=== PATIENT | male | born 1980 | race African-American/Black ===

== ENCOUNTER 2016-06-21 08:12 | Day surgery (SDC) | payer MEDICAID ==
[2016-06-18 11:51] LABS: HEMATOCRIT 33.1 % (37.9-51.0); HEMOGLOBIN 11.1 g/dL (13.5-17.0); HGB HCT DIFFERENCE 0.2; MEAN CORPUSCULAR HEMOGLOBIN 27.1 pg (27.0-33.4); MEAN CORPUSCULAR HGB CONC 33.6 g/dL (32.0-36.0); MEAN CORPUSCULAR VOLUME 81 fl (80-97); RED CELL DISTRIBUTION WIDTH 13.5 % (11.5-14.0); WHITE BLOOD COUNT 7.6 10^3/uL (4.0-10.5)
[2016-06-18 12:27] LABS: ANION GAP 11 (5-19); BLOOD UREA NITROGEN 58 mg/dL (7-20); CALCIUM 9.4 mg/dL (8.4-10.2); CARBON DIOXIDE 23 mmol/L (22-30); CHLORIDE 106 mmol/L (98-107); CREATININE RESULT 4.04 mg/dL (0.52-1.25); GLUCOSE 185 mg/dL (75-110); POTASSIUM 4.6 mmol/L (3.6-5.0)
--- NOTE | 2016-06-18 16:03 | EKG REPORT ---
SEVERITY:- ABNORMAL ECG - SINUS RHYTHM BORDERLINE INFERIOR Q WAVES NONSPECIFIC T ABNORMALITIES, LATERAL LEADS : Confirmed by: Domingo Lawrence 18-Jun-2016 16:02:52
[~2016-06-21 08:12] MED LIST: BACITRACIN INJ 50,000 UNIT VIAL ONE; BUPIVACAINE HCL 0.25 % INJ/PF (2.5 MG/1 ML) 30 ML VIAL ONE; CEFAZOLIN SODIUM 1 GM in DEXTROSE 5%-WATER 50 ML IV PRN; HEPARIN SOD (PORCINE) 1,000 UNIT/ML 10 ML VIAL ONE; LIDOCAINE 0.5% INJ-PF (5 MG/ML) 50 ML SDV ONE; LIDOCAINE 1% INJ-PF (10 MG/ML) 30 ML SDV ONE; NORMAL SALINE 1000 ML (RENAL PATIENTS) IV PRN
[2016-06-21] MEDS ORDERED: CEFAZOLIN INJ 1 GM VIAL ONE (08:26)
[2016-06-21 08:44] LABS: PROTHROMBIN TIME 11.7 SEC (11.4-15.4)
[2016-06-21 08:45] LABS: PARTIAL THROMBOPLASTIN TIME 30.7 SEC (23.5-35.8)
[2016-06-21] MEDS ORDERED: FENTANYL CITRATE INJ/PF 100 MCG/2 ML AMPUL ONE (09:57)
[2016-06-21] MEDS ORDERED: KETAMINE HCL INJ 500 MG/10 ML VIAL ONE (09:57)
[2016-06-21] MEDS ORDERED: MIDAZOLAM 2 MG/2 ML INJ ONE (09:57)
[2016-06-21] MEDS ORDERED: ACETAMINOPHEN 100 ML IV ONE (09:58)
[2016-06-21] MEDS ORDERED: PROPOFOL INJ 200 MG/20 ML VIAL IV ONE (09:58)
[2016-06-21] MEDS ORDERED: DEXMEDETOMIDINE INJ 80 MCG/20 ML VIAL IV ONE (09:58)
--- NOTE | 2016-06-21 11:55 | PDOC DISCHARGE SUMMARY ---
Discharge Summary (SDC) - Discharge Final Diagnosis: #1 chronic kidney disease stage IV. #2 tobacco use disorder. #3 history of stroke. #4 diabetes mellitus type II. #5 hypertension. Date of Surgery: 06/21/16 Discharge Date: 06/21/16 Condition: Good Treatment or Instructions: #1 activities within moderation encouraged. #2 follow up in my office by appointment in about 1 week. Call for appointment. #3 the wounds covered clean and dry until office visit. #4 hold off on school/work until evaluation in office. #5 may shower in 48 hours, keep operated area as dry as possible. #6 discharge from ambulatory when ASU criteria met. #7 medications per medication reconciliation sheet. #8 Percocet by prescription.. Also may have one Percocet up to every 2 hours when necessary for pain greater than 4 out of 10 while in the ASU Prescriptions: Oxycodone HCl/Acetaminophen [Percocet 5-325 mg Tablet] 1 tab PO ASDIR PRN #15 tab PRN Reason: Discharge Diet: Other (Comments) - Renal, ADA Respiratory Treatments at Home: Deep Breathing/Coughing Discharge Activity: Activity As Tolerated Report the Following to Your Physician Immediately: Unusual Bleeding
[2016-06-21] MEDS ORDERED: ONDANSETRON HCL INJ/PF 4 MG/2 ML SDV IV PRN (12:05)
[2016-06-21] MEDS ORDERED: DIPHENHYDRAMINE HCL 50 MG/ML VIAL IV PRN (12:05)
[2016-06-21] MEDS ORDERED: FENTANYL CITRATE INJ/PF 100 MCG/2 ML AMPUL IV PRN ×3 (12:05)
[2016-06-21] MEDS ORDERED: PROMETHAZINE HCL INJ 25 MG/1 ML VIAL IV PRN ×2 (12:05)
[2016-06-21] MEDS ORDERED: MORPHINE SULFATE 10 MG/ML INJ IV PRN (12:05)
[2016-06-21] MEDS ORDERED: MEPERIDINE HCL/PF INJ 25 MG/1 ML DISP.SYRIN IV PRN (12:05)
--- NOTE | 2016-06-21 12:16 | Operative Report ---
Operative Report DATE OF SURGERY: 06/21/16 PREOPERATIVE DIAGNOSIS: #1 chronic kidney disease stage IV. #2 tobacco use disorder. #3 history of stroke. #4 diabetes mellitus type II. #5 hypertension. POSTOPERATIVE DIAGNOSIS: #1 chronic kidney disease stage IV. #2 tobacco use disorder. #3 history of stroke. #4 diabetes mellitus type II. #5 hypertension. OPERATION: Insertion of left forearm radiocephalic fistula. SURGEON: DAJUAN PADILLA HEATING UNIT MECHANIC: none ANESTHESIA: LMAC TISSUE REMOVED OR ALTERED: Not applicable. COMPLICATIONS: None ESTIMATED BLOOD LOSS: 5 mL. INTRAOPERATIVE FINDINGS: Of an apparently suitable cephalic vein which accepted a 3.5 mm coronary dilator up to 15 cm. The adjacent radial artery was somewhat on the small side. There was good Doppler signal in the proximal and distal radial artery, proximally slurred, distally multiphasic and continuous in the fistula. Evaluated after the skin was closed. It did not proved possible to actually hear the fistula with an external stethoscope after dressings. To be evaluated in office. The anastomosis was satisfactory and vein to side artery. PROCEDURE: Operative Report PROCEDURE: After reviewing the procedure with the patient, he was taken to the operating room. The patient was sedated and the left upper extremity] prepared with chlorhexidine and draped out with sterile linen. After the "" universal timeout", in which it was verified that the patient [received IV antibiotics] the procedure commenced. The sterilely sheathed ultrasound probe was used to evaluate the left venous and arterial systems, pertinent to the previously done vein mapping. Local anesthesia was infiltrated and a longitudinal incision made over the distal forearm, over the most distal reasonable looking radial artery. Dissection proceeded through the subcutaneous tissues down to the radial artery. This was dissected out proximally and distally for about 2 cm. . Rubber loops were placed on either end. The cephalic vein was now dissected out for a distance of about 6 cm. The patient was given 2500 units of heparin intravenously. The cephalic vein was transected and irrigated with heparinized solution. The distal branches were clipped Coronary dilators were accepted [up to 3.5 mm]. The artery was controlled proximally and distally with rubber loops. The vein was transposed into the arterial incision using a tendon passer. An arteriotomy approximately 1.2 cm in length was made, the artery was irrigated proximally and distally with heparinized solution. The transected vein was now spatulated , it was then anastomosed end to end to side into the radial artery. This was done using a continuous suture of 6-0 Prolene. Controls of the fistula were now released and it was analyzed using a Doppler probe. Hemostasis was secured once optimal function was assured, the wound was irrigated with antibiotic containing solution and closed. Closure was done using interrupted 3 -0 PDS for the subcutaneous tissues. The skin was closed, in either wound, using a continuous subcutaneous suture of 4-0 Monocryl which was reinforced with Steri-Strips over benzoin. I then left the operative field and returned with a stethoscope covered with a sterile Tegaderm dressing. This allowed external auscultation of the fistula. Auscultation was not great but, given the robustness of the anastomosis it was accepted. The procedure was concluded by applying a Kerlix dressing over the surgical site. DICTATING PHYSICIAN: DAJUAN PRATT M.D.
[2016-06-21 13:59] VITALS: BP 147/98
[2016-06-21] MEDS ORDERED: LIDOCAINE 2% INJ-PF (20 MG/ML) 10 ML AMPUL ONE (14:35)
[2016-06-21] MEDS ORDERED: METOCLOPRAMIDE HCL INJ/PF 10 MG/2 ML SDV ONE (14:35)
[2016-06-21] MEDS ORDERED: ONDANSETRON HCL INJ/PF 4 MG/2 ML SDV ONE (14:35)
[2016-06-21] MEDS ORDERED: GLYCOPYRROLATE INJ 0.4 MG/2 ML VIAL ONE (14:35)
== END 2016-06-21 14:15 | disposition home or self-care (01) ==
LOC: OROUT 08:12
PROVIDERS: ATTEND Surgery
PROC: 05SF0ZZ Reposition Left Cephalic Vein, Open Approach (ICD-10-PCS; principal; 2016-06-21 10:00)
DX: E11.22 Type 2 diabetes mellitus with diabetic chronic kidney disease (principal); I12.9 Hypertensive chronic kidney disease with stage 1 through stage 4 chronic kidney disease, or unspecified chronic kidney disease; N18.4 Chronic kidney disease, stage 4 (severe); E78.00 Pure hypercholesterolemia, unspecified; G62.9 Polyneuropathy, unspecified; E89.0 Postprocedural hypothyroidism; Z85.850 Personal history of malignant neoplasm of thyroid; F17.210 Nicotine dependence, cigarettes, uncomplicated; E66.9 Obesity, unspecified; Z86.73 Personal history of transient ischemic attack (TIA), and cerebral infarction without residual deficits; Z79.899 Other long term (current) drug therapy; Z79.82 Long term (current) use of aspirin; Z79.01 Long term (current) use of anticoagulants; Z68.41 Body mass index [BMI] 40.0-44.9, adult
CPT/HCPCS: 93005; 36415 ×2; 82962; 84100; 84132; 85027; 85610; 85730; 80048; 93010; 36821; J2250; J3490 ×7; J0690; J1644; J2765; J2405; S0020; J2704; J0131; 1844; J3010

== ENCOUNTER 2016-06-22 09:04 | Emergency (ER) | payer MEDICAID ==
[2016-06-22] MEDS ORDERED: ONDANSETRON 4 MG TAB.RAPDIS PO ONE (09:35)
[2016-06-22 10:19] LABS: ABSOLUTE LYMPHOCYTES (AUTO) 1.4 10^3/uL (0.5-4.7); ABSOLUTE MONOCYTES (AUTO) 0.4 10^3/uL (0.1-1.4); ABSOLUTE NEUT (AUTO) 9.2 10^3/uL (1.7-8.2); BASOPHILS % (AUTO) 0.4 % (0-2); EOSINOPHILS % (AUTO) 0.1 % (0-6); HEMATOCRIT 34.5 % (37.9-51.0); HEMOGLOBIN 11.5 g/dL (13.5-17.0); LYMPHOCYTES % (AUTO) 12.7 % (13-45); MEAN CORPUSCULAR HEMOGLOBIN 26.8 pg (27.0-33.4); MEAN CORPUSCULAR HGB CONC 33.3 g/dL (32.0-36.0); MEAN CORPUSCULAR VOLUME 80 fl (80-97); MONOCYTES % (AUTO) 3.7 % (3-13); RED BLOOD COUNT 4.29 10^6/uL (4.35-5.55); SEGMENTED NEUTROPHILS % (AUTO) 83.1 % (42-78)
[2016-06-22 10:26] LABS: APPEARANCE,URINE SLIGHTLY-CLOUDY; BILIRUBIN,URINE NEGATIVE (NEGATIVE); GLUCOSE, URINE >=500 mg/dL (NEGATIVE); KETONES,URINE TRACE mg/dL (NEGATIVE); LEUKOCYTE ESTERASE,URINE NEGATIVE (NEGATIVE); NITRITE,URINE NEGATIVE (NEGATIVE); PROTEIN,URINE >=500 mg/dL (NEGATIVE); URINE SPECIFIC GRAVITY 1.021; UROBILINOGEN,URINE NEGATIVE mg/dL (<2.0)
--- NOTE | 2016-06-22 10:31 | ER Document Report ---
ED Medical Screen (RME) - General Chief Complaint: Nausea/Vomiting Stated Complaint: POST OP COMPLICATIONS Information source: Patient Notes: Patient states he had a dialysis catheter placed yesterday to his left upper extremity. Patient does not currently dialyzed but is planning to in the next several months. Patient complains of nausea, vomiting and abdominal pain that started yesterday. Patient reports vomiting 6 times today. No fever, no diarrhea. Patient has pain generalized to his abdomen. hx: Hypertension, diabetes, dyslipidemia I have greeted and performed a rapid initial assessment of this patient. A comprehensive ED assessment and evaluation of the patient, analysis of test results and completion of the medical decision making process will be conducted by additional ED providers. TRAVEL OUTSIDE OF THE [place] IN LAST 30 DAYS: No - Related Data Allergies/Adverse Reactions: pork derived (porcine) [Pork derived (porcine)] Allergy (Verified 06/22/16 09:13 ) Past Medical History - Past Medical History Cardiac Medical History: Reports: Hx Hypercholesterolemia, Hx Hypertension Denies: Hx Congestive Heart Failure, Hx Coronary Artery Disease, Hx DVT, Hx Heart Attack, Hx Pulmonary Embolism Pulmonary Medical History: Reports: Hx Pneumonia Denies: Hx Asthma, Hx Bronchitis, Hx COPD Neurological Medical History: Denies: Hx Cerebrovascular Accident, Hx Seizures Endocrine Medical History: Reports: Hx Diabetes Mellitus Type 1, Hx Diabetes Mellitus Type 2 - On insulin pump. Denies: Hx Hyperthyroidism, Hx Hypothyroidism Renal/ Medical History: Denies: Hx Peritoneal Dialysis GI Medical History: Reports: Hx Gastroesophageal Reflux Disease. Denies: Hx Cirrhosis, Hx Hepatitis Musculoskeltal Medical History: Denies Hx Arthritis, Reports Hx Musculoskeletal Trauma Skin Medical History: Denies Hx Eczema, Denies Hx Psoriasis Psychiatric Medical History: Reports: Hx Depression Traumatic Medical History: Reports: Hx Fractures Infectious Medical History: Reports: Hx MRSA - S/P I & D multiple skin abscesses in past. Denies: Hx Hepatitis Past Surgical History: Reports: Hx Oral Surgery, Hx Thyroid Surgery - Partial thyroidectomy per patient - Immunizations Hx Diphtheria, Pertussis, Tetanus Vaccination: No Physical Exam - Vital signs Vitals: Temp Pulse Resp BP Pulse Ox 98.2 F 91 20 179/100 H 98 06/22/16 09:22 06/22/16 09:22 06/22/16 09:22 06/22/16 09:22 06/22/16 09:22 - Abdominal Tenderness: Tender - Generalized abdomen Course - Vital Signs Vital signs: Temp Pulse Resp BP Pulse Ox 98.2 F 91 20 179/100 H 98 06/22/16 09:22 06/22/16 09:22 06/22/16 09:22 06/22/16 09:22 06/22/16 09:22 - Laboratory Result Diagrams: 06/22/16 09:55 06/22/16 09:55 Laboratory results interpreted by me: 06/22/16 06/22/16 09:55 09:55 WBC 11.0 H RBC 4.29 L Hgb 11.5 L Hct 34.5 L MCH 26.8 L Seg Neutrophils % 83.1 H Lymphocytes % 12.7 L Absolute Neutrophils 9.2 H Urine Protein >=500 H Urine Glucose (UA) >=500 H Urine Ketones TRACE H Urine Blood SMALL H
[2016-06-22 10:37] LABS: ALANINE AMINOTRANSFERASE 47 U/L (21-72); ALBUMIN 3.9 g/dL (3.5-5.0); ALKALINE PHOSPHATASE 72 U/L (38-126); ANION GAP 13 (5-19); ASPARTATE AMINO TRANSFERASE 30 U/L (17-59); BILIRUBIN,TOTAL 0.4 mg/dL (0.2-1.3); BLOOD UREA NITROGEN 51 mg/dL (7-20); CALCIUM 9.6 mg/dL (8.4-10.2); CARBON DIOXIDE 23 mmol/L (22-30); CHLORIDE 109 mmol/L (98-107); CREATININE RESULT 4.29 mg/dL (0.52-1.25); GLUCOSE 225 mg/dL (75-110); POTASSIUM 4.8 mmol/L (3.6-5.0); SODIUM 145.2 mmol/L (137-145); TOTAL PROTEIN 7.2 g/dL (6.3-8.2)
[2016-06-22] MEDS ORDERED: MORPHINE SULFATE 10 MG/ML INJ IV ONE ×2 (11:45→13:00)
--- NOTE | 2016-06-22 11:45 | ER Document Report ---
ED GI/ - General Chief Complaint: Nausea/Vomiting Stated Complaint: POST OP COMPLICATIONS Time seen by provider: 11:45 Mode of Arrival: Ambulatory Information source: Patient Notes: 35 yo diabetic, htn, male had dialysis A-V fistula (not using yet) placed in left forearm yesterday by Dr. Carmen Gunderson started vomiting prior to leaving outpt surgery. He continued during the night despite zofran. Has insulin pump and glucose has been fairly decent. No diarrhea. Some generalized abdominal pain. No fever. No arm pain, No chest pain or sob. TRAVEL OUTSIDE OF THE [place] IN LAST 30 DAYS: No - Related Data Allergies/Adverse Reactions: pork derived (porcine) [Pork derived (porcine)] Allergy (Verified 06/22/16 09:13 ) Past Medical History - General Information source: Patient - Social History Smoking Status: Unknown if Ever Smoked Frequency of alcohol use: None Drug Abuse: None Lives with: Spouse/Significant other Family History: Arthritis, CAD, CVA, DM, Hyperlipidemia, Hypertension, Thyroid Disfunction, Other - Chronic kidney disease Patient has suicidal ideation: No Patient has homicidal ideation: No - Past Medical History Cardiac Medical History: Reports: Hx Hypercholesterolemia, Hx Hypertension Pulmonary Medical History: Reports: Hx Pneumonia Endocrine Medical History: Reports: Hx Diabetes Mellitus Type 2 - On insulin pump Renal/ Medical History: Reports: Hx Renal Insufficiency - normal creatinins 3 to 4 now.. Denies: Hx Peritoneal Dialysis GI Medical History: Reports: Hx Gastroesophageal Reflux Disease Musculoskeltal Medical History: Reports Hx Musculoskeletal Trauma Psychiatric Medical History: Reports: Hx Depression Traumatic Medical History: Reports: Hx Fractures Past Surgical History: Reports: Hx Oral Surgery, Hx Thyroid Surgery - Partial thyroidectomy per patient - Immunizations Hx Diphtheria, Pertussis, Tetanus Vaccination: No Review of Systems - Review of Systems Constitutional: No symptoms reported EENT: No symptoms reported Cardiovascular: No symptoms reported Respiratory: No symptoms reported Gastrointestinal: See HPI Genitourinary: No symptoms reported Male Genitourinary: No symptoms reported Musculoskeletal: No symptoms reported Skin: No symptoms reported Hematologic/Lymphatic: No symptoms reported Neurological/Psychological: No symptoms reported Physical Exam - Vital signs Vitals: Temp Pulse Resp BP Pulse Ox 98.2 F 91 20 179/100 H 98 06/22/16 09:22 06/22/16 09:22 06/22/16 09:22 06/22/16 09:22 06/22/16 09:22 Interpretation: Hypertensive - General General appearance: Appears well, Alert In distress: None - HEENT Head: Normocephalic, Atraumatic Eyes: Normal Conjunctiva: Normal Pupils: PERRL Tympanic membrane: Normal Mouth/Lips: Normal Mucous membranes: Dry Pharynx: Normal Neck: Supple. No: Lymphadenopathy - Respiratory Respiratory status: No respiratory distress Chest status: Nontender Breath sounds: Normal Chest palpation: Normal - Cardiovascular Rhythm: Regular Heart sounds: Normal auscultation Murmur: No - Abdominal Inspection: Normal Distension: No distension Bowel sounds: Normal Tenderness: Nontender. No: Tender Organomegaly: No organomegaly. No: Hepatomegaly, Splenomegaly - Back Back: Normal, Nontender. No: CVA tenderness - Extremities General upper extremity: Normal inspection, Nontender, Normal color, Normal ROM , Normal temperature General lower extremity: Normal inspection, Nontender, Normal color, Normal ROM , Normal temperature, Normal weight bearing. No: Ellis's sign Forearm: Nontender - tegeaderm over the AV fistual surgery - Neurological Neuro grossly intact: Yes Cognition: Normal Orientation: AAOx4 Boyd Coma Scale Eye Opening: Spontaneous Boyd Coma Scale Verbal: Oriented George Coma Scale Motor: Obeys Commands George Coma Scale Total: 15 Speech: Normal Motor strength normal: LUE, RUE, LLE, RLE Sensory: Normal - Psychological Associated symptoms: Normal affect, Normal mood - Skin Skin Temperature: Warm Skin Moisture: Dry Skin Color: Normal Skin irregularity: negative: Rash Course - Re-evaluation Re-evalutation: 06/22/16 14:27 I have consulted with the supervisory physician per [facility] Guidelines., dr [email or web address]. Pt ok to go home with plan. - Vital Signs Vital signs: Temp Pulse Resp BP Pulse Ox 98 F 87 16 179/100 H 98 06/22/16 15:08 06/22/16 15:08 06/22/16 15:08 06/22/16 15:08 06/22/16 15:08 - Laboratory Result Diagrams: 06/22/16 09:55 06/22/16 09:55 Laboratory results interpreted by me: 06/22/16 06/22/16 06/22/16 09:55 09:55 09:55 WBC 11.0 H RBC 4.29 L Hgb 11.5 L Hct 34.5 L MCH 26.8 L Seg Neutrophils % 83.1 H Lymphocytes % 12.7 L Absolute Neutrophils 9.2 H Sodium 145.2 H Chloride 109 H BUN 51 H Creatinine 4.29 H Est GFR ( Amer) 19 L Est GFR (Non-Af Amer) 16 L Glucose 225 H Lipase Urine Protein >=500 H Urine Glucose (UA) >=500 H Urine Ketones TRACE H Urine Blood SMALL H 06/22/16 09:55 WBC RBC Hgb Hct MCH Seg Neutrophils % Lymphocytes % Absolute Neutrophils Sodium Chloride BUN Creatinine Est GFR ( Amer) Est GFR (Non-Af Amer) Glucose Lipase 363.5 H Urine Protein Urine Glucose (UA) Urine Ketones Urine Blood Discharge - Discharge Clinical Impression: Renal insufficiency Nausea and vomiting Qualifiers: Vomiting type: bilious vomiting Qualified Code(s): R11.14 - Bilious vomiting Hypertension Qualifiers: Hypertension type: essential hypertension Qualified Code(s): I10 - Essential ( primary) hypertension Condition: Good Disposition: HOME, SELF-CARE Instructions: Intravenous (IV) Fluids ([facility]), Vomiting ([facility]), Reglan ([facility]), Antinausea Medication ([facility]), Use of Diphenhydramine Additional Instructions: to er if worse follow your glucoses carefully today copy of labs given to you Prescriptions: Ondansetron HCl [Zofran 4 mg Tablet] 1 - 2 tab PO Q4H PRN #30 tablet PRN Reason: Referrals: JOSEFINA ERICKSON MD [ACTIVE STAFF] - Follow up tomorrow
[2016-06-22] MEDS ORDERED: ONDANSETRON HCL INJ/PF 4 MG/2 ML SDV IV ONE ×2 (11:53→13:00)
[2016-06-22] MEDS ORDERED: METOCLOPRAMIDE HCL INJ/PF 10 MG/2 ML SDV IV ONE (11:54)
[2016-06-22] MEDS ORDERED: DIPHENHYDRAMINE HCL 50 MG/ML VIAL IV ONE (11:54)
[2016-06-22] MEDS ORDERED: NORMAL SALINE 1000 ML 1,000 ML IV ONE (11:55)
[2016-06-22 15:09] VITALS: BP 179/100
== END 2016-06-22 14:37 | disposition home or self-care (01) ==
LOC: ER 09:04
DX: N28.9 Disorder of kidney and ureter, unspecified (principal); R11.14 Bilious vomiting; I10 Essential (primary) hypertension; R11.2 Nausea with vomiting, unspecified; E11.9 Type 2 diabetes mellitus without complications; Z99.2 Dependence on renal dialysis; R10.9 Unspecified abdominal pain
CPT/HCPCS: 99284; 96361; 96374; 96375; 36415; 83690; 85025; 80053; 81001; J1200; S0119; J2765; J7030

== ENCOUNTER → 2016-08-24 | Outpatient (CLI) | payer MEDICAID ==
[2016-08-24 16:48] LABS: ANION GAP 12 (5-19); BLOOD UREA NITROGEN 51 mg/dL (7-20); CARBON DIOXIDE 23 mmol/L (22-30); CHLORIDE 104 mmol/L (98-107); CREATININE RESULT 4.19 mg/dL (0.52-1.25); GLUCOSE 323 mg/dL (75-110); PHOSPHORUS 4.6 mg/dL (2.5-4.5); POTASSIUM 4.2 mmol/L (3.6-5.0); SODIUM 139.4 mmol/L (137-145)
[2016-08-26 07:34] LABS: VITAMIN D 25-HYDROXY 5.3 ng/mL (30.0-100.0)
== END ==
LOC: LAB 15:54
PROVIDERS: ATTEND Internal Medicine Nephrology
DX: N18.4 Chronic kidney disease, stage 4 (severe) (principal); R80.9 Proteinuria, unspecified; E55.9 Vitamin D deficiency, unspecified; N25.81 Secondary hyperparathyroidism of renal origin
CPT/HCPCS: 80048; 82306; 82570; 83970; 84100; 84156

== ENCOUNTER 2016-09-26 12:43 | Emergency (ER) | payer MEDICAID ==
--- NOTE | 2016-09-26 13:01 | ER Document Report ---
ED Medical Screen (RME) - General Chief Complaint: Abscess Stated Complaint: ABSCESS Time Seen by Provider: 09/26/16 13:00 TRAVEL OUTSIDE OF THE [place] IN LAST 30 DAYS: No - HPI Patient complains to provider of: abscess Notes: 09/26/16 13:00 Patient coming in with erythema redness and tenderness to the abdominal wall where he had a previous insulin pump - Related Data Allergies/Adverse Reactions: pork derived (porcine) [Pork derived (porcine)] Allergy (Verified 09/26/16 12:57 ) Past Medical History - Past Medical History Cardiac Medical History: Reports: Hx Hypercholesterolemia, Hx Hypertension Denies: Hx Congestive Heart Failure, Hx Coronary Artery Disease, Hx DVT, Hx Heart Attack, Hx Pulmonary Embolism Pulmonary Medical History: Reports: Hx Pneumonia Denies: Hx Asthma, Hx Bronchitis, Hx COPD Neurological Medical History: Denies: Hx Cerebrovascular Accident, Hx Seizures Endocrine Medical History: Reports: Hx Diabetes Mellitus Type 1, Hx Diabetes Mellitus Type 2 - On insulin pump. Denies: Hx Hyperthyroidism, Hx Hypothyroidism Renal/ Medical History: Reports: Hx Renal Insufficiency - normal creatinins 3 to 4 now.. Denies: Hx Peritoneal Dialysis GI Medical History: Reports: Hx Gastroesophageal Reflux Disease. Denies: Hx Cirrhosis, Hx Hepatitis Musculoskeltal Medical History: Denies Hx Arthritis, Reports Hx Musculoskeletal Trauma Skin Medical History: Denies Hx Eczema, Denies Hx Psoriasis Psychiatric Medical History: Reports: Hx Depression Traumatic Medical History: Reports: Hx Fractures Infectious Medical History: Reports: Hx MRSA - S/P I & D multiple skin abscesses in past. Denies: Hx Hepatitis Past Surgical History: Reports: Hx Oral Surgery, Hx Thyroid Surgery - Partial thyroidectomy per patient - Immunizations Hx Diphtheria, Pertussis, Tetanus Vaccination: No Review of Systems - Review of Systems Skin: Other - Abscess Physical Exam - Vital signs Vitals: Temp Pulse Resp BP Pulse Ox 99 F 98 19 142/92 H 98 09/26/16 12:47 09/26/16 12:47 09/26/16 12:47 09/26/16 12:47 09/26/16 12:47 - Abdominal Notes: Possibly developing cellulitis or abscess of the abdominal wall Course - Re-evaluation Re-evalutation: 09/26/16 13:01 I have greeted and performed a rapid initial assessment of this patient. A comprehensive ED assessment and evaluation of the patient, analysis of test results and completion of the medical decision making process will be conducted by additional ED providers. - Vital Signs Vital signs: Temp Pulse Resp BP Pulse Ox 99 F 98 19 142/92 H 98 09/26/16 12:47 09/26/16 12:47 09/26/16 12:47 09/26/16 12:47 09/26/16 12:47
[2016-09-26] MEDS ORDERED: CEPHALEXIN 500 MG CAPSULE PO ONE (13:30)
[2016-09-26] MEDS ORDERED: SULFAMETHOXAZOLE/TRIMETHOPRIM 800-160 MG TABLET PO ONE (13:30)
--- NOTE | 2016-09-26 13:33 | ER Document Report ---
HPI - HPI Patient complains to provider of: abdominal tenderness Onset: Other - 4 days Onset/Duration: Worse Quality of pain: Achy Pain Level: 4 Context: Patient states that he started to develop some abdominal tenderness at the site where his insulin pump was infusing to his abdomen. Patient denies any fever. Patient worried that he has developed an infection from his needle of his insulin pump. Patient does report a previous history of MRSA with abscesses in the past. Associated Symptoms: Other - Abdominal tenderness. denies: Fever Exacerbated by: Denies Relieved by: Denies Similar symptoms previously: Yes Recently seen / treated by doctor: No - ROS ROS below otherwise negative: Yes Systems Reviewed and Negative: Yes All other systems reviewed and negative - CONSTITUTIONAL Constitutional: DENIES: Fever, Chills - CARDIOVASCULAR Cardiovascular: DENIES: Chest pain - GASTROINTESTINAL Gastrointestinal: REPORTS: Abdominal Pain. DENIES: Nausea, Patient vomiting - DERM Skin Color: Erythema Past Medical History - General Information source: Patient - Social History Smoking Status: Never Smoker Chew tobacco use (# tins/day): No Frequency of alcohol use: Occasional Drug Abuse: None Occupation: none Lives with: Family Family History: Arthritis, CAD, CVA, DM, Hyperlipidemia, Hypertension, Thyroid Disfunction, Other - Chronic kidney disease - Past Medical History Cardiac Medical History: Reports: Hx Hypercholesterolemia, Hx Hypertension Denies: Hx Congestive Heart Failure, Hx Coronary Artery Disease, Hx DVT, Hx Heart Attack, Hx Pulmonary Embolism Pulmonary Medical History: Reports: Hx Pneumonia Denies: Hx Asthma, Hx Bronchitis, Hx COPD Neurological Medical History: Denies: Hx Cerebrovascular Accident, Hx Seizures Endocrine Medical History: Reports: Hx Diabetes Mellitus Type 1, Hx Diabetes Mellitus Type 2 - On insulin pump. Denies: Hx Hyperthyroidism, Hx Hypothyroidism Renal/ Medical History: Reports: Hx Renal Insufficiency - normal creatinins 3 to 4 now.. Denies: Hx Peritoneal Dialysis GI Medical History: Reports: Hx Gastroesophageal Reflux Disease. Denies: Hx Cirrhosis, Hx Hepatitis Musculoskeltal Medical History: Denies Hx Arthritis, Reports Hx Musculoskeletal Trauma Skin Medical History: Denies Hx Eczema, Denies Hx Psoriasis Psychiatric Medical History: Reports: Hx Depression Traumatic Medical History: Reports: Hx Fractures Infectious Medical History: Reports: Hx MRSA - S/P I & D multiple skin abscesses in past. Denies: Hx Hepatitis Past Surgical History: Reports: Hx Oral Surgery, Hx Thyroid Surgery - Partial thyroidectomy per patient - Immunizations Hx Diphtheria, Pertussis, Tetanus Vaccination: No Vertical Provider Document - CONSTITUTIONAL Agree With Documented VS: Yes Exam Limitations: No Limitations General Appearance: WD/WN, No Apparent Distress - INFECTION CONTROL TRAVEL OUTSIDE OF THE [place] IN LAST 30 DAYS: No - HEENT HEENT: Atraumatic, Normocephalic - NECK Neck: Normal Inspection, Supple - RESPIRATORY Respiratory: Breath Sounds Normal, No Respiratory Distress O2 Sat by Pulse Oximetry: 98 - CARDIOVASCULAR Cardiovascular: Regular Rate, Regular Rhythm, No Murmur - GI/ABDOMEN Gastrointestinal: Abdomen Soft, Abdomen Tender - Mild tenderness to left lower abdomen with a tender indurated central area that measures about 2 cm diameter. Skin overlying area erythematous concerning for cellulitis, no fluctuance - BACK Back: Normal Inspection - MUSCULOSKELETAL/EXTREMETIES Musculoskeletal/Extremeties: MARBELLA CARLOS - NEURO Level of Consciousness: Awake, Alert, Appropriate Motor/Sensory: No Motor Deficit - DERM Integumentary: Warm, Dry. negative: Abscess Adult Front & Back Diagram: 1 - Cellulitis, skin erythema with a tender indurated area measuring about 2 cm Course - Re-evaluation Re-evalutation: 09/26/16 13:30 Dr. Albright [facility] for ultrasound imaging, no drainable abscess, agrees with plan to treat for cellulitis. 09/26/16 13:32 The patient has been informed that they may have pre-hypertension or hypertension based on a blood pressure reading in the emergency department. I recommend that patient call the primary care provider listed on their discharge instructions or a physician of their choice by this week to arrange follow-up for further evaluation of possible pre-hypertension her hypertension. - Vital Signs Vital signs: Temp Pulse Resp BP Pulse Ox 99 F 98 19 142/92 H 98 09/26/16 12:47 09/26/16 12:47 09/26/16 12:47 09/26/16 12:47 09/26/16 12:47 Discharge - Discharge Clinical Impression: Cellulitis Qualifiers: Site of cellulitis: trunk Site of cellulitis of trunk: abdominal wall Qualified Code(s): L03.311 - Cellulitis of abdominal wall Hypertension Qualifiers: Hypertension type: essential hypertension Qualified Code(s): I10 - Essential ( primary) hypertension Condition: Stable Disposition: HOME, SELF-CARE Instructions: Trimethoprim-Sulfa ([facility]), Cephalexin ([facility]), Cellulitis ([facility]) Additional Instructions: Return immediately for any new or worsening symptoms Followup with your primary care provider, call tomorrow to make a followup appointment Prescriptions: Cephalexin Monohydrate [Keflex 500 mg Capsule] 500 mg PO Q6H 5 Days Sulfamethoxazole/Trimethoprim [Bactrim Ds Tablet] 1 each PO BID #20 tablet Forms: Elevated Blood Pressure Referrals: KARELY SEAY DO [Primary Care Provider] - Follow up as needed
[2016-09-26 13:43] VITALS: BP 145/88
== END 2016-09-26 15:30 | disposition home or self-care (01) ==
LOC: ER 12:43
DX: L03.311 Cellulitis of abdominal wall (principal); E11.9 Type 2 diabetes mellitus without complications; Z79.4 Long term (current) use of insulin; Z96.41 Presence of insulin pump (external) (internal); Z86.14 Personal history of Methicillin resistant Staphylococcus aureus infection; I10 Essential (primary) hypertension
CPT/HCPCS: 99282; J3490

== ENCOUNTER → 2016-10-18 | Outpatient (CLI) | payer MEDICAID ==
[2016-10-18 08:56] LABS: ABSOLUTE EOSINOPHILS # (AUTO) 0.2 10^3/uL (0.0-0.6); ABSOLUTE LYMPHOCYTES (AUTO) 2.9 10^3/uL (0.5-4.7); ABSOLUTE MONOCYTES (AUTO) 0.7 10^3/uL (0.1-1.4); ABSOLUTE NEUT (AUTO) 3.1 10^3/uL (1.7-8.2); BASOPHILS % (AUTO) 0.2 % (0-2); HEMATOCRIT 31.9 % (37.9-51.0); HEMOGLOBIN 10.3 g/dL (13.5-17.0); LYMPHOCYTES % (AUTO) 42.1 % (13-45); MEAN CORPUSCULAR HEMOGLOBIN 26.4 pg (27.0-33.4); MEAN CORPUSCULAR HGB CONC 32.2 g/dL (32.0-36.0); MEAN CORPUSCULAR VOLUME 82 fl (80-97); MONOCYTES % (AUTO) 9.7 % (3-13); RED BLOOD COUNT 3.89 10^6/uL (4.35-5.55); RED CELL DISTRIBUTION WIDTH 13.5 % (11.5-14.0); WHITE BLOOD COUNT 6.8 10^3/uL (4.0-10.5)
[2016-10-18 09:19] LABS: ANION GAP 12 (5-19); BLOOD UREA NITROGEN 52 mg/dL (7-20); CALCIUM 8.9 mg/dL (8.4-10.2); CARBON DIOXIDE 21 mmol/L (22-30); CHLORIDE 109 mmol/L (98-107); CREATININE RESULT 4.77 mg/dL (0.52-1.25); GLUCOSE 163 mg/dL (75-110); POTASSIUM 4.1 mmol/L (3.6-5.0); SODIUM 142.2 mmol/L (137-145)
[2016-10-18 09:20] LABS: URINE CREATININE 81.6 mg/dL (24-392)
[2016-10-18 09:46] LABS: URINE PROTEIN 1149.9 mg/dL (<12)
[2016-10-19 07:04] LABS: VITAMIN D 25-HYDROXY 8.7 ng/mL (30.0-100.0)
== END ==
LOC: LAB 08:22
PROVIDERS: ATTEND Internal Medicine Nephrology
DX: N18.4 Chronic kidney disease, stage 4 (severe) (principal); R80.9 Proteinuria, unspecified; E55.9 Vitamin D deficiency, unspecified; N25.81 Secondary hyperparathyroidism of renal origin
CPT/HCPCS: 36415; 80048; 82306; 82570; 83970; 84156; 85025

== ENCOUNTER → 2017-01-25 | Outpatient (CLI) | payer MEDICAID ==
[2017-01-25 15:30] LABS: ABSOLUTE EOSINOPHILS # (AUTO) 0.1 10^3/uL (0.0-0.6); ABSOLUTE LYMPHOCYTES (AUTO) 2.3 10^3/uL (0.5-4.7); ABSOLUTE MONOCYTES (AUTO) 0.5 10^3/uL (0.1-1.4); ABSOLUTE NEUT (AUTO) 3.9 10^3/uL (1.7-8.2); BASOPHILS % (AUTO) 0.2 % (0-2); HEMATOCRIT 33.4 % (37.9-51.0); HGB HCT DIFFERENCE -0.4; LYMPHOCYTES % (AUTO) 33.3 % (13-45); MEAN CORPUSCULAR HEMOGLOBIN 27.4 pg (27.0-33.4); MEAN CORPUSCULAR VOLUME 83 fl (80-97); MONOCYTES % (AUTO) 7.8 % (3-13); RED BLOOD COUNT 4.04 10^6/uL (4.35-5.55); RED CELL DISTRIBUTION WIDTH 13.9 % (11.5-14.0); SEGMENTED NEUTROPHILS % (AUTO) 56.7 % (42-78); WHITE BLOOD COUNT 6.8 10^3/uL (4.0-10.5)
[2017-01-25 15:37] LABS: APPEARANCE,URINE CLEAR; BILIRUBIN,URINE NEGATIVE (NEGATIVE); GLUCOSE, URINE >=500 mg/dL (NEGATIVE); KETONES,URINE NEGATIVE (NEGATIVE); LEUKOCYTE ESTERASE,URINE NEGATIVE (NEGATIVE); NITRITE,URINE NEGATIVE (NEGATIVE); PROTEIN,URINE >=500 mg/dL (NEGATIVE); URINE SPECIFIC GRAVITY 1.009; UROBILINOGEN,URINE NEGATIVE mg/dL (<2.0)
[2017-01-25 15:53] LABS: URINE CREATININE 52.2 mg/dL (24-392)
[2017-01-25 15:56] LABS: ALBUMIN 3.5 g/dL (3.5-5.0); ANION GAP 13 (5-19); BLOOD UREA NITROGEN 57 mg/dL (7-20); CARBON DIOXIDE 22 mmol/L (22-30); CHLORIDE 102 mmol/L (98-107); PHOSPHORUS 4.9 mg/dL (2.5-4.5); POTASSIUM 4.2 mmol/L (3.6-5.0)
[2017-01-25 16:14] LABS: GLUCOSE 432 mg/dL (75-110)
[2017-01-27 07:07] LABS: VITAMIN D 25-HYDROXY 7.7 ng/mL (30.0-100.0)
== END ==
LOC: LAB 15:06
PROVIDERS: ATTEND Internal Medicine Nephrology
DX: N18.5 Chronic kidney disease, stage 5 (principal); D63.1 Anemia in chronic kidney disease; E55.9 Vitamin D deficiency, unspecified; N25.81 Secondary hyperparathyroidism of renal origin
CPT/HCPCS: 36415; 80048; 81001; 82040; 82306; 82570; 82728; 83540; 83550; 83970; 84100; 84156; 85025

== ENCOUNTER 2017-03-25 19:24 | Emergency (ER) | payer MEDICAID ==
[2017-03-25] MEDS ORDERED: LIDOCAINE 4%/TETRACAINE 0.5%/EPI 0.18% 5 ML TOPICAL SOLN TOP ONE (21:50)
[2017-03-25] MEDS ORDERED: LIDOCAINE 1% INJ-PF (10 MG/ML) 30 ML SDV INJ ONE (21:51)
--- NOTE | 2017-03-25 22:34 | ER Document Report ---
ED Hand/Wrist Injury - General Chief Complaint: Abrasion(s) Stated Complaint: RIGHT HAND INJURY Time Seen by Provider: 03/25/17 21:39 Mode of Arrival: Ambulatory Information source: Patient Notes: 36-year-old male presents to ED for complaint of laceration to the right palm after he picked up a jar at the grocery store and the piece of plastic cut his hand.. The patient has a Band-Aid on the palm of his hand and there is some blood on the Band-Aid but the laceration is less than a half a centimeter long and very superficial. Patient is allergic to pork and cannot get a tetanus shot. He would cut this on a plastic and is not really a risk that he needs the tetanus shot at this time. Patient does have a history of blood pressure cholesterol diabetes neuropathy and stage IV kidney disease. He has a history of previous thyroid cancer with his thyroid removed. TRAVEL OUTSIDE OF THE [place] IN LAST 30 DAYS: No - HPI Injury to: Hand Onset: Just prior to arrival Where: Public place Quality of pain: Burning - States the abrasion crews when the Band-Aid is removed and it is worse with soap and water Severity: Moderate Pain Level: 3 Context: Laceration - Related Data Allergies/Adverse Reactions: pork derived (porcine) [Pork derived (porcine)] Allergy (Verified 03/25/17 20:06 ) Past Medical History - General Information source: Patient - Social History Smoking Status: Former Smoker Cigarette use (# per day): No Chew tobacco use (# tins/day): No Smoking Education Provided: No Frequency of alcohol use: Rare Drug Abuse: None Lives with: Spouse/Significant other Family History: Arthritis, CAD, CVA, DM, Hyperlipidemia, Hypertension, Malignancy, Thyroid Disfunction, Other - Chronic kidney disease. denies: COPD Patient has suicidal ideation: No Patient has homicidal ideation: No - Past Medical History Cardiac Medical History: Reports: Hx Hypercholesterolemia, Hx Hypertension Pulmonary Medical History: Reports: Hx Pneumonia EENT Medical History: Reports: None Neurological Medical History: Reports: Hx Cerebrovascular Accident - TIA, Hx Migraine. Denies: Hx Seizures Endocrine Medical History: Reports: Hx Diabetes Mellitus Type 2 - On insulin pump Renal/ Medical History: Reports: Hx End Stage Renal Disease - Stage IV renal failure, Hx Renal Insufficiency - normal creatinins 3 to 4 now. Malignancy Medical History: Reports Other - Thyroid GI Medical History: Reports: Hx Gastroesophageal Reflux Disease Musculoskeltal Medical History: Reports Hx Arthritis, Reports Hx Musculoskeletal Trauma Skin Medical History: Reports Hx Cellulitis, Reports Hx MRSA Psychiatric Medical History: Reports: Hx Depression Traumatic Medical History: Reports: None Infectious Medical History: Reports: Hx MRSA - S/P I & D multiple skin abscesses in past Past Surgical History: Reports: Hx Oral Surgery, Hx Thyroid Surgery - Patient states that would removed due to cancer, Hx Vascular Surgery - Fistula for dialysis has not started dialysis yet - Immunizations Hx Diphtheria, Pertussis, Tetanus Vaccination: No Review of Systems - Review of Systems Constitutional: No symptoms reported EENT: No symptoms reported Cardiovascular: No symptoms reported Respiratory: No symptoms reported Gastrointestinal: No symptoms reported Genitourinary: No symptoms reported Male Genitourinary: No symptoms reported Musculoskeletal: No symptoms reported Skin: Other - Less than one half a centimeter laceration/abrasion to the palm of the right hand Hematologic/Lymphatic: No symptoms reported Neurological/Psychological: No symptoms reported -: Yes All other systems reviewed and negative Physical Exam - Vital signs Vitals: Temp Pulse Resp BP Pulse Ox 98.7 F 74 18 169/99 H 96 03/25/17 20:00 03/25/17 20:00 03/25/17 20:00 03/25/17 20:00 03/25/17 20:00 Interpretation: Normal - General General appearance: Appears well, Alert - HEENT Head: Normocephalic, Atraumatic Eyes: Normal Pupils: PERRL - Respiratory Respiratory status: No respiratory distress Chest status: Nontender Breath sounds: Normal Chest palpation: Normal - Cardiovascular Rhythm: Regular Heart sounds: Normal auscultation Murmur: No - Abdominal Inspection: Normal Distension: No distension Bowel sounds: Normal Tenderness: Nontender Organomegaly: No organomegaly - Back Back: Normal, Nontender - Extremities General upper extremity: Normal inspection, Nontender, Normal color, Normal ROM , Normal temperature General lower extremity: Normal inspection, Nontender, Normal color, Normal ROM , Normal temperature, Normal weight bearing. No: Ellis's sign - Neurological Neuro grossly intact: Yes Cognition: Normal Orientation: AAOx4 Jackson Coma Scale Eye Opening: Spontaneous Boyd Coma Scale Verbal: Oriented Boyd Coma Scale Motor: Obeys Commands Boyd Coma Scale Total: 15 Speech: Normal Motor strength normal: LUE, RUE, LLE, RLE Sensory: Normal - Psychological Associated symptoms: Normal affect, Normal mood - Skin Skin Temperature: Warm Skin Moisture: Dry Skin Color: Normal Skin irregularity: Laceration - Less than half a centimeter Location of irregularity: Extremities - Right palm laceration/abrasion less than half a centimeter Course - Re-evaluation Re-evalutation: 03/25/17 22:41 Be cleaned with soap and water bacitracin and Band-Aid applied. Patient instructed to follow-up with his primary doctor. - Vital Signs Vital signs: Temp Pulse Resp BP Pulse Ox 98.7 F 74 18 169/99 H 96 03/25/17 20:00 03/25/17 20:00 03/25/17 20:00 03/25/17 20:00 03/25/17 20:00 Discharge - Discharge Clinical Impression: Hand abrasion Qualifiers: Encounter type: initial encounter Laterality: right Qualified Code(s): S60.511A - Abrasion of right hand, initial encounter Condition: Stable Disposition: HOME, SELF-CARE Additional Instructions: NON-SUTURED LACERATION: Your laceration did not require suturing. Some lacerations cannot be sutured because of increased infection risk, while others simply don't need stitches because they are shallow or very short. Your injury should be protected while it heals. Usually complete healing takes 10 to 14 days. Keep the dressing clean and dry, and change it every day. If you notice increasing pain, redness, swelling, drainage, or tender lumps in the armpit or groin above the injury, infection may be present. You should call the doctor at once. SOAP CLEANSING: Gently wash the wound daily using a mild soap (like Ivory, Phisoderm, Neutrogena). Use warm water, rubbing gently until all debris, ooze, and crusting have been washed from the wound. Allow to dry briefly (about 10 minutes) after cleaning. Repeat this cleansing at least three times a day for the first two days and then once or twice a day. ANTIBIOTIC OINTMENT PROTECTION: Your wounds are such that dressing them is not practical or optional. After cleansing, you should apply a thin coating of antibiotic ointment ( Bacitracin, not Neosporin) to the wounds at least three times daily. This lessens infection risk, and may decrease the amount of scarring. Use a q-tip or dull butter knife, not your finger, to apply this ointment. Any debris or ooze which builds up in the ointment should be gently rubbed off with a sterile gauze pad. Harder crusting may need to be gently scrubbed off with a clean wash cloth with soap and warm water, perhaps applying a warm, wet wash cloth to the wound for ten minutes first. Development of redness, severe itching, or blistering may mean allergy to the ointment. See the doctor. FOLLOW-UP CARE: If you have been referred to a physician for follow-up care, call the physician s office for an appointment as you were instructed or within the next two days. If you experience worsening or a significant change in your symptoms, notify the physician immediately or return to the Emergency Department at any time for re-evaluation. Forms: Elevated Blood Pressure Referrals: KARELY SEAY DO [Primary Care Provider] - Follow up as needed
[2017-03-25 23:01] VITALS: BP 152/96
== END 2017-03-25 22:42 | disposition home or self-care (01) ==
LOC: ER 19:24
DX: S60.511A Abrasion of right hand, initial encounter (principal); S61.411A Laceration without foreign body of right hand, initial encounter; X58.XXXA Exposure to other specified factors, initial encounter; I10 Essential (primary) hypertension; E78.00 Pure hypercholesterolemia, unspecified; E11.9 Type 2 diabetes mellitus without complications; N18.5 Chronic kidney disease, stage 5; W45.8XXA Other foreign body or object entering through skin, initial encounter
CPT/HCPCS: 99282

== ENCOUNTER → 2017-03-28 | Outpatient (CLI) | payer MEDICAID ==
[2017-03-28 15:25] LABS: ABSOLUTE EOSINOPHILS # (AUTO) 0.2 10^3/uL (0.0-0.6); ABSOLUTE LYMPHOCYTES (AUTO) 2.4 10^3/uL (0.5-4.7); ABSOLUTE MONOCYTES (AUTO) 0.6 10^3/uL (0.1-1.4); BASOPHILS % (AUTO) 0.4 % (0-2); EOSINOPHILS % (AUTO) 3.1 % (0-6); HEMATOCRIT 32.8 % (37.9-51.0); HEMOGLOBIN 10.7 g/dL (13.5-17.0); HGB HCT DIFFERENCE -0.7; LYMPHOCYTES % (AUTO) 33.4 % (13-45); MEAN CORPUSCULAR HEMOGLOBIN 26.8 pg (27.0-33.4); MEAN CORPUSCULAR HGB CONC 32.6 g/dL (32.0-36.0); MEAN CORPUSCULAR VOLUME 82 fl (80-97); MONOCYTES % (AUTO) 7.7 % (3-13); RED BLOOD COUNT 3.98 10^6/uL (4.35-5.55); SEGMENTED NEUTROPHILS % (AUTO) 55.4 % (42-78); WHITE BLOOD COUNT 7.2 10^3/uL (4.0-10.5)
[2017-03-28 15:32] LABS: APPEARANCE,URINE CLEAR; BILIRUBIN,URINE NEGATIVE (NEGATIVE); GLUCOSE, URINE >=500 mg/dL (NEGATIVE); KETONES,URINE NEGATIVE (NEGATIVE); LEUKOCYTE ESTERASE,URINE NEGATIVE (NEGATIVE); NITRITE,URINE NEGATIVE (NEGATIVE); PROTEIN,URINE >=500 mg/dL (NEGATIVE); URINE SPECIFIC GRAVITY 1.006; UROBILINOGEN,URINE NEGATIVE mg/dL (<2.0)
[2017-03-28 15:48] LABS: ANION GAP 13 (5-19); BLOOD UREA NITROGEN 60 mg/dL (7-20); CALCIUM 8.7 mg/dL (8.4-10.2); CARBON DIOXIDE 22 mmol/L (22-30); CHLORIDE 106 mmol/L (98-107); CREATININE RESULT 5.71 mg/dL (0.52-1.25); GLUCOSE 282 mg/dL (75-110); PHOSPHORUS 5.3 mg/dL (2.5-4.5); POTASSIUM 4.6 mmol/L (3.6-5.0); SODIUM 141.2 mmol/L (137-145)
[2017-03-28 16:01] LABS: URINE CREATININE 28.8 mg/dL (24-392)
[2017-03-28 16:11] LABS: URINE PROTEIN 341.7 mg/dL (<12)
== END ==
LOC: LAB 15:01
PROVIDERS: ATTEND Family Medicine
DX: E11.21 Type 2 diabetes mellitus with diabetic nephropathy (principal); N18.4 Chronic kidney disease, stage 4 (severe); D63.1 Anemia in chronic kidney disease; N25.81 Secondary hyperparathyroidism of renal origin
CPT/HCPCS: 36415; 80048; 81001; 82306; 82570; 83970; 84100; 84156; 85025

== ENCOUNTER 2017-04-25 09:07 | Day surgery (SDC) | payer MEDICAID ==
[~2017-04-25 09:07] MED LIST changes: -BACITRACIN INJ 50,000 UNIT VIAL ONE; -BUPIVACAINE HCL 0.25 % INJ/PF (2.5 MG/1 ML) 30 ML VIAL ONE; +CEFAZOLIN 1 GM/D5W RTU 1 GM/50 ML RTUPB IV PRN; -CEFAZOLIN SODIUM 1 GM in DEXTROSE 5%-WATER 50 ML IV PRN; -HEPARIN SOD (PORCINE) 1,000 UNIT/ML 10 ML VIAL ONE; -LIDOCAINE 0.5% INJ-PF (5 MG/ML) 50 ML SDV ONE; -LIDOCAINE 1% INJ-PF (10 MG/ML) 30 ML SDV ONE; -NORMAL SALINE 1000 ML (RENAL PATIENTS) IV PRN
[2017-04-25 09:44] LABS: HEMATOCRIT 34.3 % (37.9-51.0); HEMOGLOBIN 11.1 g/dL (13.5-17.0); MEAN CORPUSCULAR HEMOGLOBIN 26.6 pg (27.0-33.4); MEAN CORPUSCULAR HGB CONC 32.5 g/dL (32.0-36.0); MEAN CORPUSCULAR VOLUME 82 fl (80-97); RED BLOOD COUNT 4.18 10^6/uL (4.35-5.55); RED CELL DISTRIBUTION WIDTH 13.7 % (11.5-14.0); WHITE BLOOD COUNT 7.7 10^3/uL (4.0-10.5)
[2017-04-25 09:51] LABS: PROTHROMBIN TIME 12.9 SEC (11.4-15.4)
[2017-04-25 10:09] LABS: ANION GAP 14 (5-19); BLOOD UREA NITROGEN 60 mg/dL (7-20); CARBON DIOXIDE 25 mmol/L (22-30); CHLORIDE 105 mmol/L (98-107); GLUCOSE 179 mg/dL (75-110); POTASSIUM 4.4 mmol/L (3.6-5.0); SODIUM 143.7 mmol/L (137-145)
[2017-04-25] MEDS ORDERED: MIDAZOLAM 2 MG/2 ML INJ ONE (11:16)
[2017-04-25] MEDS ORDERED: ONDANSETRON HCL INJ/PF 4 MG/2 ML SDV ONE (11:16)
[2017-04-25] MEDS ORDERED: PROPOFOL INJ 200 MG/20 ML VIAL IV ONE (11:16)
[2017-04-25] MEDS ORDERED: FENTANYL CITRATE INJ/PF 100 MCG/2 ML AMPUL ONE (11:16)
[2017-04-25] MEDS ORDERED: ALTEPLASE INJ 2 MG VIAL (CATH CLEARANCE) ONE ×2 (11:46→12:21)
[2017-04-25] MEDS ORDERED: LIDOCAINE 0.5% INJ-PF (5 MG/ML) 50 ML SDV ONE (12:17)
[2017-04-25] MEDS ORDERED: BACITRACIN INJ 50,000 UNIT VIAL ONE (13:19)
[2017-04-25] MEDS ORDERED: PROMETHAZINE HCL INJ 25 MG/1 ML VIAL IV PRN (14:25)
[2017-04-25] MEDS ORDERED: DIPHENHYDRAMINE HCL 50 MG/ML VIAL IV PRN (14:25)
[2017-04-25] MEDS ORDERED: FENTANYL CITRATE INJ/PF 100 MCG/2 ML AMPUL IV PRN ×3 (14:25)
[2017-04-25 15:54] VITALS: BP 150/98
--- NOTE | 2017-04-25 16:17 | PDOC DISCHARGE SUMMARY ---
Discharge Summary (SDC) - Discharge Final Diagnosis: #1 malfunctioning arteriovenous fistula, left radiocephalic. 2. End-stage renal disease. 3. Diabetes mellitus type 2. 4. History of tobacco use disorder. 5. Diabetes mellitus type 2. 6. Hypertension. Date of Surgery: 04/25/17 Discharge Date: 04/25/17 Condition: Fair Treatment or Instructions: Discharge home [after recovery per ASU criteria]. Diet , [renal],as tolerated, when fully awake advance as tolerated. Activities within moderation encouraged. Follow up in my office by appointment in about [1 week]. Call for appointment. Leave wounds [covered], [keep clean and dry, until office visit in 1 week]. Meds per med rec. Percocet prescription. Hold of on school/work [until evaluation in office]. May shower [in 48 hrs], [try to keep operated area as dry as possible]. Prescriptions: Promethazine HCl [Phenergan 25 mg Tablet] 25 - 50 mg PO ASDIR PRN #12 tablet PRN Reason: Referrals: KARELY SEAY DO [Primary Care Provider] - Discharge Diet: Other (Comments) - Renal Respiratory Treatments at Home: Deep Breathing/Coughing Discharge Activity: Activity As Tolerated Report the Following to Your Physician Immediately: Unusual Bleeding
--- NOTE | 2017-04-25 16:25 | Operative Report ---
Operative Report DATE OF SURGERY: 04/25/17 PREOPERATIVE DIAGNOSIS: 1. Malfunctioning AV fistula, left radiocephalic. 2. End-stage renal disease. 3. Diabetes mellitus type 2. 4. Tobacco use disorder. 5. Hypertension. POSTOPERATIVE DIAGNOSIS: 1. Malfunctioning AV fistula, left radiocephalic. Post insertion of permacatheter and angioplasty of left radiocephalic fistula. 2. End-stage renal disease. 3. Diabetes mellitus type 2. 4. Tobacco use disorder. 5. Hypertension. OPERATION: 1. Ultrasound evaluation of the right internal jugular vein. 2. Insertion insertion of right-sided permacatheter via real-time access in the right internal jugular vein. 3. Needle access into left forearm arteriovenous fistula. 4. Angioplasty in left forearm radiocephalic fistula. 5. Angiogram and interpretation. SURGEON: DAJUAN PADILLA GUIDEMAN: None ANESTHESIA: LMAC TISSUE REMOVED OR ALTERED: Not applicable. COMPLICATIONS: None ESTIMATED BLOOD LOSS: 5 mL. INTRAOPERATIVE FINDINGS: Of a satisfactory right internal jugular vein estimated to be about 1.2 cm in diameter. Satisfactory placement with the tip just down in the right atrial pool. Easy egress of blood and ingress of heparinized solution through both ports. Angiogram demonstrated smooth flow of contrast through the right atrium, ventricle and pulmonary outflow tract. The left forearm arteriovenous fistula is poorly developed. 4.5 mm at its widest in the forearm. It is also 4.5 mm beneath the skin. In addition there is a large distal branch about 3 cm away from the anastomosis. In addition there is an approximately 2 cm segment of severe narrowing just after the anastomosis. This narrowing represents about 80% of the adjacent lumen is measured. It measured out at 1.5 mm initially. After dilatation of the narrowed area and of the forearm segment the fistula was palpably improved. Also visibly on completion angiogram. In future it may be necessary to ligate the distal branch of the fistula in order to increase the blood flow into the pertinent segment. Further dilatation may also be necessary. Today the stenosis segment was dilated up to 4 cm. The fistula body up to 6 mm. This patient benefited greatly from LMAC anesthesia and probably would not do well with conscious sedation. This is to be borne in mind in future. PROCEDURE: After obtaining informed consent, the patient was taken to the [Container Maker] and positioned supine. The [right neck] and chest were prepared with chlorhexidine and draped out with sterile linen. After the " universal timeout", in which it was verified that the patient continued to receive antibiotic, the procedure commenced. A steriley sheathed ultrasound probe was used to evaluate the [ right internal jugular] vein. Local anesthesia was infiltrated adjacent to the probe. Access into the [right internal jugular] vein was obtained using a micropuncture needle, followed by micropuncture wire and then a micropuncture catheter. This was followed by introduction of a 0.035 guidewire the tip of which was placed down into the inferior vena cava . A 23 cm long PermCath was now positioned over the chest and an exit site marked and locally anesthetized , the catheter was placed between the 2 incisions. Proximally, the catheter was now positioned using a peel-away sheath, after dilation. Easy ingress of heparinized solution and egress of blood obtained through both ports. A completion angiogram was done by injecting contrast. The findings were as dictated. The neck incision was now closed using interrupted 3-0 PDS to the subcutaneous tissues, the catheter was anchored at the exit site using 3-0 PDS. A Biopatch device was now placed adjacent to the catheter. Dressings were applied and the procedure concluded. PROCEDURE: After verifying the procedure and having obtained informed consent, the patient's left arm and forearm were prepared with Chlorhexidine and draped out with sterile linen. Local anesthesia infiltrated. Percutaneous access into the fistula ,[retrograde], obtained about [20 cm] from the arteriovenous anastomosis using a micro puncture needle followed by micro puncture wire and then a micro puncture catheter. This was done on ultrasound guidance using real-time access into the vein. Ultrasound was also used to size the vein. Angiogram demonstrated the aforementioned findings. Angioplasty was elected. A 0.035 Turner wire was inserted, and over this, a 5 Jamaican short introducer was placed, this was followed by a Kumpe catheter this was manipulated along with the Glidewire so that the tip was down in the [place] radial artery distally. This was somewhat challenging as there was a large branch going towards the wrist into which the catheter preferentially went.. Angioplasty was now done over the perianastomotic segment. This was done very carefully and using a 3 mils syringe sustained for 2 minutes. Angiogram demonstrated successful outcome. The balloon was now swapped over the wire for a 6 mm angioplasty balloon. Angioplasty was serially done from the mid fistula up to the introducer. Inflating with a 3 mils syringe for a minute at a time.]. Completion angiogram demonstrated [satisfactory result]. The instrumentation was now withdrawn over hand-held pressure for 10 minutes dressings applied, procedure concluded. Exposure time: 3.9 minutes Radiation: 7.46 katherine per centimeter squared Contrast: 25 mL of Isovue-M 300 low osmolality. DICTATING PHYSICIAN: DAJUAN PRATT M.D. cc: DAJUAN PRATT M.D. ([id number]) >>
--- NOTE | 2017-04-25 17:05 | RADIOLOGY REPORT (SQ) ---
EXAM DESCRIPTION: TUNNELED CENTRAL LINE; GUIDANCE FLUOROSCOPIC COMPLETED DATE/TIME: 04/25/2017 3:45 pm; 04/25/2017 3:36 pm REASON FOR STUDY: N28.9; GUIDANCE FOR PERMCATH PLACEMENT N28.9 DISORDER OF KIDNEY AND URETER, UNSPE CIFIED COMPARISON: AP chest 03/03/2016 FLUOROSCOPY TIME: 0.3 minutes 9 series of digital images saved to PACS. TECHNIQUE: Intra-operative images acquired during surgical procedure to evaluate progress. NUMBER OF IMAGES: 9 series of digital images saved to pac's LIMITATIONS: None. FINDINGS: Intra procedural imaging and fluoro during placement of a right-sided central venous dialy sis catheter with the tip in the right atrium. Please see the operative report for further detail IMPRESSION: Intra procedural imaging and fluoro COMMENT: Quality ID [id number]: Final reports for procedures using fluoroscopy that document radiation exp osure indices, or exposure time and number of fluorographic images (if radiation exposure indices are not available) Please consult full operative report of the attending physician for description of the procedure. TECHNICAL DOCUMENTATION: JOB ID: [id number] [email or web address]- All Rights Reserved
--- NOTE | 2017-04-25 17:12 | RADIOLOGY REPORT (SQ) ---
EXAM DESCRIPTION: FISTULAGRAM W/PLASTY COMPLETED DATE/TIME: 04/25/2017 3:45 pm REASON FOR STUDY: T82.858A COMPARISON: None. FLUOROSCOPY TIME: 3.9 minutes 21 digital Images saved to PACS LIMITATIONS: None. PROCEDURE: Intra procedural imaging and fluoro during evaluation of the forearm AV dialysis access b y Dr. Gunderson FINDINGS: Intra procedural imaging and fluoro during evaluation of the forearm AV dialysis access by Dr. Gunderson IMPRESSION: Intra procedural imaging and fluoro COMMENT: PQRS [id number]: Fluoroscopy time of the procedure is documented in the report. TECHNICAL DOCUMENTATION: JOB ID: [id number] [employer]- All Rights Reserved
== END 2017-04-25 15:50 | disposition home or self-care (01) ==
LOC: CCL 09:07
PROVIDERS: ATTEND Surgery
PROC: 057F3DZ Dilation of Left Cephalic Vein with Intraluminal Device, Percutaneous Approach (ICD-10-PCS; principal; 2017-04-25)
PROC: 05HM33Z Insertion of Infusion Device into Right Internal Jugular Vein, Percutaneous Approach (ICD-10-PCS; 2017-04-25)
DX: T82.858A Stenosis of other vascular prosthetic devices, implants and grafts, initial encounter (principal); Y83.2 Surgical operation with anastomosis, bypass or graft as the cause of abnormal reaction of the patient, or of later complication, without mention of misadventure at the time of the procedure; I12.0 Hypertensive chronic kidney disease with stage 5 chronic kidney disease or end stage renal disease; E11.22 Type 2 diabetes mellitus with diabetic chronic kidney disease; N18.6 End stage renal disease; Z99.2 Dependence on renal dialysis; E78.00 Pure hypercholesterolemia, unspecified; G62.9 Polyneuropathy, unspecified; R60.9 Edema, unspecified; E89.0 Postprocedural hypothyroidism; Z86.73 Personal history of transient ischemic attack (TIA), and cerebral infarction without residual deficits; Z85.850 Personal history of malignant neoplasm of thyroid; Z87.891 Personal history of nicotine dependence; Z79.899 Other long term (current) drug therapy; Z79.82 Long term (current) use of aspirin; Z79.01 Long term (current) use of anticoagulants
CPT/HCPCS: 36415; 82962; 85027; 85610; 85730; 80048; 36558; 36902; 76937; 77001; C1713; C1725 ×2; C1752; C1887; Q9967; C1769; J2997; J2250; J3490 ×2; J0690; J3010; J2405; J2704; 1844

== ENCOUNTER 2017-05-31 08:50 | Day surgery (SDC) | payer MEDICAID ==
[2017-05-31 09:14] LABS: HEMATOCRIT 33.9 % (37.9-51.0); HEMOGLOBIN 11.1 g/dL (13.5-17.0); MEAN CORPUSCULAR HGB CONC 32.8 g/dL (32.0-36.0); MEAN CORPUSCULAR VOLUME 82 fl (80-97); PLATELET COUNT 344 10^3/uL (150-450); RED BLOOD COUNT 4.13 10^6/uL (4.35-5.55); RED CELL DISTRIBUTION WIDTH 13.4 % (11.5-14.0); WHITE BLOOD COUNT 7.8 10^3/uL (4.0-10.5)
[2017-05-31] MEDS ORDERED: OXYCODONE-ACETAMINOPHEN 5-325 MG TABLET PO PRN (09:23)
[2017-05-31] MEDS ORDERED: DIAZEPAM 5 MG TABLET PO PRN (09:25)
[2017-05-31] MEDS ORDERED: GLUCAGON,HUMAN RECOMB 1 MG INJ IM PRN (09:26)
[2017-05-31] MEDS ORDERED: DEXTROSE 50%-WATER SYRINGE 25 GM/50 ML DOSE IV PRN (09:26)
[2017-05-31] MEDS ORDERED: DEXTROSE 50%-WATER SYRINGE 12.5 GM/25 ML DOSE IV PRN (09:26)
[2017-05-31] MEDS ORDERED: DEXTROSE 40% GEL 15 GM TUBE X 2 PO PRN (09:26)
[2017-05-31] MEDS ORDERED: DEXTROSE 40% GEL 15 GM TUBE PO PRN (09:26)
[2017-05-31] MEDS ORDERED: INSULIN REG, HUMAN 100 UNIT/ML 3 ML VIAL (PYX) SUBCUT PRN (09:26)
[2017-05-31] MEDS ORDERED: MIDAZOLAM 2 MG/2 ML INJ ONE (09:38)
[2017-05-31] MEDS ORDERED: LIDOCAINE 0.5% INJ-PF (5 MG/ML) 50 ML SDV ONE (09:38)
[2017-05-31] MEDS ORDERED: FENTANYL CITRATE INJ/PF 100 MCG/2 ML AMPUL ONE (09:39)
[2017-05-31] MEDS ORDERED: ALTEPLASE INJ 2 MG VIAL (CATH CLEARANCE) ONE (09:39)
[2017-05-31] MEDS ORDERED: DIAZEPAM 5 MG TABLET ONE (09:42)
[2017-05-31 09:44] LABS: ANION GAP 14 (5-19); BLOOD UREA NITROGEN 45 mg/dL (7-20); CALCIUM 9.1 mg/dL (8.4-10.2); CARBON DIOXIDE 24 mmol/L (22-30); CHLORIDE 102 mmol/L (98-107); POTASSIUM 4.4 mmol/L (3.6-5.0); SODIUM 139.7 mmol/L (137-145)
[2017-05-31] MEDS ORDERED: INSULIN REG, HUMAN 100 UNIT/ML 3 ML VIAL (PYX) ONE (09:44)
[2017-05-31 09:54] LABS: GLUCOSE 490 mg/dL (75-110)
--- NOTE | 2017-05-31 12:00 | PDOC DISCHARGE SUMMARY ---
Discharge Summary (SDC) - Discharge Final Diagnosis: #1 end-stage renal disease on hemodialysis. 2. PermCath in place. 3. Malfunctioning AV fistula left radiocephalic. 4. Diabetes mellitus type 2. 5. Tobacco use disorder. 6. Hypertension. Date of Surgery: 05/31/17 Discharge Date: 05/31/17 Condition: Fair Treatment or Instructions: Discharge home [after recovery per ASU criteria]. Diet , [renal],as tolerated, when fully awake advance as tolerated. Activities within moderation encouraged. Follow up in my office by appointment in about [1 week]. Call for appointment. Leave wounds [covered], [keep clean and dry, until hemodialysis. Fistula may be used for hemodialysis. Meds per med rec. Hold of on school/work [until evaluation in office]. May shower [in 48 hrs], [try to keep operated area as dry as possible]. Referrals: KARELY SEAY DO [Primary Care Provider] - Discharge Diet: Other (Comments) - Renal, diabetic. Respiratory Treatments at Home: Deep Breathing/Coughing Discharge Activity: Activity As Tolerated Report the Following to Your Physician Immediately: Shortness of Breath, Unusual Bleeding
--- NOTE | 2017-05-31 12:07 | Operative Report ---
Operative Report DATE OF SURGERY: 05/31/17 PREOPERATIVE DIAGNOSIS: #1 end-stage renal disease on hemodialysis. 2. PermCath in place. 3. Malfunctioning AV fistula left radiocephalic. 4. Diabetes mellitus type 2. 5. Tobacco use disorder. 6. Hypertension. POSTOPERATIVE DIAGNOSIS: #1 end-stage renal disease on hemodialysis. 2. PermCath in place. 3. Malfunctioning AV fistula left radiocephalic. Post angioplasty and ligation of branch. 4. Diabetes mellitus type 2. 5. Tobacco use disorder. 6. Hypertension. OPERATION: 1. Ultrasound evaluation and real-time access into left radiocephalic arteriovenous fistula. 2. Fistula angioplasty. 3. Ligation of large branch of fistula on the ultrasound guidance. 4. Angiogram and interpretation. SURGEON: DAJUAN PADILLA TRAINING AND DOCUMENTATION SPECIALIST: None ANESTHESIA: Moderate Sedation TISSUE REMOVED OR ALTERED: Not applicable. COMPLICATIONS: None. ESTIMATED BLOOD LOSS: 2 mL. INTRAOPERATIVE FINDINGS: Of a well founded left forearm radiocephalic fistula. Nicely palpable for the first 6 cm thereafter difficult to feel. Consistent with the finding on ultrasound and also an angiogram of very large and dominant draining vein going distally and laterally. The fistula in mid forearm is about 4 mm beneath the skin. Diameter about 5.3 mm. This was addressed with a 7 mm balloon angioplasty for a good 10 cm from about 5-15 cm from the anastomosis. The result was a fistula which is easily palpable for 9 cm with mild cephalad venous pressure. The available portion of the fistula was marked and it can be used immediately. PROCEDURE: PROCEDURE: After verifying the procedure and having obtained informed consent, the patient's left arm and forearm were prepared with Chlorhexidine and draped out with sterile linen. Local anesthesia infiltrated. Percutaneous access into the fistula ,[retrograde], obtained about [20 cm] from the arteriovenous anastomosis using a micro puncture needle followed by micro puncture wire and then a micro puncture catheter. This was done on ultrasound guidance using real-time access into the vein. Ultrasound was also used to size the vein. Angiogram demonstrated the aforementioned findings. Angioplasty was elected. A 0.035 [place] wire was inserted, and over this, a 6 Gabonese short introducer was placed, this was followed by a 7 mm angioplasty balloon . Angioplasty was now done at the mid forearm segment. This was done using a 3 mils syringe sustained for 2 minutes. This was done sequentially source to cover about 12 cm with the 4 cm long balloon angiogram demonstrated successful outcome. The instrumentation was now withdrawn over hand pressure for 10 minutes . Dressings applied, procedure concluded. The ultrasound was not used to evaluate the branch point where the large draining vein came off. This was carefully marked since to be close to the branch. Local anesthesia was infiltrated and an oblique incision made for 1 cm in length. Dissection now proceeded using a hemostat through the subcutaneous tissue down to the large branch. This was surrounded with 2 ties of 3-0 Vicryl. They were placed on traction and the improvement in the main fistula immediately appreciated. The branches ligated with 3-0 Vicryl twice. The wound was now closed using interrupted 3-0 PDS to the subcutaneous tissues and a 4-0 Monocryl subcuticular to the skin. This was reinforced with Steri-Strips over benzoin and a dressing applied. The available portion of the fistula was marked. Exposure time: 0.7 minutes Radiation: 2.83 Lola michael. Contrast: 20 mL of Isovue-M 300 low osmolality. DICTATING PHYSICIAN: DAJUAN PRATT M.D. cc: DAJUAN PRATT M.D. ([id number]) >>
[2017-05-31 13:58] VITALS: BP 141/85
--- NOTE | 2017-05-31 16:32 | RADIOLOGY REPORT (SQ) ---
EXAM DESCRIPTION: FISTULAGRAM W/PLASTY COMPLETED DATE/TIME: 05/31/2017 3:45 pm REASON FOR STUDY: T82.858A T82.858A STENOSIS OF OTHER VASCULAR PROSTH DEV/GRFT, INIT COMPARISON: 04/25/2017 FLUOROSCOPY TIME: 0.7 minutes 39 images saved to PACS. TECHNIQUE: Intra-operative images acquired during surgical procedure to evaluate progress. NUMBER OF IMAGES: 39 digital images LIMITATIONS: None. FINDINGS: Intra procedural imaging and fluoro during evaluation and plasty of a left upper extremity dialysis access by Dr. Gunderson. Please see the procedure note for further details IMPRESSION: Intra procedural imaging and fluoro COMMENT: Quality ID 145: Final reports for procedures using fluoroscopy that document radiation exp osure indices, or exposure time and number of fluorographic images (if radiation exposure indices are not available) Please consult full operative report of the attending physician for description of the procedure. TECHNICAL DOCUMENTATION: JOB ID: [id number] [employer]- All Rights Reserved
== END 2017-05-31 13:10 | disposition home or self-care (01) ==
LOC: CCL 08:50
PROVIDERS: ATTEND Surgery
PROC: 057F3DZ Dilation of Left Cephalic Vein with Intraluminal Device, Percutaneous Approach (ICD-10-PCS; principal; 2017-05-31)
DX: T82.858A Stenosis of other vascular prosthetic devices, implants and grafts, initial encounter (principal); Y83.2 Surgical operation with anastomosis, bypass or graft as the cause of abnormal reaction of the patient, or of later complication, without mention of misadventure at the time of the procedure; I12.0 Hypertensive chronic kidney disease with stage 5 chronic kidney disease or end stage renal disease; N18.6 End stage renal disease; E11.22 Type 2 diabetes mellitus with diabetic chronic kidney disease; E78.00 Pure hypercholesterolemia, unspecified; G62.9 Polyneuropathy, unspecified; R60.9 Edema, unspecified; E89.0 Postprocedural hypothyroidism; F17.210 Nicotine dependence, cigarettes, uncomplicated; Z85.850 Personal history of malignant neoplasm of thyroid; Z86.73 Personal history of transient ischemic attack (TIA), and cerebral infarction without residual deficits; Z79.899 Other long term (current) drug therapy; Z79.02 Long term (current) use of antithrombotics/antiplatelets
CPT/HCPCS: 36415; 82962; 85027; 80048; 36902; 37607; 76937; C1752; C1887; C1769; J2997; J2250; J3490 ×2; J3010; J1815

== ENCOUNTER 2017-07-08 00:03 | Emergency (ER) | payer MEDICAID ==
--- NOTE | 2017-07-08 00:25 | ER Document Report ---
ED General Pain <DOYLE KAISER - Last Filed: 07/08/17 06:33> - General Mode of Arrival: Ambulatory Information source: Patient TRAVEL OUTSIDE OF THE [place] IN LAST 30 DAYS: No <JENNIFER MALLORY - Last Filed: 07/09/17 01:15> - General Chief Complaint: Dialysis Shunt Problem Stated Complaint: PAIN IN ARM Time Seen by Provider: 07/08/17 00:24 Notes: 36 yo diabetic, HTN, CKD,hyperlipedemic male dialysis pt, c/o increased swelling and pain 2/5 to left arm since tuesday, worse after the surgery that was preformed in [place] yesterday to relieve clots in the dialysis fisula and to stretch it and make it bigger. (dr gunderson original placed fistula last february and wasn't used until 3 weeks- worked fine until this past tuesday when the nurse had trouble accessing the fistula) , they tried again on tuesday- still couldn't access it- only got blood clots out returned on tuesday and the normal nurse was able to access the fistula and he recieved all but 20 minutes of dialysis-stopped due to leg cramps. Dr. Downey referred to vascular surgeon HOOD, Dr. Gunderson wasn't available. Other sx include dizzy, woozy, nauseated, left leg is asleep/numb in the foot, floater in right eye.Recent laser surgery to eyes at [facility]- diabetic retinoapthy past 2-3 weeks. Eliquis 2.5 bid, ASA 81mg, insulin pump, oxycodone 15mg qid, diltiazem 180 qd, lasix 80mg qam, 40mg hs prn, hydralzine 100g bid, isosorbide 15mg qd, lyrica 100mg qd, vit d. No chest pain or SOB, no abd pain, no v/d. No fever or chills. (JENNIFER MALLORY) - Related Data Allergies/Adverse Reactions: heparin Allergy (Verified 07/08/17 00:07) pork derived (porcine) [Pork derived (porcine)] Allergy (Verified 05/31/17 09:35 ) Past Medical History - General Information source: Patient - Social History Smoking Status: Unknown if Ever Smoked Frequency of alcohol use: None Drug Abuse: None Lives with: Spouse/Significant other Family History: Arthritis, CAD, CVA, DM, Hyperlipidemia, Hypertension, Malignancy, Thyroid Disfunction, Other - Chronic kidney disease - Past Medical History Cardiac Medical History: Reports: Hx Coronary Artery Disease, Hx Hypercholesterolemia, Hx Hypertension Pulmonary Medical History: Reports: Hx Pneumonia Neurological Medical History: Reports: Hx Migraine Endocrine Medical History: Reports: Hx Diabetes Mellitus Type 1 Renal/ Medical History: Reports: Hx End Stage Renal Disease - Stage IV renal failure, Hx Renal Insufficiency - normal creatinins 3 to 4 now. GI Medical History: Reports: Hx Gastroesophageal Reflux Disease Musculoskeltal Medical History: Reports Hx Musculoskeletal Trauma Skin Medical History: Reports Hx Cellulitis, Reports Hx MRSA Psychiatric Medical History: Reports: Hx Depression Traumatic Medical History: Reports: Hx Fractures Infectious Medical History: Reports: Hx MRSA - S/P I & D multiple skin abscesses in past Past Surgical History: Reports: Hx Oral Surgery, Hx Thyroid Surgery - Patient states that would removed due to cancer, Hx Vascular Surgery - Fistula for dialysis has not started dialysis yet - Immunizations Hx Diphtheria, Pertussis, Tetanus Vaccination: No <JENNIFER MALLORY - Last Filed: 07/09/17 01:15> Review of Systems - Review of Systems Constitutional: See HPI EENT: No symptoms reported Cardiovascular: No symptoms reported Respiratory: No symptoms reported Gastrointestinal: No symptoms reported Genitourinary: No symptoms reported Male Genitourinary: No symptoms reported Musculoskeletal: See HPI Skin: No symptoms reported Hematologic/Lymphatic: No symptoms reported Neurological/Psychological: See HPI <JENNIFER MALLORY - Last Filed: 07/09/17 01:15> Physical Exam <DOYLE KAISER - Last Filed: 07/08/17 06:33> - Vital signs Interpretation: Normal - General General appearance: Appears well, Alert - HEENT Head: Normocephalic, Atraumatic Eyes: Normal Conjunctiva: Normal Pupils: PERRL Mucous membranes: Normal Pharynx: Normal Neck: Supple - Respiratory Respiratory status: No respiratory distress Chest status: Nontender Breath sounds: Normal Chest palpation: Normal - Cardiovascular Rhythm: Regular Heart sounds: Normal auscultation Murmur: No - Abdominal Inspection: Normal Distension: No distension Bowel sounds: Normal Tenderness: Nontender. No: Tender Organomegaly: No organomegaly - Back Back: Normal, Nontender - Extremities General upper extremity: Normal inspection, Nontender, Normal color, Normal ROM , Normal temperature General lower extremity: Normal inspection, Nontender, Normal color, Normal ROM , Normal temperature, Normal weight bearing. No: Ellis's sign Arm: Tender - up to 5/5 volar left forearm over the acess fistula, no hot or red , thrill at radial wrist, does not look infected, non tender dorsal arm, doubt compartment, but in the differential. 2+ radial and ulnar pulses, sensation intact distally/fingers, generalized edema to the left arm below the elbow., Ecchymosis - ulnar volar left lower arm Forearm: Other - sdee above - Neurological Neuro grossly intact: Yes Cognition: Normal Orientation: AAOx4 [place] Coma Scale Eye Opening: Spontaneous [place] Coma Scale Verbal: Oriented [place] Coma Scale Motor: Obeys Commands [place] Coma Scale Total: 15 Speech: Normal Motor strength normal: LUE, RUE, LLE, RLE Sensory: Normal - Psychological Associated symptoms: Normal affect, Normal mood - Skin Skin Temperature: Warm Skin Moisture: Dry Skin Color: Normal <JENNIFER MALLORY - Last Filed: 07/09/17 01:15> - Vital signs Vitals: Temp Pulse Resp BP Pulse Ox 98.5 F 89 18 147/70 H 97 07/08/17 00:10 07/08/17 00:10 07/08/17 00:10 07/08/17 00:10 07/08/17 00:10 - General Notes: obese (JENNIFER MALLORY) Course - Laboratory Result Diagrams: 07/08/17 01:17 07/08/17 01:17 <DOYLE KAISER - Last Filed: 07/08/17 06:33> - Laboratory Result Diagrams: 07/08/17 01:17 07/08/17 01:17 <JENNIFER MALLORY - Last Filed: 07/09/17 01:15> - Re-evaluation Re-evalutation: 07/08/17 02:[address] Benavides. Discussed patient, procedure, presentation, workup, complaints. He states the patient had a venogram with dilation performed. He states that there is an expected amount of swelling and bleeding after the procedure, especially with patient being on Eliquis. States based on symptoms and description along with workup his recommendation is not for patient to be transferred but is for patient to be seen either at dialysis in the morning, at the vascular surgeon in the office tomorrow, and ideally both. I discussed this with patient and significant other at bedside, they state understanding and agreement with plan. (DOYLE KAISER) 07/08/17 01:[address] mcqueen, consult dr. downey about what to do about the arm. No imaging at this time. 07/08/17 02:12 labwork resulted, anemic, glucose 140, bun 57, creatinine 7.09, potassium 3.9 07/08/17 02:[address] Downey and the patient was sent to Dr. Luz and for the vascular procedure in [place] I called [place] for consultation and Dr. 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 Care transferred to Doyle VOSS who will speak with dr benavides. Pt aware. Both Doyle and I suspect that the swelling is bleeding from the procedure and/or the access attempts on tuesday and tuesday. (JENNIFER MALLORY) - Vital Signs Vital signs: Temp Pulse Resp BP Pulse Ox 98.1 F 77 16 144/86 H 98 07/08/17 03:48 07/08/17 03:48 07/08/17 03:48 07/08/17 03:48 07/08/17 03:48 - Laboratory Laboratory results interpreted by me: 07/08/17 07/08/17 01:17 01:17 RBC 3.55 L Hgb 9.7 L Hct 29.2 L Plt Count 451 H BUN 57 H Creatinine 7.09 H Est GFR ( Amer) 11 L Est GFR (Non-Af Amer) 9 L Glucose 140 H Discharge <DOYLE KAISER - Last Filed: 07/08/17 06:33> <JENNIFER MALLORY - Last Filed: 07/09/17 01:15> - Discharge Clinical Impression: Problem with dialysis shunt Qualifiers: Encounter type: initial encounter Qualified Code(s): T82.898A - Other specified complication of vascular prosthetic devices, implants and grafts, initial encounter Condition: Stable Disposition: HOME, SELF-CARE Additional Instructions: Your exam is consistent with some bleeding and swelling after the venogram and dilation. This can be expected. I spoke with Dr. Kennedy weaver. You could go to dialysis this morning to have your access checked/used, and the recommendation is to go back to Nephrology where you had the procedure yesterday to have your arm re-evaluated and for additional management. Call tomorrow early to set this up. Return for any concerning or worsening symptoms -developing redness, fever of 100.4 or greater, severe swelling or pain, or any other concerning symptoms. Forms: Treatment of Relative/Child Referrals: KARELY SEAY DO [Primary Care Provider] - Follow up as needed
[2017-07-08 01:31] LABS: ABSOLUTE BASOPHILS # (AUTO) 0.1 10^3/uL (0.0-0.2); ABSOLUTE EOSINOPHILS # (AUTO) 0.2 10^3/uL (0.0-0.6); ABSOLUTE LYMPHOCYTES (AUTO) 3.5 10^3/uL (0.5-4.7); BASOPHILS % (AUTO) 1.3 % (0-2); EOSINOPHILS % (AUTO) 2.3 % (0-6); HEMATOCRIT 29.2 % (37.9-51.0); HEMOGLOBIN 9.7 g/dL (13.5-17.0); MEAN CORPUSCULAR HEMOGLOBIN 27.4 pg (27.0-33.4); MEAN CORPUSCULAR HGB CONC 33.3 g/dL (32.0-36.0); MEAN CORPUSCULAR VOLUME 82 fl (80-97); PLATELET COUNT 451 10^3/uL (150-450); RED BLOOD COUNT 3.55 10^6/uL (4.35-5.55); RED CELL DISTRIBUTION WIDTH 13.9 % (11.5-14.0); SEGMENTED NEUTROPHILS % (AUTO) 50.4 % (42-78); TOTAL CELLS COUNTED % (AUTO) 100 %; WHITE BLOOD COUNT 9.8 10^3/uL (4.0-10.5)
[2017-07-08 02:01] LABS: ALANINE AMINOTRANSFERASE 38 U/L (21-72); ALBUMIN 3.9 g/dL (3.5-5.0); ALKALINE PHOSPHATASE 46 U/L (38-126); ANION GAP 15 (5-19); ASPARTATE AMINO TRANSFERASE 26 U/L (17-59); BILIRUBIN,DIRECT 0.3 mg/dL (0.0-0.4); BILIRUBIN,TOTAL 0.3 mg/dL (0.2-1.3); BLOOD UREA NITROGEN 57 mg/dL (7-20); CALCIUM 9.2 mg/dL (8.4-10.2); CARBON DIOXIDE 25 mmol/L (22-30); CHLORIDE 103 mmol/L (98-107); GLUCOSE 140 mg/dL (75-110); POTASSIUM 3.9 mmol/L (3.6-5.0); SODIUM 142.8 mmol/L (137-145)
[2017-07-08] MEDS ORDERED: HYDROMORPHONE HCL INJ/PF 2 MG/ML AMPULE IM ONE (03:00)
[2017-07-08 03:49] VITALS: BP 144/86
== END 2017-07-08 03:49 | disposition home or self-care (01) ==
LOC: ER 00:03
DX: T82.898A Other specified complication of vascular prosthetic devices, implants and grafts, initial encounter (principal); E11.9 Type 2 diabetes mellitus without complications; I10 Essential (primary) hypertension; N18.9 Chronic kidney disease, unspecified; Z99.2 Dependence on renal dialysis; M79.89 Other specified soft tissue disorders; M79.602 Pain in left arm; R20.0 Anesthesia of skin; H43.391 Other vitreous opacities, right eye; Z79.01 Long term (current) use of anticoagulants; Z79.899 Other long term (current) drug therapy
CPT/HCPCS: 99284; 96372; 36415; 85025; 80053; J1170

== ENCOUNTER 2017-08-05 16:20 | Emergency (ER) | payer MEDICAID ==
--- NOTE | 2017-08-05 16:58 | ER Document Report ---
ED Neuro Symptoms/Deficit - General Mode of Arrival: Medic Information source: Patient, Emergency Med Personnel TRAVEL OUTSIDE OF THE [place] IN LAST 30 DAYS: No - HPI Patient complains to provider of: Paresthesia, Vision Changes, Weakness Onset: This afternoon Was STROKE ALERT Called: Yes Baseline Cognitive: Alert, oriented X 3 Alert To: Name/Voice Patient Orientation: Person, Place, Time Associated symptoms: Other - see notes above <MIREYA SWEENEY - Last Filed: 08/05/17 19:40> <LUIZ ACE - Last Filed: 08/05/17 21:13> - General Chief Complaint: General Weakness Stated Complaint: WEAKNESS Time Seen by Provider: 08/05/17 16:25 Notes: 36 year old male with history of diabetes mellitus type I and renal failure ( dialyzed MWF) presents to the ED complaining of generalized weakness and decreased vision to his right eye that started earlier today. Patient has decreased sensation to the left side of his face and states that he 'feels like half my face is missing.' Patient reports that the last time he felt like this he was seen at the ED and was thought to be having a stroke. Patient was dialyzed today and reports having spasms during his dialysis which isn't new. Patient describes his decreased vision as if he has tunnel vision which is worsening. Patient reports feeling anxious and nervous. Patient has a past history of surgical removal of a blood clot to his right eye. (MIREYA SWEENEY) correction to the scribe HPI patient is decreased sensation to the right side of his face not the left side of his face. Patient also states that his decreased vision is very similar to what he has had in the past when he had a blood clot in his eye which was recently removed surgically it is simply a little bit larger than it was previously. He describes it as a dark blob. ( LUIZ ACE) - Related Data Allergies/Adverse Reactions: heparin Allergy (Verified 07/08/17 00:07) pork derived (porcine) [Pork derived (porcine)] Allergy (Verified 05/31/17 09:35 ) Past Medical History - General Information source: Patient - Social History Smoking Status: Former Smoker Chew tobacco use (# tins/day): No Frequency of alcohol use: Rare Drug Abuse: None Family History: Arthritis, CAD, CVA, DM, Hyperlipidemia, Hypertension, Malignancy, Thyroid Disfunction, Other - Chronic kidney disease - Past Medical History Cardiac Medical History: Reports: Hx Coronary Artery Disease, Hx Hypercholesterolemia, Hx Hypertension Denies: Hx Congestive Heart Failure, Hx DVT, Hx Heart Attack, Hx Pulmonary Embolism Pulmonary Medical History: Reports: Hx Pneumonia Denies: Hx Asthma, Hx Bronchitis, Hx COPD Neurological Medical History: Reports: Hx Migraine. Denies: Hx Cerebrovascular Accident, Hx Seizures Endocrine Medical History: Reports: Hx Diabetes Mellitus Type 1. Denies: Hx Hyperthyroidism, Hx Hypothyroidism Renal/ Medical History: Reports: Hx End Stage Renal Disease - Stage IV renal failure, Hx Renal Insufficiency - normal creatinins 3 to 4 now.. Denies: Hx Peritoneal Dialysis GI Medical History: Reports: Hx Gastroesophageal Reflux Disease. Denies: Hx Cirrhosis, Hx Hepatitis Musculoskeltal Medical History: Denies Hx Arthritis, Reports Hx Musculoskeletal Trauma Skin Medical History: Reports Hx Cellulitis, Denies Hx Eczema, Reports Hx MRSA, Denies Hx Psoriasis Psychiatric Medical History: Reports: Hx Depression Traumatic Medical History: Reports: Hx Fractures Infectious Medical History: Reports: Hx MRSA - S/P I & D multiple skin abscesses in past. Denies: Hx Hepatitis Past Surgical History: Reports: Hx Oral Surgery, Hx Thyroid Surgery - Patient states that would removed due to cancer, Hx Vascular Surgery - Fistula for dialysis has not started dialysis yet - Immunizations Hx Diphtheria, Pertussis, Tetanus Vaccination: No <MIREYA SWEENEY - Last Filed: 08/05/17 19:40> Review of Systems - Review of Systems Constitutional: No symptoms reported EENT: See HPI, Other - vision changes to right eye Cardiovascular: No symptoms reported Respiratory: No symptoms reported Gastrointestinal: No symptoms reported Genitourinary: No symptoms reported Male Genitourinary: No symptoms reported Musculoskeletal: No symptoms reported Skin: No symptoms reported Hematologic/Lymphatic: No symptoms reported Neurological/Psychological: See HPI, Anxiety, Weakness, Numbness - left face -: Yes All other systems reviewed and negative <MIREYA SWEENEY - Last Filed: 08/05/17 19:40> Physical Exam <MIREYA SWEENEY - Last Filed: 08/05/17 19:40> <LUIZ ACE - Last Filed: 08/05/17 21:13> - Vital signs Vitals: Resp BP Pulse Ox 20 148/78 H 98 08/05/17 16:29 08/05/17 16:29 08/05/17 16:29 - Notes Notes: GENERAL: Alert, interacts well. No acute distress. HEAD: Normocephalic, atraumatic. EYES: Pupils equal, round, and reactive to light. Extraocular movements intact. No retinal detachment. Irregular visual field deficit to the right eye nasally and some superiorly, but not quadrantanopia. Some cotton wool spots on the retina. ENT: Oral mucosa moist, tongue midline. Nares patent, no nasal septal hematoma, TMs intacts. NECK: Full range of motion. Supple. Trachea midline. LUNGS: Clear to auscultation bilaterally, no wheezes, rales, or rhonchi. No respiratory distress. HEART: Regular rate and rhythm. No murmurs, gallops, or rubs. EXTREMITIES: Moves all 4 extremities spontaneously. No edema, radial, and dorsalis pedis pulses 2/4 bilaterally. No cyanosis. Normal appearing fistula with palpable thrill. Pain with bilateral leg raise. NEUROLOGICAL: Alert and oriented x3. Normal speech. Normal dorsi and plantar flexion. Equal Day Care Worker. Decreased sensation to the upper and lower thirds, but not middle third of the left face. Bilateral lower extremity weakness, not unilateral. Able to hold both lower extremities in air for 5 seconds. Sharp- dull sensation intact with exception of 1 patch to medial aspect of the right calf. PSYCH: Normal affect, normal mood. SKIN: Warm, dry, and normal turgor. No rashes or lesions noted. (MIREYA SWEENEY) Correction describe exam the decreased sensation to light touch is to the right side of the face not the left side of the face, when sharp dull sensation is tested in the right side of the face sensation is intact. (LUIZ ACE) Course - Laboratory Result Diagrams: 08/05/17 17:16 08/05/17 17:16 <MIREYA SWEENEY - Last Filed: 08/05/17 19:40> - Laboratory Result Diagrams: 08/05/17 17:16 08/05/17 17:16 <LUIZ ACE - Last Filed: 08/05/17 21:13> - Re-evaluation Re-evalutation: 08/05/17 19:35 CBC shows mild anemia with hemoglobin 12.1, coags unremarkable, chemistries show chronic renal failure consistent with his end-stage renal disease on dialysis from his diabetes. Urinalysis shows protein and glucose consistent with his history of end-stage renal disease on dialysis. Chest x-ray shows cardiomegaly, head CT shows small old lacunar infarcts, no acute process. No evidence of central retinal artery or vein occlusion. 08/05/17 19:36 Patient is now feeling much better, has been able to ambulate without difficulty , no longer feels weak, is eating at the bedside, sensation is normalized to the right side of his face. Patient will be discharged home, instructed to follow-up with retinal specialist who performed his surgery last month as an outpatient. Return for worsening vision or any new or concerning symptoms. ( LUIZ ACE) - Vital Signs Vital signs: Temp Pulse Resp BP Pulse Ox 98.5 F 84 16 126/79 H 99 08/05/17 19:48 08/05/17 19:48 08/05/17 19:48 08/05/17 19:48 08/05/17 19:48 - Laboratory Laboratory results interpreted by me: 08/05/17 08/05/17 08/05/17 17:16 17:16 18:25 Hgb 12.1 L MCH 26.9 L MCHC 31.8 L RDW 16.6 H Potassium 3.5 L BUN 39 H Creatinine 3.81 H Est GFR ( Amer) 22 L Est GFR (Non-Af Amer) 18 L Glucose 302 H Urine Protein >=500 H Urine Glucose (UA) >=500 H - EKG Interpretation by Me Additional EKG results interpreted by me: 08/05/17 19:37 EKG shows sinus rhythm at a rate of 73, normal axis, normal intervals, no ST segment elevations or depressions, no T-wave inversions per my interpretation. ( ULIZ ACE) Discharge <MIREYA SWEENEY - Last Filed: 08/05/17 19:40> <LUIZ ACE - Last Filed: 08/05/17 21:13> - Discharge Clinical Impression: Lacunar infarction, Paresthesias, Right facial numbness Diabetic retinopathy Qualifiers: Diabetes mellitus type: type 1 Diabetic retinopathy severity: with unspecified retinopathy severity Diabetes mellitus macular edema: without macular edema Laterality: bilateral Qualified Code(s): E10.319 - Type 1 diabetes mellitus with unspecified diabetic retinopathy without macular edema Condition: Stable Disposition: HOME, SELF-CARE Additional Instructions: There is no evidence of new stroke today. Please follow-up with the release engineer who performed your retinal surgery last month for a recheck of your eyes. There is no evidence of acute clot in your eyes today. Please return to the emergency department for any worsening loss of vision. Kristenibe Attestation: 08/05/17 21:13 I personally performed the services described in the documentation, reviewed and edited the documentation which was dictated to the scribe in my presence, and it accurately records my words and actions. (LUIZ ACE) Scribe Documentation - Scribe Written by Laura:: Laura Huynh, 08/05/2017 1818 acting as scribe for :: Garfield <MIREYA SWEENEY - Last Filed: 08/05/17 19:40> ED NIH Stroke Scale - NIH Stroke Scale When completed:: Before Alteplase *: 1. NIH scale should be completed with appropriate accompanying assessment tools. *: 2. The NIH should reflect what the patient is capable of doing and should not be coached by the clinician. 1a. Level of Consciousness: 0=Alert;keenly responsive -: 1=Drowsy -: 2=Obtunded -: 3=Coma/unresponsive or reflex to noxious stimuli. 1a. Responses: 0 1b. Orientation Questions: a. What month is it? -: b. How old are you? -: 0=Answers both questions correctly. -: 1=Answers one question correctly or patient is intubated or has orotracheal trauma. -: 2=Answers neither question correctly. 1b. Responses: 0 1c. Response to commands: a. Open and close eyes? -: b. Day Care Worker and release hand? -: Credit is given despite weakness. Demonstration of task is permitted. Substitute command if hands cannot be used. -: 0=Performs both tasks correctly -: 1=Performs one task correctly -: 2=Performs neither task correctly 1c. Responses: 0 2. Gaze: Establish eye contact and instruct patient to "Follow my finger" -: 0=Normal -: 1=Partial gaze palsy. Gaze is abnormal in one or both eyes, but where forced deviation or total gaze paresis is not present. -: 2=Forced deviation or total gaze paresis. 2. Responses: 0 3. Visual Ibrahim: Sees fingers in all four quadrants. -: 0=No visual loss. -: 1=Partial hemianopsia. -: 2=Complete hemianopsia. -: 3=Bilateral hemianopsia (including Cortical blindness) 3. Responses: 1 4. Facial Movement: Instruct patient to: -: a. Show me your teeth -: b. Raise your eyebrows -: c. Close your eyes -: d. Smile -: 0=Normal symmetrical movement -: 1=Minor paralysis (flattened nasolabial fold, asymmetry on smiling). -: 2=Partial paralysis (total or near total paralysis of lower face). -: 3=Complete paralysis of upper and lower face 4. Responses: 0 5. Motor functions (left arm): Alternate sides and extend each arm with palms down (90 degrees if sitting or 45 degrees for supine). -: 0=No drift;limb holds for full 10 seconds. -: 1=Drift; limb holds but drifts down before full 10 seconds, but does not hit bed. -: 2=Some effort against gravity; limb cannot get to or maintain position. -: 3=No effort against gravity; limb falls. -: 4=No movement. -: UN=Amputation, joint fusion, explain in comments. 5. Responses (left arm): 0 5. Motor Functions (right arm): Alternate sides and extend each arm with palms down (90 degrees if sitting or 45 degrees for supine). -: 0=No drift;limb holds for full 10 seconds. -: 1=Drift; limb holds but drifts down before full 10 seconds, but does not hit bed. -: 2=Some effort against gravity; limb cannot get to or maintain position. -: 3=No effort against gravity; limb falls. -: 4=No movement. -: UN=Amputation, joint fusion, explain in comments. 5. Responses (right arm): 0 6. Motor Functions (left leg): With patient lying supine, alternate sides and extend each leg (30 degrees always while supine). -: 0=No drift, leg holds position for full 5 seconds -: 1=Drift; leg falls before full 5 seconds but does not hit bed. -: 2=Some effort against gravity, leg falls to bed but some effort against gravity. -: 3=No effort against gravity, leg falls to bed immediately. -: 4=No movement. -: UN=Amputation, joint fusion; explain in comments. 6. Responses (left leg): 0 6. Motor Functions (right leg): With patient lying supine, alternate sides and extend each leg (30 degrees always while supine). -: 0=No drift, leg holds position for full 5 seconds -: 1=Drift; leg falls before full 5 seconds but does not hit bed. -: 2=Some effort against gravity, leg falls to bed but some effort against gravity. -: 3=No effort against gravity, leg falls to bed immediately. -: 4=No movement. -: UN=Amputation, joint fusion; explain in comments. 6. Responses (right leg): 0 7. Limb Ataxia: With eyes open instruct patient to: -: a. "Touch your finger to your nose". -: b. "Touch your heel to your vega" -: 0=Absent -: 1=Present in one limb. -: 2=Present in two limbs. -: UN=Amputation or joint fusion; explain in comments. 7. Responses: 0 8. Sensory: Test sensation using pinprick or noxious stimuli. Test as many body parts as possible. -: 0=Normal;no sensory loss -: 1=Mile to moderate sensory loss (patient feels pin prick but is less sharp on affected side). -: 2=Severe or total sensory loss. 8. Responses: 0 9. Best Language: Instruct patient to: -: a. "Describe what you see in this picture." -: b. "Name the items in this picture." -: c. "Read these sentences." -: 0=No aphasia, normal -: 1=Mild to moderate aphasia. -: 2=Severe aphasia -: 3=Mute, global aphasia, no usable speech or auditory comprehension. 9. Responses: 0 10. Articulation, Dysarthia: Instruct patient to: -: "Read these words" or "Repeat these words" -: 0=Normal -: 1=Mild to moderate; patient may slur some words but can be understood without difficulty. -: 2=Severe; patients speech so slurred as to be unintelligible in the absence of dysphasia. -: UN=Intubated or other physical barrier, explain in comments. 10. Responses: 0 11. Extinction or inattention: 0=No abnormality -: 1= Visual, tactile, auditory, spatial, or personal inattention or extinction to bilateral simulation in one or the sensory modalities. -: 2=Profound fernando-inattention or fernando-inattention to more than one modality; does not recognize own hand. 11. Responses: 0 Total Score: 1 <MIREYA SWEENEY - Last Filed: 08/05/17 19:40> ED [employer]Exc Criteria
--- NOTE | 2017-08-05 17:11 | RADIOLOGY REPORT (SQ) ---
EXAM DESCRIPTION: CHEST SINGLE VIEW COMPLETED DATE/TIME: 08/05/2017 4:55 pm REASON FOR STUDY: stroke alert COMPARISON: Chest films 03/03/2016, 05/29/2015 EXAM PARAMETERS: NUMBER OF VIEWS: One view. TECHNIQUE: Single frontal radiographic view of the chest acquired. RADIATION DOSE: NA LIMITATIONS: None. FINDINGS: LUNGS AND PLEURA: No opacities, masses or pneumothorax. No pleural effusion. MEDIASTINUM AND HILAR STRUCTURES: No masses. Contour normal. HEART AND VASCULAR STRUCTURES: Moderate cardiomegaly BONES: No acute findings. HARDWARE: None in the chest. OTHER: No other significant finding. IMPRESSION: Moderate cardiomegaly TECHNICAL DOCUMENTATION: JOB ID: [id number] [employer]- All Rights Reserved Reading location - IP/workstation name: [email or web address]
--- NOTE | 2017-08-05 17:14 | RADIOLOGY REPORT (SQ) ---
EXAM DESCRIPTION: CT HEAD WITHOUT COMPLETED DATE/TIME: 08/05/2017 4:56 pm REASON FOR STUDY: stroke alert COMPARISON: 03/04/2016 TECHNIQUE: Axial images acquired through the brain without intravenous contrast. Images reviewed wi th bone, brain and subdural windows. Images stored on PACS. All CT scanners at this facility use dose modulation, iterative reconstruction, and/or weight based d osing when appropriate to reduce radiation dose to as low as reasonably achievable (ALARA). [facility]: Dose Right [facility]: CareDose [facility]: Dose Right [facility]: Teradose 4D [facility]: [employer] RADIATION DOSE: CT Rad equipment meets quality standard of care and radiation dose reduction techniq ues were employed. CTDIvol: 64.6 mGy. DLP: 1163 mGy-cm. mGy. LIMITATIONS: None. FINDINGS: VENTRICLES: Normal size and contour. CEREBRUM: No masses. No hemorrhage. No midline shift. No evidence for acute infarction. A couple of small lacunar infarcts are present. Normal michael/white matter differentiation. No areas of low dens ity in the white matter. CEREBELLUM: No masses. No hemorrhage. No alteration of density. No evidence for acute infarction. EXTRAAXIAL SPACES: No fluid collections. No masses. ORBITS AND GLOBE: No intra- or extraconal masses. Normal contour of globe without masses. CALVARIUM: No fracture. PARANASAL SINUSES: Mucous retention cysts are seen in each maxillary sinus. SOFT TISSUES: No mass or hematoma. OTHER: No other significant finding. IMPRESSION: MILD CHRONIC MICROVASCULAR ISCHEMIA. NO ACUTE IMAGING FINDINGS IN THE BRAIN. MAXILLARY SINUS DISEASE. EVIDENCE OF ACUTE STROKE: NO. COMMENT: Findings were discussed with the ordering physician at 1709 hours on this date. Quality ID # [id number]: Final reports with documentation of one or more dose reduction techniques (e.g., Au tomated exposure control, adjustment of the mA and/or kV according to patient size, use of iterative reconstruction technique) TECHNICAL DOCUMENTATION: JOB ID: [id number] [employer]- All Rights Reserved Reading location - IP/workstation name: [email or web address]
[2017-08-05 17:36] LABS: INTERNATIONAL RATION (INR) 0.95; PROTHROMBIN TIME 13.4 SEC (11.4-15.4)
[2017-08-05 17:37] LABS: PARTIAL THROMBOPLASTIN TIME 33.3 SEC (23.5-35.8)
[2017-08-05 17:39] LABS: HEMATOCRIT 37.9 % (37.9-51.0); HEMOGLOBIN 12.1 g/dL (13.5-17.0); MEAN CORPUSCULAR HEMOGLOBIN 26.9 pg (27.0-33.4); MEAN CORPUSCULAR HGB CONC 31.8 g/dL (32.0-36.0); MEAN CORPUSCULAR VOLUME 85 fl (80-97); PLATELET COUNT 420 10^3/uL (150-450); RED BLOOD COUNT 4.48 10^6/uL (4.35-5.55); RED CELL DISTRIBUTION WIDTH 16.6 % (11.5-14.0); WHITE BLOOD COUNT 7.2 10^3/uL (4.0-10.5)
[2017-08-05 17:48] LABS: ALANINE AMINOTRANSFERASE 38 U/L (21-72); ALBUMIN 3.9 g/dL (3.5-5.0); ALKALINE PHOSPHATASE 64 U/L (38-126); ANION GAP 9 (5-19); ASPARTATE AMINO TRANSFERASE 31 U/L (17-59); BILIRUBIN,DIRECT 0.4 mg/dL (0.0-0.4); BILIRUBIN,TOTAL 0.4 mg/dL (0.2-1.3); BLOOD UREA NITROGEN 39 mg/dL (7-20); CALCIUM 8.9 mg/dL (8.4-10.2); CARBON DIOXIDE 30 mmol/L (22-30); CHLORIDE 99 mmol/L (98-107); CREATINE KINASE 103 U/L (55-170); GLUCOSE 302 mg/dL (75-110); POTASSIUM 3.5 mmol/L (3.6-5.0); SODIUM 138.1 mmol/L (137-145); TOTAL PROTEIN 7.6 g/dL (6.3-8.2)
[2017-08-05 17:59] LABS: CREATINE KINASE MB 1.27 ng/mL (<4.55)
[2017-08-05 18:00] LABS: ABSOLUTE LYMPHOCYTES# (MANUAL) 1.6 10^3/uL (0.5-4.7); ABSOLUTE MONOCYTES # (MANUAL) 0.4 10^3/uL (0.1-1.4); BASOPHILS % (MANUAL) 1 % (0-2); EOSINOPHILS % (MANUAL) 1 % (0-6); LYMPHOCYTES % (MANUAL) 22 % (13-45); MONOCYTES % (MANUAL) 6 % (3-13); PLATELET COMMENT ADEQUATE; SEGMENTED NEUTROPHILS % (MAN) 70 % (42-78); TOTAL CELLS COUNTED 100; TROPONIN I < 0.012 ng/mL
[2017-08-05 18:02] LABS: ANISOCYTOSIS 1+; HYPOCHROMASIA SLIGHT
[2017-08-05 19:13] LABS: APPEARANCE,URINE CLEAR; BILIRUBIN,URINE NEGATIVE (NEGATIVE); COLOR,URINE YELLOW; GLUCOSE, URINE >=500 mg/dL (NEGATIVE); KETONES,URINE NEGATIVE (NEGATIVE); LEUKOCYTE ESTERASE,URINE NEGATIVE (NEGATIVE); NITRITE,URINE NEGATIVE (NEGATIVE); PROTEIN,URINE >=500 mg/dL (NEGATIVE); URINE SPECIFIC GRAVITY 1.016; UROBILINOGEN,URINE NEGATIVE mg/dL (<2.0)
[2017-08-05 19:51] VITALS: BP 126/79
--- NOTE | 2017-08-05 22:08 | EKG REPORT ---
SEVERITY:- ABNORMAL ECG - SINUS RHYTHM PROBABLE INFEROLATERAL INFARCT, AGE INDETERM : Confirmed by: Domingo Lawrence 05-Aug-2017 22:06:59
== END 2017-08-05 19:51 | disposition home or self-care (01) ==
LOC: ER 16:20
DX: I63.9 Cerebral infarction, unspecified (principal); G46.7 Other lacunar syndromes; E10.319 Type 1 diabetes mellitus with unspecified diabetic retinopathy without macular edema; R20.2 Paresthesia of skin; R20.0 Anesthesia of skin; R53.1 Weakness; I12.0 Hypertensive chronic kidney disease with stage 5 chronic kidney disease or end stage renal disease; E10.22 Type 1 diabetes mellitus with diabetic chronic kidney disease; N18.6 End stage renal disease; Z99.2 Dependence on renal dialysis; Z86.14 Personal history of Methicillin resistant Staphylococcus aureus infection
CPT/HCPCS: 36415; 70450; 71045; 80053; 81001; 82550; 82553; 84484; 85025; 85610; 85730; 93005; 93010; 99285

== ENCOUNTER 2017-09-06 05:18 | Day surgery (SDC) | payer MEDICAID ==
[2017-08-30 11:26] LABS: HEMATOCRIT 39.4 % (37.9-51.0); HEMOGLOBIN 12.4 g/dL (13.5-17.0); MEAN CORPUSCULAR HEMOGLOBIN 26.5 pg (27.0-33.4); MEAN CORPUSCULAR HGB CONC 31.6 g/dL (32.0-36.0); MEAN CORPUSCULAR VOLUME 84 fl (80-97); PLATELET COUNT 374 10^3/uL (150-450); RED BLOOD COUNT 4.69 10^6/uL (4.35-5.55); WHITE BLOOD COUNT 6.7 10^3/uL (4.0-10.5)
[2017-08-30 11:44] LABS: ANION GAP 15 (5-19); BLOOD UREA NITROGEN 52 mg/dL (7-20); CALCIUM 9.3 mg/dL (8.4-10.2); CARBON DIOXIDE 27 mmol/L (22-30); CHLORIDE 99 mmol/L (98-107); GLUCOSE 387 mg/dL (75-110); SODIUM 141.1 mmol/L (137-145)
[2017-08-30 11:46] LABS: POTASSIUM 5.2 mmol/L (3.6-5.0)
[~2017-09-06 05:18] MED LIST changes: +NORMAL SALINE 1000 ML (RENAL PATIENTS) IV PRN
[2017-09-06] MEDS ORDERED: HEPARIN SOD (PORCINE) 1,000 UNIT/ML 1 ML VIAL ONE (05:31)
[2017-09-06] MEDS ORDERED: LIDOCAINE 0.5% INJ-PF (5 MG/ML) 50 ML SDV ONE (05:31)
[2017-09-06] MEDS ORDERED: BUPIVACAINE HCL 0.25 % INJ/PF (2.5 MG/1 ML) 30 ML VIAL ONE (05:31)
[2017-09-06] MEDS ORDERED: BACITRACIN INJ 50,000 UNIT VIAL ONE (05:31)
[2017-09-06 06:24] LABS: INTERNATIONAL RATION (INR) 0.95; PROTHROMBIN TIME 13.2 SEC (11.4-15.4)
[2017-09-06 06:25] LABS: PARTIAL THROMBOPLASTIN TIME 33.4 SEC (23.5-35.8)
[2017-09-06 06:30] VITALS: BP 149/93
[2017-09-06 06:34] LABS: POTASSIUM 4.4 mmol/L (3.6-5.0)
[2017-09-06] MEDS ORDERED: FENTANYL CITRATE INJ/PF 250 MCG/5 ML AMPULE ONE (06:48)
[2017-09-06] MEDS ORDERED: ONDANSETRON HCL INJ/PF 4 MG/2 ML SDV ONE (06:48)
[2017-09-06] MEDS ORDERED: MIDAZOLAM 2 MG/2 ML INJ ONE (06:48)
[2017-09-06] MEDS ORDERED: EPHEDRINE SULFATE INJ 50 MG/1 ML AMPULE ONE (06:48)
[2017-09-06] MEDS ORDERED: PROPOFOL INJ 200 MG/20 ML VIAL IV ONE (06:48)
[2017-09-06] MEDS ORDERED: LIDOCAINE 2% INJ-PF (20 MG/ML) 10 ML AMPUL ONE (06:48)
== END 2017-09-06 09:42 | disposition home or self-care (01) ==
LOC: OROUT 05:18
PROVIDERS: ATTEND Surgery
DX: Z01.818 Encounter for other preprocedural examination (principal); E11.22 Type 2 diabetes mellitus with diabetic chronic kidney disease; I12.0 Hypertensive chronic kidney disease with stage 5 chronic kidney disease or end stage renal disease; N18.6 End stage renal disease; G62.9 Polyneuropathy, unspecified; Z86.73 Personal history of transient ischemic attack (TIA), and cerebral infarction without residual deficits; Z85.9 Personal history of malignant neoplasm, unspecified; Z72.0 Tobacco use
CPT/HCPCS: 36415 ×2; 82947; 84132; 85027; 85610; 85730; 80048; J3490 ×2; J1644; S0020; J1642; J2250; J2405; J2704; J3010

== ENCOUNTER → 2017-09-22 | Outpatient (CLI) | payer MEDICAID ==
[~2017-09-22] MED LIST changes: +AMINOPHYLLINE INJ/PF 250 MG/10 ML SDV IV ONE; -CEFAZOLIN 1 GM/D5W RTU 1 GM/50 ML RTUPB IV PRN; -NORMAL SALINE 1000 ML (RENAL PATIENTS) IV PRN; +REGADENOSON INJ 0.4 MG/5 ML DISP.SYRIN IV ONE
--- NOTE | 2017-09-22 13:12 | DRAGON STRESS TEST REPORT ---
INTRAVENOUS LEXISCAN CARDIOLITE STRESS TEST USING SINGLE PHOTON EMMISION COMPUTERIZED TOMOGRAPHIC. DATE OF PROCEDURE: September 22, 2017, INDICATION : Chest pain CARDIAC RISK FACTORS: Diabetes, hypertension, dyslipidemia, ESRD RESTING EKG: Sinus rhythm, no acute ST-T wave changes are noted. STRESS EKG: No significant ST segment changes noted with LexiScan bolus REASON FOR TERMINATION: Protocol. PROCEDURE REPORT: Baseline heart rate 86 beats per minute with blood pressure of 128/81. Patient had no significant complaints. Patient was bolused with Lexiscan 0.4 mg intravenously followed by saline bolus. Heart rate at 2 minutes post bolus 105 with a blood pressure of 121/69. 3 minutes post bolus heart rate 104 with blood pressure of 120/69. No significant EKG changes were noted. Patient had no significant complaints during the procedure or postprocedure. Patient injected with Aminophyllin 75 mg at 3 minutes or later after Lexiscan bolus. CONCLUSIONS: Normal EKG and hemodynamic response to IV LexiScan. NUCLEAR DATA: At rest the patient was given 14.35 millicuries of technetium 99 sestamibi injected intravenously. As per protocol rest gated SPECT images were obtained. On day of stress test, the patient was given intravenous LexiScan at a dose of 0.4 mg in 5 mL intravenously, followed by flush with normal saline. Subsequently the stress dose of 48.9 millicuries of technetium 99 sestamibi was injected intravenously. As per protocol stress gated images were obtained. NUCLEAR INTERPRETATION: Both raw and processed data were used for interpretation. Visual, qualitative, computer-generated quantitative data was used. There was good myocardial uptake of technetium compound. Motion artifact and soft tissue attenuations were noted. Marked increased visceral uptake was noted which caused subtraction artifact and caused difficulty in interpreting inferior wall perfusion. No definitive areas of transient perfusion defect noted, No definitive areas of fixed perfusion defect or scars noted. EKG gated imaging showed LV EF at 43 %, rest and stress gated EF similar visually. No definite regional wall motion abnormalities were noted. T. I D. ratio was 1.05. Lung heart ratio noted to be within normal limits 0.32. No significant extracardiac and abnormal radiotracer activities were noted. RV free wall uptake was noted to be increased. LVH noted. IMPRESSION: Also refer to comments under nuclear interpretation. Also test results needs to be interpreted in the context of pretest probability. 1. No definitive areas of transient perfusion defect noted. Please note that inferior wall perfusion cannot be accurately commented upon. An area of mild ischemia or mild fixed defect cannot be entirely. 2. There is no definitive scintigraphic evidence of myocardial infarction/scar. 3. EKG gated imaging shows left ventricular ejection fraction of approx. 43 %. Visually seemed to WNL. Could be falsely low because of LVH. RV free wall uptake was noted to be increased. 4. Clinical correlation requested as occasionally single vessel disease or balanced ischemia could be missed. In approximately 10% of the cases Lexiscan may not cause adequate vasodilatory stress. RECOMMENDATIONS: Aggressive risk factor modification and medical management. Further evaluation may be needed if continued symptoms or other high risk indicators are noted on clinical evaluation. Close cardiology follow-up is also recommended. Clinical correlation with echocardiogram derived ejection fraction. Inability to exercise by itself can lead to increased cardiovascular event risks. Consider cardiology consultation and or follow-up if clinically indicated. I am available for cardiology evaluation and consultation if requested by the hide curer, unless patient already has a interface analyst. SARI
== END ==
LOC: RAD 08:39
PROVIDERS: ATTEND Internal Medicine Cardiovascular Disease
DX: R07.9 Chest pain, unspecified (principal)
CPT/HCPCS: 93017; 78452; A9500; J2785; J0280; Q9969

== ENCOUNTER → 2017-10-11 | Day surgery (SDC) | payer MEDICAID ==
[2017-10-04 11:20] LABS: HEMATOCRIT 36.8 % (37.9-51.0); MEAN CORPUSCULAR HEMOGLOBIN 26.7 pg (27.0-33.4); MEAN CORPUSCULAR HGB CONC 32.6 g/dL (32.0-36.0); MEAN CORPUSCULAR VOLUME 82 fl (80-97); PLATELET COUNT 337 10^3/uL (150-450); RED CELL DISTRIBUTION WIDTH 16.4 % (11.5-14.0); WHITE BLOOD COUNT 7.2 10^3/uL (4.0-10.5)
[2017-10-04 11:48] LABS: BLOOD UREA NITROGEN 60 mg/dL (7-20); CALCIUM 9.4 mg/dL (8.4-10.2); GLUCOSE 380 mg/dL (75-110); POTASSIUM 4.5 mmol/L (3.6-5.0)
[2017-10-04 12:06] LABS: ANION GAP 22 (5-19); CARBON DIOXIDE 23 mmol/L (22-30); CHLORIDE 98 mmol/L (98-107); SODIUM 143.1 mmol/L (137-145)
--- NOTE | 2017-10-04 13:37 | EKG REPORT ---
SEVERITY:- BORDERLINE ECG - SINUS RHYTHM BORDERLINE INFERIOR Q WAVES NONSPECIFIC ST-T CHANGES LATERAL LEADS : Confirmed by: Harley Wiggins MD 04-Oct-2017 13:37:01
[~2017-10-11] MED LIST changes: -AMINOPHYLLINE INJ/PF 250 MG/10 ML SDV IV ONE; +BACITRACIN INJ 50,000 UNIT VIAL ONE; +BUPIVACAINE HCL 0.25 % INJ/PF (2.5 MG/1 ML) 30 ML VIAL ONE; +FENTANYL CITRATE INJ/PF 100 MCG/2 ML AMPUL ONE; +LIDOCAINE 0.5% INJ-PF (5 MG/ML) 50 ML SDV ONE; +LIDOCAINE 0.5% INJ-PF (5 MG/ML) 50 ML SDV SUBCUT PRN; +LIDOCAINE 2% INJ-PF (20 MG/ML) 10 ML AMPUL ONE; +MIDAZOLAM 2 MG/2 ML INJ ONE; +NORMAL SALINE 1000 ML (RENAL PATIENTS) IV PRN; +ONDANSETRON HCL INJ/PF 4 MG/2 ML SDV ONE; +PROPOFOL INJ 200 MG/20 ML VIAL IV ONE; -REGADENOSON INJ 0.4 MG/5 ML DISP.SYRIN IV ONE
[2017-10-11 10:13] LABS: INTERNATIONAL RATION (INR) 0.91; PARTIAL THROMBOPLASTIN TIME 31.8 SEC (23.5-35.8); PROTHROMBIN TIME 12.7 SEC (11.4-15.4)
[2017-10-11 10:27] LABS: POTASSIUM 4.3 mmol/L (3.6-5.0)
[2017-10-11 10:48] VITALS: BP 127/80
== END ==
LOC: OROUT 09:20
PROVIDERS: ATTEND Surgery
DX: N18.6 End stage renal disease (principal); R94.31 Abnormal electrocardiogram [ECG] [EKG]
CPT/HCPCS: 36415; 80048; 82947; 84132; 85027; 85610; 85730; 93005; 93010; J2250; J2405; J2704; J3010; J3490

== ENCOUNTER 2017-10-12 14:28 | Emergency (ER) | payer MEDICAID ==
[2017-10-12] MEDS ORDERED: ONDANSETRON 4 MG TAB.RAPDIS PO ONE (15:52)
[2017-10-12] MEDS ORDERED: FENTANYL CITRATE INJ/PF 100 MCG/2 ML AMPUL IM ONE (15:52)
[2017-10-12] MEDS ORDERED: DIAZEPAM 2 MG TABLET PO ONE (15:52)
--- NOTE | 2017-10-12 15:57 | ER Document Report ---
ED Medical Screen (RME) - General Chief Complaint: Back Pain Stated Complaint: BACK PAIN Time Seen by Provider: 10/12/17 15:51 Notes: 37 years old male with a history of diabetes hypertension diabetes, hypercholesterolemia and end-stage renal disease on dialysis. Today while having dialysis was on started having severe cramps over the lower legs and lower back therefore dialysis was discontinued. Patient was referred to the ED. On arrival he is continuously having the cramps and pain. I have greeted and performed a rapid initial assessment of this patient. A comprehensive ED assessment and evaluation of the patient, analysis of test results and completion of the medical decision making process will be conducted by additional ED providers. PHYSICAL EXAMINATION: GENERAL: Well-appearing, well-nourished and in no acute distress. HEAD: Atraumatic, normocephalic. EYES: Pupils equal round extraocular movements intact, conjunctiva are normal. ENT: Nares patent NECK: Normal range of motion LUNGS: No respiratory distress Musculoskeletal: Normal range of motion NEUROLOGICAL: Normal speech, normal gait. PSYCH: Normal mood, normal affect. SKIN: Warm, Dry, normal turgor, no rashes or lesions noted. TRAVEL OUTSIDE OF THE [place] IN LAST 30 DAYS: No - Related Data Allergies/Adverse Reactions: heparin Allergy (Verified 10/12/17 15:42) pork derived (porcine) [Pork derived (porcine)] Allergy (Verified 10/12/17 15:42 ) Past Medical History - Social History Chew tobacco use (# tins/day): No Frequency of alcohol use: None Drug Abuse: None - Past Medical History Cardiac Medical History: Reports: Hx Hypercholesterolemia, Hx Hypertension Denies: Hx Congestive Heart Failure, Hx Coronary Artery Disease, Hx DVT, Hx Heart Attack, Hx Pulmonary Embolism Pulmonary Medical History: Reports: Hx Pneumonia Denies: Hx Asthma, Hx Bronchitis, Hx COPD Neurological Medical History: Reports: Hx Migraine. Denies: Hx Cerebrovascular Accident, Hx Seizures Endocrine Medical History: Reports: Hx Diabetes Mellitus Type 1, Hx Diabetes Mellitus Type 2 - On insulin pump. Denies: Hx Hyperthyroidism, Hx Hypothyroidism Renal/ Medical History: Reports: Hx End Stage Renal Disease - Stage IV renal failure, Hx Peritoneal Dialysis - hemo, Hx Renal Insufficiency - normal creatinins 3 to 4 now. GI Medical History: Reports: Hx Gastroesophageal Reflux Disease. Denies: Hx Cirrhosis, Hx Hepatitis Musculoskeltal Medical History: Denies Hx Arthritis, Reports Hx Musculoskeletal Trauma Skin Medical History: Reports Hx Cellulitis, Denies Hx Eczema, Reports Hx MRSA, Denies Hx Psoriasis Psychiatric Medical History: Reports: Hx Depression Traumatic Medical History: Reports: Hx Fractures Infectious Medical History: Reports: Hx MRSA - S/P I & D multiple skin abscesses in past. Denies: Hx Hepatitis Past Surgical History: Reports: Hx Oral Surgery, Hx Thyroid Surgery - Patient states that would removed due to cancer, Hx Vascular Surgery - Fistula for dialysis has not started dialysis yet - Immunizations Hx Diphtheria, Pertussis, Tetanus Vaccination: No History of Influenza Vaccine for 02/2017 - 07/2017 Season: No Physical Exam - Vital signs Vitals: Temp Pulse Resp BP Pulse Ox 98.6 F 91 18 121/74 97 10/12/17 14:50 10/12/17 14:50 10/12/17 14:50 10/12/17 14:50 10/12/17 14:50 Course - Vital Signs Vital signs: Temp Pulse Resp BP Pulse Ox 98.6 F 91 18 121/74 97 10/12/17 14:50 10/12/17 14:50 10/12/17 14:50 10/12/17 14:50 10/12/17 14:50
[2017-10-12 16:23] LABS: ABSOLUTE BASOPHILS # (AUTO) 0.2 10^3/uL (0.0-0.2); ABSOLUTE EOSINOPHILS # (AUTO) 0.2 10^3/uL (0.0-0.6); ABSOLUTE MONOCYTES (AUTO) 0.8 10^3/uL (0.1-1.4); ABSOLUTE NEUT (AUTO) 5.6 10^3/uL (1.7-8.2); BASOPHILS % (AUTO) 1.7 % (0-2); EOSINOPHILS % (AUTO) 2.1 % (0-6); LYMPHOCYTES % (AUTO) 30.9 % (13-45); MEAN CORPUSCULAR HEMOGLOBIN 26.6 pg (27.0-33.4); MEAN CORPUSCULAR HGB CONC 32.4 g/dL (32.0-36.0); MEAN CORPUSCULAR VOLUME 82 fl (80-97); MONOCYTES % (AUTO) 8.3 % (3-13); PLATELET COUNT 443 10^3/uL (150-450); RED BLOOD COUNT 4.87 10^6/uL (4.35-5.55); RED CELL DISTRIBUTION WIDTH 15.9 % (11.5-14.0); TOTAL CELLS COUNTED % (AUTO) 100 %; WHITE BLOOD COUNT 9.8 10^3/uL (4.0-10.5)
[2017-10-12 16:34] LABS: ALANINE AMINOTRANSFERASE 43 U/L (21-72); ALBUMIN 4.5 g/dL (3.5-5.0); ALKALINE PHOSPHATASE 69 U/L (38-126); ANION GAP 16 (5-19); ASPARTATE AMINO TRANSFERASE 29 U/L (17-59); BILIRUBIN,DIRECT 0.5 mg/dL (0.0-0.4); BILIRUBIN,TOTAL 0.5 mg/dL (0.2-1.3); BLOOD UREA NITROGEN 39 mg/dL (7-20); CALCIUM 9.8 mg/dL (8.4-10.2); CARBON DIOXIDE 30 mmol/L (22-30); CHLORIDE 97 mmol/L (98-107); GLUCOSE 277 mg/dL (75-110); POTASSIUM 4.2 mmol/L (3.6-5.0); TOTAL PROTEIN 8.1 g/dL (6.3-8.2)
[2017-10-12] MEDS ORDERED: LIDOCAINE 5% (700 MG) TRANSDERMAL ADH..PATCH TP ONE (18:55)
--- NOTE | 2017-10-12 18:57 | ER Document Report ---
ED General - General Chief Complaint: Back Pain Stated Complaint: BACK PAIN Time Seen by Provider: 10/12/17 15:51 TRAVEL OUTSIDE OF THE [place] IN LAST 30 DAYS: No - HPI Patient complains to provider of: Back pain Notes: Patient with a history of chronic back pain dialysis Tuesday states mild dialysis days to have significant back spasms therefore came to the ER for further evaluation. Upon my evaluation patient I received narcotic pain medication and Valium from the dock in triage. Patient was initially seen lying on his right side however upon reevaluation entering the patient's room he was sitting up with his beats headphones on listening to music and eating arnulfo crackers. Patient states at this time pain-free denies any fever chills nausea vomiting diarrhea - Related Data Allergies/Adverse Reactions: heparin Allergy (Verified 10/12/17 15:42) pork derived (porcine) [Pork derived (porcine)] Allergy (Verified 10/12/17 15:42 ) Past Medical History - Social History Smoking Status: Never Smoker Chew tobacco use (# tins/day): No Frequency of alcohol use: None Drug Abuse: None Family History: Arthritis, CAD, CVA, DM, Hyperlipidemia, Hypertension, Malignancy, Thyroid Disfunction, Other - Chronic kidney disease Patient has suicidal ideation: No Patient has homicidal ideation: No - Past Medical History Cardiac Medical History: Reports: Hx Hypercholesterolemia, Hx Hypertension Denies: Hx Congestive Heart Failure, Hx Coronary Artery Disease, Hx DVT, Hx Heart Attack, Hx Pulmonary Embolism Pulmonary Medical History: Reports: Hx Pneumonia Denies: Hx Asthma, Hx Bronchitis, Hx COPD Neurological Medical History: Reports: Hx Migraine. Denies: Hx Cerebrovascular Accident, Hx Seizures Endocrine Medical History: Reports: Hx Diabetes Mellitus Type 1, Hx Diabetes Mellitus Type 2 - On insulin pump. Denies: Hx Hyperthyroidism, Hx Hypothyroidism Renal/ Medical History: Reports: Hx End Stage Renal Disease - Stage IV renal failure, Hx Peritoneal Dialysis - hemo, Hx Renal Insufficiency - normal creatinins 3 to 4 now. GI Medical History: Reports: Hx Gastroesophageal Reflux Disease. Denies: Hx Cirrhosis, Hx Hepatitis Musculoskeltal Medical History: Denies Hx Arthritis, Reports Hx Musculoskeletal Trauma Skin Medical History: Reports Hx Cellulitis, Denies Hx Eczema, Reports Hx MRSA, Denies Hx Psoriasis Psychiatric Medical History: Reports: Hx Depression Traumatic Medical History: Reports: Hx Fractures Infectious Medical History: Reports: Hx MRSA - S/P I & D multiple skin abscesses in past. Denies: Hx Hepatitis Past Surgical History: Reports: Hx Oral Surgery, Hx Thyroid Surgery - Patient states that would removed due to cancer, Hx Vascular Surgery - Fistula for dialysis has not started dialysis yet - Immunizations Hx Diphtheria, Pertussis, Tetanus Vaccination: No Review of Systems - Review of Systems Constitutional: No symptoms reported EENT: No symptoms reported Cardiovascular: No symptoms reported Respiratory: No symptoms reported Gastrointestinal: No symptoms reported Genitourinary: No symptoms reported Male Genitourinary: No symptoms reported Musculoskeletal: Back pain Skin: No symptoms reported Hematologic/Lymphatic: No symptoms reported Neurological/Psychological: No symptoms reported -: Yes All other systems reviewed and negative Physical Exam - Vital signs Vitals: Temp Pulse Resp BP Pulse Ox 98.6 F 91 18 121/74 97 10/12/17 14:50 10/12/17 14:50 10/12/17 14:50 10/12/17 14:50 10/12/17 14:50 Interpretation: Normal - General General appearance: Appears well, Alert - HEENT Head: Normocephalic, Atraumatic Eyes: Normal Pupils: PERRL - Respiratory Respiratory status: No respiratory distress Chest status: Nontender Breath sounds: Normal Chest palpation: Normal - Cardiovascular Rhythm: Regular Heart sounds: Normal auscultation Murmur: No - Abdominal Inspection: Normal Distension: No distension Bowel sounds: Normal Tenderness: Nontender Organomegaly: No organomegaly - Back Back: Normal, Nontender - Extremities General upper extremity: Normal inspection, Nontender, Normal color, Normal ROM , Normal temperature, Other - Fistula in the left forearm with palpable thrill General lower extremity: Normal inspection, Nontender, Normal color, Normal ROM , Normal temperature, Normal weight bearing. No: Ellis's sign - Neurological Neuro grossly intact: Yes Cognition: Normal Orientation: AAOx4 Palmer Coma Scale Eye Opening: Spontaneous Palmer Coma Scale Verbal: Oriented Boyd Coma Scale Motor: Obeys Commands Palmer Coma Scale Total: 15 Speech: Normal Motor strength normal: LUE, RUE, LLE, RLE Sensory: Normal - Psychological Associated symptoms: Normal affect, Normal mood - Skin Skin Temperature: Warm Skin Moisture: Dry Skin Color: Normal Course - Re-evaluation Re-evalutation: 10/13/17 02:40 The patient presents with low back pain without signs of spinal cord compression , cauda equina syndrome, infection, aneurysm, or other serious etiology. The patient is neurologically intact. Given the extremely low risk of these diagnoses further testing and evaluation for these possibilities does not appear to be indicated at this time. The patient has been instructed to return if the symptoms worsen or change in any way. Discussed with judo instructor will have the patient continue with his normal schedule. - Vital Signs Vital signs: Temp Pulse Resp BP Pulse Ox 98.7 F 85 20 121/80 96 10/12/17 19:06 10/12/17 19:06 10/12/17 19:06 10/12/17 19:06 10/12/17 19:06 - Laboratory Result Diagrams: 10/12/17 16:00 10/12/17 16:00 Laboratory results interpreted by me: 10/12/17 10/12/17 16:00 16:00 Hgb 13.0 L MCH 26.6 L RDW 15.9 H Chloride 97 L BUN 39 H Creatinine 5.03 H Est GFR ( Amer) 16 L Est GFR (Non-Af Amer) 13 L Glucose 277 H Direct Bilirubin 0.5 H Discharge - Discharge Clinical Impression: End-stage renal disease on hemodialysis, Back spasm Disposition: HOME, SELF-CARE Instructions: Ice Packs ([facility]), Low Back Pain ([facility]) Additional Instructions: I discussed your case with Dr. Downey she recommends just continue with her scheduled dialysis on Tuesday. Please continue her home medications as prescribed. Will recommend wearing a lidocaine patch that we gave you here in ER on Tuesday when you do receive her next round of dialysis. Return to ER symptoms worsen. Referrals: KARELY SEAY DO [Primary Care Provider] - Follow up as needed
[2017-10-12 19:10] VITALS: BP 121/80
== END 2017-10-12 19:10 | disposition home or self-care (01) ==
LOC: ER 14:28
DX: M62.830 Muscle spasm of back (principal); I12.0 Hypertensive chronic kidney disease with stage 5 chronic kidney disease or end stage renal disease; E11.22 Type 2 diabetes mellitus with diabetic chronic kidney disease; Z99.2 Dependence on renal dialysis; N18.6 End stage renal disease; Z96.41 Presence of insulin pump (external) (internal); Z79.4 Long term (current) use of insulin; Z86.14 Personal history of Methicillin resistant Staphylococcus aureus infection
CPT/HCPCS: 99284; 96372; 36415; 85025; 80053; J3490 ×2; S0119; J3010

== ENCOUNTER 2017-12-02 00:38 | Emergency (ER) | payer MEDICAID ==
[2017-12-02] MEDS ORDERED: NORMAL SALINE 1000 ML 1,000 ML IV PRN (01:45)
--- NOTE | 2017-12-02 03:36 | ER Document Report ---
ED Blood Pressure Problem - General Mode of Arrival: Ambulatory Information source: Patient TRAVEL OUTSIDE OF THE [place] IN LAST 30 DAYS: No <OLYA ALVAREZ - Last Filed: 12/02/17 04:22> <SANGEETA SUMMERS - Last Filed: 12/02/17 07:47> - General Chief Complaint: High Blood Pressure Stated Complaint: BLOOD PRESSURE PROBLEM Time Seen by Provider: 12/02/17 03:18 Notes: Patient is a 37 year old male with ESRD (MWF dialysis) and diabetes type 1 on insulin pump presents to the emergency department complaining of hyperglycemia. Patient states he was feeling dizzy at home and he decided to check his blood sugar and found it to be in the 600s and his blood pressure 153/98. Patient states his sugars has been normal for the last 2 months so he has not checked his blood sugar within the last 2 weeks. He mentions receiving penicillin for a mouth abscess 3-4 days ago and is unsure if he was given a proper dosage. He also complains of muscles aches and left thigh pain. He denies nausea, vomiting , cough, fevers or a change in urination. 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 (OLYA ALVAREZ) - Related Data Allergies/Adverse Reactions: heparin Allergy (Verified 10/12/17 15:42) pork derived (porcine) [Pork derived (porcine)] Allergy (Verified 10/12/17 15:42 ) Past Medical History - General Information source: Patient - Social History Smoking Status: Unknown if Ever Smoked Family History: Arthritis, CAD, CVA, DM, Hyperlipidemia, Hypertension, Malignancy, Thyroid Disfunction, Other - Chronic kidney disease - Past Medical History Cardiac Medical History: Reports: Hx Hypercholesterolemia, Hx Hypertension Pulmonary Medical History: Reports: Hx Pneumonia Neurological Medical History: Reports: Hx Migraine Endocrine Medical History: Reports: Hx Diabetes Mellitus Type 1 - on insulin pump Renal/ Medical History: Reports: Hx End Stage Renal Disease - Stage IV renal failure, Hx Peritoneal Dialysis - hemo, Hx Renal Insufficiency - normal creatinins 3 to 4 now. GI Medical History: Reports: Hx Gastroesophageal Reflux Disease Musculoskeletal Medical History: Reports Hx Musculoskeletal Trauma Skin Medical History: Reports Hx Cellulitis, Reports Hx MRSA Psychiatric Medical History: Reports: Hx Depression Traumatic Medical History: Reports: Hx Fractures Infectious Medical History: Reports: Hx MRSA - S/P I & D multiple skin abscesses in past Past Surgical History: Reports: Hx Oral Surgery, Hx Thyroid Surgery - Patient states that would removed due to cancer, Hx Vascular Surgery - Fistula for dialysis has not started dialysis yet - Immunizations Hx Diphtheria, Pertussis, Tetanus Vaccination: No <OLYA ALVAREZ - Last Filed: 12/02/17 04:22> Review of Systems - Review of Systems Constitutional: See HPI EENT: No symptoms reported Cardiovascular: See HPI, Dizziness Respiratory: No symptoms reported Gastrointestinal: No symptoms reported Genitourinary: No symptoms reported Male Genitourinary: No symptoms reported Musculoskeletal: No symptoms reported Skin: No symptoms reported Hematologic/Lymphatic: No symptoms reported Neurological/Psychological: No symptoms reported -: Yes All other systems reviewed and negative <OLYA ALVAREZ - Last Filed: 12/02/17 04:22> Physical Exam - Vital signs Interpretation: Normal - General General appearance: Appears well, Alert - HEENT Head: Normocephalic, Atraumatic Eyes: Normal Pupils: PERRL - Respiratory Respiratory status: No respiratory distress Chest status: Nontender Breath sounds: Normal Chest palpation: Normal - Cardiovascular Rhythm: Regular Heart sounds: Normal auscultation Murmur: No - Abdominal Inspection: Normal Distension: No distension Bowel sounds: Normal Tenderness: Nontender Organomegaly: No organomegaly - Back Back: Normal, Nontender - Extremities General upper extremity: Normal inspection, Nontender, Normal color, Normal ROM , Normal temperature General lower extremity: Normal inspection, Nontender, Normal color, Normal ROM , Normal temperature, Normal weight bearing. No: Ellis's sign - Neurological Neuro grossly intact: Yes Cognition: Normal Orientation: AAOx4 [place] Coma Scale Eye Opening: Spontaneous [place] Coma Scale Verbal: Oriented [place] Coma Scale Motor: Obeys Commands [place] Coma Scale Total: 15 Speech: Normal Motor strength normal: LUE, RUE, LLE, RLE Sensory: Normal - Psychological Associated symptoms: Normal affect, Normal mood - Skin Skin Temperature: Warm Skin Moisture: Dry Skin Color: Normal <SANGEETA SUMMERS - Last Filed: 12/02/17 07:47> - Vital signs Vitals: Temp Pulse Resp BP Pulse Ox 98.3 F 80 18 163/92 H 96 12/02/17 00:44 12/02/17 00:44 12/02/17 00:44 12/02/17 00:44 12/02/17 00:44 Course - Laboratory Result Diagrams: 12/02/17 03:25 12/02/17 03:25 <OLYA ALVAREZ - Last Filed: 12/02/17 04:22> - Laboratory Result Diagrams: 12/02/17 03:25 12/02/17 03:25 <SANGEETA SUMMERS - Last Filed: 12/02/17 07:47> - Re-evaluation Re-evalutation: 12/02/17 07:45 Patient is 37-year-old male who comes in this evening with hyperglycemia. Patient gave himself insulin here in the emergency department and has still been persistently hyperglycemic. There is no evidence for acidosis on his blood work. He was recently treated with penicillin for an abscessed tooth which she is still taking. The patient gave himself 18.5 units of his insulin by his insulin pump and is still not any lower with his blood sugar. I do not think that the patient's pump is functioning properly and patient agrees. Given insulin IV and her blood sugars coming down. The patient will be given an Apidra pen and he is to call [facility] regarding his insulin pump. He is also to call his primary care doctor and magazine hand. I have offered to give him more insulin here in the emergency department but he would prefer to dose himself at home with the Apidra pen. He is also been given a prescription for needles and glucose beds. Return if any worsening or concerning symptoms. Stable for discharge. (SANGEETA SUMMERS) - Vital Signs Vital signs: Temp Pulse Resp BP Pulse Ox 98.2 F 80 16 147/96 H 96 12/02/17 07:23 12/02/17 00:44 12/02/17 07:23 12/02/17 07:23 12/02/17 00:44 - Laboratory Laboratory results interpreted by me: 12/02/17 12/02/17 12/02/17 00:46 03:25 03:25 RBC 3.97 L Hgb 10.9 L Hct 33.3 L RDW 16.0 H Seg Neutrophils % 41.8 L Sodium 134.7 L Chloride 95 L BUN 53 H Creatinine 6.79 H Est GFR ( Amer) 11 L Est GFR (Non-Af Amer) 9 L Glucose 679 H* POC Glucose > 550 H* Direct Bilirubin 0.6 H Urine Protein Urine Glucose (UA) 12/02/17 12/02/17 12/02/17 03:37 04:03 04:47 RBC Hgb Hct RDW Seg Neutrophils % Sodium Chloride BUN Creatinine Est GFR ( Amer) Est GFR (Non-Af Amer) Glucose POC Glucose > 550 H* > 550 H* Direct Bilirubin Urine Protein >=500 H Urine Glucose (UA) >=500 H 12/02/17 12/02/17 12/02/17 05:14 06:03 06:56 RBC Hgb Hct RDW Seg Neutrophils % Sodium Chloride BUN Creatinine Est GFR ( Amer) Est GFR (Non-Af Amer) Glucose POC Glucose > 550 H* > 550 H* 445 H* Direct Bilirubin Urine Protein Urine Glucose (UA) Critical Care Note - Critical Care Note Total time excluding time spent on procedures (mins): 35 - Evaluation and management of hyperglycemia with multiple re-evaluations, treatment of hyperglycemia, counseling patient <SANGEETA SUMMERS - Last Filed: 12/02/17 07:47> Discharge <OLYA ALVAREZ - Last Filed: 12/02/17 04:22> <SANGEETA SUMMERS - Last Filed: 12/02/17 07:47> - Discharge Clinical Impression: Hyperglycemia Condition: Stable Disposition: HOME, SELF-CARE Instructions: Hyperglycemia (OM) Additional Instructions: Please make sure you go to your dialysis appointment this morning. It seems that your high blood sugar is due to a problem with your insulin pump and also possibly from infection you have in your tooth. Please keep taking antibiotics as prescribed. There is no evidence for acidosis at this time. Follow-up with your primary care doctor and your magazine hand. Prescriptions: Dextrose [Glucose Bits] 1 gm PO ASDIR PRN #30 [email or web address] PRN Reason: Insulin Glulisine [Apidra Insulin (Glulisine) 100 unit/mL] See Protocol SUBCUT ACHS #10 ml Pen Needle, Diabetic [Insulin Pen Needle] 1 each MC ASDIR PRN #60 [email or web address] PRN Reason: Referrals: KARELY SEAY DO [Primary Care Provider] - 12/02/17 Scribe Attestation: 12/02/17 07:46 I personally performed the services described in the documentation, reviewed and edited the documentation which was dictated to the scribe in my presence, and it accurately records my words and actions. (SANGEETA SUMMERS) Scribe Documentation - Scribe Written by Scribe:: Laura Simon, 12/02/2017 03:38 acting as scribe for :: Coleman <OLYA ALVAREZ - Last Filed: 12/02/17 04:22>
[2017-12-02 03:41] LABS: VENOUS BLOOD BASE EXCESS -0.4 mmol/L; VENOUS BLOOD HCO3 24.9 mmol/L (20-32); VENOUS BLOOD PCO2 43.5 mmHg (35-63); VENOUS BLOOD PH 7.38 (7.30-7.42)
[2017-12-02 03:55] LABS: ABSOLUTE EOSINOPHILS # (AUTO) 0.4 10^3/uL (0.0-0.6); ABSOLUTE MONOCYTES (AUTO) 0.7 10^3/uL (0.1-1.4); BASOPHILS % (AUTO) 0.7 % (0-2); EOSINOPHILS % (AUTO) 5.1 % (0-6); HEMATOCRIT 33.3 % (37.9-51.0); HEMOGLOBIN 10.9 g/dL (13.5-17.0); LYMPHOCYTES % (AUTO) 42.3 % (13-45); MEAN CORPUSCULAR HEMOGLOBIN 27.4 pg (27.0-33.4); MEAN CORPUSCULAR HGB CONC 32.7 g/dL (32.0-36.0); MEAN CORPUSCULAR VOLUME 84 fl (80-97); MONOCYTES % (AUTO) 10.1 % (3-13); PLATELET COUNT 325 10^3/uL (150-450); RED BLOOD COUNT 3.97 10^6/uL (4.35-5.55); SEGMENTED NEUTROPHILS % (AUTO) 41.8 % (42-78); TOTAL CELLS COUNTED % (AUTO) 100 %; WHITE BLOOD COUNT 7.1 10^3/uL (4.0-10.5)
[2017-12-02 04:01] LABS: ALANINE AMINOTRANSFERASE 45 U/L (21-72); ALKALINE PHOSPHATASE 76 U/L (38-126); ANION GAP 16 (5-19); ASPARTATE AMINO TRANSFERASE 38 U/L (17-59); BILIRUBIN,DIRECT 0.6 mg/dL (0.0-0.4); BILIRUBIN,TOTAL 0.7 mg/dL (0.2-1.3); BLOOD UREA NITROGEN 53 mg/dL (7-20); CALCIUM 9.2 mg/dL (8.4-10.2); CARBON DIOXIDE 24 mmol/L (22-30); CHLORIDE 95 mmol/L (98-107); POTASSIUM 4.6 mmol/L (3.6-5.0); SODIUM 134.7 mmol/L (137-145); TOTAL PROTEIN 7.7 g/dL (6.3-8.2)
[2017-12-02 04:10] LABS: GLUCOSE 679 mg/dL (75-110)
[2017-12-02] MEDS ORDERED: INSULIN REG, HUMAN 100 UNIT/ML 3 ML VIAL (PYX) IV ONE ×3 (04:12→06:07)
[2017-12-02] MEDS ORDERED: NORMAL SALINE 1000 ML 250 ML IV ONE (04:12)
[2017-12-02 04:25] LABS: APPEARANCE,URINE CLEAR; BILIRUBIN,URINE NEGATIVE (NEGATIVE); COLOR,URINE STRAW; GLUCOSE, URINE >=500 mg/dL (NEGATIVE); KETONES,URINE NEGATIVE (NEGATIVE); LEUKOCYTE ESTERASE,URINE NEGATIVE (NEGATIVE); NITRITE,URINE NEGATIVE (NEGATIVE); PROTEIN,URINE >=500 mg/dL (NEGATIVE); URINE SPECIFIC GRAVITY 1.013; UROBILINOGEN,URINE NEGATIVE mg/dL (<2.0)
[2017-12-02 07:43] VITALS: BP 147/96
--- NOTE | 2017-12-02 22:06 | EKG REPORT ---
SEVERITY:- BORDERLINE ECG - SINUS RHYTHM BORDERLINE INFERIOR Q WAVES : Confirmed by: Domingo Lawrence 02-Dec-2017 22:05:25
== END 2017-12-02 07:42 | disposition home or self-care (01) ==
LOC: ER 00:38
DX: E10.65 Type 1 diabetes mellitus with hyperglycemia (principal); E10.22 Type 1 diabetes mellitus with diabetic chronic kidney disease; I12.0 Hypertensive chronic kidney disease with stage 5 chronic kidney disease or end stage renal disease; N18.6 End stage renal disease; Z99.2 Dependence on renal dialysis; Z96.41 Presence of insulin pump (external) (internal); K04.7 Periapical abscess without sinus; R42 Dizziness and giddiness; M79.1 Myalgia; Z88.8 Allergy status to other drugs, medicaments and biological substances; Z91.018 Allergy to other foods
CPT/HCPCS: 93005; 99285; 36415; 82962; 82550; 85025; 80053; 81001; 82803; 93010; J1815; J7030

== ENCOUNTER → 2018-04-26 | Outpatient (CLI) | payer MEDICAID ==
--- NOTE | 2018-04-26 12:40 | RADIOLOGY REPORT (SQ) ---
EXAM DESCRIPTION: CHEST PA/LATERAL COMPLETED DATE/TIME: 04/26/2018 12:18 pm REASON FOR STUDY: COUGH COMPARISON: February 2016 EXAM PARAMETERS: NUMBER OF VIEWS: two views TECHNIQUE: Digital Frontal and Lateral radiographic views of the chest acquired. RADIATION DOSE: NA LIMITATIONS: none FINDINGS: LUNGS AND PLEURA: No opacities, masses or pneumothorax. No pleural effusion. MEDIASTINUM AND HILAR STRUCTURES: No masses or contour abnormalities. HEART AND VASCULAR STRUCTURES: Heart normal size. No evidence for failure. BONES: No acute findings. HARDWARE: None in the chest. OTHER: No other significant finding. IMPRESSION: NO SIGNIFICANT RADIOGRAPHIC FINDING IN THE CHEST. TECHNICAL DOCUMENTATION: JOB ID: [id number] [employer] All Rights Reserved Reading location - IP/workstation name: [email or web address]
== END ==
LOC: OD 12:06
PROVIDERS: ATTEND Nurse Practitioner Family
DX: R05 Cough (principal)
CPT/HCPCS: 71046

== ENCOUNTER 2018-04-28 00:43 | Emergency (ER) | payer MEDICAID ==
[2018-04-28 05:25] LABS: HEMATOCRIT 33.3 % (37.9-51.0); MEAN CORPUSCULAR HEMOGLOBIN 27.3 pg (27.0-33.4); MEAN CORPUSCULAR HGB CONC 32.9 g/dL (32.0-36.0); MEAN CORPUSCULAR VOLUME 83 fl (80-97); PLATELET COUNT 332 10^3/uL (150-450); RED BLOOD COUNT 4.02 10^6/uL (4.35-5.55); RED CELL DISTRIBUTION WIDTH 13.9 % (11.5-14.0); WHITE BLOOD COUNT 8.7 10^3/uL (4.0-10.5)
[2018-04-28 05:42] LABS: ANION GAP 16 (5-19); BLOOD UREA NITROGEN 76 mg/dL (7-20); CALCIUM 9.3 mg/dL (8.4-10.2); CARBON DIOXIDE 21 mmol/L (22-30); CHLORIDE 106 mmol/L (98-107); GLUCOSE 172 mg/dL (75-110); POTASSIUM 4.4 mmol/L (3.6-5.0); SODIUM 143.3 mmol/L (137-145)
[2018-04-28 05:53] LABS: ABSOLUTE LYMPHOCYTES# (MANUAL) 3.5 10^3/uL (0.5-4.7); ABSOLUTE MONOCYTES # (MANUAL) 0.3 10^3/uL (0.1-1.4); ABSOLUTE NEUTROPHILS# (MANUAL) 4.2 10^3/uL (1.7-8.2); BASOPHILS % (MANUAL) 0 % (0-2); EOSINOPHILS % (MANUAL) 8 % (0-6); LYMPHOCYTES % (MANUAL) 39 % (13-45); MONOCYTES % (MANUAL) 4 % (3-13); SEGMENTED NEUTROPHILS % (MAN) 48 % (42-78); TOTAL CELLS COUNTED 100
[2018-04-28 05:54] LABS: HYPOCHROMASIA 1+; PLATELET COMMENT ADEQUATE; PLATELET GIANT PRESENT; PLATELET LARGE PRESENT
--- NOTE | 2018-04-28 06:14 | RADIOLOGY REPORT (SQ) ---
EXAM DESCRIPTION: XR CHEST 2 VIEWS COMPLETED DATE/TME: 04/28/2018 04:57 CLINICAL HISTORY: 37 years, Male, chest pain, short of breath, fevers COMPARISON: 04/26/2018 chest NUMBER OF VIEWS: 2 TECHNIQUE: Frontal and lateral views of the chest LIMITATIONS: None. FINDINGS: Heart size is normal. Lungs are clear. No pneumothorax IMPRESSION: Negative chest copyright 2010 [employer]- All Rights Reserved
[2018-04-28] MEDS ORDERED: PREDNISONE 20 MG TABLET PO ONE (06:16)
--- NOTE | 2018-04-28 06:18 | ER Document Report ---
ED General - General Chief Complaint: Fever Stated Complaint: FEVER, HARD TO BREATH, DIZZY Time Seen by Provider: 04/28/18 04:46 TRAVEL OUTSIDE OF THE [place] IN LAST 30 DAYS: No - Related Data Allergies/Adverse Reactions: heparin Allergy (Verified 10/12/17 15:42) pork derived (porcine) [Pork derived (porcine)] Allergy (Verified 10/12/17 15:42 ) Past Medical History - General Information source: Patient - Social History Smoking Status: Current Every Day Smoker Chew tobacco use (# tins/day): No Smoking Education Provided: Yes - <3 min Frequency of alcohol use: None Drug Abuse: None Family History: Arthritis, CAD, CVA, DM, Hyperlipidemia, Hypertension, Malignancy, Thyroid Disfunction, Other - Chronic kidney disease Patient has suicidal ideation: No Patient has homicidal ideation: No - Past Medical History Cardiac Medical History: Reports: Hx Hypercholesterolemia, Hx Hypertension Denies: Hx Congestive Heart Failure, Hx Coronary Artery Disease, Hx DVT, Hx Heart Attack, Hx Pulmonary Embolism Pulmonary Medical History: Reports: Hx Pneumonia Denies: Hx Asthma, Hx Bronchitis, Hx COPD Neurological Medical History: Reports: Hx Migraine. Denies: Hx Cerebrovascular Accident, Hx Seizures Endocrine Medical History: Reports: Hx Diabetes Mellitus Type 1 - on insulin pump, Hx Diabetes Mellitus Type 2 - On insulin pump. Denies: Hx Hyperthyroidism , Hx Hypothyroidism Renal/ Medical History: Reports: Hx End Stage Renal Disease - Stage IV renal failure, Hx Renal Insufficiency - normal creatinins 3 to 4 now.. Denies: Hx Peritoneal Dialysis GI Medical History: Reports: Hx Gastroesophageal Reflux Disease. Denies: Hx Cirrhosis, Hx Hepatitis Musculoskeletal Medical History: Denies Hx Arthritis, Reports Hx Musculoskeletal Trauma Skin Medical History: Reports Hx Cellulitis, Denies Hx Eczema, Reports Hx MRSA, Denies Hx Psoriasis Psychiatric Medical History: Reports: Hx Depression Traumatic Medical History: Reports: Hx Fractures Infectious Medical History: Reports: Hx MRSA - S/P I & D multiple skin abscesses in past. Denies: Hx Hepatitis Past Surgical History: Reports: Hx Oral Surgery, Hx Thyroid Surgery - Patient states that would removed due to cancer, Hx Vascular Surgery - Fistula for dialysis has not started dialysis yet - Immunizations Hx Diphtheria, Pertussis, Tetanus Vaccination: No Review of Systems - Review of Systems Constitutional: See HPI EENT: No symptoms reported Cardiovascular: See HPI Respiratory: See HPI Gastrointestinal: No symptoms reported Genitourinary: No symptoms reported Male Genitourinary: No symptoms reported Musculoskeletal: No symptoms reported Skin: No symptoms reported Hematologic/Lymphatic: No symptoms reported Neurological/Psychological: No symptoms reported Physical Exam - Vital signs Vitals: Temp Pulse Resp BP Pulse Ox 98.5 F 88 18 146/75 H 96 04/28/18 00:54 04/28/18 00:54 04/28/18 00:54 04/28/18 00:54 04/28/18 00:54 - Notes Notes: GENERAL: Alert, interacts well. No acute distress. HEAD: Normocephalic, atraumatic. EYES: Pupils equal, round, and reactive to light. Extraocular movements intact. ENT: Oral mucosa moist, tongue midline. Oropharynx unremarkable. Airway patent. Nares patent, no nasal septal hematoma, TM's intact. NECK: Full range of motion. Supple. Trachea midline. LUNGS: Clear to auscultation bilaterally, no wheezes, rales, or rhonchi. No respiratory distress. Mild occasional cough. Mild pain over the anterior chest bilaterally with palpation. HEART: Regular rate and rhythm. No murmur ABDOMEN: Soft, non-tender. Non-distended. Bowel sounds present in all 4 quadrants. GENITOURINARY: Deferred EXTREMITIES: Moves all 4 extremities spontaneously. No edema, normal radial and dorsalis pedis pulses bilaterally. No cyanosis. BACK: no cervical, thoracic, lumbar midline tenderness. No saddle anesthesia, normal distal neurovascular exam. NEUROLOGICAL: Alert and oriented x3. Normal speech. [cranial nerves II through XII grossly intact]. PSYCH: Normal affect, normal mood. SKIN: Warm, dry, normal turgor. No rashes or lesions noted. Course - Re-evaluation Re-evalutation: EKG sinus rhythm with no T wave inversions or ST segment changes in consecutive leads. Chest x-ray is unremarkable. CBC unremarkable with mildly elevated eosinophils. Chemistry shows expected renal failure but potassium is normal. Troponin is negative despite chest pain for 1 week. Patient has cough, pain on palpation of the chest, smokes, has bronchitis type symptoms. No evidence of pneumonia. No hypoxia, no tachypnea, no rales, patient is not significantly hypertensive. I discussed with patient. Patient states he is prescribed prednisone 20 mg twice a day for 5 days, he took 1 dose, felt a lot better later in the day but then he could not find his medication. He states that he was hoping he could get more prednisone because he felt a lot better with it. He has an insulin pump and he states he is good at adjusting his insulin for higher blood sugars. As a result patient was provided with prednisone, discussed smoking cessation which he states that he is planning on stopping. Patient has dialysis this morning and he is going at 830. Discussed follow-up and return precautions with patient and family member at bedside, they state understanding and agreement. - Vital Signs Vital signs: Temp Pulse Resp BP Pulse Ox 98.5 F 88 18 146/75 H 96 04/28/18 00:54 04/28/18 00:54 04/28/18 00:54 04/28/18 00:54 04/28/18 00:54 - Laboratory Result Diagrams: 04/28/18 05:05 04/28/18 05:05 Laboratory results interpreted by me: 04/28/18 04/28/18 05:05 05:05 RBC 4.02 L Hgb 11.0 L Hct 33.3 L Eosinophils % (Manual) 8 H Absolute Eos (Manual) 0.7 H Carbon Dioxide 21 L BUN 76 H Creatinine 7.75 H Est GFR ( Amer) 10 L Est GFR (Non-Af Amer) 8 L Glucose 172 H Discharge - Discharge Clinical Impression: Cough, Tobacco abuse Chest pain Qualifiers: Chest pain type: unspecified Qualified Code(s): R07.9 - Chest pain, unspecified Condition: Stable Disposition: HOME, SELF-CARE Additional Instructions: Your chest x-ray and evaluation today are reassuring. Because of the cough and upper respiratory congestion symptoms along with your improvement previously with prednisone that you have been represcribed this for use. Stop smoking. Follow-up with primary care. Follow-up with dialysis later today. Return if you worsen including difficulty breathing, developing fever, severe pain in your chest, or any other concerning or worsening symptoms. Prescriptions: Prednisone [Deltasone 20 mg Tablet] 20 mg PO BID 5 Days #10 tablet Referrals: JAX ROCKWELL FNP-C [NURSE PRACTITIONER] - Follow up as needed
[2018-04-28 06:37] VITALS: BP 147/91
--- NOTE | 2018-04-28 10:02 | EKG REPORT ---
SEVERITY:- NORMAL ECG - SINUS RHYTHM : Confirmed by: Grace Olmstead MD 28-Apr-2018 10:00:23
== END 2018-04-28 06:37 | disposition home or self-care (01) ==
LOC: ER 00:43
DX: R50.9 Fever, unspecified (principal); R05 Cough; R07.9 Chest pain, unspecified; R06.00 Dyspnea, unspecified; R42 Dizziness and giddiness; F17.200 Nicotine dependence, unspecified, uncomplicated; E78.00 Pure hypercholesterolemia, unspecified; I10 Essential (primary) hypertension; E11.9 Type 2 diabetes mellitus without complications; Z79.4 Long term (current) use of insulin; Z96.41 Presence of insulin pump (external) (internal); Z86.14 Personal history of Methicillin resistant Staphylococcus aureus infection
CPT/HCPCS: 93005; 99284; 36415; 85025; 80048; 84484; 71046; 93010; J7512

== ENCOUNTER 2018-06-17 13:25 | Emergency (ER) | payer MEDICAID ==
[2018-06-17] MEDS ORDERED: ONDANSETRON 4 MG TAB.RAPDIS PO ONE (13:45)
[2018-06-17] MEDS ORDERED: ACETAMINOPHEN 325 MG TABLET PO ONE (13:46)
--- NOTE | 2018-06-17 13:46 | ER Document Report ---
ED Medical Screen (RME) - General Chief Complaint: Nausea/Vomiting/Diarrhea Stated Complaint: FEVER Time Seen by Provider: 06/17/18 13:42 Primary Care Provider: KARELY SEAY DO [Primary Care Provider] - Follow up as needed TRAVEL OUTSIDE OF THE [place] IN LAST 30 DAYS: No - HPI Notes: 06/17/18 13:46 Nausea vomiting diarrhea fever - Related Data Allergies/Adverse Reactions: heparin Allergy (Verified 06/17/18 13:26) pork derived (porcine) [Pork derived (porcine)] Allergy (Verified 06/17/18 13:26) Past Medical History - Social History Frequency of alcohol use: None Drug Abuse: None - Past Medical History Cardiac Medical History: Reports: Hx Hypercholesterolemia, Hx Hypertension Denies: Hx Congestive Heart Failure, Hx Coronary Artery Disease, Hx DVT, Hx Heart Attack, Hx Pulmonary Embolism Pulmonary Medical History: Reports: Hx Pneumonia Denies: Hx Asthma, Hx Bronchitis, Hx COPD Neurological Medical History: Reports: Hx Migraine. Denies: Hx Cerebrovascular Accident, Hx Seizures Endocrine Medical History: Reports: Hx Diabetes Mellitus Type 1 - on insulin pump, Hx Diabetes Mellitus Type 2 - On insulin pump. Denies: Hx Hyperthyroidism, Hx Hypothyroidism Renal/ Medical History: Reports: Hx End Stage Renal Disease - Stage IV renal failure, hemodialysis, Hx Renal Insufficiency - normal creatinins 3 to 4 now.. Denies: Hx Peritoneal Dialysis GI Medical History: Reports: Hx Gastroesophageal Reflux Disease. Denies: Hx Cirrhosis, Hx Hepatitis Musculoskeltal Medical History: Denies Hx Arthritis, Reports Hx Musculoskeletal Trauma Skin Medical History: Reports Hx Cellulitis, Denies Hx Eczema, Reports Hx MRSA, Denies Hx Psoriasis Psychiatric Medical History: Reports: Hx Depression Traumatic Medical History: Reports: Hx Fractures Infectious Medical History: Reports: Hx MRSA - S/P I & D multiple skin abscesses in past. Denies: Hx Hepatitis Past Surgical History: Reports: Hx Oral Surgery, Hx Thyroid Surgery - Patient states that would removed due to cancer, Hx Vascular Surgery - Left AV Fistula - Immunizations Hx Diphtheria, Pertussis, Tetanus Vaccination: No History of Influenza Vaccine for 02/2017 - 07/2017 Season: No Review of Systems - Review of Systems Constitutional: Fever - Nausea vomiting diarrhea Physical Exam - Vital signs Vitals: Temp Resp BP 102.7 F H 18 126/62 H 06/17/18 13:29 06/17/18 13:29 06/17/18 13:29 - Respiratory Respiratory status: No respiratory distress Chest status: Nontender Breath sounds: Normal Chest palpation: Normal Course - Vital Signs Vital signs: Temp Pulse Resp BP Pulse Ox 102.7 F H 101 H 18 126/62 H 98 06/17/18 13:29 06/17/18 13:43 06/17/18 13:43 06/17/18 13:29 06/17/18 13:43 Doctor's Discharge - Discharge Referrals: KARELY SEAY DO [Primary Care Provider] - Follow up as needed
[2018-06-17 14:16] LABS: ABSOLUTE BASOPHILS # (AUTO) 0.1 10^3/uL (0.0-0.2); ABSOLUTE LYMPHOCYTES (AUTO) 1.2 10^3/uL (0.5-4.7); ABSOLUTE NEUT (AUTO) 7.3 10^3/uL (1.7-8.2); BASOPHILS % (AUTO) 1.4 % (0-2); EOSINOPHILS % (AUTO) 0.2 % (0-6); HEMATOCRIT 35.3 % (37.9-51.0); HEMOGLOBIN 11.7 g/dL (13.5-17.0); LYMPHOCYTES % (AUTO) 12.2 % (13-45); MEAN CORPUSCULAR HEMOGLOBIN 27.5 pg (27.0-33.4); MEAN CORPUSCULAR HGB CONC 33.2 g/dL (32.0-36.0); MEAN CORPUSCULAR VOLUME 83 fl (80-97); MONOCYTES % (AUTO) 10.5 % (3-13); PLATELET COUNT 322 10^3/uL (150-450); RED BLOOD COUNT 4.26 10^6/uL (4.35-5.55); SEGMENTED NEUTROPHILS % (AUTO) 75.7 % (42-78); TOTAL CELLS COUNTED % (AUTO) 100 %; WHITE BLOOD COUNT 9.7 10^3/uL (4.0-10.5)
[2018-06-17 14:21] LABS: APPEARANCE,URINE SLIGHTLY-CLOUDY; BILIRUBIN,URINE NEGATIVE (NEGATIVE); COLOR,URINE YELLOW; GLUCOSE, URINE >=500 mg/dL (NEGATIVE); KETONES,URINE NEGATIVE (NEGATIVE); LEUKOCYTE ESTERASE,URINE NEGATIVE (NEGATIVE); NITRITE,URINE NEGATIVE (NEGATIVE); PROTEIN,URINE >=500 mg/dL (NEGATIVE); URINE SPECIFIC GRAVITY 1.017; UROBILINOGEN,URINE NEGATIVE mg/dL (<2.0)
[2018-06-17 14:28] LABS: ALANINE AMINOTRANSFERASE 35 U/L (21-72); ALBUMIN 3.9 g/dL (3.5-5.0); ALKALINE PHOSPHATASE 73 U/L (38-126); ANION GAP 11 (5-19); ASPARTATE AMINO TRANSFERASE 33 U/L (17-59); BILIRUBIN,DIRECT 0.3 mg/dL (0.0-0.4); BILIRUBIN,TOTAL 0.4 mg/dL (0.2-1.3); BLOOD UREA NITROGEN 43 mg/dL (7-20); CARBON DIOXIDE 29 mmol/L (22-30); CHLORIDE 100 mmol/L (98-107); GLUCOSE 151 mg/dL (75-110); LIPASE 257.7 U/L (23-300); SODIUM 140.2 mmol/L (137-145); TOTAL PROTEIN 6.8 g/dL (6.3-8.2)
[2018-06-17 14:30] LABS: A TYPE INFLUENZA AG NEGATIVE (NEGATIVE); B INFLUENZA AG NEGATIVE (NEGATIVE)
[2018-06-17 17:02] VITALS: BP 107/62
--- NOTE | 2018-06-17 17:03 | ER Document Report ---
ED GI/ - General Chief Complaint: Nausea/Vomiting/Diarrhea Stated Complaint: FEVER Time Seen by Provider: 06/17/18 13:42 Primary Care Provider: KARELY SEAY DO [Primary Care Provider] - Follow up as needed Mode of Arrival: Ambulatory Information source: Patient Notes: 37-year-old who presented to ED for complaint of nausea vomiting diarrhea and fever. He is a dialysis patient he gets hemodialysis Tuesday and Tuesday. He states he is feeling much better now after he had Zofran earlier. He states he has not had any nausea vomiting or diarrhea since he was given Zofran in the pit area. He states he is hungry and ready to go home. He is afebrile. Patient is alert and oriented and unlabored speaking in full sentences. TRAVEL OUTSIDE OF THE [place] IN LAST 30 DAYS: No - HPI Patient complains to provider of: Diarrhea, Vomiting Onset: Other - Tuesday Timing/Duration: Intermittent Quality of pain: No pain Pain Level: Denies Associated symptoms: Diarrhea, Nausea, Vomiting Exacerbated by: Denies Relieved by: Denies Similar symptoms previously: Yes Recently seen / treated by doctor: Yes - Related Data Allergies/Adverse Reactions: heparin Allergy (Verified 06/17/18 13:26) pork derived (porcine) [Pork derived (porcine)] Allergy (Verified 06/17/18 13:26) Past Medical History - General Information source: Patient - Social History Smoking Status: Current Every Day Smoker Cigarette use (# per day): Yes - Half pack per day Smoking Education Provided: Yes - 4 minutes Frequency of alcohol use: None Drug Abuse: None Family History: Arthritis, CAD, CVA, DM, Hyperlipidemia, Hypertension, Malignancy, Thyroid Disfunction, Other - Chronic kidney disease Patient has suicidal ideation: No Patient has homicidal ideation: No - Past Medical History Cardiac Medical History: Reports: Hx Hypercholesterolemia, Hx Hypertension Pulmonary Medical History: Reports: Hx Pneumonia EENT Medical History: Reports: None Neurological Medical History: Reports: Hx Migraine Endocrine Medical History: Reports: Hx Diabetes Mellitus Type 1 - on insulin pump Renal/ Medical History: Reports: Hx End Stage Renal Disease - Stage IV renal failure, hemodialysis, Hx Renal Insufficiency - normal creatinins 3 to 4 now. Malignancy Medical History: Reports None GI Medical History: Reports: Hx Gastroesophageal Reflux Disease Musculoskeletal Medical History: Reports Hx Musculoskeletal Trauma Skin Medical History: Reports Hx Cellulitis, Reports Hx MRSA Psychiatric Medical History: Reports: Hx Depression Traumatic Medical History: Reports: None Infectious Medical History: Reports: Hx MRSA - S/P I & D multiple skin abscesses in past Past Surgical History: Reports: Hx Oral Surgery, Hx Thyroid Surgery - Patient states that would removed due to cancer, Hx Vascular Surgery - Left AV Fistula - Immunizations Hx Diphtheria, Pertussis, Tetanus Vaccination: No Review of Systems - Review of Systems Constitutional: Chills, Recent illness EENT: No symptoms reported Cardiovascular: No symptoms reported Respiratory: No symptoms reported Gastrointestinal: Diarrhea, Nausea, Vomiting Genitourinary: No symptoms reported Male Genitourinary: No symptoms reported Musculoskeletal: No symptoms reported Skin: No symptoms reported Hematologic/Lymphatic: No symptoms reported Neurological/Psychological: No symptoms reported -: Yes All other systems reviewed and negative Physical Exam - Vital signs Vitals: Temp Resp BP 102.7 F H 18 126/62 H 06/17/18 13:29 06/17/18 13:29 06/17/18 13:29 Interpretation: Normal - General General appearance: Appears well, Alert - HEENT Head: Normocephalic, Atraumatic Eyes: Normal Pupils: PERRL Ears: Normal External canal: Normal Tympanic membrane: Normal Nasal: Purulent discharge, Swelling Mucous membranes: Normal Pharynx: Post nasal drainage Neck: Normal - Respiratory Respiratory status: No respiratory distress Chest status: Nontender Breath sounds: Nonproductive cough Chest palpation: Normal - Cardiovascular Rhythm: Regular Heart sounds: Normal auscultation Murmur: No - Abdominal Inspection: Normal Distension: No distension Bowel sounds: Normal Tenderness: Nontender Organomegaly: No organomegaly - Back Back: Normal, Nontender - Extremities General upper extremity: Normal inspection, Nontender, Normal color, Normal ROM, Normal temperature General lower extremity: Normal inspection, Nontender, Normal color, Normal ROM, Normal temperature, Normal weight bearing. No: Ellis's sign - Neurological Neuro grossly intact: Yes Cognition: Normal Orientation: AAOx4 Otis Coma Scale Eye Opening: Spontaneous Otis Coma Scale Verbal: Oriented Boyd Coma Scale Motor: Obeys Commands Boyd Coma Scale Total: 15 Speech: Normal Motor strength normal: LUE, RUE, LLE, RLE Sensory: Normal - Psychological Associated symptoms: Normal affect, Normal mood - Skin Skin Temperature: Warm Skin Moisture: Dry Skin Color: Normal Course - Re-evaluation Re-evalutation: 06/17/18 17:06 Discussed lab reports with patient and written report of labs given to patient to follow-up with his primary doctor. Patient states he has not had any nausea vomiting or diarrhea since he has been in the emergency room and was given Zofran. He is afebrile at this time. He will be discharged home with a prescription for Zofran which is what he took in the pit area. Patient stated he will follow-up with his primary doctor on Tuesday. He states he is hungry and ready to go home at this time. Patient verbalized understanding and agreement with treatment plan. - Vital Signs Vital signs: Temp Pulse Resp BP Pulse Ox 99.1 F 107 H 16 107/62 95 06/17/18 17:00 06/17/18 17:00 06/17/18 17:00 06/17/18 17:00 06/17/18 17:00 - Laboratory Result Diagrams: 06/17/18 14:00 06/17/18 14:00 Laboratory results interpreted by me: 06/17/18 06/17/18 06/17/18 14:00 14:00 14:00 RBC 4.26 L Hgb 11.7 L Hct 35.3 L Lymphocytes % 12.2 L BUN 43 H Creatinine 7.44 H Est GFR ( Amer) 10 L Est GFR (Non-Af Amer) 8 L Glucose 151 H Urine Protein >=500 H Urine Glucose (UA) >=500 H Discharge - Discharge Clinical Impression: Nausea vomiting and diarrhea Condition: Stable Disposition: HOME, SELF-CARE Additional Instructions: VOMITING: Vomiting (or nausea without vomiting) can be caused by many other different problems. It can mean that something's wrong with the stomach, such as ulcers or inflammation or the intestinal tract, such as appendicitis. But it can also be a symptom of a problem that has nothing to do with the stomach or intestines. Vomiting is common with severe headaches, earaches, tonsillitis, and kidney infections, etc. We see it with pneumonia or heart attacks. Drugs can cause nausea and vomiting. Many abdominal problems cause vomiting; for example, gallstones, kidney stones, pancreatitis, and intestinal obstruction (blocked bowels). In most cases, curing the vomiting depends on fixing the problem that caused it. For temporary relief, we may use an anti-nausea medicine. For home use, we can prescribe suppositories, chewable pills, pills that dissolve in the mouth, or liquid anti-nausea drugs. If the vomiting seems to be caused by a problem in the stomach, acid-suppressing drugs may be prescribed as well. It's important to avoid dehydration. Sip small amounts of clear liquids (soft drinks, tea, broth, etc) . Try to take fluids frequently even if you are vomiting to prevent dehydration. Take increasing amounts of fluid and when liquids are being consumed successfully, advance to small amounts of bland food (toast, soups, mashed potatoes, etc.) until you are able to resume a regular diet. Avoid aspirin, tobacco, and alcohol. If the vomiting worsens, if the problem that's making you vomit worsens, or if there's evidence of bleeding in the stomach (such as black, tarry stool, or bloody or black vomit), you should return immediately. Also, return if abdominal pain worsens or becomes localized to one area or you develop high fever. Call your doctor if you aren't improved in 24 hours. DIARRHEA, NON-SPECIFIC: Diarrhea means frequent, watery stools. There are many causes. Any problem that keeps the intestinal tract from absorbing water from the stool can lead to diarrhea. A sudden new diarrhea problem is usually caused by a virus, food sensitivity, toxic bacteria, or drugs. In this case, we expect the problem to go away soon. Testing is done only if you seem seriously ill from the diarrhea. If you have chronic diarrhea, or diarrhea that keeps coming back, we need to find out why. Chronic diarrhea can be due to inflammation of the bowels such as Crohn's disease or ulcerative colitis, food sensitivity such as intolerance to lactose or wheat protein, irritable bowel syndrome, and other problems. If your diarrhea is a significant problem but it's not clear why you have it, we'll refer you to a specialist for further testing. During an episode of diarrhea, drink small amounts (two to six ounces) of clear liquids (soft drinks, sport drinks, herb teas, broth, etc). Take fluids frequently to prevent dehydration. It's usually not a problem to take mild anti- diarrhea medication such as Kaopectate or Pepto-Bismol. As the diarrhea eases, advance to small amounts of bland food (mashed potato, toast) for 24 hours. Call the physician if blood appears in your vomit or stool, if vomiting lasts longer than 24 hours, if the abdominal pain worsens or becomes localized to one area, if you develop high fever, or if you become lightheaded and weak. VIRAL SYNDROME: The physician has diagnosed a viral infection. Viruses not only cause "colds," but can cause many different symptoms including generalized aching, fever, headache, cough, diarrhea, nausea, vomiting, and fatigue. The treatment, for the most part, is simply relief of symptoms. This means that antibiotics are usually not given. Rest, fluids, pain medications and, occasionally, medication for the specific symptoms that are most bothersome will be prescribed. Use good handwashing to avoid passing the virus to others. Shared toys should be cleaned with disinfectant. Clean the toilets, sinks, and counter surfaces in bathrooms. Launder clothing in hot water. Contact the physician if you develop any new or unusual symptoms such as severe headache, stiff neck, high fever, chest pain, productive cough, or shortness of breath. You should be rechecked if you don't see marked improvement within seven to 10 days. ANTINAUSEA MEDICATION: You have been given a medication to suppress nausea and vomiting. This type of medication can be given as a shot, pill, or suppository. It will usually last for many hours. Pills and shots usually last six to eight hours. For the typical illness, only one or two doses of the medication may be necessary. Mild lightheadedness may occur. This type of medicine can cause drowsiness. Do not drive or operate dangerous machinery while under its influence. Do not mix with alcohol. See your doctor at once if you have muscle spasms or tightness, or uncontrollable motions (particularly of the neck, mouth, or jaw). Persistent vomiting or severe lightheadedness should also be evaluated by the physician. FOLLOW-UP CARE: If you have been referred to a physician for follow-up care, call the physicians office for an appointment as you were instructed or within the next two days. If you experience worsening or a significant change in your symptoms, notify the physician immediately or return to the Emergency Department at any time for re-evaluation. Prescriptions: Ondansetron [Zofran Odt 4 mg Tablet] 1 tab PO Q6H #15 tab.rapdis Forms: Smoking Cessation Education Referrals: KARELY SEAY DO [Primary Care Provider] - Follow up as needed
== END 2018-06-17 17:26 | disposition home or self-care (01) ==
LOC: ER 13:25
DX: R11.2 Nausea with vomiting, unspecified (principal); R19.7 Diarrhea, unspecified; R50.9 Fever, unspecified; R05 Cough; R09.82 Postnasal drip; I12.0 Hypertensive chronic kidney disease with stage 5 chronic kidney disease or end stage renal disease; E10.22 Type 1 diabetes mellitus with diabetic chronic kidney disease; N18.6 End stage renal disease; Z96.41 Presence of insulin pump (external) (internal); Z88.8 Allergy status to other drugs, medicaments and biological substances; Z91.018 Allergy to other foods; F17.210 Nicotine dependence, cigarettes, uncomplicated; Z71.6 Tobacco abuse counseling
CPT/HCPCS: 99406; 99284; 36415; 83690; 85025; 80053; 81001; 87804; J3490; S0119

== ENCOUNTER 2018-07-30 16:07 | Emergency (ER) | payer MEDICAID ==
--- NOTE | 2018-07-30 16:37 | ER Document Report ---
ED Medical Screen (RME) - General Chief Complaint: Nausea/Vomiting Stated Complaint: NAUSEA/VOMITTING Time Seen by Provider: 07/30/18 16:35 Primary Care Provider: KARELY SEAY DO [Primary Care Provider] - Follow up as needed Notes: Patient says he is been vomiting almost anytime he eats or drinks anything for the past week. He is feeling lightheaded and having difficulty staying awake. Generalized aching. Loss of appetite. Having hot and cold flashes but not sure if he is having a fever. Patient is an insulin-dependent diabetic who also is on renal dialysis Tuesday, Tuesday, and Tuesday. Has been going to his dialysis as planned. Patient does produce urine as well. History of hypertension and high cholesterol. TRAVEL OUTSIDE OF THE [place] IN LAST 30 DAYS: No - Related Data Allergies/Adverse Reactions: heparin Allergy (Verified 06/17/18 13:26) pork derived (porcine) [Pork derived (porcine)] Allergy (Verified 06/17/18 13:26) Past Medical History - Past Medical History Cardiac Medical History: Reports: Hx Hypercholesterolemia, Hx Hypertension Denies: Hx Congestive Heart Failure, Hx Coronary Artery Disease, Hx DVT, Hx Heart Attack, Hx Pulmonary Embolism Pulmonary Medical History: Reports: Hx Pneumonia Denies: Hx Asthma, Hx Bronchitis, Hx COPD Neurological Medical History: Reports: Hx Migraine. Denies: Hx Cerebrovascular Accident, Hx Seizures Endocrine Medical History: Reports: Hx Diabetes Mellitus Type 1 - on insulin pump, Hx Diabetes Mellitus Type 2 - On insulin pump. Denies: Hx Hyperthyroidism, Hx Hypothyroidism Renal/ Medical History: Reports: Hx End Stage Renal Disease - Stage IV renal failure, hemodialysis, Hx Renal Insufficiency - normal creatinins 3 to 4 now.. Denies: Hx Peritoneal Dialysis GI Medical History: Reports: Hx Gastroesophageal Reflux Disease. Denies: Hx Cirrhosis, Hx Hepatitis Musculoskeltal Medical History: Denies Hx Arthritis, Reports Hx Musculoskeletal Trauma Skin Medical History: Reports Hx Cellulitis, Denies Hx Eczema, Reports Hx MRSA, Denies Hx Psoriasis Psychiatric Medical History: Reports: Hx Depression Traumatic Medical History: Reports: Hx Fractures Infectious Medical History: Reports: Hx MRSA - S/P I & D multiple skin abscesses in past. Denies: Hx Hepatitis Past Surgical History: Reports: Hx Oral Surgery, Hx Thyroid Surgery - Patient states that would removed due to cancer, Hx Vascular Surgery - Left AV Fistula - Immunizations Hx Diphtheria, Pertussis, Tetanus Vaccination: No History of Influenza Vaccine for 02/2017 - 07/2017 Season: No Physical Exam - Vital signs Vitals: Temp Pulse Resp BP Pulse Ox 97.5 F 81 18 187/98 H 99 07/30/18 16:18 07/30/18 16:18 07/30/18 16:18 07/30/18 16:18 07/30/18 16:18 Course - Vital Signs Vital signs: Temp Pulse Resp BP Pulse Ox 97.5 F 81 18 187/98 H 99 07/30/18 16:18 07/30/18 16:18 07/30/18 16:18 07/30/18 16:18 07/30/18 16:18 Doctor's Discharge - Discharge Referrals: KARELY SEAY DO [Primary Care Provider] - Follow up as needed
[2018-07-30] MEDS ORDERED: NORMAL SALINE 1000 ML 1,000 ML IV ONE (16:38)
[2018-07-30 17:41] LABS: ABSOLUTE BASOPHILS # (AUTO) 0.1 10^3/uL (0.0-0.2); ABSOLUTE EOSINOPHILS # (AUTO) 0.1 10^3/uL (0.0-0.6); ABSOLUTE LYMPHOCYTES (AUTO) 1.6 10^3/uL (0.5-4.7); ABSOLUTE MONOCYTES (AUTO) 0.6 10^3/uL (0.1-1.4); ABSOLUTE NEUT (AUTO) 4.1 10^3/uL (1.7-8.2); BASOPHILS % (AUTO) 0.9 % (0-2); HEMATOCRIT 37.7 % (37.9-51.0); HEMOGLOBIN 12.3 g/dL (13.5-17.0); LYMPHOCYTES % (AUTO) 25.5 % (13-45); MEAN CORPUSCULAR HEMOGLOBIN 28.3 pg (27.0-33.4); MEAN CORPUSCULAR HGB CONC 32.6 g/dL (32.0-36.0); MEAN CORPUSCULAR VOLUME 87 fl (80-97); MONOCYTES % (AUTO) 8.6 % (3-13); PLATELET COUNT 335 10^3/uL (150-450); RED BLOOD COUNT 4.36 10^6/uL (4.35-5.55); RED CELL DISTRIBUTION WIDTH 13.4 % (11.5-14.0); TOTAL CELLS COUNTED % (AUTO) 100 %; WHITE BLOOD COUNT 6.4 10^3/uL (4.0-10.5)
[2018-07-30 17:42] LABS: APPEARANCE,URINE CLEAR; BILIRUBIN,URINE NEGATIVE (NEGATIVE); COLOR,URINE YELLOW; GLUCOSE, URINE >=500 mg/dL (NEGATIVE); KETONES,URINE NEGATIVE (NEGATIVE); LEUKOCYTE ESTERASE,URINE NEGATIVE (NEGATIVE); NITRITE,URINE NEGATIVE (NEGATIVE); PROTEIN,URINE >=500 mg/dL (NEGATIVE); URINE SPECIFIC GRAVITY 1.018; UROBILINOGEN,URINE NEGATIVE mg/dL (<2.0)
[2018-07-30 17:56] LABS: ALANINE AMINOTRANSFERASE 45 U/L (21-72); ALBUMIN 3.8 g/dL (3.5-5.0); ALKALINE PHOSPHATASE 110 U/L (38-126); ANION GAP 17 (5-19); ASPARTATE AMINO TRANSFERASE 40 U/L (17-59); BILIRUBIN,DIRECT 0.8 mg/dL (0.0-0.4); BILIRUBIN,TOTAL 0.8 mg/dL (0.2-1.3); BLOOD UREA NITROGEN 48 mg/dL (7-20); CALCIUM 8.8 mg/dL (8.4-10.2); CARBON DIOXIDE 23 mmol/L (22-30); CHLORIDE 89 mmol/L (98-107); LIPASE 1469.7 U/L (23-300); POTASSIUM 4.7 mmol/L (3.6-5.0); SODIUM 128.6 mmol/L (137-145); TOTAL PROTEIN 6.9 g/dL (6.3-8.2)
[2018-07-30 18:06] LABS: GLUCOSE 801 mg/dL (75-110)
--- NOTE | 2018-07-30 18:06 | ER Document Report ---
ED General - General TRAVEL OUTSIDE OF THE [place] IN LAST 30 DAYS: No <JOHN HEAD - Last Filed: 07/30/18 19:43> <NICHOL KAISER - Last Filed: 07/31/18 03:35> - General Chief Complaint: Nausea/Vomiting Stated Complaint: NAUSEA/VOMITTING Time Seen by Provider: 07/30/18 16:35 Primary Care Provider: KARELY SEAY DO [Primary Care Provider] - Follow up as needed Notes: 37-year-old male with type I insulin-dependent diabetes mellitus and end-stage renal disease on dialysis Tuesday/Tuesday/Tuesday, last dialysis on Tuesday presents to the emergency department for vomiting almost anytime he eats or drinks, lightheadedness, somnolence, generalized aching, and loss of appetite. Patient states he is having hot flashes and chills but denies fever. Patient states he does have an insulin pump but is not been checking his sugars for the last week. Patient is complaining of urinary frequency. Patient has no other complaints. She is on list for kidney transplant (LAURA HEADEL) - Related Data Allergies/Adverse Reactions: heparin Allergy (Verified 06/17/18 13:26) pork derived (porcine) [Pork derived (porcine)] Allergy (Verified 06/17/18 13:26) Past Medical History - Social History Smoking Status: Former Smoker Frequency of alcohol use: None Drug Abuse: None Family History: Arthritis, CAD, CVA, DM, Hyperlipidemia, Hypertension, Malignancy, Thyroid Disfunction, Other - Chronic kidney disease Patient has suicidal ideation: No Patient has homicidal ideation: No - Past Medical History Cardiac Medical History: Reports: Hx Hypercholesterolemia, Hx Hypertension Denies: Hx Congestive Heart Failure, Hx Coronary Artery Disease, Hx DVT, Hx Heart Attack, Hx Pulmonary Embolism Pulmonary Medical History: Reports: Hx Pneumonia Denies: Hx Asthma, Hx Bronchitis, Hx COPD Neurological Medical History: Reports: Hx Migraine. Denies: Hx Cerebrovascular Accident, Hx Seizures Endocrine Medical History: Reports: Hx Diabetes Mellitus Type 1 - on insulin pump, Hx Diabetes Mellitus Type 2 - On insulin pump. Denies: Hx Hyperthyroidism, Hx Hypothyroidism Renal/ Medical History: Reports: Hx End Stage Renal Disease - Stage IV renal failure, hemodialysis, Hx Renal Insufficiency - normal creatinins 3 to 4 now.. Denies: Hx Peritoneal Dialysis GI Medical History: Reports: Hx Gastroesophageal Reflux Disease. Denies: Hx Cirrhosis, Hx Hepatitis Musculoskeletal Medical History: Denies Hx Arthritis, Reports Hx Musculoskeletal Trauma Skin Medical History: Reports Hx Cellulitis, Denies Hx Eczema, Reports Hx MRSA, Denies Hx Psoriasis Psychiatric Medical History: Reports: Hx Depression Traumatic Medical History: Reports: Hx Fractures Infectious Medical History: Reports: Hx MRSA - S/P I & D multiple skin abscesses in past. Denies: Hx Hepatitis Past Surgical History: Reports: Hx Oral Surgery, Hx Thyroid Surgery - Patient states that would removed due to cancer, Hx Vascular Surgery - Left AV Fistula - Immunizations Hx Diphtheria, Pertussis, Tetanus Vaccination: No <JOHN HEAD - Last Filed: 07/30/18 19:43> Review of Systems - Review of Systems Constitutional: See HPI EENT: No symptoms reported Cardiovascular: See HPI Respiratory: See HPI Gastrointestinal: See HPI Genitourinary: No symptoms reported Male Genitourinary: No symptoms reported Musculoskeletal: No symptoms reported Skin: No symptoms reported Hematologic/Lymphatic: No symptoms reported Neurological/Psychological: See HPI <JOHN HEAD - Last Filed: 07/30/18 19:43> Physical Exam <JOHN HEAD - Last Filed: 07/30/18 19:43> - Vital signs Vitals: Temp Pulse Resp BP Pulse Ox 97.5 F 81 18 187/98 H 99 07/30/18 16:18 07/30/18 16:18 07/30/18 16:18 07/30/18 16:18 07/30/18 16:18 - Notes Notes: PHYSICAL EXAMINATION: Reviewed vital signs and charting by RN GENERAL: Alert, interacts well. No acute distress. Generalized weakness. HEAD: Normocephalic, atraumatic. EYES: Pupils equal, round, and reactive to light. Extraocular movements intact. ENT: Oral mucosa dry, tongue midline. NECK: Full range of motion. Supple. Trachea midline. LUNGS: Clear to auscultation bilaterally, no wheezes, rales, or rhonchi. No respiratory distress. HEART: Regular rate and rhythm. No murmur ABDOMEN: soft, epigastric tenderness. Non-distended. Bowel sounds present in all 4 quadrants. no McBurney's point tenderness, no Patel sign. EXTREMITIES: Moves all 4 extremities spontaneously. No edema, No cyanosis. NEUROLOGICAL: Alert and oriented x3. Normal speech. PSYCH: Normal affect, normal mood. Normal mentation, no focal neuro deficits SKIN: Warm, dry, normal turgor. No rashes or lesions noted. (JOHN HEAD) Course - Laboratory Result Diagrams: 07/30/18 16:46 07/30/18 16:46 <JOHN HEAD - Last Filed: 07/30/18 19:43> - Laboratory Result Diagrams: 07/30/18 16:46 07/30/18 16:46 <NICHOL KAISER - Last Filed: 07/31/18 03:35> - Re-evaluation Re-evalutation: 07/30/18 18:58 Patient with long-standing insulin-dependent diabetes lightest diagnosed at the age of 17. Blood sugar 801, bicarb 23 but has a gap of 17. Lipase 1469. Patient is end-stage renal disease. I have called [facility] to initiate transfer. I will give him a 1 L bolus. I will give him 12 units of subcutaneous insulin. I am giving him fentanyl 50 mcg IV 1 time[address] I ordered a [address] abdomen pelvis with IV contrast but the CT room called back and said that unless the patient is getting a dialyzed within 24 hours that they cannot to the scan. 07/30/18 18:59 07/30/18 19:17 Talk to , hospitalist at [facility]. She accepted the patient for transfer. Her recommendation was to give no more than 2.5 L and treated as sepsis giving a 30 mL/kg bolus. I will also add a VBG and get a CT abdomen pelvis noncontrast. (JOHN HEAD) 07/30/18 22:00 I was given report, I am told Dr. Davalos is following this case. Recommendation was transfer for patient with hyperglcyemia, metabolic acidosis, DKA, ESRD, pancreatitis. We do not have nephrology coverage today. Patient reevaluated at bedside. He was given 25 mg of Phenergan IM. He states nausea is much improved now. He appears much more relaxed, he states that as long as he is holding still he feels fine now, if he moves he has more abdominal pain. He is not tachycardic. CT of the abdomen pelvis without acute abnormality. I suspect elevated lipase is from his persistent vomiting at home. We are still waiting on a bed assignment. 07/31/18 03:35 Patient reevaluated at bedside, EMS should be here and around 30 minutes, patient states he feels much better, no current complaints other than needing to use the bathroom. He is not tachycardic, he is well-appearing, he states he slept well, he has not been vomiting. Stable for discharge. (NICHOL KAISER) - Vital Signs Vital signs: Temp Pulse Resp BP Pulse Ox 97.5 F 81 22 H 167/95 H 96 07/30/18 16:18 07/30/18 16:18 07/31/18 02:01 07/31/18 02:01 07/31/18 02:01 - Laboratory Laboratory results interpreted by me: 07/30/18 07/30/18 07/30/18 16:46 16:46 16:46 Hgb 12.3 L Hct 37.7 L Sodium 128.6 L Chloride 89 L BUN 48 H Creatinine 7.66 H Est GFR ( Amer) 10 L Est GFR (Non-Af Amer) 8 L Glucose 801 H* POC Glucose Direct Bilirubin 0.8 H Lipase 1469.7 H Urine Protein >=500 H Urine Glucose (UA) >=500 H Urine Blood SMALL H 07/30/18 07/31/18 07/31/18 22:38 00:17 01:45 Hgb Hct Sodium Chloride BUN Creatinine Est GFR ( Amer) Est GFR (Non-Af Amer) Glucose POC Glucose 449 H* 428 H* 336 H Direct Bilirubin Lipase Urine Protein Urine Glucose (UA) Urine Blood 07/31/18 02:59 Hgb Hct Sodium Chloride BUN Creatinine Est GFR ( Amer) Est GFR (Non-Af Amer) Glucose POC Glucose 305 H Direct Bilirubin Lipase Urine Protein Urine Glucose (UA) Urine Blood Critical Care Note - Critical Care Note Total time excluding time spent on procedures (mins): 40 <JOHN HEAD - Last Filed: 07/30/18 19:43> - Critical Care Note Comments: I have spent 40 minutes of critical care time obtaining history from patient or surrogate, discussions with consultants, development of treatment plan with patient or surrogate, evaluation of patient's response to treatment, examination of patient, ordering and performing treatments and interventions, ordering and review of laboratory studies, re-evaluation of patient's condition, ordering and review of radiographic studies and review of old charts for the treatment of hyperosmolar nonketotic hyperglycemic state and pancreatitis (JOHN HEAD) Discharge <JOHN HEAD - Last Filed: 07/30/18 19:43> <NICHOL KAISER - Last Filed: 07/31/18 03:35> - Discharge Clinical Impression: Hyperglycemia due to type 1 diabetes mellitus, Glucosuria, End stage renal disease on dialysis due to type 1 diabetes mellitus Pancreatitis Qualifiers: Chronicity: acute Pancreatitis type: unspecified pancreatitis type Acute pancreatitis complication: unspecified Qualified Code(s): K85.90 - Acute pancreatitis without necrosis or infection, unspecified Condition: Stable Disposition: Replaced By [facility] Referrals: KARELY SEAY DO [Primary Care Provider] - Follow up as needed
--- NOTE | 2018-07-30 18:10 | RADIOLOGY REPORT (SQ) ---
EXAM DESCRIPTION: CHEST 2 VIEWS COMPLETED DATE/TIME: 07/30/2018 6:02 pm REASON FOR STUDY: Cough and chest congestion. COMPARISON: 04/28/2018 EXAM PARAMETERS: NUMBER OF VIEWS: two views TECHNIQUE: Digital Frontal and Lateral radiographic views of the chest acquired. RADIATION DOSE: NA LIMITATIONS: none FINDINGS: LUNGS AND PLEURA: No opacities, masses or pneumothorax. No pleural effusion. MEDIASTINUM AND HILAR STRUCTURES: No masses or contour abnormalities. HEART AND VASCULAR STRUCTURES: Heart normal size. No evidence for failure. BONES: No acute findings. HARDWARE: None in the chest. OTHER: No other significant finding. IMPRESSION: NO ACUTE RADIOGRAPHIC FINDING IN THE CHEST. TECHNICAL DOCUMENTATION: JOB ID: [id number] [employer]- All Rights Reserved Reading location - IP/workstation name: [email or web address]
[2018-07-30] MEDS ORDERED: INSULIN REG, HUMAN 100 UNIT/ML 3 ML VIAL (PYX) SUBCUT ONE (18:41)
[2018-07-30] MEDS ORDERED: FENTANYL CITRATE INJ/PF 100 MCG/2 ML AMPUL IV ONE (18:49)
[2018-07-30] MEDS ORDERED: ONDANSETRON HCL INJ/PF 4 MG/2 ML SDV IV PRN (19:36)
[2018-07-30] MEDS ORDERED: FENTANYL CITRATE INJ/PF 100 MCG/2 ML AMPUL IV PRN (19:37)
[2018-07-30] MEDS ORDERED: NORMAL SALINE 1000 ML 1,500 ML IV ONE (19:38)
[2018-07-30 20:22] LABS: VENOUS BLOOD BASE EXCESS 0.3 mmol/L; VENOUS BLOOD HCO3 25.8 mmol/L (20-32); VENOUS BLOOD PCO2 44.9 mmHg (35-63); VENOUS BLOOD PH 7.38 (7.30-7.42)
--- NOTE | 2018-07-30 21:00 | RADIOLOGY REPORT (SQ) ---
EXAM DESCRIPTION: CT ABDOMEN PELVIS WITHOUT IV CONTRAST COMPLETED DATE/TME: 07/30/2018 19:19 CLINICAL HISTORY: 37 years, Male, pancreatitis Comparison: None TECHNIQUE: Contiguous axial CT images of the abdomen and pelvis were obtained. Sagittal and coronal reformats were reviewed. This exam was performed according to our departmental dose-optimization program, which includes automated exposure control, adjustment of the mA and/or kV according to patient size and/or use of iterative reconstruction technique. FINDINGS: Lung bases: Clear. Liver:Unremarkable. No focal liver lesion. Gallbladder:Unremarkable. No gallstones. No gallbladder wall thickening or pericholecystic fluid. Spleen:Unremarkable Pancreas: Pancreas is unremarkable. Adrenal glands:Within normal limits. Kidneys/ureters:Within normal limits Stomach/small bowel/colon: Stomach is unremarkable. Small bowel is unremarkable. Colon is unremarkable. Appendix: No evidence of appendicitis. Peritoneum: No free fluid. Vascular structures: within normal limits Lymph nodes: No abnormal lymph nodes. Bladder:Unremarkable. Pelvic organs: No acute abnormality Bones: No acute osseous abnormality. Soft tissues: Unremarkable.. IMPRESSION: No acute intra-abdominal abnormality.
[2018-07-30] MEDS ORDERED: NORMAL SALINE 1000 ML 1,000 ML IV PRN (21:45)
[2018-07-30] MEDS ORDERED: PROMETHAZINE HCL INJ 25 MG/1 ML VIAL IM ONE (21:45)
[2018-07-31 04:21] VITALS: BP 179/103
== END 2018-07-31 04:31 | disposition short-term general hospital (02) ==
LOC: ER 16:07
DX: E10.22 Type 1 diabetes mellitus with diabetic chronic kidney disease (principal); I12.0 Hypertensive chronic kidney disease with stage 5 chronic kidney disease or end stage renal disease; N18.6 End stage renal disease; K85.90 Acute pancreatitis without necrosis or infection, unspecified; E10.65 Type 1 diabetes mellitus with hyperglycemia; R81 Glycosuria; R11.2 Nausea with vomiting, unspecified; R42 Dizziness and giddiness; M79.10 Myalgia, unspecified site; R63.0 Anorexia; R35.0 Frequency of micturition; Z79.4 Long term (current) use of insulin
CPT/HCPCS: 96376; 99291; 96372; 96361; 96374; 96375; 36415; 82962; 83690; 85025; 80053; 81001; 82803; 71046; 74176; J3010; J1815; J2550; J2405; J7030

== ENCOUNTER 2018-10-19 20:51 | Emergency (ER) | payer MEDICAID ==
--- NOTE | 2018-10-19 21:32 | EKG REPORT ---
SEVERITY:- BORDERLINE ECG - SINUS RHYTHM BORDERLINE INFERIOR Q WAVES : Confirmed by: Harley Wiggins MD 19-Oct-2018 21:31:54
[2018-10-19] MEDS ORDERED: ASPIRIN 81 MG TABLET, CHEWABLE PO ONE (21:45)
--- NOTE | 2018-10-19 21:45 | ER Document Report ---
ED Medical Screen (RME) - General Chief Complaint: Chest Pain Stated Complaint: CHEST PAIN Time Seen by Provider: 10/19/18 21:43 Primary Care Provider: KARELY SEAY DO [Primary Care Provider] - Follow up as needed Mode of Arrival: Ambulatory Information source: Patient Notes: 38-year-old male presented to ED for complaint of left-sided chest pain since about 1830. He states he also has weakness and very tired. He states his pain is sharp stabbing and pressure. He has a history of high blood pressure cholesterol diabetes and kidney failure. He does have a left fistula for his hemodialysis. Patient is alert oriented respirations regular and unlabored speaking in full sentences walks with even steady gait. He is accompanied by his . I have greeted and performed a rapid initial assessment of this patient. A comprehensive ED assessment and evaluation of the patient, analysis of test results and completion of medical decision making process will be conducted by an additional ED providers. Dictation of this chart was performed using voice recognition software; therefore, there may be some unintended grammatical errors. TRAVEL OUTSIDE OF THE [place] IN LAST 30 DAYS: No - Related Data Allergies/Adverse Reactions: heparin Allergy (Verified 06/17/18 13:26) pork derived (porcine) [Pork derived (porcine)] Allergy (Verified 06/17/18 13:26) Past Medical History - Past Medical History Cardiac Medical History: Reports: Hx Hypercholesterolemia, Hx Hypertension Denies: Hx Congestive Heart Failure, Hx Coronary Artery Disease, Hx DVT, Hx Heart Attack, Hx Pulmonary Embolism Pulmonary Medical History: Reports: Hx Pneumonia Denies: Hx Asthma, Hx Bronchitis, Hx COPD Neurological Medical History: Reports: Hx Migraine. Denies: Hx Cerebrovascular Accident, Hx Seizures Endocrine Medical History: Reports: Hx Diabetes Mellitus Type 1 - on insulin pump, Hx Diabetes Mellitus Type 2 - On insulin pump. Denies: Hx Hyperthyroidism, Hx Hypothyroidism Renal/ Medical History: Reports: Hx End Stage Renal Disease - Stage IV renal failure, hemodialysis, Hx Renal Insufficiency - normal creatinins 3 to 4 now.. Denies: Hx Peritoneal Dialysis GI Medical History: Reports: Hx Gastroesophageal Reflux Disease. Denies: Hx Cirrhosis, Hx Hepatitis Musculoskeltal Medical History: Denies Hx Arthritis, Reports Hx Musculoskeletal Trauma Skin Medical History: Reports Hx Cellulitis, Denies Hx Eczema, Reports Hx MRSA, Denies Hx Psoriasis Psychiatric Medical History: Reports: Hx Depression Traumatic Medical History: Reports: Hx Fractures Infectious Medical History: Reports: Hx MRSA - S/P I & D multiple skin abscesses in past. Denies: Hx Hepatitis Past Surgical History: Reports: Hx Oral Surgery, Hx Thyroid Surgery - Patient states that would removed due to cancer, Hx Vascular Surgery - Left AV Fistula - Immunizations Hx Diphtheria, Pertussis, Tetanus Vaccination: No History of Influenza Vaccine for 02/2017 - 07/2017 Season: No Physical Exam - Vital signs Vitals: Temp Pulse Resp BP Pulse Ox 98.6 F 88 17 152/83 H 97 10/19/18 21:20 10/19/18 21:20 10/19/18 21:20 10/19/18 21:20 10/19/18 21:20 Course - Vital Signs Vital signs: Temp Pulse Resp BP Pulse Ox 98.6 F 88 17 152/83 H 97 10/19/18 21:20 10/19/18 21:20 10/19/18 21:20 10/19/18 21:20 10/19/18 21:20 Doctor's Discharge - Discharge Referrals: KARELY SEAY DO [Primary Care Provider] - Follow up as needed
[2018-10-19 22:32] LABS: APPEARANCE,URINE CLEAR; BILIRUBIN,URINE NEGATIVE (NEGATIVE); GLUCOSE, URINE >=500 mg/dL (NEGATIVE); KETONES,URINE NEGATIVE (NEGATIVE); LEUKOCYTE ESTERASE,URINE NEGATIVE (NEGATIVE); NITRITE,URINE NEGATIVE (NEGATIVE); PROTEIN,URINE >=500 mg/dL (NEGATIVE); URINE SPECIFIC GRAVITY 1.014; UROBILINOGEN,URINE NEGATIVE mg/dL (<2.0)
[2018-10-19 22:34] LABS: COLOR,URINE AMBER
--- NOTE | 2018-10-19 22:35 | RADIOLOGY REPORT (SQ) ---
EXAM DESCRIPTION: XR CHEST 2 VIEWS COMPLETED DATE/TME: 10/19/2018 21:45 CLINICAL HISTORY: 38 years, Male, chest pain COMPARISON: Prior study from 07/30/2018 NUMBER OF VIEWS: Two TECHNIQUE: Frontal and lateral radiograph of the chest were obtained. LIMITATIONS: None. FINDINGS: Cardiac and mediastinal contours are normal in appearance. Lungs are clear. No pleural effusion or pneumothorax. IMPRESSION: No acute disease. copyright 2010 [employer]- All Rights Reserved
[2018-10-19 22:53] LABS: ALANINE AMINOTRANSFERASE 29 U/L (21-72); ALBUMIN 3.8 g/dL (3.5-5.0); ALKALINE PHOSPHATASE 70 U/L (38-126); ANION GAP 16 (5-19); ASPARTATE AMINO TRANSFERASE 22 U/L (17-59); BILIRUBIN,DIRECT 0.4 mg/dL (0.0-0.4); BILIRUBIN,TOTAL 0.4 mg/dL (0.2-1.3); BLOOD UREA NITROGEN 58 mg/dL (7-20); CALCIUM 8.3 mg/dL (8.4-10.2); CARBON DIOXIDE 23 mmol/L (22-30); CHLORIDE 99 mmol/L (98-107); CREATINE KINASE 264 U/L (55-170); GLUCOSE 323 mg/dL (75-110); POTASSIUM 4.2 mmol/L (3.6-5.0); SODIUM 137.7 mmol/L (137-145); TOTAL PROTEIN 6.9 g/dL (6.3-8.2)
[2018-10-19 23:04] LABS: CREATINE KINASE MB 1.87 ng/mL (<4.55)
[2018-10-19 23:06] LABS: TROPONIN I < 0.012 ng/mL
--- NOTE | 2018-10-20 01:11 | ER Document Report ---
ED General - General Chief Complaint: Chest Pain Stated Complaint: CHEST PAIN Time Seen by Provider: 10/19/18 21:43 Primary Care Provider: KARELY SEAY DO [Primary Care Provider] - Follow up in 3-5 days Mode of Arrival: Ambulatory Information source: Patient Notes: This is a 38-year-old man with a history of end-stage renal disease (hemodialysis, Mondays, Wednesdays, Fridays) who presents to the emergency room with sharp point tenderness just under his left nipple. Patient states that it hurts when he laughs. He denies any shortness of breath. He denies any radiation of his pain. He denies any dizziness. No recent illnesses. TRAVEL OUTSIDE OF THE [place] IN LAST 30 DAYS: No - HPI Onset: Just prior to arrival Onset/Duration: Sudden Quality of pain: Sharp Severity: Mild Pain Level: 1 Associated symptoms: Chest pain. denies: Fever, Shortness of breath Exacerbated by: Denies Relieved by: Denies Similar symptoms previously: No Recently seen / treated by doctor: Yes - Related Data Allergies/Adverse Reactions: heparin Allergy (Verified 06/17/18 13:26) pork derived (porcine) [Pork derived (porcine)] Allergy (Verified 06/17/18 13:26) Past Medical History - General Information source: Patient - Social History Smoking Status: Never Smoker Cigarette use (# per day): No Chew tobacco use (# tins/day): No Frequency of alcohol use: None Drug Abuse: None Lives with: Family Family History: Arthritis, CAD, CVA, DM, Hyperlipidemia, Hypertension, Malignancy, Thyroid Disfunction, Other - Chronic kidney disease Patient has suicidal ideation: No Patient has homicidal ideation: No - Past Medical History Cardiac Medical History: Reports: Hx Hypercholesterolemia, Hx Hypertension Denies: Hx Congestive Heart Failure, Hx Coronary Artery Disease, Hx DVT, Hx Heart Attack, Hx Pulmonary Embolism Pulmonary Medical History: Reports: Hx Pneumonia Denies: Hx Asthma, Hx Bronchitis, Hx COPD Neurological Medical History: Reports: Hx Migraine. Denies: Hx Cerebrovascular Accident, Hx Seizures Endocrine Medical History: Reports: Hx Diabetes Mellitus Type 1 - on insulin pump, Hx Diabetes Mellitus Type 2 - On insulin pump. Denies: Hx Hyperthyroidism, Hx Hypothyroidism Renal/ Medical History: Reports: Hx End Stage Renal Disease - Stage IV renal failure, hemodialysis, Hx Renal Insufficiency - normal creatinins 3 to 4 now.. Denies: Hx Peritoneal Dialysis GI Medical History: Reports: Hx Gastroesophageal Reflux Disease. Denies: Hx Cirrhosis, Hx Hepatitis Musculoskeletal Medical History: Denies Hx Arthritis, Reports Hx Musculoskeletal Trauma Skin Medical History: Reports Hx Cellulitis, Denies Hx Eczema, Reports Hx MRSA, Denies Hx Psoriasis Psychiatric Medical History: Reports: Hx Depression Traumatic Medical History: Reports: Hx Fractures Infectious Medical History: Reports: Hx MRSA - S/P I & D multiple skin abscesses in past. Denies: Hx Hepatitis Past Surgical History: Reports: Hx Oral Surgery, Hx Thyroid Surgery - Patient states that would removed due to cancer, Hx Vascular Surgery - Left AV Fistula - Immunizations Hx Diphtheria, Pertussis, Tetanus Vaccination: No Review of Systems - Review of Systems Constitutional: denies: Chills, Fever EENT: No symptoms reported Cardiovascular: Chest pain. denies: Palpitations, Heart racing, Dyspnea, Syncope, Dizziness, Lightheaded Respiratory: No symptoms reported Gastrointestinal: No symptoms reported Genitourinary: No symptoms reported Male Genitourinary: No symptoms reported Musculoskeletal: See HPI Skin: No symptoms reported Hematologic/Lymphatic: No symptoms reported Neurological/Psychological: No symptoms reported Physical Exam - Vital signs Vitals: Temp Pulse Resp BP Pulse Ox 98.6 F 88 17 152/83 H 97 10/19/18 21:20 10/19/18 21:20 10/19/18 21:20 10/19/18 21:20 10/19/18 21:20 Notes: Physical exam: GENERAL: She is alert and oriented x3, no acute distress HEAD: Atraumatic, normocephalic. EYES: Pupils equal round and reactive to light, extraocular movements intact, sclera anicteric, conjunctiva are normal. ENT: TMs normal, nares patent, oropharynx clear without exudates. Moist mucous membranes. NECK: Normal range of motion, supple without obvious mass or JVD. LUNGS: Breath sounds clear to auscultation bilaterally and equal. No wheezes rales or rhonchi. HEART: Regular rate and rhythm without murmurs, rubs or gallops. ABDOMEN: Soft, normoactive bowel sounds. No tenderness to palpation. No guarding, no rebound. No masses appreciated. EXTREMITIES: Normal range of motion, no pitting or edema. No clubbing or cyanosis. NEUROLOGICAL: Cranial nerves II through XII grossly intact. Normal speech, moving all extremities. PSYCH: Normal mood, normal affect. SKIN: Warm, Dry, normal turgor, no rashes or lesions noted. Course - Vital Signs Vital signs: Temp Pulse Resp BP Pulse Ox 98.6 F 88 17 152/83 H 97 10/19/18 21:20 10/19/18 21:20 10/19/18 21:20 10/19/18 21:20 10/19/18 21:20 - Laboratory Result Diagrams: 10/19/18 22:24 Laboratory results interpreted by me: 10/19/18 10/19/18 21:52 22:24 BUN 58 H Creatinine 8.81 H Est GFR ( Amer) 8 L Est GFR (Non-Af Amer) 7 L Glucose 323 H Calcium 8.3 L Creatine Kinase 264 H Urine Protein >=500 H Urine Glucose (UA) >=500 H - Diagnostic Test Radiology reviewed: Image reviewed, Reports reviewed - Chest x-ray shows no acute infiltrates - EKG Interpretation by Me Rate: Normal Rhythm: NSR - EKG shows normal sinus rhythm with a ventricular rate of 87, no acute ST-T wave changes Discharge - Discharge Clinical Impression: Chest wall pain Condition: Stable Disposition: HOME, SELF-CARE Additional Instructions: As we discussed, your chest x-ray and EKG look good today. Your blood work was okay. I do want you to follow-up with your primary care doctor as planned. Follow-up with dialysis in the morning. Referrals: KARELY SEAY DO [Primary Care Provider] - Follow up in 3-5 days
[2018-10-20 01:43] VITALS: BP 156/93
== END 2018-10-20 01:43 | disposition home or self-care (01) ==
LOC: ER 20:51
DX: R07.89 Other chest pain (principal); E78.00 Pure hypercholesterolemia, unspecified; E10.22 Type 1 diabetes mellitus with diabetic chronic kidney disease; I12.0 Hypertensive chronic kidney disease with stage 5 chronic kidney disease or end stage renal disease; N18.6 End stage renal disease; Z99.2 Dependence on renal dialysis; Z79.4 Long term (current) use of insulin; Z86.14 Personal history of Methicillin resistant Staphylococcus aureus infection
CPT/HCPCS: 36415; 71046; 80053; 81001; 82550; 82553; 84484; 93005; 93010; 99284

== ENCOUNTER 2018-11-29 20:10 | Emergency (ER) | payer MEDICAID ==
--- NOTE | 2018-11-29 21:03 | ER Document Report ---
ED Medical Screen (RME) - General Chief Complaint: Chest Pain Stated Complaint: CHEST PAIN Time Seen by Provider: 11/29/18 20:50 Primary Care Provider: KARELY SEAY DO [Primary Care Provider] - Follow up as needed Notes: Patient is a 38-year-old male with a history of renal failure on hemodialysis who presents to the emergency department with a chief complaint of chest pain. She states that around 11 AM after finishing dialysis he developed chest pain that was located underneath his left breast and radiates into the right chest wall. Patient states the pain is worse when he takes a deep breath, stretches his back, with movement and when he attempts to push his shoulder blades together. Patient denies injury or recent heavy lifting. Patient denies shortness of breath but states he does not feel like he can get a good deep breath does cause pain. She denies a fever or cough. TRAVEL OUTSIDE OF THE [place] IN LAST 30 DAYS: No - Related Data Allergies/Adverse Reactions: heparin Allergy (Verified 06/17/18 13:26) pork derived (porcine) [Pork derived (porcine)] Allergy (Verified 06/17/18 13:26) Past Medical History - Past Medical History Cardiac Medical History: Reports: Hx Hypercholesterolemia, Hx Hypertension Denies: Hx Congestive Heart Failure, Hx Coronary Artery Disease, Hx DVT, Hx Heart Attack, Hx Pulmonary Embolism Pulmonary Medical History: Reports: Hx Pneumonia Denies: Hx Asthma, Hx Bronchitis, Hx COPD Neurological Medical History: Reports: Hx Migraine. Denies: Hx Cerebrovascular Accident, Hx Seizures Endocrine Medical History: Reports: Hx Diabetes Mellitus Type 1 - on insulin pump, Hx Diabetes Mellitus Type 2 - On insulin pump. Denies: Hx Hyperthyroidism, Hx Hypothyroidism Renal/ Medical History: Reports: Hx End Stage Renal Disease - Stage IV renal failure, hemodialysis, Hx Renal Insufficiency - normal creatinins 3 to 4 now.. Denies: Hx Peritoneal Dialysis GI Medical History: Reports: Hx Gastroesophageal Reflux Disease. Denies: Hx Cirrhosis, Hx Hepatitis Musculoskeltal Medical History: Denies Hx Arthritis, Reports Hx Musculoskeletal Trauma Skin Medical History: Reports Hx Cellulitis, Denies Hx Eczema, Reports Hx MRSA, Denies Hx Psoriasis Psychiatric Medical History: Reports: Hx Depression Traumatic Medical History: Reports: Hx Fractures Infectious Medical History: Reports: Hx MRSA - S/P I & D multiple skin abscesses in past. Denies: Hx Hepatitis Past Surgical History: Reports: Hx Oral Surgery, Hx Thyroid Surgery - Patient states that would removed due to cancer, Hx Vascular Surgery - Left AV Fistula - Immunizations Hx Diphtheria, Pertussis, Tetanus Vaccination: No History of Influenza Vaccine for 02/2017 - 07/2017 Season: No Physical Exam - Vital signs Vitals: Temp Pulse Resp BP Pulse Ox 98.6 F 102 H 20 135/71 H 94 11/29/18 20:34 11/29/18 20:34 11/29/18 20:34 11/29/18 20:34 11/29/18 20:34 - Cardiovascular Rhythm: Regular Heart sounds: Normal auscultation, S1 appreciated, S2 appreciated Notes: Reproducible midsternal chest pain. Course - Re-evaluation Re-evalutation: 11/29/18 21:02 Upon initial assessment triage patient is sitting comfortably in chair in no acute distress. Patient is nontoxic-appearing. Patient's chest pain was reproducible and located midsternally. I have greeted and performed a rapid initial assessment of this patient. A comprehensive ED assessment and evaluation of the patient, analysis of test results and completion of the medical decision making process will be conducted by additional ED providers. - Vital Signs Vital signs: Temp Pulse Resp BP Pulse Ox 98.6 F 102 H 20 135/71 H 94 11/29/18 20:34 11/29/18 20:34 11/29/18 20:34 11/29/18 20:34 11/29/18 20:34 Doctor's Discharge - Discharge Referrals: KARELY SEAY DO [Primary Care Provider] - Follow up as needed
--- NOTE | 2018-11-29 21:43 | RADIOLOGY REPORT (SQ) ---
XR CHEST 2 VIEWS EXAM DATE: 11/29/2018 9:01 PM CDT HISTORY: Chest pain. COMPARISON: 10/19/2018. FINDINGS: The heart size is within normal limits. No consolidation, pleural effusion, or pneumothorax is seen. There are no acute bony findings. IMPRESSION: No evidence of acute cardiopulmonary disease.
[2018-11-29 22:06] LABS: ABSOLUTE BASOPHILS # (AUTO) 0.1 10^3/uL (0.0-0.2); ABSOLUTE EOSINOPHILS # (AUTO) 0.2 10^3/uL (0.0-0.6); ABSOLUTE LYMPHOCYTES (AUTO) 2.4 10^3/uL (0.5-4.7); ABSOLUTE MONOCYTES (AUTO) 0.7 10^3/uL (0.1-1.4); ABSOLUTE NEUT (AUTO) 4.4 10^3/uL (1.7-8.2); BASOPHILS % (AUTO) 1.3 % (0-2); EOSINOPHILS % (AUTO) 3.1 % (0-6); HEMATOCRIT 34.2 % (37.9-51.0); HEMOGLOBIN 11.3 g/dL (13.5-17.0); LYMPHOCYTES % (AUTO) 30.5 % (13-45); MEAN CORPUSCULAR HEMOGLOBIN 27.9 pg (27.0-33.4); MEAN CORPUSCULAR VOLUME 85 fl (80-97); MONOCYTES % (AUTO) 8.9 % (3-13); PLATELET COUNT 333 10^3/uL (150-450); RED BLOOD COUNT 4.04 10^6/uL (4.35-5.55); RED CELL DISTRIBUTION WIDTH 13.3 % (11.5-14.0); SEGMENTED NEUTROPHILS % (AUTO) 56.2 % (42-78); TOTAL CELLS COUNTED % (AUTO) 100 %; WHITE BLOOD COUNT 7.9 10^3/uL (4.0-10.5)
[2018-11-29 22:24] LABS: ALANINE AMINOTRANSFERASE 28 U/L (21-72); ALBUMIN 4.2 g/dL (3.5-5.0); ALKALINE PHOSPHATASE 71 U/L (38-126); ANION GAP 14 (5-19); ASPARTATE AMINO TRANSFERASE 28 U/L (17-59); BILIRUBIN,DIRECT 0.4 mg/dL (0.0-0.4); BILIRUBIN,TOTAL 0.4 mg/dL (0.2-1.3); BLOOD UREA NITROGEN 47 mg/dL (7-20); CALCIUM 8.7 mg/dL (8.4-10.2); CARBON DIOXIDE 28 mmol/L (22-30); CHLORIDE 98 mmol/L (98-107); GLUCOSE 382 mg/dL (75-110); SODIUM 139.6 mmol/L (137-145); TOTAL PROTEIN 7.5 g/dL (6.3-8.2)
--- NOTE | 2018-11-30 00:11 | ER Document Report ---
ED General - General Chief Complaint: Chest Pain Stated Complaint: CHEST PAIN Time Seen by Provider: 11/29/18 20:50 Primary Care Provider: SAULO HARPER MD [ACTIVE STAFF] - Follow up in 3-5 days KARELY SEAY DO [Primary Care Provider] - Follow up in 3-5 days Notes: Patient is a 38-year-old male with end-stage renal disease on dialysis that presents to the emergency department for chief complaint of epigastric pain. Patient states he had epigastric type pain that radiated towards his back shortly after dialysis, he thought it was like a muscle spasm, which he routinely gets after dialysis on the pulling fluid off. The pain had lasted, but is improved from earlier, and essentially resolved, he describes as an aching pain, that wraps around his upper abdomen, currently rates the pain as a 2 out of 10. Denies any associated nausea, vomiting, diaphoresis, shortness of breath, difficulty breathing, dysuria, hematuria or recent diarrhea. He states he tolerated his entire dialysis session earlier today. Past Medical History: Diabetes mellitus, end-stage renal disease on dialysis, hypertension Past Surgical History: Left upper extremity AV fistula Social History: Denies current tobacco, alcohol or drug use. Family History: Reviewed and noncontributory for presenting illness Allergies: Reviewed, see documented allergy list. REVIEW OF SYSTEMS: Other than noted above, the 12 point review of systems was reviewed with the patient and were negative, all pertinent findings are included in the HPI. PHYSICAL EXAMINATION: Vital signs reviewed, nursing noted reviewed. GENERAL: Well-appearing, well-nourished and in no acute distress. HEAD: Atraumatic, normocephalic. EYES: Eyes appear normal, extraocular movements intact, sclera anicteric, conjunctiva are normal. ENT: nares patent, oropharynx clear without exudates. Moist mucous membranes. NECK: Normal range of motion, supple without lymphadenopathy LUNGS: Breath sounds clear to auscultation bilaterally and equal. No wheezes rales or rhonchi. HEART: Regular rate and rhythm without murmurs ABDOMEN: Soft, nontender, normoactive bowel sounds. No rebound, guarding, or rigidity. No masses appreciated. EXTREMITIES: Left forearm AV fistula, positive bruit and thrill, extremities otherwise unremarkable, good range of motion and nontender. NEUROLOGICAL: No focal neurological deficits. Moves all extremities spontaneously Motor and sensory grossly intact on exam. PSYCH: Normal mood, normal affect. SKIN: Warm, Dry, normal turgor, no rashes or lesions noted on exposed skin TRAVEL OUTSIDE OF THE [place] IN LAST 30 DAYS: No - Related Data Allergies/Adverse Reactions: heparin Allergy (Verified 06/17/18 13:26) pork derived (porcine) [Pork derived (porcine)] Allergy (Verified 06/17/18 13:26) Past Medical History - Social History Smoking Status: Never Smoker Family History: Arthritis, CAD, CVA, DM, Hyperlipidemia, Hypertension, Malignancy, Thyroid Disfunction, Other - Chronic kidney disease - Past Medical History Cardiac Medical History: Reports: Hx Hypercholesterolemia, Hx Hypertension Denies: Hx Congestive Heart Failure, Hx Coronary Artery Disease, Hx DVT, Hx Heart Attack, Hx Pulmonary Embolism Pulmonary Medical History: Reports: Hx Pneumonia Denies: Hx Asthma, Hx Bronchitis, Hx COPD Neurological Medical History: Reports: Hx Migraine. Denies: Hx Cerebrovascular Accident, Hx Seizures Endocrine Medical History: Reports: Hx Diabetes Mellitus Type 1 - on insulin pump, Hx Diabetes Mellitus Type 2 - On insulin pump. Denies: Hx Hyperthyroidis m, Hx Hypothyroidism Renal/ Medical History: Reports: Hx End Stage Renal Disease - Stage IV renal failure, hemodialysis, Hx Renal Insufficiency - normal creatinins 3 to 4 now.. Denies: Hx Peritoneal Dialysis GI Medical History: Reports: Hx Gastroesophageal Reflux Disease. Denies: Hx Cirrhosis, Hx Hepatitis Musculoskeletal Medical History: Denies Hx Arthritis, Reports Hx Musculoskeletal Trauma Skin Medical History: Reports Hx Cellulitis, Denies Hx Eczema, Reports Hx MRSA, Denies Hx Psoriasis Psychiatric Medical History: Reports: Hx Depression Traumatic Medical History: Reports: Hx Fractures Infectious Medical History: Reports: Hx MRSA - S/P I & D multiple skin abscesses in past. Denies: Hx Hepatitis Past Surgical History: Reports: Hx Oral Surgery, Hx Thyroid Surgery - Patient states that would removed due to cancer, Hx Vascular Surgery - Left AV Fistula - Immunizations Hx Diphtheria, Pertussis, Tetanus Vaccination: No Physical Exam - Vital signs Vitals: Temp Pulse Resp BP Pulse Ox 98.6 F 102 H 20 135/71 H 94 11/29/18 20:34 11/29/18 20:34 11/29/18 20:34 11/29/18 20:34 11/29/18 20:34 Course - Re-evaluation Re-evalutation: Patient seen and examined vital signs reviewed. Laboratory data and/or imaging were ordered as appropriate for the patient's presenting symptoms and complaint, with consideration of any critical or life threatening conditions that may be associated with their obtained history and exam as noted above. Patient was treated with Valium 5 mg p.o. Results were reviewed when available and demonstrated negative work-up for chest pain, negative chest x-ray, EKG was nonischemic pattern, 2 negative troponins. The patient was re-evaluated and was stable and improved Evaluation was most consistent with epigastric and back pain, likely musculoskeletal, this patient has a history of this in the past, and gets a rather frequently after dialysis, treated with Valium one-time dose, advised follow-up with cardiology and his primary care. Results were discussed with the patient at this point, after careful consideration I feel that that patient can be discharged from the emergency department, the patient was educated treatments and reasons to return to the emergency department based on their presumed diagnosis as noted above, they were advised to followup with a primary care physician in 2-3 days. Patient was agreeable to plan of care. *Note is created using voice recognition software and may contain spelling, syntax or grammatical errors. Laboratory 11/29/18 11/29/18 11/29/18 21:25 21:25 21:25 WBC 7.9 RBC 4.04 L Hgb 11.3 L Hct 34.2 L MCV 85 MCH 27.9 MCHC 33.0 RDW 13.3 Plt Count 333 Seg Neutrophils % 56.2 Lymphocytes % 30.5 Monocytes % 8.9 Eosinophils % 3.1 Basophils % 1.3 Absolute Neutrophils 4.4 Absolute Lymphocytes 2.4 Absolute Monocytes 0.7 Absolute Eosinophils 0.2 Absolute Basophils 0.1 Sodium 139.6 Potassium 5.0 Chloride 98 Carbon Dioxide 28 Anion Gap 14 BUN 47 H Creatinine 8.44 H Est GFR ( Amer) 9 L Est GFR (Non-Af Amer) 7 L Glucose 382 H Calcium 8.7 Total Bilirubin 0.4 Direct Bilirubin 0.4 Neonat Total Bilirubin Not Reportable Neonat Direct Bilirubin Not Reportable Neonat Indirect Bili Not Reportable AST 28 ALT 28 Alkaline Phosphatase 71 Troponin I < 0.012 Total Protein 7.5 Albumin 4.2 11/30/18 00:15 WBC RBC Hgb Hct MCV MCH MCHC RDW Plt Count Seg Neutrophils % Lymphocytes % Monocytes % Eosinophils % Basophils % Absolute Neutrophils Absolute Lymphocytes Absolute Monocytes Absolute Eosinophils Absolute Basophils Sodium Potassium Chloride Carbon Dioxide Anion Gap BUN Creatinine Est GFR ( Amer) Est GFR (Non-Af Amer) Glucose Calcium Total Bilirubin Direct Bilirubin Neonat Total Bilirubin Neonat Direct Bilirubin Neonat Indirect Bili AST ALT Alkaline Phosphatase Troponin I < 0.012 Total Protein Albumin Chest X-Ray 11/29/18 21:01 IMPRESSION: No evidence of acute cardiopulmonary disease. - Vital Signs Vital signs: Temp Pulse Resp BP Pulse Ox 98.6 F 102 H 20 135/71 H 94 11/29/18 20:34 11/29/18 20:34 11/29/18 20:34 11/29/18 20:34 11/29/18 20:34 - Laboratory Result Diagrams: 11/29/18 21:25 11/29/18 21:25 Laboratory results interpreted by me: 11/29/18 11/29/18 21:25 21:25 RBC 4.04 L Hgb 11.3 L Hct 34.2 L BUN 47 H Creatinine 8.44 H Est GFR ( Amer) 9 L Est GFR (Non-Af Amer) 7 L Glucose 382 H - EKG Interpretation by Me Additional EKG results interpreted by me: EKG demonstrates sinus rhythm with a ventricular rate of 96 bpm, normal axis, normal intervals, no evidence of acute ischemia in this EKG, this is compared with a prior EKG from 10/19/2018, without significant change. Discharge - Discharge Clinical Impression: Chest pain Qualifiers: Chest pain type: unspecified Qualified Code(s): R07.9 - Chest pain, unspecified Back pain Qualifiers: Back pain location: thoracic back pain Chronicity: acute Back pain laterality: bilateral Qualified Code(s): M54.6 - Pain in thoracic spine Condition: Stable Disposition: HOME, SELF-CARE Instructions: Chest Pain of Unclear Cause ([facility]) Additional Instructions: Please follow-up with your primary care physician, also listed a adjunct faculty instructor with your paperwork, to follow-up for possible stress test, if your symptoms worsen or do not improve over the next few days, he can always return to the emergency department to be reevaluated. Referrals: KARELY SEAY DO [Primary Care Provider] - Follow up in 3-5 days SAULO HARPER MD [ACTIVE STAFF] - Follow up in 3-5 days
[2018-11-30] MEDS ORDERED: DIAZEPAM 5 MG TABLET PO ONE (01:30)
[2018-11-30 01:58] VITALS: BP 168/74
--- NOTE | 2018-11-30 08:58 | EKG REPORT ---
SEVERITY:- BORDERLINE ECG - SINUS RHYTHM BORDERLINE INFERIOR Q WAVES : Confirmed by: Harley Wiggins MD 30-Nov-2018 08:58:24
== END 2018-11-30 01:57 | disposition home or self-care (01) ==
LOC: ER 20:10
DX: R07.9 Chest pain, unspecified (principal); M54.6 Pain in thoracic spine; E10.22 Type 1 diabetes mellitus with diabetic chronic kidney disease; I12.0 Hypertensive chronic kidney disease with stage 5 chronic kidney disease or end stage renal disease; N18.6 End stage renal disease; Z99.2 Dependence on renal dialysis; Z79.4 Long term (current) use of insulin; Z96.41 Presence of insulin pump (external) (internal); Z86.14 Personal history of Methicillin resistant Staphylococcus aureus infection
CPT/HCPCS: 93005; 99284; 36415; 85025; 80053; 84484; 71046; 93010; J3490

== ENCOUNTER 2019-01-03 07:42 | Emergency (ER) | payer MEDICAID ==
--- NOTE | 2019-01-03 08:00 | ER Document Report ---
ED General - General Chief Complaint: Shortness Of Breath Stated Complaint: HEART PROBLEMS Time Seen by Provider: 01/03/19 07:56 Primary Care Provider: KARELY SEAY DO [Primary Care Provider] - Follow up as needed Information source: Patient TRAVEL OUTSIDE OF THE [place] IN LAST 30 DAYS: No - HPI Notes: Patient complains of palpitations. He states he was at dialysis this morning and mentioned that he was having palpitations. He states that they would not allow him to have his dialysis session and referred him to the emergency department for further evaluation. He states that the palpitations started this morning and they have been intermittent. Nothing makes it better or worse. He states have been moderate and he can feel his heart beating in his chest. No known radiation of the symptoms. He has had no significant chest pain or shortness of breath. No nausea vomiting or diarrhea. - Related Data Allergies/Adverse Reactions: heparin Allergy (Verified 06/17/18 13:26) pork derived (porcine) [Pork derived (porcine)] Allergy (Verified 06/17/18 13:26) Past Medical History - General Information source: Patient - Social History Smoking Status: Former Smoker Frequency of alcohol use: None Drug Abuse: None Family History: Arthritis, CAD, CVA, DM, Hyperlipidemia, Hypertension, Malignancy, Thyroid Disfunction, Other - Chronic kidney disease - Past Medical History Cardiac Medical History: Reports: Hx Hypercholesterolemia, Hx Hypertension Denies: Hx Congestive Heart Failure, Hx Coronary Artery Disease, Hx DVT, Hx Heart Attack, Hx Pulmonary Embolism Pulmonary Medical History: Reports: Hx Pneumonia Denies: Hx Asthma, Hx Bronchitis, Hx COPD Neurological Medical History: Reports: Hx Migraine. Denies: Hx Cerebrovascular Accident, Hx Seizures Endocrine Medical History: Reports: Hx Diabetes Mellitus Type 1 - on insulin pump, Hx Diabetes Mellitus Type 2 - On insulin pump. Denies: Hx Hyperth yroidism, Hx Hypothyroidism Renal/ Medical History: Reports: Hx End Stage Renal Disease - Stage IV renal failure, hemodialysis, Hx Renal Insufficiency - normal creatinins 3 to 4 now.. Denies: Hx Peritoneal Dialysis GI Medical History: Reports: Hx Gastroesophageal Reflux Disease. Denies: Hx Cirrhosis, Hx Hepatitis Musculoskeletal Medical History: Denies Hx Arthritis, Reports Hx Musculoskeletal Trauma Skin Medical History: Reports Hx Cellulitis, Denies Hx Eczema, Reports Hx MRSA, Denies Hx Psoriasis Psychiatric Medical History: Reports: Hx Depression Traumatic Medical History: Reports: Hx Fractures Infectious Medical History: Reports: Hx MRSA - S/P I & D multiple skin abscesses in past. Denies: Hx Hepatitis Past Surgical History: Reports: Hx Oral Surgery, Hx Thyroid Surgery - Patient st ates that would removed due to cancer, Hx Vascular Surgery - Left AV Fistula - Immunizations Hx Diphtheria, Pertussis, Tetanus Vaccination: No Review of Systems - Review of Systems Constitutional: denies: Chills, Fever Cardiovascular: denies: Chest pain, Dyspnea Respiratory: denies: Cough, Short of breath Gastrointestinal: denies: Diarrhea, Vomiting -: Yes All other systems reviewed and negative Physical Exam - Vital signs Vitals: Temp Pulse Resp BP Pulse Ox 97.9 F 89 20 136/82 H 96 01/03/19 07:51 01/03/19 07:51 01/03/19 07:51 01/03/19 07:51 01/03/19 07:51 Interpretation: Normal - General General appearance: Appears well, Alert - HEENT Head: Normocephalic, Atraumatic Eyes: Normal Pupils: PERRL - Respiratory Respiratory status: No respiratory distress Chest status: Nontender Breath sounds: Normal Chest palpation: Normal - Cardiovascular Rhythm: Regular Heart sounds: Normal auscultation Murmur: No - Abdominal Inspection: Normal Distension: No distension Bowel sounds: Normal Tenderness: Nontender Organomegaly: No organomegaly - Back Back: Normal, Nontender - Extremities General upper extremity: Normal inspection, Nontender, Normal color, Normal ROM, Normal temperature General lower extremity: Normal inspection, Nontender, Normal color, Normal ROM, Normal temperature, Normal weight bearing. No: Ellis's sign - Neurological Neuro grossly intact: Yes Cognition: Normal Orientation: AAOx4 Boyd Coma Scale Eye Opening: Spontaneous [place] Coma Scale Verbal: Oriented Boyd Coma Scale Motor: Obeys Commands Boyd Coma Scale Total: 15 Speech: Normal Motor strength normal: LUE, RUE, LLE, RLE Sensory: Normal - Psychological Associated symptoms: Normal affect, Normal mood - Skin Skin Temperature: Warm Skin Moisture: Dry Skin Color: Normal Course - Re-evaluation Re-evalutation: 01/03/19 09:17 Patient resting comfortably in the bed. Patient has unremarkable work-up with laboratories and EKG. I feel the patient is safe to be discharged back to [facility] for his dialysis. - Vital Signs Vital signs: Temp Pulse Resp BP Pulse Ox 97.9 F 89 20 136/82 H 96 01/03/19 07:51 01/03/19 07:51 01/03/19 07:51 01/03/19 07:51 01/03/19 07:51 - Laboratory Result Diagrams: 01/03/19 08:15 01/03/19 08:15 Laboratory results interpreted by me: 01/03/19 01/03/19 08:15 08:15 RBC 3.85 L Hgb 10.7 L Hct 32.5 L BUN 75 H Creatinine 11.36 H Est GFR ( Amer) 6 L Est GFR (Non-Af Amer) 5 L Glucose 152 H Laboratory 01/03/19 01/03/19 01/03/19 08:15 08:15 08:15 WBC 7.8 RBC 3.85 L Hgb 10.7 L Hct 32.5 L MCV 84 MCH 27.8 MCHC 32.9 RDW 13.4 Plt Count 330 Absolute Basos (auto) 0.0 Seg Neutrophils % 63.2 Lymphocytes % 24.5 Monocytes % 9.8 Eosinophils % 2.1 Basophils % 0.4 Absolute Neutrophils 4.9 Absolute Lymphocytes 1.9 Absolute Monocytes 0.8 Absolute Eosinophils 0.2 Sodium 143.0 Potassium 3.7 Chloride 101 Carbon Dioxide 24 Anion Gap 18 BUN 75 H Creatinine 11.36 H Est GFR ( Amer) 6 L Est GFR (Non-Af Amer) 5 L Glucose 152 H Calcium 8.4 Magnesium 2.0 Troponin I 0.014 - EKG Interpretation by [place] EKG shows normal: Sinus rhythm Rate: Normal - 85 Rhythm: NSR [place]/QRS: No: Right axis deviation, Left axis deviation Discharge - Discharge Clinical Impression: Heart palpitations Renal failure Qualifiers: Renal failure chronicity: chronic Chronic kidney disease stage: on chronic dialysis Qualified Code(s): N18.6 - End stage renal disease; Z99.2 - Dependence on renal dialysis Condition: Stable Disposition: HOME, SELF-CARE Instructions: Palpitations (Irregular or Rapid Heartrate) ([facility]) Additional Instructions: Please go to [facility] as soon as possible for dialysis. Referrals: KARELY SEAY DO [Primary Care Provider] - Follow up as needed
[2019-01-03 08:50] LABS: ANION GAP 18 (5-19); BLOOD UREA NITROGEN 75 mg/dL (7-20); CALCIUM 8.4 mg/dL (8.4-10.2); CARBON DIOXIDE 24 mmol/L (22-30); CHLORIDE 101 mmol/L (98-107); GLUCOSE 152 mg/dL (75-110); POTASSIUM 3.7 mmol/L (3.6-5.0)
[2019-01-03 09:35] VITALS: BP 134/86
[2019-01-03 15:31] LABS: ABSOLUTE EOSINOPHILS # (AUTO) 0.2 10^3/uL (0.0-0.6); ABSOLUTE LYMPHOCYTES (AUTO) 1.9 10^3/uL (0.5-4.7); ABSOLUTE MONOCYTES (AUTO) 0.8 10^3/uL (0.1-1.4); ABSOLUTE NEUT (AUTO) 4.9 10^3/uL (1.7-8.2); BASOPHILS % (AUTO) 0.4 % (0-2); EOSINOPHILS % (AUTO) 2.1 % (0-6); HEMATOCRIT 32.5 % (37.9-51.0); HEMOGLOBIN 10.7 g/dL (13.5-17.0); LYMPHOCYTES % (AUTO) 24.5 % (13-45); MEAN CORPUSCULAR HEMOGLOBIN 27.8 pg (27.0-33.4); MEAN CORPUSCULAR HGB CONC 32.9 g/dL (32.0-36.0); MEAN CORPUSCULAR VOLUME 84 fl (80-97); MONOCYTES % (AUTO) 9.8 % (3-13); PLATELET COUNT 330 10^3/uL (150-450); RED BLOOD COUNT 3.85 10^6/uL (4.35-5.55); RED CELL DISTRIBUTION WIDTH 13.4 % (11.5-14.0); SEGMENTED NEUTROPHILS % (AUTO) 63.2 % (42-78); TOTAL CELLS COUNTED % (AUTO) 100 %; WHITE BLOOD COUNT 7.8 10^3/uL (4.0-10.5)
--- NOTE | 2019-01-03 17:34 | EKG REPORT ---
SEVERITY:- NORMAL ECG - SINUS RHYTHM : Confirmed by: Grace Olmstead MD 03-Jan-2019 17:34:07
== END 2019-01-03 09:56 | disposition home or self-care (01) ==
LOC: ER 07:42
DX: R00.2 Palpitations (principal); I12.0 Hypertensive chronic kidney disease with stage 5 chronic kidney disease or end stage renal disease; E11.22 Type 2 diabetes mellitus with diabetic chronic kidney disease; N18.6 End stage renal disease; Z99.2 Dependence on renal dialysis; Z96.41 Presence of insulin pump (external) (internal); E89.0 Postprocedural hypothyroidism; Z88.8 Allergy status to other drugs, medicaments and biological substances; Z91.018 Allergy to other foods; Z82.49 Family history of ischemic heart disease and other diseases of the circulatory system; Z87.891 Personal history of nicotine dependence
CPT/HCPCS: 36415; 80048; 83735; 84484; 85025; 93005; 93010; 99285

== ENCOUNTER 2019-01-13 18:48 | Observation (INO) | payer MEDICAID ==
[2019-01-13] MEDS ORDERED: ONDANSETRON HCL INJ/PF 4 MG/2 ML SDV IV ONE (19:04)
--- NOTE | 2019-01-13 19:06 | ER Document Report ---
ED Medical Screen (RME) - General Chief Complaint: Abdominal Pain Stated Complaint: ABDOMINAL PAIN Time Seen by Provider: 01/13/19 18:59 Primary Care Provider: KARELY SEAY DO [Primary Care Provider] - Follow up as needed Information source: Patient Notes: Patient presents complaining of right lower pelvic pain that started this evening. Patient does report some nausea and diarrhea. Patient denies any fever, vomiting or urinary symptoms. Patient states that he does have low back pain as well. hx: Hypertension, cholesterol, diabetes, dialysis Tuesday, TIA I have greeted and performed a rapid initial assessment of this patient. A comprehensive ED assessment and evaluation of the patient, analysis of test results and completion of the medical decision making process will be conducted by additional ED providers. TRAVEL OUTSIDE OF THE [place] IN LAST 30 DAYS: No - Related Data Allergies/Adverse Reactions: heparin Allergy (Verified 01/13/19 18:49) pork derived (porcine) [Pork derived (porcine)] Allergy (Verified 01/13/19 18:49) Past Medical History - Past Medical History Cardiac Medical History: Reports: Hx Hypercholesterolemia, Hx Hypertension Denies: Hx Congestive Heart Failure, Hx Coronary Artery Disease, Hx DVT, Hx Heart Attack, Hx Pulmonary Embolism Pulmonary Medical History: Reports: Hx Pneumonia Denies: Hx Asthma, Hx Bronchitis, Hx COPD Neurological Medical History: Reports: Hx Migraine. Denies: Hx Cerebrovascular Accident, Hx Seizures Endocrine Medical History: Reports: Hx Diabetes Mellitus Type 1 - on insulin pump, Hx Diabetes Mellitus Type 2 - On insulin pump. Denies: Hx Hyperthyroidism, Hx Hypothyroidism Renal/ Medical History: Reports: Hx End Stage Renal Disease - Stage IV renal failure, hemodialysis, Hx Renal Insufficiency - normal creatinins 3 to 4 now.. Denies: Hx Peritoneal Dialysis GI Medical History: Reports: Hx Gastroesophageal Reflux Disease. Denies: Hx Cirrhosis, Hx Hepatitis Musculoskeltal Medical History: Denies Hx Arthritis, Reports Hx Musculoskeletal Trauma Skin Medical History: Reports Hx Cellulitis, Denies Hx Eczema, Reports Hx MRSA, Denies Hx Psoriasis Psychiatric Medical History: Reports: Hx Depression Traumatic Medical History: Reports: Hx Fractures Infectious Medical History: Reports: Hx MRSA - S/P I & D multiple skin abscesses in past. Denies: Hx Hepatitis Past Surgical History: Reports: Hx Oral Surgery, Hx Thyroid Surgery - Patient states that would removed due to cancer, Hx Vascular Surgery - Left AV Fistula - Immunizations Hx Diphtheria, Pertussis, Tetanus Vaccination: No History of Influenza Vaccine for 02/2017 - 07/2017 Season: No Physical Exam - Vital signs Vitals: Temp Pulse Resp BP Pulse Ox 98.8 F 94 19 142/82 H 95 01/13/19 18:58 01/13/19 18:58 01/13/19 18:58 01/13/19 18:58 01/13/19 18:58 - Abdominal Tenderness: Tender - Right lower pelvic tenderness Course - Vital Signs Vital signs: Temp Pulse Resp BP Pulse Ox 98.8 F 94 19 142/82 H 95 01/13/19 18:58 01/13/19 18:58 01/13/19 18:58 01/13/19 18:58 01/13/19 18:58 Doctor's Discharge - Discharge Referrals: KARELY SEAY DO [Primary Care Provider] - Follow up as needed
[2019-01-13 20:02] LABS: ABSOLUTE BASOPHILS # (AUTO) 0.2 10^3/uL (0.0-0.2); ABSOLUTE EOSINOPHILS # (AUTO) 0.1 10^3/uL (0.0-0.6); ABSOLUTE LYMPHOCYTES (AUTO) 2.5 10^3/uL (0.5-4.7); ABSOLUTE MONOCYTES (AUTO) 1.1 10^3/uL (0.1-1.4); ABSOLUTE NEUT (AUTO) 6.8 10^3/uL (1.7-8.2); BASOPHILS % (AUTO) 1.9 % (0-2); EOSINOPHILS % (AUTO) 1.3 % (0-6); HEMATOCRIT 31.5 % (37.9-51.0); HEMOGLOBIN 10.4 g/dL (13.5-17.0); LYMPHOCYTES % (AUTO) 23.1 % (13-45); MEAN CORPUSCULAR HEMOGLOBIN 27.8 pg (27.0-33.4); MEAN CORPUSCULAR HGB CONC 32.9 g/dL (32.0-36.0); MEAN CORPUSCULAR VOLUME 85 fl (80-97); MONOCYTES % (AUTO) 10.4 % (3-13); PLATELET COUNT 329 10^3/uL (150-450); RED BLOOD COUNT 3.73 10^6/uL (4.35-5.55); RED CELL DISTRIBUTION WIDTH 13.7 % (11.5-14.0); SEGMENTED NEUTROPHILS % (AUTO) 63.3 % (42-78); TOTAL CELLS COUNTED % (AUTO) 100 %; WHITE BLOOD COUNT 10.7 10^3/uL (4.0-10.5)
[2019-01-13 20:14] LABS: APPEARANCE,URINE CLEAR; BILIRUBIN,URINE NEGATIVE (NEGATIVE); COLOR,URINE YELLOW; GLUCOSE, URINE >=500 mg/dL (NEGATIVE); KETONES,URINE NEGATIVE (NEGATIVE); LEUKOCYTE ESTERASE,URINE NEGATIVE (NEGATIVE); NITRITE,URINE NEGATIVE (NEGATIVE); PROTEIN,URINE >=500 mg/dL (NEGATIVE); UROBILINOGEN,URINE NEGATIVE mg/dL (<2.0)
[2019-01-13 20:23] LABS: ALBUMIN 4.4 g/dL (3.5-5.0); ALKALINE PHOSPHATASE 70 U/L (38-126); ANION GAP 15 (5-19); ASPARTATE AMINO TRANSFERASE 39 U/L (17-59); BILIRUBIN,DIRECT 0.5 mg/dL (0.0-0.4); BILIRUBIN,TOTAL 0.5 mg/dL (0.2-1.3); BLOOD UREA NITROGEN 60 mg/dL (7-20); CALCIUM 8.2 mg/dL (8.4-10.2); CARBON DIOXIDE 28 mmol/L (22-30); CHLORIDE 96 mmol/L (98-107); GLUCOSE 265 mg/dL (75-110); POTASSIUM 4.6 mmol/L (3.6-5.0)
--- NOTE | 2019-01-13 22:07 | ER Document Report ---
ED General - General Chief Complaint: Abdominal Pain Stated Complaint: ABDOMINAL PAIN Time Seen by Provider: 01/13/19 18:59 Notes: Patient is a 38-year-old male with diabetes mellitus, end-stage renal disease on dialysis that presents to the emergency department for chief complaint of right lower quadrant abdominal pain. Patient states that his pain started earlier today, and seem to get progressively worse, the pain is mainly focused in the right lower quadrant, does radiate towards the back, he had associated nausea and diarrhea with this. He is on dialysis, Tuesday did receive dialysis yesterday. He was not having this pain yesterday. He denies any associated fevers. He currently rates the pain as a 6 out of 10 describes as a constant aching sensation, and is tender to palpate. Past Medical History: Hypertension, hyperlipidemia, diabetes mellitus, end-stage renal disease on dialysis Past Surgical History: AV fistula Social History: Denies current tobacco, alcohol or drug use. Primary care is Dr. Lujan Family History: Reviewed and noncontributory for presenting illness Allergies: Reviewed, see documented allergy list. REVIEW OF SYSTEMS: Other than noted above, the 12 point review of systems was reviewed with the patient and were negative, all pertinent findings are included in the HPI. PHYSICAL EXAMINATION: Vital signs reviewed, nursing noted reviewed. GENERAL: Patient appears uncomfortable on exam, but no acute distress HEAD: Atraumatic, normocephalic. EYES: Eyes appear normal, extraocular movements intact, sclera anicteric, conjunctiva are normal. ENT: nares patent, oropharynx clear without exudates. Moist mucous membranes. NECK: Normal range of motion, supple without lymphadenopathy LUNGS: Breath sounds clear to auscultation bilaterally and equal. No wheezes rales or rhonchi. HEART: Regular rate and rhythm without murmurs ABDOMEN: Soft, focal right lower quadrant tenderness with palpation on exam, normoactive bowel sounds. No rebound, guarding, or rigidity. No masses appreciated. EXTREMITIES: Nontender, good range of motion, no pitting or edema. Left forearm AV fistula noted, positive bruit and positive thrill. NEUROLOGICAL: No focal neurological deficits. Moves all extremities spontaneously Motor and sensory grossly intact on exam. PSYCH: Normal mood, normal affect. SKIN: Warm, Dry, normal turgor, no rashes or lesions noted on exposed skin TRAVEL OUTSIDE OF THE [place] IN LAST 30 DAYS: No - Related Data Allergies/Adverse Reactions: heparin Allergy (Verified 01/13/19 18:49) pork derived (porcine) [Pork derived (porcine)] Allergy (Verified 01/13/19 18:49) Past Medical History - General Information source: Patient - Social History Smoking Status: Former Smoker Frequency of alcohol use: Rare Drug Abuse: None Family History: Arthritis, CAD, CVA, DM, Hyperlipidemia, Hypertension, Malignancy, Thyroid Disfunction, Other - Chronic kidney disease Patient has suicidal ideation: No Patient has homicidal ideation: No - Past Medical History Cardiac Medical History: Reports: Hx Hypercholesterolemia, Hx Hypertension Denies: Hx Congestive Heart Failure, Hx Coronary Artery Disease, Hx DVT, Hx Heart Attack, Hx Pulmonary Embolism Pulmonary Medical History: Reports: Hx Pneumonia Denies: Hx Asthma, Hx Bronchitis, Hx COPD Neurological Medical History: Reports: Hx Migraine. Denies: Hx Cerebrovascular Accident, Hx Seizures Endocrine Medical History: Reports: Hx Diabetes Mellitus Type 1 - on insulin pump, Hx Diabetes Mellitus Type 2 - On insulin pump. Denies: Hx Hyperthyroidism, Hx Hypothyroidism Renal/ Medical History: Reports: Hx End Stage Renal Disease - Stage IV renal failure, hemodialysis, Hx Renal Insufficiency - normal creatinins 3 to 4 now.. Denies: Hx Peritoneal Dialysis GI Medical History: Reports: Hx Gastroesophageal Reflux Disease. Denies: Hx Cirrhosis, Hx Hepatitis Musculoskeletal Medical History: Denies Hx Arthritis, Reports Hx Musculoskeletal Trauma Skin Medical History: Reports Hx Cellulitis, Denies Hx Eczema, Reports Hx MRSA, Denies Hx Psoriasis Psychiatric Medical History: Reports: Hx Depression Traumatic Medical History: Reports: Hx Fractures Infectious Medical History: Reports: Hx MRSA - S/P I & D multiple skin abscesses in past. Denies: Hx Hepatitis Past Surgical History: Reports: Hx Oral Surgery, Hx Thyroid Surgery - Patient states that would removed due to cancer, Hx Vascular Surgery - Left AV Fistula - Immunizations Hx Diphtheria, Pertussis, Tetanus Vaccination: No Physical Exam - Vital signs Vitals: Temp Pulse Resp BP Pulse Ox 98.8 F 94 19 142/82 H 95 01/13/19 18:58 01/13/19 18:58 01/13/19 18:58 01/13/19 18:58 01/13/19 18:58 Course - Re-evaluation Re-evalutation: Patient seen and examined vital signs reviewed. Laboratory data and imaging were ordered as appropriate for the patient's presenting symptoms and complaint, with consideration of any critical or life threatening conditions that may be associated with their obtained history and exam as noted above. Patient was treated with IV fentanyl and Zofran Results were reviewed when available and demonstrated mild leukocytosis, renal function, consistent with end-stage renal disease on dialysis, no abnormal electrolytes, his CT imaging without contrast was consistent with acute, seemingly uncomplicated appendicitis. The patient was re-evaluated and was still having pain, Dilaudid ordered for his pain, consult to surgery was made, Dr. Spicer came to the emergency department, and saw the patient, and plan for taken the patient to surgery for laparoscopic versus open appendectomy, patient was in agreement. Evaluation was most consistent with acute appendicitis Results were discussed with the patient at this point after careful consideration I feel that that patient should be admitted to the hospital. This was discussed with the patient that it is in the best interest for their care to be admitted for further evaluation and management. Patient agreed with this plan of care. A call was placed to the admitting physician, Dr. Spicer who graciously accepted the patient onto their service. *Note is created using voice recognition software and may contain spelling, syntax or grammatical errors. Laboratory 01/13/19 01/13/19 01/13/19 19:52 19:52 19:55 WBC 10.7 H RBC 3.73 L Hgb 10.4 L Hct 31.5 L MCV 85 MCH 27.8 MCHC 32.9 RDW 13.7 Plt Count 329 Lymph % (Auto) 23.1 [place] % (Auto) 10.4 Eos % (Auto) 1.3 Baso % (Auto) 1.9 Absolute Neuts (auto) 6.8 Absolute Lymphs (auto) 2.5 Absolute Monos (auto) 1.1 Absolute Eos (auto) 0.1 Absolute Basos (auto) 0.2 Seg Neutrophils % 63.3 Sodium 139.2 Potassium 4.6 Chloride 96 L Carbon Dioxide 28 Anion Gap 15 BUN 60 H Creatinine 10.02 H Est GFR ( Amer) 7 L Est GFR (MDRD) Non-Af 6 L Glucose 265 H Calcium 8.2 L Total Bilirubin 0.5 Direct Bilirubin 0.5 H Neonat Total Bilirubin Not Reportable Neonat Direct Bilirubin Not Reportable Neonat Indirect Bili Not Reportable AST 39 ALT 27 Alkaline Phosphatase 70 Total Protein 8.0 Albumin 4.4 Urine Color YELLOW Urine Appearance CLEAR Urine pH 8.0 Ur Specific [place] 1.010 Urine Protein >=500 H Urine Glucose (UA) >=500 H Urine Ketones NEGATIVE Urine Blood NEGATIVE Urine Nitrite NEGATIVE Urine Bilirubin NEGATIVE Urine Urobilinogen NEGATIVE Ur Leukocyte Esterase NEGATIVE Urine WBC (Auto) 3 Urine RBC (Auto) 2 Squamous Epi Cells Auto <1 Urine Ascorbic Acid NEGATIVE Abdomen/Pelvis CT 01/13/19 22:15 IMPRESSION: 1. Acute unruptured appendicitis. Chest X-Ray 01/14/19 00:00 IMPRESSION: No acute cardiopulmonary findings. - Vital Signs Vital signs: Temp Pulse Resp BP Pulse Ox 97.9 F 86 16 141/83 H 94 01/14/19 01:22 01/14/19 01:22 01/14/19 01:22 01/14/19 01:22 01/14/19 01:22 - Laboratory Result Diagrams: 01/13/19 19:52 01/13/19 19:52 Laboratory results interpreted by me: 01/13/19 01/13/19 01/13/19 19:52 19:52 19:55 WBC 10.7 H RBC 3.73 L Hgb 10.4 L Hct 31.5 L Chloride 96 L BUN 60 H Creatinine 10.02 H Est GFR ( Amer) 7 L Est GFR (MDRD) Non-Af 6 L Glucose 265 H Calcium 8.2 L Direct Bilirubin 0.5 H Urine Protein >=500 H Urine Glucose (UA) >=500 H Discharge - Discharge Clinical Impression: Acute appendicitis Qualifiers: Acute appendicitis type: unspecified acute appendicitis type Qualified Code(s): K35.80 - Unspecified acute appendicitis Leukocytosis Qualifiers: Leukocytosis type: unspecified Qualified Code(s): D72.829 - Elevated white blood cell count, unspecified Condition: Stable Disposition: ADMITTED INPATIENT Admitting Provider: Surgicalist - Dr. Spicer
[2019-01-13] MEDS ORDERED: FENTANYL CITRATE INJ/PF 100 MCG/2 ML AMPUL IV ONE (22:15)
--- NOTE | 2019-01-14 00:58 | RADIOLOGY REPORT (SQ) ---
EXAM DESCRIPTION: [facility]: CT ABDOMEN PELVIS WITHOUT IV CONTRAST CLINICAL HISTORY: 38 years Male; rlq pain TECHNIQUE: CT of the abdomen and pelvis without contrast. All CT scans at this facility use dose modulation, iterative reconstruction, and/or weight based dosing when appropriate to reduce radiation dose to as low as reasonably achievable. COMPARISON: CT 07/30/2018 FINDINGS: Abdomen: Liver:No focal lesions. No intrahepatic ductal distention. Gallbladder:Nondistended Pancreas:Within normal limits Spleen:Within normal limits Right kidney:No hydronephrosis. No renal or ureteral calculi. Left kidney:No hydronephrosis. No renal or ureteral calculi. Adrenal glands:Within normal limits Vascular structures:Within normal limits (although limited evaluation on noncontrast exam). Pelvis: Small bowel:No significant distention. Appendix: Nondistended, 15 mm wide, with surrounding edema. No extraluminal air or focal fluid collection. There are several adjacent lymph nodes, although not significantly enlarged. Colon:No distention or acute pericolonic edema. No free intraperitoneal fluid or air. Bones: No acute bone findings. Bladder: Unremarkable. No pelvic mass or adenopathy. Note that evaluation of the bowel and solid organs is somewhat limited due to lack of intravenous and oral contrast. IMPRESSION: 1. Acute unruptured appendicitis.
[2019-01-14] MEDS ORDERED: HYDROMORPHONE HCL INJ/PF 2 MG/ML AMPULE IV ONE (01:26)
[2019-01-14] MEDS ORDERED: ONDANSETRON HCL INJ/PF 4 MG/2 ML SDV IV PRN ×2 (01:57→08:46)
[2019-01-14] MEDS ORDERED: PIPERACILLIN SODIUM/TAZOBACTAM 3.375 GM in NORMAL SALINE 100 ML IV ONE (01:57)
[2019-01-14] MEDS ORDERED: NORMAL SALINE 1000 ML 1,000 ML IV PRN (01:58)
[2019-01-14] MEDS ORDERED: DEXTROSE 50%-WATER 25 GM/50 ML DISP.SYRIN IV PRN ×2 (01:59)
[2019-01-14] MEDS ORDERED: DEXTROSE 40% GEL 15 GM TUBE PO PRN ×2 (01:59)
[2019-01-14] MEDS ORDERED: GLUCAGON,HUMAN RECOMB 1 MG INJ IM PRN (01:59)
--- NOTE | 2019-01-14 02:07 | PDOC H&P ---
History of Present Illness Admission Date/PCP: KARELY SEAY DO Patient complains of: Abdominal pain History of Present Illness: FRANK WEBBER is a 38 year old male Presents the emergency department via ground rescue complaining of abdominal pain which developed on Tuesday, January 13, 2019, associated with anorexia and some nausea. The pain was localized to the right lower quadrant. Patient denies diaphoresis. He was evaluated emergency department where he is found to have right lower quadrant tenderness, mild leukocytosis, and CT scan findings consistent with acute, early appendicitis without rupture. Surgery was consulted and the patient was advised admission. Of note patient has a history of diabetes mellitus, end-stage renal failure, on hemodialysis via left arm AV fistula Tuesday and Tuesday under the direction of Dr. Downey. Past Medical History Cardiac Medical History: Reports: Hyperlipidema, Hypertension Denies: Congestive Heart Failure, Coronary Artery Disease, DVT, Myocardial Infarction, Pulmonary Embolism Pulmonary Medical History: Reports: Pneumonia Denies: Asthma, Bronchitis, Chronic Obstructive Pulmonary Disease (COPD) Neurological Medical History: Reports: Migraine Denies: Seizures Endocrine Medical History: Reports: Diabetes Mellitus Type 1 - on insulin pump, Diabetes Mellitus Type 2 - On insulin pump Denies: Hyperthyroidism, Hypothyroidism Renal/ Medical History: Reports: End Stage Renal Disease - Stage IV renal failure, hemodialysis GI Medical History: Reports: Gastroesophageal Reflux Disease Denies: Cirrhosis, Hepatitis Musculoskeltal Medical History: Denies: Arthritis Skin Medical History: Denies: Eczema, Psoriasis Psychiatric Medical History: Reports: Depression Hematology: Denies: Anemia Infectious Medical History: 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 Past Surgical History Past Surgical History: Patient has a history of partial thyroidectomy, bilateral eye surgery due to complications related diabetes mellitus, left arm AV fistula, Past Surgical History: Reports: Vascular Surgery - Left AV Fistula Social History Information Source: Patient Lives with: Friend Smoking Status: Former Smoker Frequency of Alcohol Use: None Hx Recreational Drug Use: No Drugs: None Hx Prescription Drug Abuse: No Family History Family History: None, Arthritis, CAD, CVA, DM, Hyperlipidemia, Hypertension, Malignancy, Thyroid Disfunction, Other - Chronic kidney disease Parental Family History Reviewed: Yes Children Family History Reviewed: Yes Sibling(s) Family History Reviewed.: Yes Medication/Allergy Home Medications: Diltiazem HCl [Diltiazem 24Hr Cd] 1 cap PO DAILY 03/04/16 Furosemide 1 tab PO BID PRN 03/04/16 Oxycodone HCl 1 tab PO Q6 PRN 03/04/16 Pregabalin [Lyrica] 1 cap PO BID 03/04/16 Aspirin [Aspirin 81 mg Chewable Tablet] 81 mg PO DAILY #30 tab.chew 03/05/16 Atorvastatin Calcium [Lipitor 40 mg Tablet] 40 mg PO QHS #30 tablet 03/05/16 Fenofibrate Nanocrystallized [Tricor 145 mg Tablet] 145 mg PO QHS #30 tablet 03/05/16 Insulin Glulisine [Apidra Insulin (Glulisine) 100 unit/mL] See Protocol SQ CONTINUOUS PRN #1 pkg 03/30/16 Hydralazine HCl [Apresoline 50 mg Tablet] 50 mg PO Q12 #60 tablet 04/01/16 Apixaban [Eliquis 2.5 mg Tablet] 2.5 mg PO BID 06/21/16 Methocarbamol [Robaxin 500 mg Tablet] 500 mg PO ASDIR PRN 06/21/16 Nitroglycerin [Nitrostat 0.4 mg (1/150 Gr) Tabs 25/Bottle] 1 tab SL Q5MP PRN 06/21/16 Isosorbide Mononitrate [Isosorbide Mononitrate ER] 15 mg PO DAILY 08/30/17 Lidocaine/Prilocaine [Lidopril 2.5%-2.5% Cream-Dress] 1 each TP PRN PRN 08/30/17 Dextrose [Glucose Bits] 1 gm PO ASDIR PRN #30 tab.chew 12/02/17 Insulin Glulisine [Apidra Insulin (Glulisine) 100 unit/mL] See Protocol SUBCUT ACHS #10 ml 12/02/17 Pen Needle, Diabetic [Insulin Pen Needle] 1 each MC ASDIR PRN #60 dis.needle 12/02/17 Prednisone [Deltasone 20 mg Tablet] 20 mg PO BID 5 Days #10 tablet 04/28/18 Ondansetron [Zofran Odt 4 mg Tablet] 1 tab PO Q6H #15 tab.rapdis 06/17/18 Allergies/Adverse Reactions: heparin Allergy (Verified 01/13/19 18:49) pork derived (porcine) [Pork derived (porcine)] Allergy (Verified 01/13/19 18:49) Review of Systems Constitutional: PRESENT: as per HPI Eyes: PRESENT: visual disturbances Ears: ABSENT: hearing changes Nose, Mouth, and Throat: PRESENT: other - None Respiratory: PRESENT: other - Denies chest pain Gastrointestinal: PRESENT: as per HPI Genitourinary: PRESENT: other - He makes urine daily Psychiatric: PRESENT: anxiety Physical Exam Vital Signs: Temp Pulse Resp BP Pulse Ox 97.9 F 86 16 141/83 H 94 01/14/19 01:22 01/14/19 01:22 01/14/19 01:22 01/14/19 01:22 01/14/19 01:22 Intake & Output 01/12/19 01/13/19 01/14/19 06:59 06:59 06:59 Weight 122.6 kg General appearance: PRESENT: mild distress Head exam: PRESENT: normocephalic Eye exam: PRESENT: EOMI Mouth exam: PRESENT: dry mucosa Neck exam: PRESENT: full ROM Respiratory exam: PRESENT: clear to auscultation brody Cardiovascular exam: PRESENT: RRR Pulses: PRESENT: normal carotid pulses, normal radial pulses, normal femoral pulses, normal dorsalis pedis pul GI/Abdominal exam: PRESENT: other - Significant right lower tenderness with guarding; hypoactive bowel sounds. Rectal exam: PRESENT: deferred Extremities exam: PRESENT: full ROM Musculoskeletal exam: PRESENT: other - Moderate edema of the extremities; Buzzing left arm AV fistula Neurological exam: PRESENT: awake, oriented to person, oriented to time, oriented to situation Psychiatric exam: PRESENT: appropriate affect Skin exam: PRESENT: intact Results Laboratory Results: 01/13/19 19:52 01/13/19 19:52 01/13/19 01/13/19 01/13/19 19:52 19:52 19:55 WBC 10.7 H RBC 3.73 L Hgb 10.4 L Hct 31.5 L MCV 85 MCH 27.8 MCHC 32.9 RDW 13.7 Plt Count 329 Seg Neutrophils % 63.3 Sodium 139.2 Potassium 4.6 Chloride 96 L Carbon Dioxide 28 Anion Gap 15 BUN 60 H Creatinine 10.02 H Est GFR ( Amer) 7 L Glucose 265 H Calcium 8.2 L Total Bilirubin 0.5 AST 39 Alkaline Phosphatase 70 Total Protein 8.0 Albumin 4.4 Urine Color YELLOW Urine Appearance CLEAR Urine pH 8.0 Ur Specific [place] 1.010 Urine Protein >=500 H Urine Glucose (UA) >=500 H Urine Ketones NEGATIVE Urine Blood NEGATIVE Urine Nitrite NEGATIVE Ur Leukocyte Esterase NEGATIVE Urine WBC (Auto) 3 Urine RBC (Auto) 2 Impressions: Abdomen/Pelvis CT 01/13/19 22:15 IMPRESSION: 1. Acute unruptured appendicitis. Assessment & Plan - Diagnosis (1) ESRD (end stage renal disease) Is this a current diagnosis for this admission?: Yes Plan: Impression: Clinical, radiographic findings consistent with acute appendicitis without rupture in a 38-year-old male with history of diabetes mellitus, end- stage renal failure currently on hemodialysis 3 times a week through her left arm AV fistula currently functioning. Recommendations: 1. Given the patient's multiple comorbidities, I recommended he undergo laparoscopic, possible open appendectomy rather than nonoperative management of early appendicitis. He is somewhat hesitant but agrees he admitted and undergo the planned procedure. 2. Patient's laboratory profile otherwise within normal limits. He is not septic. I believe he can wait until Tuesday for dialysis as planned unless patient's postoperative course becomes unstable. 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 3. We will obtain a chest x-ray and an EKG. (2) Diabetes mellitus, insulin dependent (IDDM), controlled Is this a current diagnosis for this admission?: Yes (3) Acute appendicitis Is this a current diagnosis for this admission?: Yes (4) Status post partial thyroidectomy Is this a current diagnosis for this admission?: Yes (5) Hypertension Is this a current diagnosis for this admission?: Yes (6) Full code status Is this a current diagnosis for this admission?: Yes (7) History of pulmonary embolism Is this a current diagnosis for this admission?: Yes - Time Time Spent: 50 to 70 Minutes Critical Time spent with patient: 15-24 minutes Medications reviewed and adjusted accordingly: Yes Anticipated discharge: Home - Inpatient Certification Based on my medical assessment, after consideration of the patient's chioma rbidities, presenting symptoms, or acuity I expect that the services needed warrant INPATIENT care.: Yes I certify that my determination is in accordance with my understanding of Medicare's requirements for reasonable and necessary INPATIENT services [42 CFR 412.3e].: Yes Medical Necessity: Need For IV Fluids, Need for Pain Control, Need for IV Antibiotics, Need for Surgery
[2019-01-14] MEDS ORDERED: PIPERACILLIN/TAZOBACTAM 3.375 GM VIAL IV ONE (02:30)
--- NOTE | 2019-01-14 02:37 | RADIOLOGY REPORT (SQ) ---
EXAM DESCRIPTION: XR CHEST 1 VIEW COMPLETED DATE/TME: 01/14/2019 00:00 CLINICAL HISTORY: 38 years Male, preop COMPARISON: 04/26/18 NUMBER OF VIEWS/TECHNIQUE: 1/AP FINDINGS: Adequate lung volume, clear parenchyma, normal cardiac silhouette, and intact bony thorax. IMPRESSION: No acute cardiopulmonary findings.
[2019-01-14] MEDS ORDERED: FENTANYL CITRATE INJ/PF 250 MCG/5 ML AMPULE ONE (07:06)
[2019-01-14] MEDS ORDERED: MORPHINE SULFATE 10 MG/ML INJ ONE (07:06)
[2019-01-14] MEDS ORDERED: MIDAZOLAM 2 MG/2 ML INJ ONE (07:06)
[2019-01-14] MEDS ORDERED: PROPOFOL INJ 200 MG/20 ML VIAL IV ONE (07:06)
[2019-01-14] MEDS: INSULIN REG, HUMAN 100 UNIT/ML 3 ML VIAL (PYX) SUBCUT SCH ×3 (07:14→17:32)
[2019-01-14] MEDS ORDERED: BUPIVACAINE HCL 0.25 % INJ/PF (2.5 MG/1 ML) 30 ML VIAL ONE (07:21)
[2019-01-14] MEDS ORDERED: PROMETHAZINE HCL INJ 25 MG/1 ML VIAL IV PRN ×2 (08:23)
[2019-01-14] MEDS ORDERED: MORPHINE SULFATE 10 MG/ML INJ IV PRN (08:23)
[2019-01-14] MEDS ORDERED: FENTANYL CITRATE INJ/PF 100 MCG/2 ML AMPUL IV PRN ×3 (08:23)
[2019-01-14] MEDS ORDERED: MEPERIDINE HCL/PF INJ 25 MG/1 ML DISP.SYRIN IV PRN (08:23)
[2019-01-14] MEDS ORDERED: DIPHENHYDRAMINE HCL 50 MG/ML VIAL IV PRN (08:23)
[2019-01-14] MEDS ORDERED: OXYCODONE-ACETAMINOPHEN 5-325 MG TABLET PO PRN (08:46)
--- NOTE | 2019-01-14 08:52 | Operative Report ---
Operative Report DATE OF SURGERY: 01/14/19 PREOPERATIVE DIAGNOSIS: Acute appendicitis POSTOPERATIVE DIAGNOSIS: Same OPERATION: Laparoscopic appendectomy SURGEON: JERICA AHUJA ANESTHESIA: GA TISSUE REMOVED OR ALTERED: 1 appendix with contents COMPLICATIONS: None ESTIMATED BLOOD LOSS: 40 cc INTRAOPERATIVE FINDINGS: See below PROCEDURE: The patient was taken the preop holding her to the main operating room where general anesthesia was induced. The patient voided on-call to the operating room. The abdomen was exposed, arms abducted, abdominal wall clipped of hair, then prepped and draped in sterile fashion and instrumentation set up for laparoscopic appendectomy. Surgical plan surgical timeout conducted. Markings remain on the abdominal wall for 3 port laparoscopic appendectomy. The skin was anesthetized above the umbilicus, above the suprapubic area in the left lower quadrant with 1% plain lidocaine. A vertical incision was made over the umbilicus, Veress needle inserted into the peritoneal cavity, pneumoperitoneum was established with CO2. Veress needle was removed, 5 mm port was inserted and a 5 mm flexible scope was inserted. Under direct visualization a second 5 mm port was placed in the suprapubic position and a 12 mm port was placed in left lower quadrant, with no evidence of vascular or visceral injury. Findings were significant for an acutely inflamed appendix, and serositis of the cecum. There is no evidence of pus, bleeding, feculent material. The next was grasped, milked into the free peritoneal space, and the retroperitoneal attachments to the cecum released. We now opened up the plane between the mesoappendix, and the base of the appendix. We now divided the appendix at its base with a single firing of the Ethicon 45 mm Endo stapler using a blue load. A second firing was used to transect the mesoappendix. Bleeding was minimal. The appendix was placed in an Endobag and brought out of the patient to the left lower quadrant port site after stretching the fascial opening. The appendix was sent to pathology for permanent analysis. There was some bleeding coming from the stretched fascial site which was managed by direct digital compression. We level the patient out and checked for bleeding from the staple line and there was none. We now closed the left lower quadrant fascial defect using the percutaneous, disposable suture passer and a 0 Vicryl suture with a single interrupted loop closure. The bleeding by this time had abated. We rechecked her staple line, and the lower quadrant fascial closure site and there was no evidence of bleeding. We felt the operation was complete. Pneumoperitoneum was decompressed, all ports removed, and wounds closed with 3-0 Vicryl, benzoin and Steri-Strips. Patient taught procedure well, extubated, taken recovery room in stable condition.
--- NOTE | 2019-01-14 09:37 | EKG REPORT ---
SEVERITY:- BORDERLINE ECG - SINUS RHYTHM BORDERLINE INFERIOR Q WAVES BORDERLINE PROLONGED QT INTERVAL : Confirmed by: Harley Wiggins MD 14-Jan-2019 09:37:11
[2019-01-14] MEDS ORDERED: DEXAMETHASONE SOD PHOSPHATE INJ 4 MG/1 ML VIAL ONE (14:36)
[2019-01-14] MEDS ORDERED: PHENYLEPHRINE HCL INJ/PF 10 MG/1 ML SDV ONE (14:36)
[2019-01-14] MEDS ORDERED: ROCURONIUM BROMIDE INJ 50 MG/5 ML VIAL IV ONE (14:36)
[2019-01-14] MEDS ORDERED: SUCCINYLCHOLINE CHLORIDE INJ 200 MG/10 ML VIAL ONE (14:36)
[2019-01-14] MEDS ORDERED: GLYCOPYRROLATE 1 MG/5 ML VIAL ONE (14:36)
[2019-01-14] MEDS ORDERED: ONDANSETRON HCL INJ/PF 4 MG/2 ML SDV ONE (14:36)
[2019-01-14] MEDS ORDERED: OXYCODONE HCL IR 5 MG TABLET ONE (15:26)
[2019-01-14] MEDS ORDERED: [UNRECOGNIZED DRUG - OTHER] SUBCUT SCH (15:30)
[2019-01-14] MEDS ORDERED: CALCIUM ACETATE 667 MG CAPSULE PO SCH ×2 (15:30→17:00)
[2019-01-14] MEDS ORDERED: INSULIN GLULISINE SUBCUT SCH (15:30)
[2019-01-14] MEDS ORDERED: OXYCODONE HCL IR 5 MG TABLET PO ONE (16:00)
--- NOTE | 2019-01-14 16:35 | PDOC CONSULTATION ---
Consultation Consult Date: 01/14/19 Attending physician:: JERICA AHUJA Provider Consulted: PAULO ALTAMIRANO History of Present Illness Admission Date/PCP: 01/14/19 02:10 KARELY SEAY DO Patient complains of: abd pain History of Present Illness: FRANK WEBBER is a 38 year old male with a past medical history of ESRD on dialysis, hyperlipidemia, hypertension, and diabetes is type I on insulin pump was admitted with surgery due to acute appendicitis. Hospice consult was sought for medical comanagement. Upon encounter, patient just arrived from the OR and is status post appendectomy. He is awake and coherent but complains of postop pain. He denies any other acute complaints. Past Medical History Cardiac Medical History: Reports: Hyperlipidema, Hypertension Denies: Congestive Heart Failure, Coronary Artery Disease, DVT, Myocardial Infarction, Pulmonary Embolism Pulmonary Medical History: Reports: Pneumonia Denies: Asthma, Bronchitis, Chronic Obstructive Pulmonary Disease (COPD) Neurological Medical History: Reports: Migraine Denies: Seizures Endocrine Medical History: Reports: Diabetes Mellitus Type 1 - on insulin pump, Diabetes Mellitus Type 2 - On insulin pump Denies: Hyperthyroidism, Hypothyroidism Renal/ Medical History: Reports: End Stage Renal Disease - Stage IV renal failure, hemodialysis GI Medical History: Reports: Gastroesophageal Reflux Disease Denies: Cirrhosis, Hepatitis Musculoskeltal Medical History: Denies: Arthritis Skin Medical History: Denies: Eczema, Psoriasis Psychiatric Medical History: Reports: Depression Hematology: Denies: Anemia Infectious Medical History: 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 Past Surgical History Past Surgical History: Reports: Vascular Surgery - Left AV Fistula Social History Lives with: Friend Smoking Status: Former Smoker Frequency of Alcohol Use: Rare Hx Recreational Drug Use: No Drugs: None Hx Prescription Drug Abuse: No - Advance Directive Resuscitation Status: Full Code Family History Family History: Arthritis, CAD, CVA, DM, Hyperlipidemia, Hypertension, Malignancy, Thyroid Disfunction, Other - Chronic kidney disease Parental Family History Reviewed: Yes - no premature CAD Children Family History Reviewed: No Sibling(s) Family History Reviewed.: No Medication/Allergy Home Medications: Apixaban [Eliquis 2.5 mg Tablet] 2.5 mg PO BID 01/14/19 Aspirin [Ecotrin 81 mg EC Tablet] 81 mg PO QAM 01/14/19 Atorvastatin Calcium [Lipitor 40 mg Tablet] 40 mg PO QHS 01/14/19 B Complex W-C No.20/Folic Acid [Virt-Caps Softgel] 1 mg PO DAILY 01/14/19 Calcium Acetate [Phoslo 667 mg Capsule] 1,334 mg PO .SNACKS 01/14/19 Calcium Acetate [Phoslo 667 mg Capsule] 2,001 mg PO MEALS 01/14/19 Cinacalcet HCl [Sensipar 30 mg Tablet] 30 mg PO QHS 01/14/19 Diltiazem HCl [Cardizem Cd 180 mg Capsule] 180 mg PO QAM 01/14/19 Fenofibrate Nanocrystallized [Tricor 145 mg Tablet] 145 mg PO QHS 01/14/19 Furosemide [Lasix 40 mg Tablet] 40 mg PO QPM 01/14/19 Furosemide [Lasix 40 mg Tablet] 80 mg PO QAM 01/14/19 Hydralazine HCl [Apresoline 50 mg Tablet] 100 mg PO BID 01/14/19 Insulin Glulisine [Apidra Insulin (Glulisine) 100 unit/mL] 0 units PUMP .INSULINPUMP 01/14/19 Isosorbide Mononitrate [Imdur 30 mg Tablet.er] 15 mg PO QAM 01/14/19 Oxycodone HCl 15 mg PO Q4HP PRN 01/14/19 Pregabalin [Lyrica] 150 mg PO BID 01/14/19 Ropinirole HCl [Requip] 0.5 mg PO TID 01/14/19 Allergies/Adverse Reactions: heparin Allergy (Verified 01/13/19 18:49) pork derived (porcine) [Pork derived (porcine)] Allergy (Verified 01/13/19 18:49) Review of Systems All systems: reviewed and no additional remarkable complaints except as stated - As mentioned in HPI Physical Exam Vital Signs: Temp Pulse Resp BP Pulse Ox 97.7 F 78 22 H 166/81 H 96 01/14/19 08:53 01/14/19 09:23 01/14/19 09:23 01/14/19 09:23 01/14/19 09:23 Intake & Output 01/13/19 01/14/19 01/15/19 06:59 06:59 06:59 Intake Total 0 700 Output Total 240 Balance 0 460 Weight 242 lb 8.136 oz Results Laboratory Results: 01/13/19 19:52 01/13/19 19:52 01/13/19 01/13/19 01/13/19 19:52 19:52 19:55 WBC 10.7 H RBC 3.73 L Hgb 10.4 L Hct 31.5 L MCV 85 MCH 27.8 MCHC 32.9 RDW 13.7 Plt Count 329 Seg Neutrophils % 63.3 Sodium 139.2 Potassium 4.6 Chloride 96 L Carbon Dioxide 28 Anion Gap 15 BUN 60 H Creatinine 10.02 H Est GFR ( Amer) 7 L Glucose 265 H Calcium 8.2 L Total Bilirubin 0.5 AST 39 Alkaline Phosphatase 70 Total Protein 8.0 Albumin 4.4 Urine Color YELLOW Urine Appearance CLEAR Urine pH 8.0 Ur Specific [place] 1.010 Urine Protein >=500 H Urine Glucose (UA) >=500 H Urine Ketones NEGATIVE Urine Blood NEGATIVE Urine Nitrite NEGATIVE Ur Leukocyte Esterase NEGATIVE Urine WBC (Auto) 3 Urine RBC (Auto) 2 Impressions: Abdomen/Pelvis CT 01/13/19 22:15 IMPRESSION: 1. Acute unruptured appendicitis. Chest X-Ray 01/14/19 00:00 IMPRESSION: No acute cardiopulmonary findings. Assessment and Plan - Diagnosis (1) Acute appendicitis Qualifiers: Acute appendicitis type: unspecified acute appendicitis type Qualified Code(s): K35.80 - Unspecified acute appendicitis Is this a current diagnosis for this admission?: Yes Plan: S/P Appendectomy. (2) Diabetes mellitus, insulin dependent (IDDM), controlled Is this a current diagnosis for this admission?: Yes Plan: Resume insulin pump. (3) ESRD (end stage renal disease) Is this a current diagnosis for this admission?: Yes Plan: No indications for HD at this time. He is going for dialysis tomorrow (MWF). (4) Hypertension Is this a current diagnosis for this admission?: Yes Plan: Resume home meds. (5) History of pulmonary embolism Is this a current diagnosis for this admission?: Yes Plan: Resume Eliquis if okay with primary service. - Time Time Spent with patient: 15-24 minutes
[2019-01-14 17:37] VITALS: BP 133/76
[2019-01-14] MEDS ORDERED: FUROSEMIDE 40 MG TABLET PO SCH (18:00)
[2019-01-14] MEDS ORDERED: (PENDING PHARMACY ID) (Ropinirole Hcl [Requip] 0.5 MG) PO SCH (18:00)
[2019-01-14] MEDS ORDERED: HYDRALAZINE HCL 50 MG TABLET PO SCH (18:00)
[2019-01-14] MEDS ORDERED: FENOFIBRATE NANOCRYSTALLIZED 145 MG TABLET PO SCH (22:00)
[2019-01-14] MEDS ORDERED: CINACALCET HCL 30 MG TABLET PO SCH (22:00)
[2019-01-14] MEDS ORDERED: ROPINIROLE HCL 0.25 MG TABLET PO SCH (22:00)
[2019-01-14] MEDS ORDERED: ATORVASTATIN CALCIUM 40 MG TABLET PO SCH (22:00)
[2019-01-15] MEDS ORDERED: ASPIRIN 81 MG TABLET, ENT COATED PO SCH (08:00)
[2019-01-15] MEDS ORDERED: DILTIAZEM HCL 180 MG CAPSULE.CR PO SCH (08:00)
[2019-01-15] MEDS ORDERED: FUROSEMIDE 40 MG TABLET PO SCH (08:00)
--- NOTE | 2019-01-17 14:44 | PDOC DISCHARGE SUMMARY ---
General - Admit/Disc Date/PCP Admission Date/Primary Care Provider: 01/14/19 02:10 KARELY SEAY, Discharge Date: 01/14/19 - Discharge Diagnosis (1) Acute appendicitis Is this a current diagnosis for this admission?: Yes (2) ESRD (end stage renal disease) Is this a current diagnosis for this admission?: Yes (3) Diabetes mellitus, insulin dependent (IDDM), controlled Is this a current diagnosis for this admission?: Yes (4) Status post partial thyroidectomy Is this a current diagnosis for this admission?: Yes (5) Hypertension Is this a current diagnosis for this admission?: Yes (6) Full code status Is this a current diagnosis for this admission?: Yes (7) History of pulmonary embolism Is this a current diagnosis for this admission?: Yes - Additional Information Resuscitation Status: Full Code Discharge Activity: Activity As Tolerated, Balance Activity w/Rest, No Driving, No Lifting Over 10 Pounds, No Lifting/Push/Pulling, Slowly Increase Activity, No tub bath Home Medications: Apixaban [Eliquis 2.5 mg Tablet] 2.5 mg PO BID 01/14/19 Aspirin [Ecotrin 81 mg EC Tablet] 81 mg PO QAM 01/14/19 Atorvastatin Calcium [Lipitor 40 mg Tablet] 40 mg PO QHS 01/14/19 B Complex W-C No.20/Folic Acid [Virt-Caps Softgel] 1 mg PO DAILY 01/14/19 Calcium Acetate [Phoslo 667 mg Capsule] 1,334 mg PO .SNACKS 01/14/19 Calcium Acetate [Phoslo 667 mg Capsule] 2,001 mg PO MEALS 01/14/19 Cinacalcet HCl [Sensipar 30 mg Tablet] 30 mg PO QHS 01/14/19 Diltiazem HCl [Cardizem Cd 180 mg Capsule] 180 mg PO QAM 01/14/19 Fenofibrate Nanocrystallized [Tricor 145 mg Tablet] 145 mg PO QHS 01/14/19 Furosemide [Lasix 40 mg Tablet] 40 mg PO QPM 01/14/19 Furosemide [Lasix 40 mg Tablet] 80 mg PO QAM 01/14/19 Hydralazine HCl [Apresoline 50 mg Tablet] 100 mg PO BID 01/14/19 Insulin Glulisine [Apidra Insulin (Glulisine) 100 unit/mL] 0 units PUMP .INSULINPUMP 01/14/19 Isosorbide Mononitrate [Imdur 30 mg Tablet.er] 15 mg PO QAM 01/14/19 Oxycodone HCl 15 mg PO Q4HP PRN 01/14/19 Pregabalin [Lyrica] 150 mg PO BID 01/14/19 Ropinirole HCl [Requip] 0.5 mg PO TID 01/14/19 History of Present Illness History of Present Illness: FRANK WEBBER is a 38 year old male Presents the emergency department via ground rescue complaining of abdominal pain which developed on Tuesday, January 13, 2019, associated with anorexia and some nausea. The pain was localized to the right lower quadrant. Patient denies diaphoresis. He was evaluated emergency department where he is found to have right lower quadrant tenderness, mild leukocytosis, and CT scan findings consistent with acute, early appendicitis without rupture. Surgery was cons ulted and the patient was advised admission. Of note patient has a history of diabetes mellitus, end-stage renal failure, on hemodialysis via left arm AV fistula Tuesday and Tuesday under the direction of Dr. Downey. Hospital Course Hospital Course: Patient was admitted under the care of the surgical list service, kept n.p.o. and taken to the operating room on the morning of 01/14/2019. He underwent laparoscopic appendectomy uneventfully. Postoperatively he did well, had no complications, was started on a diet, voided, and ambulated. By the evening of the first hospital day he was felt to receive maximum benefit from hospitalization was discharged home. Physical Exam Vital Signs: Temp Pulse Resp BP Pulse Ox 98.3 F 90 17 133/76 H 97 01/14/19 17:36 01/14/19 17:36 01/14/19 17:36 01/14/19 17:36 01/14/19 17:36 General appearance: PRESENT: no acute distress GI/Abdominal exam: PRESENT: other - Incisions with dressings dry and intact Results Laboratory Results: 01/13/19 19:52 01/13/19 19:52 Impressions: Abdomen/Pelvis CT 01/13/19 22:15 IMPRESSION: 1. Acute unruptured appendicitis. Chest X-Ray 01/14/19 00:00 IMPRESSION: No acute cardiopulmonary findings. Qualifiers - * PATIENT BEING DISCHARGED WITH ANY OF THE FOLLOWING DIAGNOSIS: No Acute Heart Failure - Is this a Heart Failure Patient?: No Plan Discharge Plan: Patient will be discharged home to care of his family, follow-up with [facility] in 1 to 2 weeks; resume outpatient medical therapy including 3 times a week dialysis, and [facility]. Final diagnosis: Acute appendicitis Time Spent: Less than 30 Minutes
== END 2019-01-14 18:15 | disposition home or self-care (01) ==
LOC: ER 18:48 → EH 01-14 02:10 → 4S 01-14 03:10
PROVIDERS: ADMIT Surgery; ATTEND Surgery
PROC: 0DTJ4ZZ Resection of Appendix, Percutaneous Endoscopic Approach (ICD-10-PCS; principal; 2019-01-14 08:00)
DX: K35.30 Acute appendicitis with localized peritonitis, without perforation or gangrene (principal); E10.22 Type 1 diabetes mellitus with diabetic chronic kidney disease; I12.0 Hypertensive chronic kidney disease with stage 5 chronic kidney disease or end stage renal disease; N18.6 End stage renal disease; G89.18 Other acute postprocedural pain; F41.9 Anxiety disorder, unspecified; M54.5 Low back pain; E78.5 Hyperlipidemia, unspecified; Z79.4 Long term (current) use of insulin; Z86.711 Personal history of pulmonary embolism; Z98.890 Other specified postprocedural states; Z79.82 Long term (current) use of aspirin; Z79.02 Long term (current) use of antithrombotics/antiplatelets; Z99.2 Dependence on renal dialysis; Z96.41 Presence of insulin pump (external) (internal); Z86.14 Personal history of Methicillin resistant Staphylococcus aureus infection; Z87.891 Personal history of nicotine dependence; Z85.850 Personal history of malignant neoplasm of thyroid; Z86.73 Personal history of transient ischemic attack (TIA), and cerebral infarction without residual deficits
CPT/HCPCS: 99285; 96375; 96365; 36415; 82962; 85025; 80053; 81001; 88304 ×2; 71045; 74176; 93005; 93010; 00840; 44970; G0378 ×2; J2250; J3490 ×3; J1100; J3010 ×2; J2270; J1170; J2370; J0330; J2405 ×2; S0020; J7050; J2704; J2543; 840

== ENCOUNTER 2019-03-05 12:35 | Emergency (ER) | payer MEDICAID ==
--- NOTE | 2019-03-05 12:58 | ER Document Report ---
ED Medical Screen (RME) - General Chief Complaint: Leg Pain Stated Complaint: LEFT LEG PAIN Time Seen by Provider: 03/05/19 12:54 Primary Care Provider: KARELY SEAY DO [Primary Care Provider] - Follow up as needed Mode of Arrival: Ambulatory Information source: Patient Notes: 38-year-old male presents to ED for complaint of left leg pain for about 4 days. He does have a sore and tightness to that leg. It is larger than the other leg. He has a history of diabetes High blood pressure and cholesterol. As well as kidney failure and he is on dialysis Tuesday and Tuesday x2 years patient is alert oriented respirations regular and unlabored speaking in full sentences. The leg is very tender to touch there is a scabbed area to the medial aspect of the lower leg but the pain is to the back of the leg and to the side of the leg. He states the pain goes all the way up to the groin. He he states he does not use tobacco alcohol or street drugs. I have greeted and performed a rapid initial assessment of this patient. A comprehensive ED assessment and evaluation of the patient, analysis of test results and completion of medical decision making process will be conducted by an additional ED providers. TRAVEL OUTSIDE OF THE [place] IN LAST 30 DAYS: No - Related Data Allergies/Adverse Reactions: heparin Allergy (Verified 01/13/19 18:49) pork derived (porcine) [Pork derived (porcine)] Allergy (Verified 01/13/19 18:49) Past Medical History - Past Medical History Cardiac Medical History: Reports: Hx Hypercholesterolemia, Hx Hypertension Denies: Hx Congestive Heart Failure, Hx Coronary Artery Disease, Hx DVT, Hx Heart Attack, Hx Pulmonary Embolism Pulmonary Medical History: Reports: Hx Pneumonia Denies: Hx Asthma, Hx Bronchitis, Hx COPD Neurological Medical History: Reports: Hx Migraine. Denies: Hx Cerebrovascular Accident, Hx Seizures Endocrine Medical History: Reports: Hx Diabetes Mellitus Type 1 - on insulin pump, Hx Diabetes Mellitus Type 2 - On insulin pump. Denies: Hx Hyperthyroidism, Hx Hypothyroidism Renal/ Medical History: Reports: Hx End Stage Renal Disease - Stage IV renal failure, hemodialysis, Hx Renal Insufficiency - normal creatinins 3 to 4 now.. Denies: Hx Peritoneal Dialysis GI Medical History: Reports: Hx Gastroesophageal Reflux Disease. Denies: Hx Cirrhosis, Hx Hepatitis Musculoskeltal Medical History: Denies Hx Arthritis, Reports Hx Musculoskeletal Trauma Skin Medical History: Reports Hx Cellulitis, Denies Hx Eczema, Reports Hx MRSA, Denies Hx Psoriasis Psychiatric Medical History: Reports: Hx Depression Traumatic Medical History: Reports: Hx Fractures Infectious Medical History: Reports: Hx MRSA - S/P I & D multiple skin abscesses in past. Denies: Hx Hepatitis Past Surgical History: Reports: Hx Oral Surgery, Hx Thyroid Surgery - Patient states that would removed due to cancer, Hx Vascular Surgery - Left AV Fistula - Immunizations Hx Diphtheria, Pertussis, Tetanus Vaccination: No Physical Exam - Vital signs Vitals: Temp Pulse Resp BP Pulse Ox 98.5 F 92 20 127/70 H 96 03/05/19 12:40 03/05/19 12:40 03/05/19 12:40 03/05/19 12:40 03/05/19 12:40 Course - Vital Signs Vital signs: Temp Pulse Resp BP Pulse Ox 98.5 F 92 20 127/70 H 96 03/05/19 12:40 03/05/19 12:40 03/05/19 12:40 03/05/19 12:40 03/05/19 12:40 Doctor's Discharge - Discharge Referrals: KARELY SEAY DO [Primary Care Provider] - Follow up as needed
[2019-03-05 13:28] LABS: HEMOGLOBIN 10.7 g/dL (13.5-17.0); MEAN CORPUSCULAR HEMOGLOBIN 27.9 pg (27.0-33.4); MEAN CORPUSCULAR HGB CONC 32.3 g/dL (32.0-36.0); MEAN CORPUSCULAR VOLUME 86 fl (80-97); PLATELET COUNT 319 10^3/uL (150-450); RED BLOOD COUNT 3.82 10^6/uL (4.35-5.55); RED CELL DISTRIBUTION WIDTH 13.9 % (11.5-14.0); WHITE BLOOD COUNT 8.4 10^3/uL (4.0-10.5)
[2019-03-05 13:42] LABS: INTERNATIONAL RATION (INR) 0.98; PROTHROMBIN TIME 12.9 SEC (11.4-15.4)
[2019-03-05 13:43] LABS: PARTIAL THROMBOPLASTIN TIME 27.4 SEC (23.5-35.8)
[2019-03-05 13:46] LABS: ALBUMIN 4.4 g/dL (3.5-5.0); ALKALINE PHOSPHATASE 80 U/L (38-126); ANION GAP 15 (5-19); ASPARTATE AMINO TRANSFERASE 32 U/L (17-59); BILIRUBIN,DIRECT 0.4 mg/dL (0.0-0.4); BILIRUBIN,TOTAL 0.4 mg/dL (0.2-1.3); BLOOD UREA NITROGEN 39 mg/dL (7-20); CALCIUM 8.6 mg/dL (8.4-10.2); CARBON DIOXIDE 27 mmol/L (22-30); CHLORIDE 99 mmol/L (98-107); CREATINE KINASE 291 U/L (55-170); GLUCOSE 212 mg/dL (75-110); POTASSIUM 3.8 mmol/L (3.6-5.0); TOTAL PROTEIN 8.1 g/dL (6.3-8.2)
[2019-03-05 13:50] LABS: ABSOLUTE LYMPHOCYTES# (MANUAL) 2.1 10^3/uL (0.5-4.7); ABSOLUTE MONOCYTES # (MANUAL) 0.5 10^3/uL (0.1-1.4); BAND NEUTROPHILS % (MANUAL) 2 % (3-5); BASOPHILS % (MANUAL) 1 % (0-2); EOSINOPHILS % (MANUAL) 5 % (0-6); LYMPHOCYTES % (MANUAL) 24 % (13-45); METAMYELOCYTES % (MANUAL) 1 % (0); MONOCYTES % (MANUAL) 6 % (3-13); SEGMENTED NEUTROPHILS % (MAN) 60 % (42-78); TOTAL CELLS COUNTED 100
[2019-03-05 13:51] LABS: PLATELET COMMENT ADEQUATE; PLATELET LARGE PRESENT; RBC MORPHOLOGY COMMENT NORMO-CYTIC/CHROMIC
--- NOTE | 2019-03-05 16:08 | ER Document Report ---
ED General - General Chief Complaint: Leg Pain Stated Complaint: LEFT LEG PAIN Time Seen by Provider: 03/05/19 12:54 Primary Care Provider: KARELY SEAY DO [Primary Care Provider] - Follow up as needed Mode of Arrival: Ambulatory TRAVEL OUTSIDE OF THE [place] IN LAST 30 DAYS: No - HPI Notes: Patient is a 38-year-old male with history of Diabetes mellitus, end-stage renal disease on dialysis, hypertension. Patient has dialysis every Tuesday/Tuesday/Tuesday and did perform a complete treatment today. Patient states he started having left leg pain over the past 4 days without known injury. He has not noticed any redness or obvious swelling. Patient states that movement does make his pain worse. He has had MRSA to the leg before, but has not noticed any abscess. Patient states he does have a small scabbed area to the medial calf. He does have occasional nausea as well. He is able to eat and drink without difficulty otherwise, but does have a decreased p.o. intake. He is urinating normally (still produces urine) for himself and having normal bowel movements. Denies any headache, fever, neck pain, URI, sore throat, chest pain, palpitations, syncope, cough, shortness of breath, wheeze, dyspnea, abdominal pain, nausea/vomiting/diarrhea, urinary retention, dysuria, hematuria, loss of control of bowel or bladder, numbness/tingling, saddle anesthesia, muscle paralysis/weakness, or rash. - Related Data Allergies/Adverse Reactions: heparin Allergy (Verified 01/13/19 18:49) pork derived (porcine) [Pork derived (porcine)] Allergy (Verified 01/13/19 18:49) Home Medications: pt states that he is unable to recall all medications Past Medical History - General Information source: Patient - Social History Smoking Status: Former Smoker Frequency of alcohol use: None Family History: Arthritis, CAD, CVA, DM, Hyperlipidemia, Hypertension, Malignancy, Thyroid Disfunction, Other - Chronic kidney disease Patient has suicidal ideation: No Patient has homicidal ideation: No - Past Medical History Cardiac Medical History: Reports: Hx Hypercholesterolemia, Hx Hypertension Denies: Hx Congestive Heart Failure, Hx Coronary Artery Disease, Hx DVT, Hx Heart Attack, Hx Pulmonary Embolism Pulmonary Medical History: Reports: Hx Pneumonia Denies: Hx Asthma, Hx Bronchitis, Hx COPD Neurological Medical History: Reports: Hx Migraine. Denies: Hx Cerebrovascular Accident, Hx Seizures Endocrine Medical History: Reports: Hx Diabetes Mellitus Type 1 - on insulin pump, Hx Diabetes Mellitus Type 2 - On insulin pump. Denies: Hx Hyperthyroidism, Hx Hypothyroidism Renal/ Medical History: Reports: Hx End Stage Renal Disease - Stage IV renal failure, hemodialysis, Hx Renal Insufficiency - normal creatinins 3 to 4 now.. Denies: Hx Peritoneal Dialysis GI Medical History: Reports: Hx Gastroesophageal Reflux Disease. Denies: Hx Cirrhosis, Hx Hepatitis Musculoskeletal Medical History: Denies Hx Arthritis, Reports Hx Musculoskeletal Trauma Skin Medical History: Reports Hx Cellulitis, Denies Hx Eczema, Reports Hx MRSA, Denies Hx Psoriasis Psychiatric Medical History: Reports: Hx Depression Traumatic Medical History: Reports: Hx Fractures Infectious Medical History: Reports: Hx MRSA - S/P I & D multiple skin abscesses in past. Denies: Hx Hepatitis Past Surgical History: Reports: Hx Oral Surgery, Hx Thyroid Surgery - Patient states that would removed due to cancer, Hx Vascular Surgery - Left AV Fistula - Immunizations Hx Diphtheria, Pertussis, Tetanus Vaccination: No Review of Systems - Review of Systems -: Yes All other systems reviewed and negative Physical Exam - Vital signs Vitals: Temp Pulse Resp BP Pulse Ox 98.5 F 92 20 127/70 H 96 03/05/19 12:40 03/05/19 12:40 03/05/19 12:40 03/05/19 12:40 03/05/19 12:40 - Notes Notes: PHYSICAL EXAMINATION: GENERAL: Well-appearing, well-nourished and in no acute distress. HEAD: Atraumatic, normocephalic. EYES: Pupils equal round and reactive to light, extraocular movements intact, sclera anicteric, conjunctiva are normal. ENT: Nares patent and without discharge. oropharynx clear without exudates. No tonsilar hypertrophy or erythema. Moist mucous membranes. NECK: Normal range of motion, supple without lymphadenopathy LUNGS: Breath sounds clear to auscultation bilaterally and equal. No wheezes rales or rhonchi. HEART: Regular rate and rhythm without murmurs, rubs, gallops. ABDOMEN: Soft, nontender, nondistended abdomen. No guarding, no rebound. Normal bowel sounds present. No CVA tenderness bilaterally. Musculoskeletal: Left LE: FROM to passive/active. Strength 5+/5. N/V intact distal. + tenderness posterior and medial leg from thigh to calf. No bony tenderness appreciated. Noted scab to the medial calf w/o significant erythema, induration, fluctuance, streaks, or any discharge. Extremities: No cyanosis, clubbing, or edema b/l. Peripheral pulses 2+. Capillary refill less than 3 seconds. NEUROLOGICAL: Normal speech, normal gait. Normal sensory, motor exams PSYCH: Normal mood, normal affect. SKIN: Warm, Dry, normal turgor, no rashes or lesions noted. Course - Re-evaluation Re-evalutation: 03/05/19 16:36 Dr. Mcnulty also eval'd the patient and agrees with dispo/plan: Patient is an afebrile, well-hydrated, 38-year-old female who presents to the ED with nonspecific left leg pain. Vitals are acceptable without any significant tachycardia, tachypnea, or hypoxia. PE is otherwise unremarkable for any neurovascular compromise, obvious tendon/ligament rupture, obvious fracture/dislocation, septic joint. Doppler unremarkable for any acute pathology. There is no evidence of cellulitis or skin infection at this time. Pulses 2+. Pt given decadron, ?radicular symptoms from back and ESRD pt. Patient is nontoxic-appearing. Patient is able to ambulate and weight-bear. No other labs or imaging warranted at this time based on H&P. We will hold off on any prophylactic antibiotics at this time as well. Conservative measures otherwise for symptoms. Recheck with your PCM in 2-3 days. Consider consult orthopedics. Return to the ED with any worsening/concerning symptoms otherwise as reviewed in discharge. Patient is in agreement. - Vital Signs Vital signs: Temp Pulse Resp BP Pulse Ox 98.5 F 92 20 127/70 H 96 03/05/19 12:40 03/05/19 12:40 03/05/19 12:40 03/05/19 12:40 03/05/19 12:40 - Laboratory Result Diagrams: 03/05/19 13:05 03/05/19 13:05 Laboratory results interpreted by me: 03/05/19 03/05/19 13:05 13:05 RBC 3.82 L Hgb 10.7 L Hct 33.0 L Band Neutrophils % 2 L Metamyelocytes % 1 H BUN 39 H Creatinine 6.54 H Est GFR ( Amer) 12 L Est GFR (MDRD) Non-Af 10 L Glucose 212 H Creatine Kinase 291 H Lipase 465.9 H Discharge - Discharge Clinical Impression: Leg pain, left Condition: Stable Disposition: HOME, SELF-CARE Instructions: Leg Pain Nonspecific ([facility]) Additional Instructions: Rest, Ice, Compression, Elevation Keep the skin clean and dry and use triple antibody ointment over the scabbed area. Tylenol/ibuprofen as needed Light stretches daily Strength exercises as able Moist heat and massage may help F/u with your PCP in 2-3 days for a recheck Consider consult(s) with Orthopedics/physical therapy for ongoing/worsening symptoms Return to the ED with any worsening symptoms and/or development of fever, headache, chest pain, palpitations, syncope, shortness of breath, trouble breathing, abdominal pain, n/v/d, muscle weakness/paralysis, numbness/tingling, swelling, redness, or other worsening symptoms that are concerning to you. Forms: Elevated Blood Pressure Referrals: KARELY SEAY DO [Primary Care Provider] - 03/07/19
--- NOTE | 2019-03-05 16:09 | XCELERA REPORT ---
[address] [facility] [address] Lower Extremity Venous Evaluation Procedure: Color flow and duplex imaging of the veins of the left lower extremity as well as the right Common Femoral vein. Right Sided Venous Evaluation The right common femoral vein is fully compressible. Spontaneous and phasic flow is present in the right common femoral vein. Left Sided Venous Evaluation Normal vessel filling wall to wall, compression and augmentation as well as Colour flow down to the infrageniculate veins. Interpretation Summary No duplex evidence of DVT or obstruction in the left lower extremity nor in the right Common Femoral vein. Name: FRANK WEBBER Age: 38 yrs Gender: Male : 1980 Patient Status: Emergency Patient Location: ER Study Date: 03/05/2019 01:55 PM Reason For Study: left leg pain form calf to groin Ordering Physician: LEIGH HARRIS Performed By: Eric Cardenas : LEIGH HARRIS > Dion Gunderson
[2019-03-05] MEDS ORDERED: DEXAMETHASONE SOD PHOS INJ 10 MG/1 ML VIAL IM ONE (16:35)
[2019-03-05 17:15] VITALS: BP 137/88
== END 2019-03-05 17:13 | disposition home or self-care (01) ==
LOC: ER 12:35
DX: M79.604 Pain in right leg (principal); R11.0 Nausea; R23.4 Changes in skin texture; I12.0 Hypertensive chronic kidney disease with stage 5 chronic kidney disease or end stage renal disease; E11.22 Type 2 diabetes mellitus with diabetic chronic kidney disease; N18.6 End stage renal disease; Z99.2 Dependence on renal dialysis; Z96.41 Presence of insulin pump (external) (internal); Z86.14 Personal history of Methicillin resistant Staphylococcus aureus infection; Z88.8 Allergy status to other drugs, medicaments and biological substances; Z91.018 Allergy to other foods
CPT/HCPCS: 87070; 99284; 96372; 36415; 82553; 87880; 82550; 83690; 85025; 85610; 85730; 80053; 93971 ×2; J1100

== ENCOUNTER 2019-03-21 21:20 | Observation (INO) | payer MEDICAID ==
--- NOTE | 2019-03-21 23:58 | EKG REPORT ---
SEVERITY:- ABNORMAL ECG - SINUS TACHYCARDIA PROBABLE INFEROLATERAL INFARCT, AGE INDETERM : Confirmed by: Domingo Lawrence 21-Mar-2019 23:57:50
[2019-03-22] MEDS ORDERED: HYDROMORPHONE HCL INJ/PF 2 MG/ML AMPULE IM ONE (03:04)
--- NOTE | 2019-03-22 03:06 | ER Document Report ---
ED Skin Rash/Insect Bite/Abscs - General Chief Complaint: Abscess Stated Complaint: POSSIBLE ABSCESS ON LEFT TESTICAL Time Seen by Provider: 03/22/19 02:10 Primary Care Provider: KARELY LUJAN DO [Primary Care Provider] - Follow up as needed Notes: Patient is a 38-year-old male with a history of insulin-dependent diabetes and end-stage renal disease on dialysis (Tuesday, last dialysis was Tuesday, not due to Tuesday) that comes emergency department for chief complaint of developing abscess over the scrotum area for the past 2 days. He states also a couple of bumps on his left shoulder blade area that are starting to hurt as well. He states he started feeling chills and feverish during the d ay and became concerned, he also has difficulty walking now and as result came to the emergency department. His senior buyer is Dr. Downey, primary care Dr. Lujan. TRAVEL OUTSIDE OF THE [place] IN LAST 30 DAYS: No - Related Data Allergies/Adverse Reactions: heparin Allergy (Verified 03/21/19 22:16) pork derived (porcine) [Pork derived (porcine)] Allergy (Verified 03/21/19 22:16) Past Medical History - General Information source: Patient - Social History Smoking Status: Former Smoker Frequency of alcohol use: None Drug Abuse: None Lives with: Family Family History: Arthritis, CAD, CVA, DM, Hyperlipidemia, Hypertension, Malignancy, Thyroid Disfunction, Other - Chronic kidney disease Patient has suicidal ideation: No Patient has homicidal ideation: No - Past Medical History Cardiac Medical History: Reports: Hx Hypercholesterolemia, Hx Hypertension Denies: Hx Congestive Heart Failure, Hx Coronary Artery Disease, Hx DVT, Hx Heart Attack, Hx Pulmonary Embolism Pulmonary Medical History: Reports: Hx Pneumonia Denies: Hx Asthma, Hx Bronchitis, Hx COPD Neurological Medical History: Reports: Hx Migraine. Denies: Hx Cerebrovascular Accident, Hx Seizures Endocrine Medical History: Reports: Hx Diabetes Mellitus Type 1 - on insulin pump. Denies: Hx Hyperthyroidism, Hx Hypothyroidism Renal/ Medical History: Reports: Hx End Stage Renal Disease - Stage IV renal failure, hemodialysis, Hx Renal Insufficiency - normal creatinins 3 to 4 now.. Denies: Hx Peritoneal Dialysis GI Medical History: Reports: Hx Gastroesophageal Reflux Disease. Denies: Hx Cirrhosis, Hx Hepatitis Musculoskeletal Medical History: Denies Hx Arthritis, Reports Hx Musculoskeletal Trauma Skin Medical History: Reports Hx Cellulitis, Denies Hx Eczema, Reports Hx MRSA, Denies Hx Psoriasis Psychiatric Medical History: Reports: Hx Depression Traumatic Medical History: Reports: Hx Fractures Infectious Medical History: Reports: Hx MRSA - S/P I & D multiple skin abscesses in past. Denies: Hx Hepatitis Past Surgical History: Reports: Hx Oral Surgery, Hx Thyroid Surgery - Patient states that would removed due to cancer, Hx Vascular Surgery - Left AV Fistula - Immunizations Hx Diphtheria, Pertussis, Tetanus Vaccination: No Review of Systems - Review of Systems Constitutional: No symptoms reported EENT: No symptoms reported Cardiovascular: No symptoms reported Respiratory: No symptoms reported Gastrointestinal: No symptoms reported Genitourinary: See HPI Male Genitourinary: No symptoms reported Musculoskeletal: No symptoms reported Skin: See HPI Hematologic/Lymphatic: No symptoms reported Neurological/Psychological: No symptoms reported Physical Exam - Vital signs Vitals: Temp Pulse Resp BP Pulse Ox 99.3 F 109 H 20 133/71 H 95 03/21/19 21:46 03/21/19 21:46 03/21/19 21:46 03/21/19 21:46 03/21/19 21:46 - Notes Notes: GENERAL: Alert, interacts well. Obvious pain with position changes and movement. HEAD: Normocephalic, atraumatic. EYES: Pupils equal, round, and reactive to light. Extraocular movements intact. ENT: Oral mucosa moist, tongue midline. Oropharynx unremarkable. Airway patent. LUNGS: Clear to auscultation bilaterally, no wheezes, rales, or rhonchi. No res piratory distress. HEART: Regular rate and rhythm. No murmur ABDOMEN: Soft, non-tender. Non-distended. Bowel sounds present in all 4 quadrants. GENITOURINARY: Unremarkable shaft and head of the penis, no hernia, no noted lymphadenopathy, however there is a large indurated area with a head and surrou nding erythema of the posterior aspect of the scrotum in between the testicles. Perineum appears normal. EXTREMITIES: Moves all 4 extremities spontaneously. No edema, normal radial and dorsalis pedis pulses bilaterally. No cyanosis. BACK: no cervical, thoracic, lumbar midline tenderness. No saddle anesthesia, normal distal neurovascular exam. Moves all extremities in full range of motion. NEUROLOGICAL: Alert and oriented x3. Normal speech. Cranial nerves II through XII grossly intact. PSYCH: Normal affect, normal mood. SKIN: Small mildly erythematous papules located over the left shoulder at the tip, no noted induration or fluctuance, otherwise unremarkable. Course - Re-evaluation Re-evalutation: Left shoulder has some small papules with minimal surrounding erythema but no noted induration or fluctuance, no noted abscess or concerning cellulitis. Much more concerning is patient's scrotal exam, the posterior aspect in between the testicles has a large indurated area with a large head with surrounding erythema and tenderness. The perineum appears normal, I do not see evidence of foreign years gangrene. Appears to be isolated abscess with some limited surrounding cellulitis. Patient is a diabetic. I did not order the EKG given patient's complaint, this was performed for some reason by triage. This did show ST elevations in the inferior leads but this is not changed from prior. Patient without any chest, respiratory, or nausea complaints. CBC shows mild leukocytosis at 13,000, chemistry nonspecific given patient's history of end-stage renal disease and diabetes. No acidosis. Unremarkable potassium. Cultures are pending. Discussed patient with Dr. Vera, he recommends vancomycin, clindamycin, and surgical consult. 03/22/19 05:[address] Myers, general surgeon on-call, he requests an ultrasound of the area and he will come evaluate the patient. 03/22/19 06:08 Dr. Myers has seen the patient, I am told by the nursing staff that he requested the ultrasound be canceled and plan is to admit patient for drainage of the abscess in the operating room under sedation and then patient should be able to go home afterwards, he will be excepted for observation to the operating room. Patient does state agreement plan. I had told patient to remain n.p.o. but apparently he had something to drink 3 hours ago. - Vital Signs Vital signs: Temp Pulse Resp BP Pulse Ox 99.3 F 109 H 20 133/71 H 95 03/21/19 21:46 03/21/19 21:46 03/21/19 21:46 03/21/19 21:46 03/21/19 21:46 - Laboratory Result Diagrams: 03/22/19 04:10 03/22/19 04:10 Laboratory results interpreted by me: 03/22/19 03/22/19 04:10 04:10 WBC 12.0 H RBC 3.50 L Hgb 9.7 L Hct 29.8 L Absolute Neuts (auto) 8.5 H BUN 41 H Creatinine 8.65 H Est GFR ( Amer) 8 L Est GFR (MDRD) Non-Af 7 L Glucose 282 H Calcium 7.8 L - EKG Interpretation by Me Additional EKG results interpreted by me: EKG shows sinus tachycardia at a rate of 105, QTC of 466, there is elevation of the ST segment which is borderline in the inferior leads, however this is not changed from prior. There is also borderline elevation in the lateral leads as unremarkable T waves. There are some borderline Q waves laterally. Discharge - Discharge Clinical Impression: Scrotal abscess Condition: Stable Disposition: ADMITTED OBSERVATION Admitting Provider: Surgicalist Unit Admitted: OR Forms: Parent Work Note Referrals: KARELY LUJAN DO [Primary Care Provider] - Follow up as needed
[2019-03-22 04:32] LABS: ABSOLUTE BASOPHILS # (AUTO) 0.1 10^3/uL (0.0-0.2); ABSOLUTE EOSINOPHILS # (AUTO) 0.1 10^3/uL (0.0-0.6); ABSOLUTE LYMPHOCYTES (AUTO) 1.9 10^3/uL (0.5-4.7); ABSOLUTE MONOCYTES (AUTO) 1.4 10^3/uL (0.1-1.4); ABSOLUTE NEUT (AUTO) 8.5 10^3/uL (1.7-8.2); BASOPHILS % (AUTO) 0.6 % (0-2); EOSINOPHILS % (AUTO) 1.2 % (0-6); HEMATOCRIT 29.8 % (37.9-51.0); HEMOGLOBIN 9.7 g/dL (13.5-17.0); LYMPHOCYTES % (AUTO) 16.1 % (13-45); MEAN CORPUSCULAR HEMOGLOBIN 27.8 pg (27.0-33.4); MEAN CORPUSCULAR HGB CONC 32.6 g/dL (32.0-36.0); MEAN CORPUSCULAR VOLUME 85 fl (80-97); MONOCYTES % (AUTO) 11.5 % (3-13); PLATELET COUNT 270 10^3/uL (150-450); RED CELL DISTRIBUTION WIDTH 13.7 % (11.5-14.0); SEGMENTED NEUTROPHILS % (AUTO) 70.6 % (42-78); TOTAL CELLS COUNTED % (AUTO) 100 %
[2019-03-22 04:59] LABS: ANION GAP 12 (5-19); BLOOD UREA NITROGEN 41 mg/dL (7-20); CALCIUM 7.8 mg/dL (8.4-10.2); CARBON DIOXIDE 28 mmol/L (22-30); CHLORIDE 99 mmol/L (98-107); GLUCOSE 282 mg/dL (75-110); POTASSIUM 3.8 mmol/L (3.6-5.0)
[2019-03-22] MEDS ORDERED: VANCOMYCIN HCL INJ 1000 MG VIAL IV ONE (05:09)
[2019-03-22] MEDS ORDERED: CLINDAMYCIN 300 MG/D5W RTU 300 MG/50 ML RTUPB IV ONE (05:10)
[2019-03-22] MEDS ORDERED: HYDROMORPHONE HCL INJ/PF 2 MG/ML AMPULE IV ONE (05:32)
--- NOTE | 2019-03-22 06:29 | PDOC H&P ---
History of Present Illness Admission Date/PCP: 03/22/19 06:14 KARELY SEAY DO Patient complains of: Pains along the left scrotal area History of Present Illness: FRANK WEBBER is a 38 year old male noted painful gradually enlarging lesion along the left scrotal area about 4 days ago. He also noted a couple of bumps on the left shoulder area. He is a insulin-dependent diabetic diabetic and hemodialysis patient going Wednesdays and Fridays and the last dialysis was Tuesday. He also complained of chills and fever. Past Medical History Cardiac Medical History: Reports: Hyperlipidema, Hypertension Denies: Congestive Heart Failure, Coronary Artery Disease, DVT, Myocardial Infarction, Pulmonary Embolism Pulmonary Medical History: Reports: Pneumonia Denies: Asthma, Bronchitis, Chronic Obstructive Pulmonary Disease (COPD) Neurological Medical History: Reports: Migraine Denies: Seizures Endocrine Medical History: Reports: Diabetes Mellitus Type 1 - on insulin pump, Diabetes Mellitus Type 2 - On insulin pump Denies: Hyperthyroidism, Hypothyroidism Renal/ Medical History: Reports: End Stage Renal Disease - Stage IV renal failure, hemodialysis GI Medical History: Reports: Gastroesophageal Reflux Disease Denies: Cirrhosis, Hepatitis Musculoskeltal Medical History: Denies: Arthritis Skin Medical History: Denies: Eczema, Psoriasis Psychiatric Medical History: Reports: Depression Hematology: Denies: Anemia Infectious Medical History: 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 Past Surgical History Past Surgical History: Reports: Vascular Surgery - Left AV Fistula Social History Lives with: Family Smoking Status: Former Smoker Frequency of Alcohol Use: Rare Hx Recreational Drug Use: No Drugs: None Hx Prescription Drug Abuse: No Family History Family History: Arthritis, CAD, CVA, DM, Hyperlipidemia, Hypertension, Malignancy, Thyroid Disfunction, Other - Chronic kidney disease Parental Family History Reviewed: Yes Children Family History Reviewed: No Sibling(s) Family History Reviewed.: No Medication/Allergy Home Medications: Apixaban [Eliquis 2.5 mg Tablet] 2.5 mg PO BID 01/14/19 Aspirin [Ecotrin 81 mg EC Tablet] 81 mg PO QAM 01/14/19 Atorvastatin Calcium [Lipitor 40 mg Tablet] 40 mg PO QHS 01/14/19 B Complex W-C No.20/Folic Acid [Virt-Caps Softgel] 1 mg PO DAILY 01/14/19 Calcium Acetate [Phoslo 667 mg Capsule] 1,334 mg PO .SNACKS 01/14/19 Calcium Acetate [Phoslo 667 mg Capsule] 2,001 mg PO MEALS 01/14/19 Cinacalcet HCl [Sensipar 30 mg Tablet] 30 mg PO QHS 01/14/19 Diltiazem HCl [Cardizem Cd 180 mg Capsule] 180 mg PO QAM 01/14/19 Fenofibrate Nanocrystallized [Tricor 145 mg Tablet] 145 mg PO QHS 01/14/19 Furosemide [Lasix 40 mg Tablet] 40 mg PO QPM 01/14/19 Furosemide [Lasix 40 mg Tablet] 80 mg PO QAM 01/14/19 Hydralazine HCl [Apresoline 50 mg Tablet] 100 mg PO BID 01/14/19 Insulin Glulisine [Apidra Insulin (Glulisine) 100 unit/mL] 0 units PUMP .INSULINPUMP 01/14/19 Isosorbide Mononitrate [Imdur 30 mg Tablet.er] 15 mg PO QAM 01/14/19 Oxycodone HCl 15 mg PO Q4HP PRN 01/14/19 Pregabalin [Lyrica] 150 mg PO BID 01/14/19 Ropinirole HCl [Requip] 0.5 mg PO TID 01/14/19 Allergies/Adverse Reactions: heparin Allergy (Verified 03/21/19 22:16) pork derived (porcine) [Pork derived (porcine)] Allergy (Verified 03/21/19 22:16) Review of Systems Constitutional: PRESENT: as per HPI Genitourinary: PRESENT: other - Pains left scrotal area Physical Exam Vital Signs: Temp Pulse Resp BP Pulse Ox 99.3 F 109 H 20 133/71 H 95 03/21/19 21:46 03/21/19 21:46 03/21/19 21:46 03/21/19 21:46 03/21/19 21:46 Intake & Output 03/20/19 03/21/19 03/22/19 06:59 06:59 06:59 Weight 123.8 kg General appearance: PRESENT: mild distress Head exam: PRESENT: atraumatic Eye exam: PRESENT: conjunctiva pink Mouth exam: PRESENT: moist Neck exam: PRESENT: full ROM Respiratory exam: PRESENT: clear to auscultation brody Cardiovascular exam: PRESENT: RRR Pulses: PRESENT: normal radial pulses GI/Abdominal exam: PRESENT: soft Rectal exam: PRESENT: deferred Gentrourinary exam: PRESENT: scrotal swelling - A 3 cm x 1 cm very tender mass just under the skin of the left scrotal area. Musculoskeletal exam: PRESENT: other - No obvious abscess along the left shoulder. There appears to be a few healed skin rash Neurological exam: PRESENT: alert, oriented to person, oriented to place, oriented to time, oriented to situation Psychiatric exam: PRESENT: appropriate affect Skin exam: PRESENT: normal color, warm Results Laboratory Results: 03/22/19 04:10 03/22/19 04:10 03/22/19 03/22/19 04:10 04:10 WBC 12.0 H RBC 3.50 L Hgb 9.7 L Hct 29.8 L MCV 85 MCH 27.8 MCHC 32.6 RDW 13.7 Plt Count 270 Seg Neutrophils % 70.6 Sodium 139.1 Potassium 3.8 Chloride 99 Carbon Dioxide 28 Anion Gap 12 BUN 41 H Creatinine 8.65 H Est GFR ( Amer) 8 L Glucose 282 H Calcium 7.8 L Assessment & Plan - Diagnosis (1) Relatively small left scrotal abscess Is this a current diagnosis for this admission?: Yes (2) Scrotal abscess Is this a current diagnosis for this admission?: Yes (3) ESRD (end stage renal disease) Is this a current diagnosis for this admission?: Yes (4) Hypertension Is this a current diagnosis for this admission?: Yes (5) Lacunar infarction Is this a current diagnosis for this admission?: Yes (6) Leukocytosis Is this a current diagnosis for this admission?: Yes (7) 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 He did complain of some fever and chills. Last dose of Eliquis was yesterday. On examination there is a very tender firm mass along the left scrotal area about the 3 cm long by 1 cm wide in the elevated to about 5 mm. He also did complain of pain along the left shoulder but no evidence of any abscess or infected lesion noted. He does have a 6 some lipoma on the left deltoid area. Plans: 1) keep him n.p.o. prior to I&D of the left scrotal abscess. He just had food around 3 AM this morning 2) start IV antibiotics.
[2019-03-22] MEDS ORDERED: LEVOFLOXACIN 500 MG/D5W RTU 500 MG/100 ML RTUPB IV ONE (07:39)
--- NOTE | 2019-03-22 08:02 | Progress Note ---
Provider Note Provider Note: Events noted. Assessment: Posterior scrotal cutaneous abscess Type 1 diabetes End-stage renal disease on hemodialysis Tuesday History of stroke on Eliquis, last dose yesterday Mild leukocytosis 12,000 Plan: Incision and drainage of the scrotal abscess in the OR today Admission to follow Continue IV antibiotics (vancomycin, Clinda, and Levaquin) Medicine on consult for his multiple medical problems N.p.o. until the surgery is performed, afterward the patient can be fed Procedure, benefits, complications, alternatives, discussed with the patient, he understands all the above, his questions answered, and he decides to proceed
[2019-03-22] MEDS ORDERED: ONDANSETRON HCL INJ/PF 4 MG/2 ML SDV IV PRN (08:05)
[2019-03-22] MEDS ORDERED: DEXTROSE 50%-WATER 25 GM/50 ML DISP.SYRIN IV PRN ×2 (08:05)
[2019-03-22] MEDS ORDERED: DEXTROSE 40% GEL 15 GM TUBE PO PRN ×2 (08:05)
[2019-03-22] MEDS ORDERED: GLUCAGON,HUMAN RECOMB 1 MG INJ SUBCUT PRN (08:05)
[2019-03-22] MEDS ORDERED: HYDRALAZINE HCL INJ/PF 20 MG/1 ML SDV IV PRN (08:40)
[2019-03-22] MEDS ORDERED: VANCOMYCIN HCL 1,000 MG in DEXTROSE 5%-WATER 250 ML IV ONE (10:00)
[2019-03-22] MEDS: FAMOTIDINE INJ/PF 20 MG/2 ML SDV IV SCH ×2 (10:52→21:49)
[2019-03-22] MEDS ORDERED: EPOETIN ALFA-EPBX 20,000 UNIT in SYRINGE, DISPOSABLE, 1 EACH IV PRN (13:07)
--- NOTE | 2019-03-22 13:08 | PDOC CONSULTATION ---
Consultation Consult Date: 03/22/19 Provider Consulted: Jovanna TAVERA Consult reason:: ERSD for hemodialysis. History of Present Illness Admission Date/PCP: 03/22/19 06:14 KARELY SEAY DO History of Present Illness: FRANK WEBBER is a 38 year old male with a past medical history of ESRD on hemodialysis in the background of diabetes mellitus, hypertension was admitted with a history of left scrotal abscess and associated with fever and chills for couple of days duration. Patient is in the ER reveals the same and is now scheduled to be taken for I&D.Last dialysis was yesterday. Past Medical History Cardiac Medical History: Reports: Hyperlipidemia, Hypertension-primary Denies: Coronary Artery Disease, DVT, Myocardial Infarction, Pulmonary Embolism Pulmonary Medical History: Reports: Pneumonia Denies: Asthma, Bronchitis, Chronic Obstructive Pulmonary Disease (COPD) Neurological Medical History: Reports: Migraine Denies: Seizures Endocrine Medical History: Reports: Diabetes Mellitus Type 1 - on insulin pump, Diabetes Mellitus Type 2 - On insulin pump Denies: Hyperthyroidism, Hypothyroidism Complications of Diabetes: Reports: Autonomic Neuropathy, Nephropathy, Retinopathy Renal/ Medical History: Reports: End Stage Renal Disease - Stage IV renal failure, hemodialysis, Secondary Hyperparathyroidism GI Medical History: Reports: Gastroesophageal Reflux Disease Denies: Cirrhosis, Hepatitis Musculoskeltal Medical History: Denies: Arthritis Skin Medical History: Denies: Eczema, Psoriasis Psychiatric Medical History: Reports: Depression Infectious Medical History: Reports: Methicillin-resist Staph Aureus - S/P I & D multiple skin abscesses in past Hematology Medical History: Reports Anemia of Chronic Kidney Disease Past Surgical History Past Surgical History: Reports: Vascular Surgery - Left AV Fistula Social History Lives with: Family Smoking Status: Former Smoker Frequency of Alcohol Use: Rare Hx Recreational Drug Use: No Drugs: None Hx Prescription Drug Abuse: No Family History Parental Family History Reviewed: Yes - Negative for ESRD Children Family History Reviewed: No Sibling(s) Family History Reviewed.: No Medication/Allergy Home Medications: Apixaban [Eliquis 2.5 mg Tablet] 2.5 mg PO BID 01/14/19 Aspirin [Ecotrin 81 mg EC Tablet] 81 mg PO QAM 01/14/19 Atorvastatin Calcium [Lipitor 40 mg Tablet] 40 mg PO QHS 01/14/19 B Complex W-C No.20/Folic Acid [Virt-Caps Softgel] 1 mg PO DAILY 01/14/19 Calcium Acetate [Phoslo 667 mg Capsule] 1,334 mg PO MEALS 01/14/19 Calcium Acetate [Phoslo 667 mg Capsule] 667 mg PO .SNACKS 01/14/19 Cinacalcet HCl [Sensipar 30 mg Tablet] 30 mg PO QHS 01/14/19 Fenofibrate Nanocrystallized [Tricor 145 mg Tablet] 145 mg PO QHS 01/14/19 Furosemide [Lasix 40 mg Tablet] 40 mg PO QAM 01/14/19 Hydralazine HCl [Apresoline 50 mg Tablet] 100 mg PO Q12 01/14/19 Isosorbide Mononitrate [Imdur 30 mg Tablet.er] 15 mg PO QAM 01/14/19 Oxycodone HCl 15 mg PO Q4HP PRN 01/14/19 Pregabalin [Lyrica] 150 mg PO Q12 01/14/19 Ropinirole HCl [Requip] 0.5 mg PO Q8 01/14/19 Diltiazem HCl [Cardizem Cd] 180 mg PO DAILY 03/22/19 Insulin Lispro [Humalog Insulin (Lispro) 100 unit/mL] 100 units PUMP ASDIR PRN 03/22/19 Mupirocin [Bactroban 2% Ointment 22 gm] 1 applic TOP BID 03/22/19 Allergies/Adverse Reactions: heparin Allergy (Verified 03/21/19 22:16) pork derived (porcine) [Pork derived (porcine)] Allergy (Verified 03/21/19 22:16) Review of Systems Constitutional: PRESENT: chills, fever(s), night sweats. ABSENT: anorexia, fatigue, headache(s), weakness Cardiovascular: ABSENT: chest pain, dyspnea on exertion, edema, orthropnea, palpitations Respiratory: ABSENT: dyspnea, hemoptysis Gastrointestinal: ABSENT: abdominal pain, coffee ground emesis, diarrhea, dysphagia, heartburn, hematemesis, hematochezia Genitourinary: ABSENT: dysuria, hematuria Musculoskeletal: ABSENT: deformity, joint swelling Neurological: ABSENT: abnormal speech, confusion, convulsions, focal weakness Hematologic/Lymphatic: ABSENT: easy bruising, lymphadenopathy Physical Exam Vital Signs: Temp Pulse Resp BP Pulse Ox 98.0 F 109 H 21 H 151/91 H 93 03/22/19 10:34 03/21/19 21:46 03/22/19 11:01 03/22/19 11:01 03/22/19 11:01 Intake & Output 03/21/19 03/22/19 03/23/19 06:59 06:59 06:59 Intake Total 400 Balance 400 Weight 123.8 kg General appearance: PRESENT: mild distress Respiratory exam: PRESENT: clear to auscultation brody. ABSENT: crackles Cardiovascular exam: PRESENT: +S1, +S2 GI/Abdominal exam: PRESENT: normal bowel sounds, soft. ABSENT: organomegaly, tenderness Extremities exam: ABSENT: pedal edema Neurological exam: PRESENT: alert, awake, oriented to person, oriented to place Psychiatric exam: PRESENT: appropriate affect Results Laboratory Results: 03/22/19 04:10 03/22/19 04:10 03/22/19 03/22/19 04:10 04:10 WBC 12.0 H RBC 3.50 L Hgb 9.7 L Hct 29.8 L MCV 85 MCH 27.8 MCHC 32.6 RDW 13.7 Plt Count 270 Seg Neutrophils % 70.6 Sodium 139.1 Potassium 3.8 Chloride 99 Carbon Dioxide 28 Anion Gap 12 BUN 41 H Creatinine 8.65 H Est GFR ( Amer) 8 L Glucose 282 H Calcium 7.8 L Assessment & Plan - Diagnosis (1) ESRD (end stage renal disease) on dialysis Plan: Last dialysis was yesterday. Plan for dialysis tomorrow and orders have been placed. (2) Insulin dependent diabetes mellitus Plan: As per hospitalist. (3) Scrotal abscess Is this a current diagnosis for this admission?: Yes (4) Hypertension Is this a current diagnosis for this admission?: Yes Plan: Monitor. Relatively well controlled.
[2019-03-22] MEDS ORDERED: RINGERS SOLUTION,LACTATED 1,000 ML IV PRN (13:21)
[2019-03-22] MEDS ORDERED: SUCCINYLCHOLINE CHLORIDE INJ 200 MG/10 ML VIAL ONE (13:37)
--- NOTE | 2019-03-22 13:49 | PDOC CONSULTATION ---
Consultation Consult Date: 03/22/19 Attending physician:: NATE MASON Provider Consulted: PAULO ALTAMIRANO History of Present Illness Admission Date/PCP: 03/22/19 06:14 KARELY SEAY DO Patient complains of: left testicular pain History of Present Illness: FRANK WEBBER is a 38 year old male with a past medical history of ESRD on dialysis, hypertension, IDDM on insulin pump, history of pulmonary embolism on Eliquis and reported history of 3 "mini strokes" who presented with left testicular pain and tenderness. Patient was found to have a left scrotal abscess. He is scheduled for I&D by surgery later today. Hospital service was consulted for medical comanagement. Upon encounter, he appears comfortable. Aside from the scrotal pain, he denies any other acute complaints. He denies shortness of breath or chest pain. Past Medical History Cardiac Medical History: Reports: Hyperlipidema, Hypertension Denies: Congestive Heart Failure, Coronary Artery Disease, DVT, Myocardial Infarction, Pulmonary Embolism Pulmonary Medical History: Reports: Pneumonia Denies: Asthma, Bronchitis, Chronic Obstructive Pulmonary Disease (COPD) Neurological Medical History: Reports: Migraine Denies: Seizures Endocrine Medical History: Reports: Diabetes Mellitus Type 1 - on insulin pump, Diabetes Mellitus Type 2 - On insulin pump Denies: Hyperthyroidism, Hypothyroidism Renal/ Medical History: Reports: End Stage Renal Disease - Stage IV renal failure, hemodialysis GI Medical History: Reports: Gastroesophageal Reflux Disease Denies: Cirrhosis, Hepatitis Musculoskeltal Medical History: Denies: Arthritis Skin Medical History: Denies: Eczema, Psoriasis Psychiatric Medical History: Reports: Depression Hematology: Denies: Anemia Infectious Medical History: 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 Past Surgical History Past Surgical History: Reports: Vascular Surgery - Left AV Fistula Social History Lives with: Family Smoking Status: Former Smoker Frequency of Alcohol Use: Rare Hx Recreational Drug Use: No Drugs: None Hx Prescription Drug Abuse: No Family History Family History: Arthritis, CAD, CVA, DM, Hyperlipidemia, Hypertension, Malignancy, Thyroid Disfunction, Other - Chronic kidney disease Parental Family History Reviewed: Yes - No premature CAD Children Family History Reviewed: No Sibling(s) Family History Reviewed.: No Medication/Allergy Home Medications: Apixaban [Eliquis 2.5 mg Tablet] 2.5 mg PO BID 01/14/19 Aspirin [Ecotrin 81 mg EC Tablet] 81 mg PO QAM 01/14/19 Atorvastatin Calcium [Lipitor 40 mg Tablet] 40 mg PO QHS 01/14/19 B Complex W-C No.20/Folic Acid [Virt-Caps Softgel] 1 mg PO DAILY 01/14/19 Calcium Acetate [Phoslo 667 mg Capsule] 1,334 mg PO MEALS 01/14/19 Calcium Acetate [Phoslo 667 mg Capsule] 667 mg PO .SNACKS 01/14/19 Cinacalcet HCl [Sensipar 30 mg Tablet] 30 mg PO QHS 01/14/19 Fenofibrate Nanocrystallized [Tricor 145 mg Tablet] 145 mg PO QHS 01/14/19 Furosemide [Lasix 40 mg Tablet] 40 mg PO QAM 01/14/19 Hydralazine HCl [Apresoline 50 mg Tablet] 100 mg PO Q12 01/14/19 Isosorbide Mononitrate [Imdur 30 mg Tablet.er] 15 mg PO QAM 01/14/19 Oxycodone HCl 15 mg PO Q4HP PRN 01/14/19 Pregabalin [Lyrica] 150 mg PO Q12 01/14/19 Ropinirole HCl [Requip] 0.5 mg PO Q8 01/14/19 Diltiazem HCl [Cardizem Cd] 180 mg PO DAILY 03/22/19 Insulin Lispro [Humalog Insulin (Lispro) 100 unit/mL] 100 units PUMP ASDIR PRN 03/22/19 Mupirocin [Bactroban 2% Ointment 22 gm] 1 applic TOP BID 03/22/19 Allergies/Adverse Reactions: heparin Allergy (Verified 03/21/19 22:16) pork derived (porcine) [Pork derived (porcine)] Allergy (Verified 03/21/19 22:16) Review of Systems All systems: reviewed and no additional remarkable complaints except as stated - as mentioned in HPI Physical Exam Vital Signs: Temp Pulse Resp BP Pulse Ox 99.3 F 109 H 20 133/71 H 95 03/21/19 21:46 03/21/19 21:46 03/21/19 21:46 03/21/19 21:46 03/21/19 21:46 Intake & Output 03/21/19 03/22/19 03/23/19 06:59 06:59 06:59 Weight 272 lb 14.916 oz General appearance: PRESENT: no acute distress, well-developed, well-nourished Head exam: PRESENT: atraumatic, normocephalic Eye exam: PRESENT: conjunctiva pink, EOMI, PERRLA. ABSENT: scleral icterus Ear exam: PRESENT: normal external ear exam Mouth exam: PRESENT: moist, tongue midline Neck exam: ABSENT: carotid bruit, JVD, lymphadenopathy, thyromegaly Respiratory exam: PRESENT: clear to auscultation brody. ABSENT: rales, rhonchi, wheezes Cardiovascular exam: PRESENT: RRR. ABSENT: diastolic murmur, rubs, systolic murmur Pulses: PRESENT: normal dorsalis pedis pul GI/Abdominal exam: PRESENT: normal bowel sounds, soft. ABSENT: distended, guarding, mass, organolmegaly, rebound, tenderness Rectal exam: PRESENT: deferred Gentrourinary exam: PRESENT: other - +tender, slightly fluctuant mass on the left testicular area Extremities exam: PRESENT: full ROM. ABSENT: calf tenderness, clubbing, pedal edema Neurological exam: PRESENT: alert, awake, oriented to person, oriented to place, oriented to time, oriented to situation, CN II-XII grossly intact. ABSENT: mot or sensory deficit Results Laboratory Results: 03/22/19 04:10 03/22/19 04:10 03/22/19 03/22/19 04:10 04:10 WBC 12.0 H RBC 3.50 L Hgb 9.7 L Hct 29.8 L MCV 85 MCH 27.8 MCHC 32.6 RDW 13.7 Plt Count 270 Seg Neutrophils % 70.6 Sodium 139.1 Potassium 3.8 Chloride 99 Carbon Dioxide 28 Anion Gap 12 BUN 41 H Creatinine 8.65 H Est GFR ( Amer) 8 L Glucose 282 H Calcium 7.8 L Assessment and Plan - Diagnosis (1) Scrotal abscess Is this a current diagnosis for this admission?: Yes Plan: Scheduled for I&D later today by surgery. On IV antibiotics. (2) ESRD (end stage renal disease) on dialysis Is this a current diagnosis for this admission?: Yes Plan: Nephrology consulted for inpatient dialysis. Recommend cautious IV hydration. Chest x-ray ordered. (3) Insulin dependent diabetes mellitus Is this a current diagnosis for this admission?: Yes Plan: Patient manages his insulin pump well. We will check an A1c. (4) Hypertension Is this a current diagnosis for this admission?: Yes Plan: We will resume home medications once diet is advanced. Will add hydralazine PRN while n.p.o. (5) History of pulmonary embolism Is this a current diagnosis for this admission?: Yes Plan: Patient got a dose of Eliquis last night. On hold until his I&D is done. - Time Time Spent with patient: 25-34 minutes
--- NOTE | 2019-03-22 13:50 | ADVANCED CARE ---
- Diagnosis (1) Scrotal abscess Diagnosis Current: Yes (2) ESRD (end stage renal disease) on dialysis Diagnosis Current: Yes (3) Insulin dependent diabetes mellitus Diagnosis Current: Yes (4) Hypertension Diagnosis Current: Yes (5) History of pulmonary embolism Diagnosis Current: Yes Resuscitation Status: Full Code Discussion: Discussed with patient. He says he is a full code and prefers to receive chest compressions, defibrillation or mechanical ventilation if the need arises. He says that he wants her fianc, Blanca Coronado and her mother Herlinda Bartlett to be her surrogate medical decision makers.
[2019-03-22] MEDS: CLINDAMYCIN 600 MG/D5W RTU 600 MG/50 ML RTUPB IV SCH ×2 (16:13→21:50)
--- NOTE | 2019-03-22 18:33 | RADIOLOGY REPORT (SQ) ---
EXAM DESCRIPTION: CHEST SINGLE VIEW COMPLETED DATE/TIME: 03/22/2019 5:43 pm REASON FOR STUDY: assess for congestion, ESRD pt getting IV fluids COMPARISON: 01/14/2019 EXAM PARAMETERS: NUMBER OF VIEWS: One view. TECHNIQUE: Single frontal radiographic view of the chest acquired. RADIATION DOSE: NA LIMITATIONS: None. FINDINGS: LUNGS AND PLEURA: Mildly increased interstitial markings are seen at the lung bases. No f ocal consolidation, pleural effusion, or pneumothorax. MEDIASTINUM AND HILAR STRUCTURES: No masses. Contour normal. HEART AND VASCULAR STRUCTURES: Heart normal in size. Normal vasculature. BONES: No acute findings. HARDWARE: None in the chest. OTHER: No other significant finding. IMPRESSION: In the absence of cardiomegaly, mildly increased bibasilar interstitial markings is nons pecific, and may represent developing CHF pattern, atelectasis, or infectious process. TECHNICAL DOCUMENTATION: JOB ID: [id number] [employer]- All Rights Reserved Reading location - IP/workstation name: [email or web address]
[2019-03-22] MEDS ORDERED: BUPIVACAINE HCL 0.5 % INJ/PF 30 ML SDV ONE (19:22)
[2019-03-22] MEDS ORDERED: MIDAZOLAM 2 MG/2 ML INJ ONE (19:32)
[2019-03-22] MEDS ORDERED: FENTANYL CITRATE INJ/PF 100 MCG/2 ML AMPUL ONE (19:32)
[2019-03-22] MEDS ORDERED: PROPOFOL INJ 200 MG/20 ML VIAL IV ONE (19:33)
[2019-03-22] MEDS ORDERED: PROMETHAZINE HCL INJ 25 MG/1 ML VIAL IV PRN ×2 (20:01)
[2019-03-22] MEDS ORDERED: DIPHENHYDRAMINE HCL 50 MG/ML VIAL IV PRN (20:01)
[2019-03-22] MEDS ORDERED: MEPERIDINE HCL/PF INJ 25 MG/1 ML DISP.SYRIN IV PRN (20:01)
[2019-03-22] MEDS ORDERED: MORPHINE SULFATE 10 MG/ML INJ IV PRN ×2 (20:01→20:27)
[2019-03-22] MEDS ORDERED: FENTANYL CITRATE INJ/PF 100 MCG/2 ML AMPUL IV PRN ×3 (20:01)
--- NOTE | 2019-03-22 20:21 | Operative Report ---
Nonrecallable Operative Report DATE OF SURGERY: 03/22/19 PREOPERATIVE DIAGNOSIS: Cutaneous scrotal abscess POSTOPERATIVE DIAGNOSIS: Same OPERATION: Incision and drainage of cutaneous scrotal abscess SURGEON: NATE MASON ANESTHESIA: Local - 10 mL's 1% Marcaine TISSUE REMOVED OR ALTERED: Scrotal skin with abscess COMPLICATIONS: None ESTIMATED BLOOD LOSS: Less than 5 mL INTRAOPERATIVE FINDINGS: Presence of cutaneous scrotal abscess PROCEDURE: The procedure was done in the operating room, the patient was placed in a supine position, general anesthesia induced by endotracheal intubation, the area of the abscess was prepped and draped in the usual fashion. The proposed line of inci peterson was outlined with a surgical marker, a skin incision was then made with a #15 blade, and the segment of skin measuring 2 x 1 cm was excised. This issue was sent for aerobic anaerobic culture and Gram stain. No additional abscess cavities or abnormalities were identified in the scrotal skin. Following this, bleeders from the abscess cavity were cauterized. The abscess cavity was packed with Surgicel and Gelfoam, covered with dry 4 x 4's, and tape was applied. The patient tolerated procedure well, was extubated, and transferred to the recovery room in satisfactory conditions.
[2019-03-22] MEDS ORDERED: EPOETIN ALFA-EPBX 10,000 UNIT in SYRINGE, DISPOSABLE, 1 EACH IV PRN (21:17)
[2019-03-22] MEDS ORDERED: ACETAMINOPHEN 1,000 MG/100 ML RTUPB IV SCH (22:00)
[2019-03-22] MEDS: ACETAMINOPHEN 1,000 MG/100 ML RTUPB IV SCH (23:08)
[2019-03-23] MEDS: CLINDAMYCIN 600 MG/D5W RTU 600 MG/50 ML RTUPB IV SCH ×3 (05:31→21:35)
[2019-03-23 05:33] LABS: HEMOGLOBIN 9.7 g/dL (13.5-17.0); MEAN CORPUSCULAR HEMOGLOBIN 28.6 pg (27.0-33.4); MEAN CORPUSCULAR HGB CONC 33.3 g/dL (32.0-36.0); MEAN CORPUSCULAR VOLUME 86 fl (80-97); PLATELET COUNT 259 10^3/uL (150-450); RED BLOOD COUNT 3.39 10^6/uL (4.35-5.55); RED CELL DISTRIBUTION WIDTH 14.1 % (11.5-14.0); WHITE BLOOD COUNT 10.7 10^3/uL (4.0-10.5)
[2019-03-23 05:51] LABS: ANION GAP 12 (5-19); BLOOD UREA NITROGEN 53 mg/dL (7-20); CALCIUM 8.5 mg/dL (8.4-10.2); CARBON DIOXIDE 24 mmol/L (22-30); CHLORIDE 104 mmol/L (98-107); GLUCOSE 103 mg/dL (75-110); POTASSIUM 4.2 mmol/L (3.6-5.0)
[2019-03-23] MEDS: PROMETHAZINE HCL INJ 25 MG/1 ML VIAL IV PRN ×2 (07:51→17:32)
[2019-03-23] MEDS ORDERED: LEVOFLOXACIN 250 MG/D5W RTU 250 MG/50 ML RTUPB IV SCH (10:00)
[2019-03-23] MEDS ORDERED: VANCOMYCIN HCL INJ 1000 MG VIAL IV SCH (10:00)
[2019-03-23] MEDS ORDERED: CALCIUM ACETATE 667 MG CAPSULE PO SCH (10:30)
[2019-03-23] MEDS ORDERED: INSULIN LISPRO 100 UNIT/ML 3 ML VIAL SUBCUT SCH (10:30)
--- NOTE | 2019-03-23 11:16 | PDOC PROGRESS REPORT ---
Subjective Progress Note for:: 03/23/19 Subjective:: Patient is comfortable Reason For Visit: SCROTAL ABSCESS Physical Exam Vital Signs: Temp Pulse Resp BP Pulse Ox 99.2 F 99 20 177/93 H 95 03/23/19 07:13 03/23/19 07:13 03/23/19 07:13 03/23/19 07:13 03/23/19 07:13 Intake & Output 03/22/19 03/23/19 03/24/19 06:59 06:59 06:59 Intake Total 1395 1000 Output Total 170 Balance 1225 1000 Weight 123.8 kg 124 kg General appearance: PRESENT: no acute distress Gentrourinary exam: PRESENT: other - Scrotal exam = surgical wound well healing, minimal tenderness, no drainage, odor, or redness Results Laboratory Results: 03/23/19 05:19 03/23/19 05:19 03/23/19 03/23/19 05:19 05:19 WBC 10.7 H RBC 3.39 L Hgb 9.7 L Hct 29.0 L MCV 86 MCH 28.6 MCHC 33.3 RDW 14.1 H Plt Count 259 Sodium 140.3 Potassium 4.2 Chloride 104 Carbon Dioxide 24 Anion Gap 12 BUN 53 H Creatinine 9.81 H Est GFR ( Amer) 7 L Glucose 103 Calcium 8.5 Impressions: Chest X-Ray 03/22/19 13:39 IMPRESSION: In the absence of cardiomegaly, mildly increased bibasilar interstitial markings is nonspecific, and may represent developing CHF pattern, atelectasis, or infectious process. Assessment & Plan - Diagnosis (1) Infected scrotal sebaceous cyst Is this a current diagnosis for this admission?: Yes - Time Time Spent with patient: 25-34 minutes - Plan Summary Plan Summary: Assessment: Status post excision of infected scrotal sebaceous cyst White blood cells improved to 10.0 today from 12 yesterday Physical exam shows a well-healing surgical wound without evidence of scrotal cellulitis Surgical cultures pending Plan: Continue IV antibiotics Continue hemodialysis Once final scrotal surgical cultures results available, patient can be discharged to home on oral antibiotics
[2019-03-23] MEDS ORDERED: TRAMADOL HCL 50 MG TABLET PO PRN (11:20)
[2019-03-23] MEDS ORDERED: ACETAMINOPHEN 325 MG TABLET PO PRN (11:21)
[2019-03-23] MEDS: ACETAMINOPHEN 1,000 MG/100 ML RTUPB IV SCH (11:47)
[2019-03-23] MEDS: FAMOTIDINE INJ/PF 20 MG/2 ML SDV IV SCH (11:47)
--- NOTE | 2019-03-23 12:13 | PDOC PROGRESS REPORT ---
Subjective Progress Note for:: 03/23/19 Subjective:: I am seeing the patient during dialysis this morning. Aside from the discomfort and pain from the scrotal infected cyst he does not really have much complaints. His blood pressure has been elevated throughout dialysis. He has not had his regular oral blood pressure medication since his been here. He is tolerating dialysis without any other problems so far. While I was seeing the patient Dr. Loyola also checked the patient's scrotal cysts and he thinks that is doing good. He plans to discharge patient home tomorrow if everything else continues to do well. Reason For Visit: SCROTAL ABSCESS Physical Exam Vital Signs: Temp Pulse Resp BP Pulse Ox 99.2 F 99 20 177/93 H 95 03/23/19 07:13 03/23/19 07:13 03/23/19 07:13 03/23/19 07:13 03/23/19 07:13 Intake & Output 03/22/19 03/23/19 03/24/19 06:59 06:59 06:59 Intake Total 1395 1000 Output Total 170 Balance 1225 1000 Weight 123.8 kg 124 kg Vitals during dialysis: Blood pressure 198/102, heart rate of 96, blood flow rate of 500ml/min and dialysate flow rate of 800 ml/min. Exam: General appearance: PRESENT: no acute distress, cooperative, well-developed, well-nourished Head exam: PRESENT: atraumatic, normocephalic Eye exam: PRESENT: conjunctiva pink, PERRLA. ABSENT: scleral icterus Neck exam: ABSENT: JVD Respiratory exam: PRESENT: Normal breath sounds. ABSENT: crackles, rales, rhonchi, unlabored, wheezes Cardiovascular exam: PRESENT: Regular rate rhythm -+S1, +S2. ABSENT: diastolic murmur, systolic murmur GI/Abdominal exam: PRESENT: normal bowel sounds, soft. Scrotal area appears to be clean without any drainage ABSENT: guarding, mass, tenderness Extremities exam: ABSENT: No edema Neurological exam: PRESENT: alert, awake, oriented to person, place and time. Skin exam: PRESENT: dry, warm, Cardiovascular exam: PRESENT: +S1, +S2 GI/Abdominal exam: PRESENT: normal bowel sounds, soft. ABSENT: organomegaly, tenderness Results Laboratory Results: 03/23/19 05:19 03/23/19 05:19 03/23/19 03/23/19 05:19 05:19 WBC 10.7 H RBC 3.39 L Hgb 9.7 L Hct 29.0 L MCV 86 MCH 28.6 MCHC 33.3 RDW 14.1 H Plt Count 259 Sodium 140.3 Potassium 4.2 Chloride 104 Carbon Dioxide 24 Anion Gap 12 BUN 53 H Creatinine 9.81 H Est GFR ( Amer) 7 L Glucose 103 Calcium 8.5 Impressions: Chest X-Ray 03/22/19 13:39 IMPRESSION: In the absence of cardiomegaly, mildly increased bibasilar interstitial markings is nonspecific, and may represent developing CHF pattern, atelectasis, or infectious process. Assessment & Plan - Diagnosis (1) Infected scrotal sebaceous cyst Is this a current diagnosis for this admission?: Yes Plan: Surgery following. On antibiotics. (2) ESRD (end stage renal disease) on dialysis Is this a current diagnosis for this admission?: Yes Plan: We will do dialysis today for 3 Hours, using the patient's AV fistula, with 2 potassium bath, blood flow rate of 500 mL per minute, dialysate flow rate of 800 mL per minute, ultrafiltration 3 L as tolerated, no heparin and Procrit with 10,000 units during dialysis intravenously. Patient will be monitored throughout dialysis treatment. Ultrafiltration to be adjusted accordingly. (3) Hypertension Is this a current diagnosis for this admission?: Yes Plan: Ultrafiltration should help. Needs to resume all home blood pressure medications. (4) Anemia in chronic kidney disease (CKD) Is this a current diagnosis for this admission?: Yes Plan: We will give Procrit during dialysis treatment. (5) Diabetes mellitus type 2 in obese Is this a current diagnosis for this admission?: Yes - Notes Notes: From nephrology standpoint patient can be safely discharged home if cleared by surgery. Once discharge patient to continue outpatient dialysis at [facility] as a scheduled. - Time Time with patient: 15-25 minutes
[2019-03-23] MEDS: FAMOTIDINE 20 MG TABLET PO SCH ×2 (12:49→21:35)
[2019-03-23] MEDS: CALCIUM ACETATE 667 MG CAPSULE PO SCH ×2 (12:49→17:14)
[2019-03-23] MEDS: DILTIAZEM HCL 180 MG CAPSULE.CR PO SCH (14:49)
[2019-03-23] MEDS: VITAMIN B COMPLEX TABLET PO SCH (14:50)
--- NOTE | 2019-03-23 16:21 | PDOC PROGRESS REPORT ---
Subjective Progress Note for:: 03/23/19 Subjective:: This is a 38-year-old male who was admitted for a small left scrotal abscess. He underwent incision and drainage with surgery last night. No acute event overnight. He reports of left scrotal pain this morning albeit this has improved. He denies chest pain or shortness of breath. He was dialyzed today. Wound culture pending. Reason For Visit: SCROTAL ABSCESS Physical Exam Vital Signs: Temp Pulse Resp BP Pulse Ox 98.2 F 117 H 19 139/86 H 98 03/23/19 12:57 03/23/19 12:57 03/23/19 12:57 03/23/19 12:57 03/23/19 12:57 Intake & Output 03/22/19 03/23/19 03/24/19 06:59 06:59 06:59 Intake Total 1395 1100 Output Total 170 3700 Balance 1225 -2600 Weight 272 lb 14.916 oz 273 lb 5.971 oz General appearance: PRESENT: no acute distress, well-developed, well-nourished Head exam: PRESENT: atraumatic, normocephalic Eye exam: PRESENT: conjunctiva pink, EOMI, PERRLA. ABSENT: scleral icterus Ear exam: PRESENT: normal external ear exam Mouth exam: PRESENT: moist, tongue midline Neck exam: ABSENT: carotid bruit, JVD, lymphadenopathy, thyromegaly Respiratory exam: PRESENT: rhonchi. ABSENT: rales, wheezes Cardiovascular exam: PRESENT: RRR. ABSENT: diastolic murmur, rubs, systolic murmur Pulses: PRESENT: normal dorsalis pedis pul GI/Abdominal exam: PRESENT: normal bowel sounds, soft. ABSENT: distended, guarding, mass, organolmegaly, rebound, tenderness Rectal exam: PRESENT: deferred Neurological exam: PRESENT: alert, awake, oriented to person, oriented to place, oriented to time, oriented to situation, CN II-XII grossly intact. ABSENT: motor sensory deficit Results Laboratory Results: 03/23/19 05:19 03/23/19 05:19 03/23/19 03/23/19 05:19 05:19 WBC 10.7 H RBC 3.39 L Hgb 9.7 L Hct 29.0 L MCV 86 MCH 28.6 MCHC 33.3 RDW 14.1 H Plt Count 259 Sodium 140.3 Potassium 4.2 Chloride 104 Carbon Dioxide 24 Anion Gap 12 BUN 53 H Creatinine 9.81 H Est GFR ( Amer) 7 L Glucose 103 Calcium 8.5 Impressions: Chest X-Ray 03/22/19 13:39 IMPRESSION: In the absence of cardiomegaly, mildly increased bibasilar interstitial markings is nonspecific, and may represent developing CHF pattern, atelectasis, or infectious process. Assessment and Plan - Diagnosis (1) Scrotal abscess Is this a current diagnosis for this admission?: Yes Plan: S/P I&D. Continue IV antibiotics. Wound culture pending. (2) ESRD (end stage renal disease) on dialysis Is this a current diagnosis for this admission?: Yes Plan: Nephrology following. On dialysis. (3) Insulin dependent diabetes mellitus Is this a current diagnosis for this admission?: Yes Plan: Patient manages his insulin pump well. (4) Hypertension Is this a current diagnosis for this admission?: Yes Plan: Resume home meds. (5) History of pulmonary embolism Is this a current diagnosis for this admission?: Yes Plan: Resume Gualberto. - Time Time Spent with patient: 25-34 minutes
[2019-03-23] MEDS ORDERED: OXYCODONE HCL IR 5 MG TABLET PO PRN (17:18)
[2019-03-23] MEDS: APIXABAN 2.5 MG TABLET PO SCH (17:25)
[2019-03-23] MEDS ORDERED: VANCOMYCIN HCL 750 MG in DEXTROSE 5%-WATER 250 ML IV SCH (18:00)
[2019-03-23] MEDS: HYDRALAZINE HCL 50 MG TABLET PO SCH (21:34)
[2019-03-23] MEDS ORDERED: CINACALCET HCL 30 MG TABLET PO SCH (22:00)
[2019-03-23] MEDS ORDERED: ATORVASTATIN CALCIUM 40 MG TABLET PO SCH (22:00)
[2019-03-24] MEDS: CLINDAMYCIN 600 MG/D5W RTU 600 MG/50 ML RTUPB IV SCH (06:22)
[2019-03-24] MEDS ORDERED: ASPIRIN 81 MG TABLET, ENT COATED PO SCH (08:00)
[2019-03-24] MEDS ORDERED: ISOSORBIDE MONONITRATE 30 MG TAB.ER.24H PO SCH (08:00)
[2019-03-24] MEDS ORDERED: FUROSEMIDE 40 MG TABLET PO SCH (08:00)
[2019-03-24] MEDS: CALCIUM ACETATE 667 MG CAPSULE PO SCH (10:02)
[2019-03-24 10:27] VITALS: BP 166/95
[2019-03-24] MEDS: HYDRALAZINE HCL 50 MG TABLET PO SCH (11:18)
[2019-03-24] MEDS: DILTIAZEM HCL 180 MG CAPSULE.CR PO SCH (11:19)
[2019-03-24] MEDS: FAMOTIDINE 20 MG TABLET PO SCH (11:19)
[2019-03-24] MEDS: APIXABAN 2.5 MG TABLET PO SCH (11:19)
[2019-03-24] MEDS: VITAMIN B COMPLEX TABLET PO SCH (11:20)
--- NOTE | 2019-03-24 11:37 | PDOC PROGRESS REPORT ---
Subjective Progress Note for:: 03/24/19 Subjective:: This is a 38-year-old male who was admitted for a small left scrotal abscess. He underwent incision and drainage with surgery last night. No acute event overnight. Has acute complaints. Blood sugars and blood pressures are close to goal. Patient is being discharged by surgery today. We will sign off. Thank you for this consult. Reason For Visit: SCROTAL ABSCESS Physical Exam Vital Signs: Temp Pulse Resp BP Pulse Ox 98.3 F 90 18 166/95 H 99 03/24/19 10:26 03/24/19 10:26 03/24/19 10:26 03/24/19 10:26 03/24/19 10:26 Intake & Output 03/23/19 03/24/19 03/25/19 06:59 06:59 06:59 Intake Total 1395 2865 Output Total 170 3900 Balance 1225 -1035 Weight 273 lb 5.971 oz 275 lb 9.245 oz General appearance: PRESENT: no acute distress, well-developed, well-nourished Head exam: PRESENT: atraumatic, normocephalic Eye exam: PRESENT: conjunctiva pink, EOMI, PERRLA. ABSENT: scleral icterus Ear exam: PRESENT: normal external ear exam Mouth exam: PRESENT: moist, tongue midline Neck exam: ABSENT: carotid bruit, JVD, lymphadenopathy, thyromegaly Respiratory exam: PRESENT: clear to auscultation brody. ABSENT: rales, rhonchi, wheezes Cardiovascular exam: PRESENT: RRR. ABSENT: diastolic murmur, rubs, systolic murmur Pulses: PRESENT: normal dorsalis pedis pul GI/Abdominal exam: PRESENT: normal bowel sounds, soft. ABSENT: distended, guarding, mass, organolmegaly, rebound, tenderness Rectal exam: PRESENT: deferred Neurological exam: PRESENT: alert, awake, oriented to person, oriented to place, oriented to time, oriented to situation, CN II-XII grossly intact. ABSENT: motor sensory deficit Results Laboratory Results: 03/23/19 05:19 03/23/19 05:19 Impressions: Chest X-Ray 03/22/19 13:39 IMPRESSION: In the absence of cardiomegaly, mildly increased bibasilar interstitial markings is nonspecific, and may represent developing CHF pattern, atelectasis, or infectious process. Assessment and Plan - Diagnosis (1) Scrotal abscess Is this a current diagnosis for this admission?: Yes Plan: S/P I&D. On IV antibiotics. (2) ESRD (end stage renal disease) on dialysis Is this a current diagnosis for this admission?: Yes Plan: Got dialysis yesterday. (3) Insulin dependent diabetes mellitus Is this a current diagnosis for this admission?: Yes Plan: Patient manages his insulin pump well. (4) Hypertension Is this a current diagnosis for this admission?: Yes Plan: Continue home meds. (5) History of pulmonary embolism Is this a current diagnosis for this admission?: Yes Plan: Continue Eliquis. - Plan Summary Summary: Patient admitted on 03/22/2019 for swelling of his scrotum and pain with redness. Diagnosis of a cutaneous scrotal abscess was made in the emergency room and he was taken to surgery on 22 March 2019 for a debridement incision and drainage of the scrotal abscess. Postoperatively he did well the swelling and erythema resolved quickly at this time he is tolerating dressing changes to the fairly small scrotal abscess. This morning he is afebrile stable vitals tolerating a regular diet wound cultures are pending. He was ready for discharge home he will be discharged home on Bactrim DS 1 p.o. twice daily and he will follow-up in surgery clinic in 7 to 10 days for wound check. - Time Time Spent with patient: 15-24 minutes
== END 2019-03-24 13:47 | disposition home or self-care (01) ==
LOC: ER 21:20 → EH 03-22 06:14 → 4N 03-22 19:44
PROVIDERS: ADMIT Surgery; ATTEND Surgery
PROC: 0V95XZX Drainage of Scrotum, External Approach, Diagnostic (ICD-10-PCS; principal; 2019-03-22 13:00)
PROC: 5A1D70Z Performance of Urinary Filtration, Intermittent, Less than 6 Hours Per Day (ICD-10-PCS; 2019-03-23)
DX: N49.2 Inflammatory disorders of scrotum (principal); L72.3 Sebaceous cyst; I12.0 Hypertensive chronic kidney disease with stage 5 chronic kidney disease or end stage renal disease; E10.22 Type 1 diabetes mellitus with diabetic chronic kidney disease; E10.43 Type 1 diabetes mellitus with diabetic autonomic (poly)neuropathy; E10.40 Type 1 diabetes mellitus with diabetic neuropathy, unspecified; E10.319 Type 1 diabetes mellitus with unspecified diabetic retinopathy without macular edema; N18.6 End stage renal disease; D72.829 Elevated white blood cell count, unspecified; R50.9 Fever, unspecified; R61 Generalized hyperhidrosis; M25.512 Pain in left shoulder; D17.79 Benign lipomatous neoplasm of other sites; E78.5 Hyperlipidemia, unspecified; D63.1 Anemia in chronic kidney disease; R00.0 Tachycardia, unspecified; Z99.2 Dependence on renal dialysis; Z96.41 Presence of insulin pump (external) (internal); Z79.02 Long term (current) use of antithrombotics/antiplatelets; Z86.711 Personal history of pulmonary embolism; Z86.73 Personal history of transient ischemic attack (TIA), and cerebral infarction without residual deficits; Z87.891 Personal history of nicotine dependence; Z86.14 Personal history of Methicillin resistant Staphylococcus aureus infection
CPT/HCPCS: 55899; G0257; 36415; 71045; 80048; 82962; 83036; 85025; 85027; 87040; 87070; 87075; 87077; 87186; 87205; 920; 93005; 93010; 96365; 96366; 96367; 96375; 96376; 99285; G0378; J0131; J0330; J0360; J1170; J1956; J2250; J2270; J2550; J2704; J3010; J3370; J3490; J7060; J7120; Q5105; S0028

== ENCOUNTER 2019-06-09 01:19 | Emergency (ER) | payer MEDICAID ==
[2019-06-09 02:34] LABS: ABSOLUTE BASOPHILS # (AUTO) 0.2 10^3/uL (0.0-0.2); ABSOLUTE EOSINOPHILS # (AUTO) 0.2 10^3/uL (0.0-0.6); ABSOLUTE LYMPHOCYTES (AUTO) 2.6 10^3/uL (0.5-4.7); ABSOLUTE MONOCYTES (AUTO) 0.9 10^3/uL (0.1-1.4); ABSOLUTE NEUT (AUTO) 4.3 10^3/uL (1.7-8.2); BASOPHILS % (AUTO) 1.9 % (0-2); HEMATOCRIT 29.8 % (37.9-51.0); HEMOGLOBIN 9.9 g/dL (13.5-17.0); LYMPHOCYTES % (AUTO) 32.4 % (13-45); MEAN CORPUSCULAR HEMOGLOBIN 28.2 pg (27.0-33.4); MEAN CORPUSCULAR HGB CONC 33.2 g/dL (32.0-36.0); MEAN CORPUSCULAR VOLUME 85 fl (80-97); PLATELET COUNT 316 10^3/uL (150-450); RED BLOOD COUNT 3.51 10^6/uL (4.35-5.55); SEGMENTED NEUTROPHILS % (AUTO) 52.7 % (42-78); TOTAL CELLS COUNTED % (AUTO) 100 %; WHITE BLOOD COUNT 8.1 10^3/uL (4.0-10.5)
[2019-06-09 02:43] LABS: APPEARANCE,URINE CLEAR; BILIRUBIN,URINE NEGATIVE (NEGATIVE); COLOR,URINE YELLOW; GLUCOSE, URINE >=500 mg/dL (NEGATIVE); KETONES,URINE NEGATIVE (NEGATIVE); LEUKOCYTE ESTERASE,URINE NEGATIVE (NEGATIVE); NITRITE,URINE NEGATIVE (NEGATIVE); PROTEIN,URINE >=500 mg/dL (NEGATIVE); URINE SPECIFIC GRAVITY 1.014; UROBILINOGEN,URINE NEGATIVE mg/dL (<2.0)
[2019-06-09 02:58] LABS: ALBUMIN 3.9 g/dL (3.5-5.0); ALKALINE PHOSPHATASE 63 U/L (38-126); ANION GAP 17 (5-19); ASPARTATE AMINO TRANSFERASE 21 U/L (17-59); BILIRUBIN,DIRECT 0.3 mg/dL (0.0-0.4); BILIRUBIN,TOTAL 0.4 mg/dL (0.2-1.3); BLOOD UREA NITROGEN 96 mg/dL (7-20); CALCIUM 8.7 mg/dL (8.4-10.2); CARBON DIOXIDE 25 mmol/L (22-30); CHLORIDE 101 mmol/L (98-107); GLUCOSE 127 mg/dL (75-110); POTASSIUM 4.4 mmol/L (3.6-5.0); TOTAL PROTEIN 7.5 g/dL (6.3-8.2)
--- NOTE | 2019-06-09 06:35 | ER Document Report ---
ED GI/ - General Chief Complaint: Abdominal Pain Stated Complaint: ABDOMINAL PAIN Time Seen by Provider: 06/09/19 06:05 Primary Care Provider: KARELY SEAY DO [Primary Care Provider] - Follow up as needed Mode of Arrival: Ambulatory Information source: Patient Notes: 38-year-old man presents to the emergency department with a complaint of abdominal pain. States that he has had the pain intermittently for the past week. The pain is worsened over the past couple of days. He denies nausea vomiting or associated diarrhea. He also is fever. Pain is located in the left lower quadrant and right upper quadrant areas times severe and debilitating. He has not had a change of appetite as he has eaten prior to coming to the emergency department. He has end-stage renal disease and is on home hemodialysis. TRAVEL OUTSIDE OF THE [place] IN LAST 30 DAYS: No - Related Data Allergies/Adverse Reactions: heparin Allergy (Verified 03/21/19 22:16) pork derived (porcine) [Pork derived (porcine)] Allergy (Verified 03/21/19 22:16) Past Medical History - Social History Smoking Status: Former Smoker Family History: Arthritis, CAD, CVA, DM, Hyperlipidemia, Hypertension, Malignancy, Thyroid Disfunction, Other - Chronic kidney disease Patient has suicidal ideation: No Patient has homicidal ideation: No - Past Medical History Cardiac Medical History: Reports: Hx Hypercholesterolemia, Hx Hypertension Denies: Hx Congestive Heart Failure, Hx Coronary Artery Disease, Hx DVT, Hx Heart Attack, Hx Pulmonary Embolism Pulmonary Medical History: Reports: Hx Pneumonia Denies: Hx Asthma, Hx Bronchitis, Hx COPD Neurological Medical History: Reports: Hx Migraine. Denies: Hx Cerebrovascular Accident, Hx Seizures Endocrine Medical History: Reports: Hx Diabetes Mellitus Type 1 - on insulin pump, Hx Diabetes Mellitus Type 2 - On insulin pump. Denies: Hx Hyperthyroidism, Hx Hypothyroidism Renal/ Medical History: Reports: Hx End Stage Renal Disease - Stage IV renal failure, hemodialysis, Hx Renal Insufficiency - normal creatinins 3 to 4 now.. Denies: Hx Peritoneal Dialysis GI Medical History: Reports: Hx Gastroesophageal Reflux Disease. Denies: Hx Cirrhosis, Hx Hepatitis Musculoskeletal Medical History: Denies Hx Arthritis, Reports Hx Musculoskeletal Trauma Skin Medical History: Reports Hx Cellulitis, Denies Hx Eczema, Reports Hx MRSA, Denies Hx Psoriasis Psychiatric Medical History: Reports: Hx Depression Traumatic Medical History: Reports: Hx Fractures Infectious Medical History: Reports: Hx MRSA - S/P I & D multiple skin abscesses in past. Denies: Hx Hepatitis Past Surgical History: Reports: Hx Oral Surgery, Hx Thyroid Surgery - Patient states that would removed due to cancer, Hx Vascular Surgery - Left AV Fistula - Immunizations Hx Diphtheria, Pertussis, Tetanus Vaccination: No Review of Systems - Review of Systems Notes: Constitutional: Negative for fever. HENT: Negative for sore throat. Eyes: Negative for visual changes. Cardiovascular: Negative for chest pain. Respiratory: Negative for shortness of breath. Gastrointestinal: See HPI Genitourinary: Negative for dysuria. Musculoskeletal: Negative for back pain. Skin: Negative for rash. Neurological: Negative for headaches, weakness or numbness. 10 point ROS negative except as marked above and in HPI. Physical Exam - Vital signs Vitals: Temp Pulse Resp BP Pulse Ox 98.3 F 95 20 157/83 H 95 06/09/19 01:25 06/09/19 01:25 06/09/19 01:25 06/09/19 01:25 06/09/19 01:25 - Notes Notes: PHYSICAL EXAMINATION: Physical Exam: General: Well-nourished well-developed 38-year-old man in no acute distress HEENT: NC/AT, pupils equal round and reactive to light, MM moist,nares clear, Neck: supple, no adenopathy, no masses. Lungs: clear, no wheezing, no rales no rhonchi CVS: Regular rate and rhythm no murmur gallop or rub Abdomen: Soft active tenderness in the left lower quadrant, no guarding, no rebound, no masses. Ext: No edema clubbing or cyanosis. Neuro: Alert and responsive, moving all 4 extremities on command, cranial nerves intact. Skin: Intact no open lesions, no rash PSYCH: Normal mood, normal affect. Course - Re-evaluation Re-evalutation: 06/09/19 10:39 I reviewed the CTs scan findings and discussed them with the patient explaining that there is no to findings will require hospitalization or intervention. Patient notes that he would like to have some juice and crackers before he leaves the hospital. I have suggested that he use a antispasmodic and probiotics and that may help to control his symptom complex. He dialyzes every other day at home. The patient voices understanding of this plan and will be discharged. - Vital Signs Vital signs: Temp Pulse Resp BP Pulse Ox 98.0 F 93 24 H 148/64 H 96 06/09/19 08:37 06/09/19 08:37 06/09/19 08:37 06/09/19 08:37 06/09/19 08:37 - Laboratory Result Diagrams: 06/09/19 02:16 06/09/19 02:16 Laboratory results interpreted by me: 06/09/19 06/09/19 06/09/19 02:16 02:16 02:16 RBC 3.51 L Hgb 9.9 L Hct 29.8 L RDW 15.0 H BUN 96 H Creatinine 15.81 H Est GFR ( Amer) 4 L Est GFR (MDRD) Non-Af 3 L Glucose 127 H Lipase 358.1 H Urine Protein >=500 H Urine Glucose (UA) >=500 H 06/09/19 10:42 I have reviewed laboratory data and used this information for the treatment decisions regarding the patient. - Diagnostic Test Radiology reviewed: Image reviewed, Reports reviewed - CT abdomen and pelvis: No acute intra-abdominal findings. Discharge - Discharge Clinical Impression: Nonspecific abdominal pain, ESRD (end stage renal disease) on dialysis Anemia in chronic kidney disease (CKD) Qualifiers: Chronic kidney disease stage: on chronic dialysis Qualified Code(s): N18.6 - End stage renal disease; D63.1 - Anemia in chronic kidney disease; Z99.2 - Dependence on renal dialysis Condition: Good Disposition: HOME, SELF-CARE Instructions: Abdominal Pain ([facility]), Antispasmodics ([facility]), Toradol Injection ([facility]) Additional Instructions: You are diagnosed with nonspecific abdominal pain in the emergency department today. Use dicyclomine and probiotics for treatment. You may buy the probiotics [id number] at the pharmacy. Follow-up with your primary care doctor. You may return to the emergency department if you develop fever nausea vomiting or other concerning symptoms. Referrals: KARELY SEAY DO [Primary Care Provider] - Follow up as needed
[2019-06-09] MEDS ORDERED: KETOROLAC TROMETHAMINE 60 MG/2 ML SDV IM ONE (08:59)
--- NOTE | 2019-06-09 09:15 | RADIOLOGY REPORT (SQ) ---
EXAM DESCRIPTION: CT ABD/PELVIS NO ORAL OR IV COMPLETED DATE/TIME: 06/09/2019 8:29 am REASON FOR STUDY: Abdominal pain COMPARISON: CT abdomen pelvis 01/14/2019, 07/30/2018 TECHNIQUE: CT scan of the abdomen and pelvis performed without intravenous or oral contrast. Images reviewed with lung, soft tissue, and bone windows. Reconstructed coronal and sagittal MPR images revi ewed. All images stored on PACS. All CT scanners at this facility use dose modulation, iterative reconstruction, and/or weight based d osing when appropriate to reduce radiation dose to as low as reasonably achievable (ALARA). [facility]: Dose Right [facility]: CareDose [facility]: Dose Right [facility]: Teradose 4D [facility]: [employer] RADIATION DOSE: CT Rad equipment meets quality standard of care and radiation dose reduction techniq ues were employed. CTDIvol: 18.1 mGy. DLP: 1136 mGy-cm.mGy. LIMITATIONS: None. FINDINGS: LOWER CHEST: Mild cardiomegaly. Lung bases are clear. NON-CONTRASTED LIVER, SPLEEN, ADRENALS: Evaluation limited by lack of IV contrast. No identified sign ificant masses. PANCREAS: No masses. No peripancreatic inflammatory changes. GALLBLADDER: No identified stones by CT criteria. No inflammatory changes to suggest cholecystitis. RIGHT KIDNEY AND URETER: No suspicious masses. Assessment limited by lack of IV contrast. No signif icant calcifications. No hydronephrosis or hydroureter. LEFT KIDNEY AND URETER: No suspicious masses. Assessment limited by lack of IV contrast. No signifi cant calcifications. No hydronephrosis or hydroureter. AORTA AND RETROPERITONEUM: No aneurysm. No retroperitoneal masses or adenopathy. BOWEL AND PERITONEAL CAVITY: No obvious masses or inflammatory changes. No free fluid. APPENDIX: Surgically absent PELVIS, BLADDER, AND ABDOMINAL WALL:No abnormal masses. No free fluid. Bladder normal. BONES: No significant findings. OTHER: No other significant finding. IMPRESSION: NO SIGNIFICANT OR ACUTE PROCESS IN THE ABDOMEN OR PELVIS. COMMENT: Quality ID # [id number]: Final reports with documentation of one or more dose reduction techniques (e.g., Automated exposure control, adjustment of the mA and/or kV according to patient size, use of iterative reconstruction technique) TECHNICAL DOCUMENTATION: JOB ID: [id number] [employer]- All Rights Reserved Reading location - IP/workstation name: [email or web address]
[2019-06-09 11:05] VITALS: BP 175/81
== END 2019-06-09 11:05 | disposition home or self-care (01) ==
LOC: ER 01:19
DX: R10.32 Left lower quadrant pain (principal); R10.11 Right upper quadrant pain; D63.1 Anemia in chronic kidney disease; R50.9 Fever, unspecified; I12.0 Hypertensive chronic kidney disease with stage 5 chronic kidney disease or end stage renal disease; E10.22 Type 1 diabetes mellitus with diabetic chronic kidney disease; N18.6 End stage renal disease; Z99.2 Dependence on renal dialysis; Z96.41 Presence of insulin pump (external) (internal); Z86.14 Personal history of Methicillin resistant Staphylococcus aureus infection; E78.00 Pure hypercholesterolemia, unspecified
CPT/HCPCS: 99284; 96372; 36415; 83690; 85025; 80053; 81001; 74176; J1885

== ENCOUNTER 2019-06-30 23:26 | Emergency (ER) | payer MEDICAID ==
--- NOTE | 2019-07-01 00:25 | ER Document Report ---
ED Medical Screen (RME) - General Chief Complaint: Abscess Stated Complaint: NOSE BLEED POSSIBLE ABSCESS Primary Care Provider: KARELY SEAY DO [Primary Care Provider] - Follow up as needed Notes: Patient is a 38-year-old male with a past medical history significant for diabetes and prior complete dental extraction of the upper teeth who usually wears dentures who presents to the emergency department the chief complaint of swelling and pain to the upper mouth and bilateral cheeks for the past 2 days, left worse than right. States today began bleeding from the nostrils. He denies any known fever or tongue or throat swelling. He is concern for abscess formations. I have treated and performed a rapid initial assessment of this patient. A comprehensive ED assessment and evaluation of the patient, analysis of test results and completion of medical decision making process will be conducted by additional ED providers. PHYSICAL EXAMINATION: GENERAL: Well-appearing, well-nourished and in no acute distress. A&Ox4. Answers questions appropriately. TRAVEL OUTSIDE OF THE [place] IN LAST 30 DAYS: No - Related Data Allergies/Adverse Reactions: heparin Allergy (Verified 03/21/19 22:16) pork derived (porcine) [Pork derived (porcine)] Allergy (Verified 03/21/19 22:16) Past Medical History - Past Medical History Cardiac Medical History: Reports: Hx Hypercholesterolemia, Hx Hypertension Denies: Hx Congestive Heart Failure, Hx Coronary Artery Disease, Hx DVT, Hx Heart Attack, Hx Pulmonary Embolism Pulmonary Medical History: Reports: Hx Pneumonia Denies: Hx Asthma, Hx Bronchitis, Hx COPD Neurological Medical History: Reports: Hx Migraine. Denies: Hx Cerebrovascular Accident, Hx Seizures Endocrine Medical History: Reports: Hx Diabetes Mellitus Type 1 - on insulin pump, Hx Diabetes Mellitus Type 2 - On insulin pump. Denies: Hx Hyperthyroidism, Hx Hypothyroidism Renal/ Medical History: Reports: Hx End Stage Renal Disease - Stage IV renal failure, hemodialysis, Hx Renal Insufficiency - normal creatinins 3 to 4 now.. Denies: Hx Peritoneal Dialysis GI Medical History: Reports: Hx Gastroesophageal Reflux Disease. Denies: Hx Cirrhosis, Hx Hepatitis Musculoskeltal Medical History: Denies Hx Arthritis, Reports Hx Musculoskeletal Trauma Skin Medical History: Reports Hx Cellulitis, Denies Hx Eczema, Reports Hx MRSA, Denies Hx Psoriasis Psychiatric Medical History: Reports: Hx Depression Traumatic Medical History: Reports: Hx Fractures Infectious Medical History: Reports: Hx MRSA - S/P I & D multiple skin abscesses in past. Denies: Hx Hepatitis Past Surgical History: Reports: Hx Oral Surgery, Hx Thyroid Surgery - Patient states that would removed due to cancer, Hx Vascular Surgery - Left AV Fistula - Immunizations Hx Diphtheria, Pertussis, Tetanus Vaccination: No Physical Exam - Vital signs Vitals: Temp Pulse Resp BP Pulse Ox 98.6 F 95 16 174/74 H 97 06/30/19 23:57 06/30/19 23:57 06/30/19 23:57 06/30/19 23:57 06/30/19 23:57 Course - Vital Signs Vital signs: Temp Pulse Resp BP Pulse Ox 98.6 F 95 16 174/74 H 97 06/30/19 23:57 06/30/19 23:57 06/30/19 23:57 06/30/19 23:57 06/30/19 23:57 Doctor's Discharge - Discharge Referrals: KARELY SEAY DO [Primary Care Provider] - Follow up as needed
--- NOTE | 2019-07-01 01:35 | RADIOLOGY REPORT (SQ) ---
EXAM: CT Maxillofacial Without Intravenous Contrast EXAM DATE/TIME: 07/01/2019 12:38 AM CLINICAL HISTORY: The patient is 38 years old and is Male; maxillary swelling/pain w epistaxis TECHNIQUE: Axial computed tomography images of the face without intravenous contrast. Sagittal and coronal reformatted images were created and reviewed. This CT exam was performed using one or more of the following dose reduction techniques: automated exposure control, adjustment of the mA and/or kV according to patient size, and/or use of iterative reconstruction technique. COMPARISON: CT brain from 08/10/2017 FINDINGS: BONES/JOINTS: No acute fracture. No osseous erosion visualized. SOFT TISSUES: No significant inflammatory changes visualized in the soft tissues. No focal fluid collection to suggest abscess. ORBITS: The globes appear intact. No post septal inflammation identified. SINUSES: Large mucous retention cyst in the right maxillary sinus, which is increased in size compared to the prior study. Moderately sized mucous retention cyst again noted in the left maxillary sinus. There are no air-fluid levels visualized. The remaining paranasal sinuses are clear. NASAL CAVITY/SEPTUM: The nasal cavities are clear. IMPRESSION: 1. Mucous retention cysts in the bilateral maxillary sinuses. 2. No significant inflammatory changes visualized within the soft tissues.
[2019-07-01 01:42] LABS: ABSOLUTE BASOPHILS # (AUTO) 0.1 10^3/uL (0.0-0.2); ABSOLUTE EOSINOPHILS # (AUTO) 0.2 10^3/uL (0.0-0.6); ABSOLUTE MONOCYTES (AUTO) 0.8 10^3/uL (0.1-1.4); ABSOLUTE NEUT (AUTO) 6.4 10^3/uL (1.7-8.2); BASOPHILS % (AUTO) 1.2 % (0-2); EOSINOPHILS % (AUTO) 1.6 % (0-6); HEMATOCRIT 30.3 % (37.9-51.0); LYMPHOCYTES % (AUTO) 21.4 % (13-45); MEAN CORPUSCULAR HEMOGLOBIN 28.3 pg (27.0-33.4); MEAN CORPUSCULAR VOLUME 86 fl (80-97); MONOCYTES % (AUTO) 8.9 % (3-13); PLATELET COUNT 253 10^3/uL (150-450); RED BLOOD COUNT 3.53 10^6/uL (4.35-5.55); SEGMENTED NEUTROPHILS % (AUTO) 66.9 % (42-78); TOTAL CELLS COUNTED % (AUTO) 100 %; WHITE BLOOD COUNT 9.5 10^3/uL (4.0-10.5)
[2019-07-01 02:03] LABS: ALBUMIN 3.9 g/dL (3.5-5.0); ALKALINE PHOSPHATASE 58 U/L (38-126); ANION GAP 18 (5-19); ASPARTATE AMINO TRANSFERASE 25 U/L (17-59); BILIRUBIN,DIRECT 0.5 mg/dL (0.0-0.4); BILIRUBIN,TOTAL 0.5 mg/dL (0.2-1.3); BLOOD UREA NITROGEN 116 mg/dL (7-20); CALCIUM 9.1 mg/dL (8.4-10.2); CARBON DIOXIDE 27 mmol/L (22-30); CHLORIDE 98 mmol/L (98-107); GLUCOSE 205 mg/dL (75-110); POTASSIUM 4.6 mmol/L (3.6-5.0); TOTAL PROTEIN 7.5 g/dL (6.3-8.2)
[2019-07-01] MEDS ORDERED: CLINDAMYCIN HCL 150 MG CAPSULE PO ONE (02:38)
[2019-07-01 02:57] VITALS: BP 168/96
--- NOTE | 2019-07-01 05:50 | ER Document Report ---
Entered by KAITY ROTH SCRIBE 07/01/19 0211 Acting as scribe for:JOSELUIS CHATMAN IV, MD ED General - General Chief Complaint: Facial Swelling Stated Complaint: NOSE BLEED POSSIBLE ABSCESS Time Seen by Provider: 07/01/19 02:08 Primary Care Provider: KARELY SEAY DO [Primary Care Provider] - Follow up as needed Mode of Arrival: Ambulatory Information source: Patient Notes: This 38 year old male patient with a history of ESRD and IDDM with hemodialysis presents to the ED today with complaints of left-sided facial pain and swelling for the past x2-3 days. Patient states that he had a complete dental extraction of the upper teeth and wears dentures. Patient states that he is concerned about abscess formation. Patient also reports epistaxis that began last night. Patient denies fever or tongue or throat swelling. TRAVEL OUTSIDE OF THE [place] IN LAST 30 DAYS: No - Related Data Allergies/Adverse Reactions: heparin Allergy (Verified 03/21/19 22:16) pork derived (porcine) [Pork derived (porcine)] Allergy (Verified 03/21/19 22:16) Past Medical History - General Information source: Patient, [facility] Records - Social History Smoking Status: Never Smoker Cigarette use (# per day): No Chew tobacco use (# tins/day): No Smoking Education Provided: No Frequency of alcohol use: None Drug Abuse: None Family History: Reviewed & Not Pertinent, Arthritis, CAD, CVA, DM, Hyperlipidemia, Hypertension, Malignancy, Thyroid Disfunction, Other - Chronic kidney disease Patient has suicidal ideation: No Patient has homicidal ideation: No - Past Medical History Cardiac Medical History: Reports: Hx Hypercholesterolemia, Hx Hypertension Pulmonary Medical History: Reports: Hx Pneumonia Neurological Medical History: Reports: Hx Migraine Endocrine Medical History: Reports: Hx Diabetes Mellitus Type 2 - On insulin pump Renal/ Medical History: Reports: Hx End Stage Renal Disease - Stage IV renal failure, Hx Hemodialysis, Hx Renal Insufficiency - normal creatinins 3 to 4 now. GI Medical History: Reports: Hx Gastroesophageal Reflux Disease Musculoskeletal Medical History: Reports Hx Musculoskeletal Trauma Skin Medical History: Reports Hx Cellulitis, Reports Hx MRSA Psychiatric Medical History: Reports: Hx Depression Traumatic Medical History: Reports: Hx Fractures Infectious Medical History: Reports: Hx MRSA - S/P I & D multiple skin abscesses in past Past Surgical History: Reports: Hx Oral Surgery, Hx Thyroid Surgery - Patient states that would removed due to cancer, Hx Vascular Surgery - Left AV Fistula - Immunizations Hx Diphtheria, Pertussis, Tetanus Vaccination: No Review of Systems - Review of Systems Constitutional: See HPI. denies: Fever EENT: See HPI, Other - Left sided facial swelling and pain. Nose bleed.. denies: Throat swelling - or tongue Cardiovascular: No symptoms reported Respiratory: No symptoms reported Gastrointestinal: No symptoms reported Genitourinary: No symptoms reported Male Genitourinary: No symptoms reported Musculoskeletal: No symptoms reported Skin: No symptoms reported Hematologic/Lymphatic: No symptoms reported Neurological/Psychological: No symptoms reported -: Yes All other systems reviewed and negative Physical Exam - Vital signs Vitals: Temp Pulse Resp BP Pulse Ox 98.6 F 95 16 174/74 H 97 06/30/19 23:57 06/30/19 23:57 06/30/19 23:57 06/30/19 23:57 06/30/19 23:57 - General General appearance: Alert - HEENT Head: Normocephalic, Atraumatic Eyes: Normal Pupils: PERRL Mouth/Lips: Other - Swelling over the top of the lip on the left side. Erythema and swelling appreciated at gum line of upper teeth on the left side. - Respiratory Respiratory status: No respiratory distress Chest status: Nontender Breath sounds: Normal Chest palpation: Normal - Cardiovascular Rhythm: Regular Heart sounds: Normal auscultation Murmur: No - Abdominal Inspection: Normal Distension: No distension Bowel sounds: Normal Tenderness: Nontender Organomegaly: No organomegaly - Back Back: Normal, Nontender - Extremities General upper extremity: Normal inspection General lower extremity: Normal inspection - Neurological Neuro grossly intact: Yes - Psychological Associated symptoms: Normal affect, Normal mood - Skin Skin Temperature: Warm Skin Moisture: Dry Skin Color: Normal Course - Re-evaluation Re-evalutation: 07/01/19 02:39 Results of ED MSE discussed with patient. All questions were answered prior to discharge. Emergency signs and symptoms, reasons to return to the ED discussed with patient. - Vital Signs Vital signs: Temp Pulse Resp BP Pulse Ox 98.2 F 92 16 168/96 H 98 07/01/19 02:56 07/01/19 02:56 07/01/19 02:56 07/01/19 02:56 07/01/19 02:56 - Laboratory Result Diagrams: 07/01/19 01:28 07/01/19 01:28 Laboratory results interpreted by me: 07/01/19 07/01/19 01:28 01:28 RBC 3.53 L Hgb 10.0 L Hct 30.3 L RDW 15.0 H BUN 116 H Creatinine 18.52 H Est GFR ( Amer) 3 L Est GFR (MDRD) Non-Af 3 L Glucose 205 H Direct Bilirubin 0.5 H - Diagnostic Test Radiology reviewed: Reports reviewed Discharge - Discharge Clinical Impression: Facial cellulitis Condition: Good Disposition: HOME, SELF-CARE Additional Instructions: Return to the Emergency Department without delay if any worse. HOME CARE INSTRUCTIONS & INFORMATION: Thank you for choosing us for your medical needs. We hope you're satisfied with the care you received. After you leave, you must properly care for your problem and, at the same time, observe its progress. Any condition can change. Some illnesses can change rapidly over hours or days. If your condition worsens, return to the Emergency Department or see your physician promptly. ABOUT YOUR X-RAYS AND EKG'S: If you had an EKG or X-rays taken, they have been read by the Emergency Physician. The X-rays and EKG's will also be read by a Radiologist or Sport Intern within 24 hours. If discrepancies are noted, you will be notified by telephone. Please be certain the ED has a correct telephone number & address where you can be reached. Also, realize that some fractures or abnormalities do not show up on initial X-rays. If your symptoms continue, see your physician. ABOUT YOUR LABORATORY TEST: If you had laboratory tests, the results have been reviewed by the Emergency Physician. Some test results (for example cultures) may not be available for several days. You will be contacted if any test result shows you need additional treatment. Please be certain the ED has a correct telephone number and address where you can be reached. ABOUT YOUR MEDICATIONS: You will receive instructions on how to take your medicine on the prescription label you receive. Additional information may be provided by the Pharmacy. If you have questions afterwards, call the ED for clarification or further instructions. Some prescribed medications may cause drowsiness. Do not perform tasks such as driving a car or operating machinery without consulting your Pharmacist. If you feel you need a refill of pain medication, your condition will need re-evaluation. Please do not call for a refill of any medication. ABOUT YOUR SIGNATURE: Signature of this document acknowledges to followin. Understanding that you received emergency treatment and that you may be released before al medical problems are known or treated. Please be certain the ED has a correct phone number & address where you can be reached. 2. Acknowledgement that you will arrange for follow-up care as recommended. 3. Authorization for the Emergency Physician to provide information to your follow-up Physician in order to maximize your care. AT ANY TIME, IF YOUR SYMPTOMS CHANGE SIGNIFICANTLY OR WORSEN OR YOU DEVELOP NEW SYMPTOMS, RETURN TO THE EMERGENCY DEPARTMENT IMMEDIATELY FOR RE-EVALUATION. OUR GOAL IS TO PROVIDE EXCELLENT MEDICAL CARE! WE HOPE THAT WE HAVE MET YOUR EXPECTATIONS DURING YOUR EMERGENCY DEPARTMENT VISIT AND THAT YOU FEEL YOU HAVE RECEIVED EXCELLENT CARE! Cellulitis You have an infection of your skin and underlying soft tissues called cellulitis. This is due to bacteria, which can enter through any break in the skin, or even through an irritated hair follicle. Untreated, cellulitis will usually worsen. Antibiotics are required. Usually, warm packs or warm soaks, and elevation of the infected area are recommended. You should start getting better within 24 to 36 hours. Most infections respond quickly to the right medication. Follow-up care is important, however, to check for abscess (boil) formation, unsuspected foreign body, or resistant infection. If you develop fever, chills, or if the area of infection is becoming rapidly more swollen or painful, call the doctor at once. Prescriptions: Clindamycin HCl [Cleocin 150 mg Capsule] 450 mg PO TID 7 Days #63 capsule Referrals: KARELY SEAY DO [Primary Care Provider] - Follow up as needed I personally performed the services described in the documentation, reviewed and edited the documentation which was dictated to the scribe in my presence, and it accurately records my words and actions.
== END 2019-07-01 02:56 | disposition home or self-care (01) ==
LOC: ER 23:26
DX: L03.211 Cellulitis of face (principal); R04.0 Epistaxis; I12.0 Hypertensive chronic kidney disease with stage 5 chronic kidney disease or end stage renal disease; E11.22 Type 2 diabetes mellitus with diabetic chronic kidney disease; N18.6 End stage renal disease; Z96.41 Presence of insulin pump (external) (internal); Z97.2 Presence of dental prosthetic device (complete) (partial); Z88.8 Allergy status to other drugs, medicaments and biological substances; Z91.018 Allergy to other foods
CPT/HCPCS: 99284; 36415; 85025; 80053; 70486; J3490

== ENCOUNTER → 2019-09-15 | Outpatient (CLI) | payer MEDICAID ==
--- NOTE | 2019-09-15 12:03 | ER RDC ASSESSMENT REPORT ---
Intake - In the Last 14 days Have you traveled outside [place]?: No Have you been in close contact with someone CONFIRMED: No Worked in Healthcare?: No - Symptoms Subjective Fever([place] feverish): Yes Chills: Yes Muscule Aches: No Runny Nose: No Sore Throat: No Cough (New or worsening chronic cough): No Shortness of breath: No Nausea or Vomiting: Yes Headache: No Abdominal Pain: Yes Diarrhea(3 or more loose stools in last 24 hours): No - Do you have any of the following Chronic lung disease: Asthma or emphysema or COPD: No Cystic Fibrosis: No Diabetes: Yes High Blood Pressure: Yes Cardiovascular Disease: No Chronic Kidney Disease: Yes Chronic Kidney Disease Comment: Patient is on dialysis. Chronic Liver Disease: No Chronic blood disorder like Sickle Cell Disease: No Weak immune system due to disease or medication: No Neurologic condition that limits movement: No Developmental delay - Moderate to Severe: No Recent (within past 2 weeks) or current : No Morbid Obesity (>100 pounds over ideal weight): No - Objective Temperature: 97.9 F Pulse Rate: 101 Respiratory Rate: 16 Blood Pressure: 187/93 O2 Sat by Pulse Oximetry: 85 Objective: Patient is a 38-year-old male who presents today for COVID-19 screening. Disposition: Home; Selfcare General - General Stated Complaint: Upper respiratory symptoms x4 days Mode of Arrival: Ambulatory Information source: Patient Notes: The patient was evaluated during the global COVID-19 pandemic. That diagnosis was suspected/considered upon initial presentation. Their evaluation, treatment, and testing was consistent with current guidelines for patients who present with complaints or symptoms that may be related to COVID-19. - HPI Patient complains to provider of: Upper respiratory symptoms Onset: Other - 4 days Onset/Duration: Persistent Quality of pain: No pain Associated symptoms: Diarrhea, Fever, Nausea, Vomiting Exacerbated by: Denies Relieved by: Denies Similar symptoms previously: No Recently seen / treated by doctor: No - Related Data Allergies/Adverse Reactions: heparin Allergy (Verified 03/21/19 22:16) pork derived (porcine) [Pork derived (porcine)] Allergy (Verified 03/21/19 22:16) Past Medical History - General Information source: Patient - Social History Smoking Status: Former Smoker Cigarette use (# per day): No - Patient reports he quit several years ago Chew tobacco use (# tins/day): No Smoking Education Provided: Yes Frequency of alcohol use: Occasional Drug Abuse: None Occupation: Disabled Lives with: Family Family History: Reviewed & Not Pertinent, Arthritis, CAD, CVA, DM, Hyperlipidemia, Hypertension, Malignancy, Thyroid Disfunction, Other - Chronic kidney disease - Past Medical History Cardiac Medical History: Reports: Hx Hypercholesterolemia, Hx Hypertension Denies: Hx Congestive Heart Failure, Hx Coronary Artery Disease, Hx DVT, Hx Heart Attack, Hx Pulmonary Embolism Pulmonary Medical History: Reports: Hx Pneumonia Denies: Hx Asthma, Hx Bronchitis, Hx COPD Neurological Medical History: Reports: Hx Migraine. Denies: Hx Cerebrovascular Accident, Hx Seizures Endocrine Medical History: Reports: Hx Diabetes Mellitus Type 1 - on insulin pump, Hx Diabetes Mellitus Type 2 - On insulin pump. Denies: Hx Hyperthyroidism, Hx Hypothyroidism Renal/ Medical History: Reports: Hx End Stage Renal Disease - Stage IV renal failure, Hx Hemodialysis, Hx Renal Insufficiency - normal creatinins 3 to 4 now.. Denies: Hx Peritoneal Dialysis GI Medical History: Reports: Hx Gastroesophageal Reflux Disease. Denies: Hx Cir rhosis, Hx Hepatitis Musculoskeletal Medical History: Denies Hx Arthritis, Reports Hx Musculoskeletal Trauma Skin Medical History: Reports Hx Cellulitis, Denies Hx Eczema, Reports Hx MRSA, Denies Hx Psoriasis Psychiatric Medical History: Reports: Hx Depression Traumatic Medical History: Reports: Hx Fractures Infectious Medical History: Reports: Hx MRSA - S/P I & D multiple skin abscesses in past. Denies: Hx Hepatitis Past Surgical History: Reports: Hx Oral Surgery, Hx Thyroid Surgery - Patient states that would removed due to cancer, Hx Vascular Surgery - Left AV Fistula Physical Exam - General In distress: None Notes: PHYSICAL EXAMINATION: GENERAL: Well-appearing and in no acute distress. HEAD: Atraumatic, normocephalic. EYES: sclera anicteric, conjunctiva are normal. ENT: nares patent. Moist mucous membranes. NECK: Normal range of motion, supple without lymphadenopathy. LUNGS: CTAB and equal. No wheezes rales or rhonchi. HEART: Regular rate and rhythm without murmurs. EXTREMITIES: Normal range of motion, no pitting edema. No cyanosis. BACK: No midline or CVA tenderness. NEUROLOGICAL: Cranial nerves grossly intact. Normal speech. PSYCH: Normal mood, normal affect. SKIN: Warm, Dry, normal color and turgor, no obvious lesions or rash noted. Diagnostic Results Laboratory Results: Patient advised at this time they are considered a Person Under Investigation (PUI) for the COVID-19 Coronavirus. They have been made aware it is currently taking 3-5 days to receive their results, and [facility] Department will call to advise them of their result, whether it is POSITIVE or NEGATIVE. Patient Education/Counseling Counseling/Education: Patient presents with upper respiratory symptoms worrisome for possible COVID- 19. Patient does not have symptoms worrisome as an emergency such as difficulty breathing, shortness of breath, chest pain, pressure, confusion or cyanosis. Patient appears suitable for discharge. Patient's vital signs are stable and patient is nontoxic in appearance. Good return precautions have been discussed with patient, patient verbalized understanding and is agreeable with discharge plan of care at this time. Patient provided COVID-19 discharge instructions to include: As a person under investigation for COVID-19, the [facility] of Health and Human Services, division of public health advises you to adhere to the following guidance until your test results are reported to you. If your test result is positive, you will receive additional information from your provider and your local health department at that time. Remain at home until you are cleared by the health provider or public health authorities. Keep a log of visitors to your home, notify any visitors to your home of your isolation status. If you plan to move to a new address or leave the [facility], notify the local [facility] department in your [facility]. Call your doctor or seek care if you have an urgent medical need. Before seeking medical care, call ahead to get instructions from the provider before arriving at the medical office clinic or hospital. Notify them that you are being tested for the virus that causes COVID-19 so that arrangements can be made, as necessary, to prevent transmission to others in the healthcare setting. Next, notify the local health department in your county. If a medical emergency arises and you need to call 911, inform dispatch and the first responders that you are being tested for the virus that causes COVID-19. Next, notify the local health department in your county. Patient provided education on smoking cessation and the harmful effects of smoking, especially in the presence of Co-morbid conditions such as Hypertension, Diabetes, and/or other chronic illnesses. Patient verbalized understanding of smoking cessation education, and the increased health benefits of quitting. Guidance for worsening S/SX: For worsening symptoms, patient has been advised to contact their Primary Care Provider, or go to the nearest Emergency Department. RDC Discharge - Discharge Clinical Impression: COVID-19 Screening URI (upper respiratory infection) Qualifiers: URI type: unspecified URI Qualified Code(s): J06.9 - Acute upper respiratory infection, unspecified Condition: Stable Disposition: Home; Selfcare
[2019-09-15 12:22] VITALS: BP 187/93
== END ==
LOC: RDC 11:48
PROVIDERS: ATTEND Nurse Practitioner Family
DX: J06.9 Acute upper respiratory infection, unspecified (principal); Z20.828 Contact with and (suspected) exposure to other viral communicable diseases; R50.9 Fever, unspecified; R11.2 Nausea with vomiting, unspecified; R10.9 Unspecified abdominal pain; I12.0 Hypertensive chronic kidney disease with stage 5 chronic kidney disease or end stage renal disease; N18.5 Chronic kidney disease, stage 5; E11.22 Type 2 diabetes mellitus with diabetic chronic kidney disease; Z79.4 Long term (current) use of insulin; Z96.41 Presence of insulin pump (external) (internal); R19.7 Diarrhea, unspecified; E78.00 Pure hypercholesterolemia, unspecified; Z87.01 Personal history of pneumonia (recurrent); Z87.891 Personal history of nicotine dependence; Z88.8 Allergy status to other drugs, medicaments and biological substances; Z91.018 Allergy to other foods
CPT/HCPCS: 87635; 99211

== ENCOUNTER 2019-09-19 00:24 | Emergency (ER) | payer MEDICAID ==
--- NOTE | 2019-09-19 01:44 | ER Document Report ---
ED General - General Chief Complaint: voimting Stated Complaint: vomiting/body pain Time Seen by Provider: 09/19/19 00:51 Primary Care Provider: KARELY SEAY DO [Primary Care Provider] - Follow up as needed Mode of Arrival: Ambulatory Information source: Patient Notes: 38-year-old man who presents to the emergency department with a complaint of aching pain all over her with associated nausea and vomiting. Apparently he is a dialysis patient and was dialyzed today. He has been using oxycodone for his chronic pain, however, has been out of medications for the past 3 days. He states he had a fever at home yesterday, he is afebrile in the emergency department tonight. TRAVEL OUTSIDE OF THE [place] IN LAST 30 DAYS: No - Related Data Allergies/Adverse Reactions: heparin Allergy (Verified 03/21/19 22:16) pork derived (porcine) [Pork derived (porcine)] Allergy (Verified 03/21/19 22:16) Home Medications: ASa, Eloquist, Lipitor, Lasix, Calcitiriol, Hydralizine, C inaicalet, Isosoride, Ropinirole, Diltiazem, Fenobibrate, humalog, oxycodone, Zofran Past Medical History - Social History Smoking Status: Former Smoker Chew tobacco use (# tins/day): No Frequency of alcohol use: None Drug Abuse: None Family History: Reviewed & Not Pertinent, Arthritis, CAD, CVA, DM, Hyperlipidemia, Hypertension, Malignancy, Thyroid Disfunction, Other - Chronic kidney disease Patient has homicidal ideation: No - Past Medical History Cardiac Medical History: Reports: Hx Hypercholesterolemia, Hx Hypertension Denies: Hx Congestive Heart Failure, Hx Coronary Artery Disease, Hx DVT, Hx Heart Attack, Hx Pulmonary Embolism Pulmonary Medical History: Reports: Hx Pneumonia Denies: Hx Asthma, Hx Bronchitis, Hx COPD Neurological Medical History: Reports: Hx Migraine. Denies: Hx Cerebrovascular Accident, Hx Seizures Endocrine Medical History: Reports: Hx Diabetes Mellitus Type 1 - on insulin pump, Hx Diabetes Mellitus Type 2 - On insulin pump. Denies: Hx Hyperthyroidism, Hx Hypothyroidism Renal/ Medical History: Reports: Hx End Stage Renal Disease - Stage IV renal failure, Hx Hemodialysis, Hx Renal Insufficiency - normal creatinins 3 to 4 no w.. Denies: Hx Peritoneal Dialysis GI Medical History: Reports: Hx Gastroesophageal Reflux Disease. Denies: Hx Cirrhosis, Hx Hepatitis Musculoskeletal Medical History: Denies Hx Arthritis, Reports Hx Musculoskeletal Trauma Skin Medical History: Reports Hx Cellulitis, Denies Hx Eczema, Reports Hx MRSA, Denies Hx Psoriasis Psychiatric Medical History: Reports: Hx Depression Traumatic Medical History: Reports: Hx Fractures Infectious Medical History: Reports: Hx MRSA - S/P I & D multiple skin abscesses in past. Denies: Hx Hepatitis Past Surgical History: Reports: Hx Oral Surgery, Hx Thyroid Surgery - Patient states that would removed due to cancer, Hx Vascular Surgery - Left AV Fistula - Immunizations Hx Diphtheria, Pertussis, Tetanus Vaccination: No Review of Systems - Review of Systems Notes: Constitutional: Negative for fever. HENT: Negative for sore throat. Eyes: Negative for visual changes. Cardiovascular: Negative for chest pain. Respiratory: Negative for shortness of breath. Gastrointestinal: Negative for abdominal pain, vomiting or diarrhea. Genitourinary: + Nausea Musculoskeletal: + Myalgia Skin: Negative for rash. Neurological: Negative for headaches, weakness or numbness. 10 point ROS negative except as marked above and in HPI. Physical Exam - Vital signs Vitals: Temp Pulse Resp BP Pulse Ox 98.7 F 103 H 18 186/92 H 94 09/19/19 00:30 09/19/19 00:30 09/19/19 00:30 09/19/19 00:30 09/19/19 00:30 - Notes Notes: PHYSICAL EXAMINATION: Physical Exam: General: Well-nourished well-developed in no acute distress HEENT: NC/AT, pupils equal round and reactive to light, MM moist,nares clear, oropharynx clear, airway patent Neck: supple, no adenopathy, no masses. Good range of motion Lungs: clear, no wheezing, no rales no rhonchi CVS: Regular rate and rhythm no murmur gallop or rub Abdomen: Soft, active, nontender, no masses, no hepatosplenomegaly Ext: Dialysis shunt left arm. Neuro: Alert and responsive, moving all 4 extremities on command, cranial nerves intact, no focal findings Skin: Intact no open lesions, no rash PSYCH: Normal mood, normal affect. Course - Vital Signs Vital signs: Temp Pulse Resp BP Pulse Ox 98.7 F 103 H 18 186/92 H 94 09/19/19 01:12 09/19/19 00:30 09/19/19 00:30 09/19/19 00:30 09/19/19 00:30 - Laboratory Result Diagrams: 09/19/19 02:25 09/19/19 02:25 Laboratory results interpreted by me: 09/19/19 09/19/19 02:25 02:25 RBC 3.71 L Hgb 10.5 L Hct 31.4 L RDW 15.6 H Sodium 136.4 L Chloride 93 L BUN 71 H Creatinine 16.18 H Est GFR ( Amer) 4 L Est GFR (MDRD) Non-Af 3 L Glucose 274 H I have reviewed laboratory data and used this information for the treatment decisions regarding the patient. Discharge - Discharge Clinical Impression: Generalized body aches, Opiate withdrawal, ESRD (end stage renal disease) on dialysis Nausea and vomiting Qualifiers: Vomiting type: unspecified Vomiting Intractability: unspecified Qualified Code(s): R11.2 - Nausea with vomiting, unspecified Condition: Good Disposition: HOME, SELF-CARE Instructions: Antinausea Medication ([facility]) Additional Instructions: You were treated with nausea vomiting and body aches and pains in the emergency department tonight. The symptoms may be related to your opiate withdrawal given you have been unable to get a prescription for your pain medication during the past 5 days. You have been given Zofran and hydrocodone in the emergency department tonight. Please contact your primary physician regarding your usual medications. HOME CARE INSTRUCTIONS & INFORMATION: Thank you for choosing us for your medical needs. We hope you're satisfied with the care you received. After you leave, you must properly care for your problem and, at the same time, observe its progress. Any condition can change. Some illnesses can change rapidly over hours or days. If your condition worsens, return to the Emergency Department or see your physician promptly. ABOUT YOUR X-RAYS AND EKG'S: If you had an EKG or X-rays taken, they have been read by the Emergency Physician. The X-rays and EKG's will also be read by a Radiologist or Arterial Embalmer within 24 hours. If discrepancies are noted, you will be notified by telephone. Please be certain the ED has a correct telephone number & address where you can be reached. Also, realize that some fractures or abnormalities do not show up on initial X-rays. If your symptoms continue, see your physician. ABOUT YOUR LABORATORY TEST: If you had laboratory tests, the results have been reviewed by the Emergency Physician. Some test results (for example cultures) may not be available for several days. You will be contacted if any test result shows you need additional treatment. Please be certain the ED has a correct telephone number and address where you can be reached. ABOUT YOUR MEDICATIONS: You will receive instructions on how to take your medicine on the prescription label you receive. Additional information may be provided by the Pharmacy. If you have questions afterwards, call the ED for clarification or further instructions. Some prescribed medications may cause drowsiness. Do not perform tasks such as driving a car or operating machinery without consulting your Pharmacist. If you feel you need a refill of pain medication, your condition will need re-evaluation. Please do not call for a refill of any medication. ABOUT YOUR SIGNATURE: Signature of this document acknowledges to followin. Understanding that you received emergency treatment and that you may be released before al medical problems are known or treated. Please be certain the ED has a correct phone number & address where you can be reached. 2. Acknowledgement that you will arrange for follow-up care as recommended. 3. Authorization for the Emergency Physician to provide information to your follow-up Physician in order to maximize your care. AT ANY TIME, IF YOUR SYMPTOMS CHANGE SIGNIFICANTLY OR WORSEN OR YOU DEVELOP NEW SYMPTOMS, RETURN TO THE EMERGENCY DEPARTMENT IMMEDIATELY FOR RE-EVALUATION. OUR GOAL IS TO PROVIDE EXCELLENT MEDICAL CARE! WE HOPE THAT WE HAVE MET YOUR EXPECTATIONS DURING YOUR EMERGENCY DEPARTMENT VISIT AND THAT YOU FEEL YOU HAVE RECEIVED EXCELLENT CARE! Prescriptions: Ondansetron [Zofran Odt 4 mg Tablet] 1 - 2 tab PO Q4H PRN #15 tab.rapdis PRN Reason: For Nausea/Vomiting Referrals: KARELY SEAY DO [Primary Care Provider] - Follow up as needed
[2019-09-19] MEDS ORDERED: ONDANSETRON 4 MG TAB.RAPDIS PO ONE (02:17)
[2019-09-19] MEDS ORDERED: OXYCODONE HCL IR 5 MG TABLET PO ONE (02:18)
[2019-09-19 02:46] LABS: ABSOLUTE BASOPHILS # (AUTO) 0.1 10^3/uL (0.0-0.2); ABSOLUTE EOSINOPHILS # (AUTO) 0.2 10^3/uL (0.0-0.6); ABSOLUTE LYMPHOCYTES (AUTO) 2.2 10^3/uL (0.5-4.7); ABSOLUTE MONOCYTES (AUTO) 0.9 10^3/uL (0.1-1.4); ABSOLUTE NEUT (AUTO) 5.6 10^3/uL (1.7-8.2); EOSINOPHILS % (AUTO) 1.9 % (0-6); HEMATOCRIT 31.4 % (37.9-51.0); HEMOGLOBIN 10.5 g/dL (13.5-17.0); LYMPHOCYTES % (AUTO) 24.4 % (13-45); MEAN CORPUSCULAR HEMOGLOBIN 28.3 pg (27.0-33.4); MEAN CORPUSCULAR HGB CONC 33.4 g/dL (32.0-36.0); MEAN CORPUSCULAR VOLUME 85 fl (80-97); MONOCYTES % (AUTO) 10.1 % (3-13); PLATELET COUNT 364 10^3/uL (150-450); RED BLOOD COUNT 3.71 10^6/uL (4.35-5.55); RED CELL DISTRIBUTION WIDTH 15.6 % (11.5-14.0); SEGMENTED NEUTROPHILS % (AUTO) 62.6 % (42-78); TOTAL CELLS COUNTED % (AUTO) 100 %; WHITE BLOOD COUNT 8.9 10^3/uL (4.0-10.5)
--- NOTE | 2019-09-19 02:58 | RADIOLOGY REPORT (SQ) ---
CLINICAL INDICATION: Shortness of breath. TECHNIQUE: A single portable AP view was obtained of the chest at 0 158 hours. COMPARISON: March 22, 2019. FINDINGS: The cardiomediastinal silhouette is prominent but stable. The lungs are grossly clear. No evidence of effusion or pneumothorax. The visualized bones are unremarkable. IMPRESSION: No evidence of active intrathoracic disease. Lungs grossly clear
[2019-09-19 03:00] LABS: ALBUMIN 3.9 g/dL (3.5-5.0); ALKALINE PHOSPHATASE 51 U/L (38-126); ANION GAP 16 (5-19); ASPARTATE AMINO TRANSFERASE 21 U/L (17-59); BILIRUBIN,DIRECT 0.4 mg/dL (0.0-0.4); BILIRUBIN,TOTAL 0.5 mg/dL (0.2-1.3); BLOOD UREA NITROGEN 71 mg/dL (7-20); CALCIUM 8.5 mg/dL (8.4-10.2); CARBON DIOXIDE 27 mmol/L (22-30); CHLORIDE 93 mmol/L (98-107); GLUCOSE 274 mg/dL (75-110); POTASSIUM 3.9 mmol/L (3.6-5.0); TOTAL PROTEIN 7.2 g/dL (6.3-8.2)
[2019-09-19] MEDS ORDERED: ONDANSETRON ODT 4 MG TAB (6 TAB/ER DISP) PO PRN (03:50)
[2019-09-19] MEDS ORDERED: HYDROCODONE/ACETAMINOPHEN 5-325 MG (6 TAB/ER DISP) PO PRN (03:51)
[2019-09-19 03:56] VITALS: BP 188/86
== END 2019-09-19 04:08 | disposition home or self-care (01) ==
LOC: ER 00:24
DX: F11.23 Opioid dependence with withdrawal (principal); R11.2 Nausea with vomiting, unspecified; G89.29 Other chronic pain; I12.0 Hypertensive chronic kidney disease with stage 5 chronic kidney disease or end stage renal disease; E11.22 Type 2 diabetes mellitus with diabetic chronic kidney disease; N18.6 End stage renal disease; Z96.41 Presence of insulin pump (external) (internal); Z99.2 Dependence on renal dialysis; E78.00 Pure hypercholesterolemia, unspecified; E89.0 Postprocedural hypothyroidism; Z79.82 Long term (current) use of aspirin; Z79.899 Other long term (current) drug therapy; Z79.4 Long term (current) use of insulin; Z87.891 Personal history of nicotine dependence
CPT/HCPCS: 99284; 36415; 83605; 85025; 80053; 71045; S0119; J3490

== ENCOUNTER → 2019-09-25 | Outpatient (CLI) | payer MEDICAID ==
--- NOTE | 2019-09-25 14:50 | RADIOLOGY REPORT (SQ) ---
EXAM DESCRIPTION: MRA HEAD WITHOUT IMAGES COMPLETED DATE/TIME: 09/25/2019 2:24 pm REASON FOR STUDY: I63.9 CEREBRAL INFARCTION, UNSPECIFIED I63.9 CEREBRAL INFARCTION, UNSPECIFIED COMPARISON: None. TECHNIQUE: Axial 3-D [id number] acquisition imaging performed through the brain in the area of t he [place]. Images reformatted using 3-D MIPS. LIMITATIONS: None. FINDINGS: SOURCE IMAGES: No unexpected findings on source images. No large masses. 3-D MIP: No aneurysm. No occlusions. No significant stenosis. OTHER: No other significant finding. IMPRESSION: NORMAL MRA OF THE [place]. TECHNICAL DOCUMENTATION: JOB ID: [id number] 2010 [employer]- All Rights Reserved Reading location - IP/workstation name: [email or web address]
== END ==
LOC: RAD 13:44
PROVIDERS: ATTEND Specialist
DX: I63.9 Cerebral infarction, unspecified (principal)
CPT/HCPCS: 70544

== ENCOUNTER 2019-09-30 03:04 | Emergency (ER) | payer MEDICAID ==
[2019-09-30] MEDS ORDERED: OXYCODONE-ACETAMINOPHEN 5-325 MG TABLET PO ONE (03:37)
[2019-09-30] MEDS ORDERED: TRANEXAMIC ACID INJ/PF 1,000 MG/10 ML SDV NEB ONE (03:37)
[2019-09-30] MEDS ORDERED: PROMETHAZINE HCL 25 MG TABLET PO ONE (03:37)
--- NOTE | 2019-09-30 03:39 | ER Document Report ---
ED Oral Problem - General Chief Complaint: Abscess Stated Complaint: MOUTH PAIN Time Seen by Provider: 09/30/19 03:11 Notes: Patient is a 38-year-old male that comes emergency department for chief complaint of bleeding from the right upper gumline. He states that he was eating peanut butter brittle when he suddenly started bleeding heavily from the area. He does wear a denture piece that contacts the area. Patient is on Eliquis after a TIA. Patient also states that after he started bleeding he started to feel lightheaded. He denies coughing out or vomiting up blood. He denies passing out. He denies any other symptoms. Patient is a dialysis patient, he states that he had dialysis earlier today. TRAVEL OUTSIDE OF THE [place] IN LAST 30 DAYS: No - Related Data Allergies/Adverse Reactions: heparin Allergy (Verified 03/21/19 22:16) pork derived (porcine) [Pork derived (porcine)] Allergy (Verified 03/21/19 22:16) Past Medical History - General Information source: Patient - Social History Smoking Status: Former Smoker Frequency of alcohol use: None Drug Abuse: None Lives with: Family Family History: Reviewed & Not Pertinent, Arthritis, CAD, CVA, DM, H yperlipidemia, Hypertension, Malignancy, Thyroid Disfunction, Other - Chronic kidney disease Patient has homicidal ideation: No - Past Medical History Cardiac Medical History: Reports: Hx Hypercholesterolemia, Hx Hypertension Denies: Hx Congestive Heart Failure, Hx Coronary Artery Disease, Hx DVT, Hx Heart Attack, Hx Pulmonary Embolism Pulmonary Medical History: Reports: Hx Pneumonia Denies: Hx Asthma, Hx Bronchitis, Hx COPD Neurological Medical History: Reports: Hx Migraine. Denies: Hx Cerebrovascular Accident, Hx Seizures Endocrine Medical History: Reports: Hx Diabetes Mellitus Type 1 - on insulin pump, Hx Diabetes Mellitus Type 2 - On insulin pump. Denies: Hx Hyperthyroidism, Hx Hypothyroidism Renal/ Medical History: Reports: Hx End Stage Renal Disease - Stage IV renal failure, Hx Hemodialysis, Hx Renal Insufficiency - normal creatinins 3 to 4 now.. Denies: Hx Peritoneal Dialysis GI Medical History: Reports: Hx Gastroesophageal Reflux Disease. Denies: Hx Cirrhosis, Hx Hepatitis Musculoskeletal Medical History: Denies Hx Arthritis, Reports Hx Musculoskeletal Trauma Skin Medical History: Reports Hx Cellulitis, Denies Hx Eczema, Reports Hx MRSA, Denies Hx Psoriasis Psychiatric Medical History: Reports: Hx Depression Traumatic Medical History: Reports: Hx Fractures Infectious Medical History: Reports: Hx MRSA - S/P I & D multiple skin abscesses in past. Denies: Hx Hepatitis Past Surgical History: Reports: Hx Oral Surgery, Hx Thyroid Surgery - Patient states that would removed due to cancer, Hx Vascular Surgery - Left AV Fistula - Immunizations Hx Diphtheria, Pertussis, Tetanus Vaccination: Yes Review of Systems - Review of Systems Constitutional: No symptoms reported EENT: See HPI Cardiovascular: No symptoms reported Respiratory: No symptoms reported Gastrointestinal: No symptoms reported Genitourinary: No symptoms reported Male Genitourinary: No symptoms reported Musculoskeletal: No symptoms reported Skin: No symptoms reported Hematologic/Lymphatic: No symptoms reported Neurological/Psychological: No symptoms reported Physical Exam - Vital signs Vitals: Temp 98.4 F 09/30/19 03:12 - Notes Notes: GENERAL: Alert, interacts well. HEAD: Normocephalic, atraumatic. EYES: Pupils equal, round, and reactive to light. Extraocular movements intact. ENT: Oral mucosa moist, tongue midline. Oropharynx unremarkable. Airway patent. There is what appears to be an approximately 1 cm laceration into the gum in the right upper gumline, there are no adjacent teeth, there is no significant erythema, there is no purulent drainage. Bleeding is moderate but continuous. No other wounds or concerning findings noted. Nares patent, sinuses non-tender NECK: Full range of motion. Supple. Trachea midline. No lymphadenopathy. LUNGS: Clear to auscultation bilaterally, no wheezes, rales, or rhonchi. No respiratory distress. HEART: Regular rate and rhythm. No murmur ABDOMEN: Soft, non-tender. Non-distended. EXTREMITIES: Moves all 4 extremities spontaneously. No edema, normal radial and dorsalis pedis pulses bilaterally. No cyanosis. BACK: no cervical, thoracic, lumbar midline tenderness. No saddle anesthesia, normal distal neurovascular exam. Moves all extremities in full range of motion. NEUROLOGICAL: Alert and oriented x3. Normal speech. Cranial nerves II through XII grossly intact. SKIN: Warm, dry, normal turgor. No rashes or lesions noted. Course - Re-evaluation Re-evalutation: CBC does not show significant drop in hemoglobin, patient was initially very anxious but cooperative. Patient is borderline tachycardic and hypertensive. Patient does have notable bleeding from what appears to be a wound, probably from the food patient was eating. I do not see any dental abscess, signs of infection. Bleeding is moderate, patient is not choking, has not been coughing up blood or vomiting blood. Patient is able to stand without dizziness. Initially attempted TXA but this was unsuccessful in stopping the bleeding. Because I could not get the bleeding to stop with even TXA on 4 x 4 with pressure to the area I discussed with Dr. Malhotra will evaluate the patient. Dr. Malhotra evaluated the patient and placed to absorbable sutures in the area which did stop the bleeding. Patient was placed on Keflex, he will follow-up with his dentist, patient states he has close follow-up because he is being evaluated by his provider to see if they can take him off Eliquis as well (he states he had an MRI of the brain and if this is normal there would be no indication and he will be taken off). Discussed return precautions. Patient states understanding and agreement. - Vital Signs Vital signs: Temp Pulse Resp BP Pulse Ox 98.8 F 106 H 15 189/106 H 96 09/30/19 06:22 09/30/19 06:22 09/30/19 06:22 09/30/19 06:22 09/30/19 06:22 - Laboratory Result Diagrams: 09/30/19 03:54 Laboratory results interpreted by me: 09/30/19 03:54 WBC 11.5 H RBC 3.55 L Hgb 10.0 L Hct 29.7 L RDW 15.4 H Procedures - Laceration/Wound Repair right upper gumline Wound length (cm): 1 Wound's Depth, Shape: Linear Laceration pre-procedure: Sterile PPE donned, Sterile drapes applied, Shur-Clens applied Anesthetic type: 1% Lidocaine w/epi Volume Anesthetic (mLs): 2 Wound explored: Clean, No foreign body removed Wound Repaired With: Sutures Suture Size/Type: Vicryl, 3:0 Number of Sutures: 2 Layer Closure?: No Post-procedure NV exam normal: Yes Complications: No Notes: Performed by Dr. Malhotra. Discharge - Discharge Clinical Impression: Laceration of mouth Qualifiers: Encounter type: initial encounter Qualified Code(s): S01.512A - Laceration without foreign body of oral cavity, initial encounter Condition: Stable Disposition: HOME, SELF-CARE Additional Instructions: For your bleeding because of the wound we had to place 2 absorbable sutures. T hese should dissolve with time. Please follow-up with your dentist closely for reevaluation. Take the antibiotic as prescribed to avoid infection to the area. The area will probably ooze some blood for the first 2 days, avoid any extremes of temperatures or very abrasive foods. You can swish and spit to rinse your mouth. Return for any concerning symptoms including severe worsening pain or swelling, heavy bleeding, drainage of pus, fever, or any other concerning symptoms. Prescriptions: Cephalexin Monohydrate [Keflex 500 mg Capsule] 500 mg PO BID 7 Days #14 capsule
[2019-09-30 04:10] LABS: HEMATOCRIT 29.7 % (37.9-51.0); MEAN CORPUSCULAR HEMOGLOBIN 28.2 pg (27.0-33.4); MEAN CORPUSCULAR HGB CONC 33.6 g/dL (32.0-36.0); MEAN CORPUSCULAR VOLUME 84 fl (80-97); PLATELET COUNT 366 10^3/uL (150-450); RED BLOOD COUNT 3.55 10^6/uL (4.35-5.55); RED CELL DISTRIBUTION WIDTH 15.4 % (11.5-14.0); WHITE BLOOD COUNT 11.5 10^3/uL (4.0-10.5)
[2019-09-30 04:28] LABS: ABSOLUTE LYMPHOCYTES# (MANUAL) 2.9 10^3/uL (0.5-4.7); ABSOLUTE MONOCYTES # (MANUAL) 0.8 10^3/uL (0.1-1.4); BASOPHILS % (MANUAL) 0 % (0-2); EOSINOPHILS % (MANUAL) 2 % (0-6); LYMPHOCYTES % (MANUAL) 25 % (13-45); MONOCYTES % (MANUAL) 7 % (3-13); SEGMENTED NEUTROPHILS % (MAN) 66 % (42-78); TOTAL CELLS COUNTED 100
[2019-09-30 04:30] LABS: ANISOCYTOSIS SLIGHT; PLATELET COMMENT ADEQUATE; SCHISTOCYTES SLIGHT; TEAR DROP CELLS SLIGHT; TOXIC GRANULATION SLIGHT
[2019-09-30] MEDS ORDERED: TRANEXAMIC ACID INJ/PF 1,000 MG/10 ML SDV TOP ONE (04:44)
[2019-09-30] MEDS ORDERED: LIDOCAINE 2%/EPINEPHRINE INJ 20 ML VIAL ONE (05:43)
[2019-09-30] MEDS ORDERED: LIDOCAINE 2%/EPINEPHRINE INJ 20 ML VIAL INJ ONE (06:03)
[2019-09-30 06:22] VITALS: BP 189/106
== END 2019-09-30 06:22 | disposition home or self-care (01) ==
LOC: ER 03:04
DX: S01.512A Laceration without foreign body of oral cavity, initial encounter (principal); X58.XXXA Exposure to other specified factors, initial encounter; I12.9 Hypertensive chronic kidney disease with stage 1 through stage 4 chronic kidney disease, or unspecified chronic kidney disease; E11.22 Type 2 diabetes mellitus with diabetic chronic kidney disease; N18.9 Chronic kidney disease, unspecified; Z99.2 Dependence on renal dialysis; Z86.73 Personal history of transient ischemic attack (TIA), and cerebral infarction without residual deficits; Z79.01 Long term (current) use of anticoagulants; Z97.2 Presence of dental prosthetic device (complete) (partial); Z88.8 Allergy status to other drugs, medicaments and biological substances; Z91.018 Allergy to other foods; Z87.891 Personal history of nicotine dependence
CPT/HCPCS: 94640; 99283; 36415; 85025; 41899; J3490 ×3

== ENCOUNTER 2019-12-25 02:41 | Emergency (ER) | payer MEDICAID ==
[2019-12-25] MEDS ORDERED: HYDROMORPHONE HCL INJ/PF 2 MG/ML AMPULE IM ONE (08:39)
--- NOTE | 2019-12-25 08:52 | ER Document Report ---
ED Extremity Problem, Lower - General Chief Complaint: Leg Pain Stated Complaint: LEG PAIN Time Seen by Provider: 12/25/19 08:07 Primary Care Provider: KARELY SEAY DO [Primary Care Provider] - Follow up tomorrow Notes: Patient is a 39-year-old male with a history of end-stage renal disease on dialysis who presents the emergency department with right leg pain. Patient states that he has pain at the anterior portion of his right thigh. Patient states that his pain started a few years ago. Patient is a everyday smoker. TRAVEL OUTSIDE OF THE [place] IN LAST 30 DAYS: No - Related Data Allergies/Adverse Reactions: heparin Allergy (Verified 03/21/19 22:16) pork derived (porcine) [Pork derived (porcine)] Allergy (Verified 03/21/19 22:16) Past Medical History - Social History Smoking Status: Current Every Day Smoker Frequency of alcohol use: None Drug Abuse: None Family History: Reviewed & Not Pertinent, Arthritis, CAD, CVA, DM, Hyperlipidemia, Hypertension, Malignancy, Thyroid Disfunction, Other - Chronic kidney disease Patient has homicidal ideation: No - Past Medical History Cardiac Medical History: Reports: Hx Hypercholesterolemia, Hx Hypertension Denies: Hx Congestive Heart Failure, Hx Coronary Artery Disease, Hx DVT, Hx Heart Attack, Hx Pulmonary Embolism Pulmonary Medical History: Reports: Hx Pneumonia Denies: Hx Asthma, Hx Bronchitis, Hx COPD Neurological Medical History: Reports: Hx Migraine. Denies: Hx Cerebrovascular Accident, Hx Seizures Endocrine Medical History: Reports: Hx Diabetes Mellitus Type 1 - on insulin pump, Hx Diabetes Mellitus Type 2 - On insulin pump. Denies: Hx Hyperthyroidism, Hx Hypothyroidism Renal/ Medical History: Reports: Hx End Stage Renal Disease - Stage IV renal failure, Hx Hemodialysis, Hx Renal Insufficiency - normal creatinins 3 to 4 now.. Denies: Hx Peritoneal Dialysis GI Medical History: Reports: Hx Gastroesophageal Reflux Disease. Denies: Hx Cirrhosis, Hx Hepatitis Musculoskeletal Medical History: Denies Hx Arthritis, Reports Hx Musculoskeletal Trauma Skin Medical History: Reports Hx Cellulitis, Denies Hx Eczema, Reports Hx MRSA, Denies Hx Psoriasis Psychiatric Medical History: Reports: Hx Depression Traumatic Medical History: Reports: Hx Fractures Infectious Medical History: Reports: Hx MRSA - S/P I & D multiple skin abscesses in past. Denies: Hx Hepatitis Past Surgical History: Reports: Hx Oral Surgery, Hx Thyroid Surgery - Patient states that would removed due to cancer, Hx Vascular Surgery - Left AV Fistula - Immunizations Hx Diphtheria, Pertussis, Tetanus Vaccination: Yes Review of Systems - Review of Systems Notes: REVIEW OF SYSTEMS: CONSTITUTIONAL : Denies recent illness. Denies recent unintentional weight loss. Denies fever, chills, or sweats. EENT: Denies eye, ear, throat, or mouth pain, discharge, or symptoms. Denies nasal or sinus congestion. CARDIOVASCULAR: Denies chest pain. RESPIRATORY: Denies shortness of breath, cough, congestion, difficulty breathing, or wheezing. GASTROINTESTINAL: Denies nausea, vomiting, and diarrhea. Denies abdominal pain. Denies constipation. GENITOURINARY: Denies difficulty urinating, burning, blood in urine, urgency or frequency. MUSCULOSKELETAL: See HPI. SKIN: Denies rash, itchiness, or lesions HEMATOLOGIC : Denies easy bruising or bleeding. LYMPHATIC: Denies swollen, painful, enlarged glands. NEUROLOGICAL: Denies no numbness or tingling denies weakness. Denies headache. Denies altered mental status. Denies alteration in speech. PSYCHIATRIC: Denies stress, anxiety, alteration in sleep patterns, or depression. All other systems reviewed and negative. Physical Exam - Vital signs Vitals: Temp Pulse Resp BP Pulse Ox 98.6 F 87 17 175/98 H 95 12/25/19 02:49 12/25/19 02:49 12/25/19 02:49 12/25/19 02:49 12/25/19 02:49 - Notes Notes: PHYSICAL EXAMINATION: GENERAL: Appears well, healthy, well-nourished, no acute distress. HEAD: Normocephalic, atraumatic. EYES: PERRL, conjunctiva normal, all extraocular movements intact, sclera nonicteric ENT: Moist mucous membranes. NECK: Supple, no noticeable swelling, redness, rash. Normal range of motion. LUNGS: Equal breath sounds bilaterally and clear to auscultation. No wheezes rales or rhonchi. CARDIOVASCULAR: S1-S2, regular rate, regular rhythm. Radial pulses 2+, normal. ABDOMEN: Normoactive bowel sounds. Soft, nontender, no guarding, no rebound tenderness, and no masses palpated. EXTREMITIES: Normal strength and range of motion, no pitting or edema. No cyanosis. Tenderness noted to anterior right thigh. NEUROLOGICAL: Moves all extremities upon command. Strength 5/5 in all e xtremities. PSYCH: Normal mood, normal affect. SKIN: Warm, dry. No rash, lesions, ulcerations noted. Normal skin turgor. BACK: Tenderness noted to mid to right lower back. Course - Re-evaluation Re-evalutation: 12/25/19 10:25 Blood sugar is 135. Will give Decadron. No neurological deficits noted. I have low suspicion for cauda equina syndrome, epidural abscess, or any life- threatening etiology at this time. Follow-up precautions were given. Verbal discharge instructions were given to the patient. They verbalized un derstanding. They are stable for discharge. - Vital Signs Vital signs: Temp Pulse Resp BP Pulse Ox 98.6 F 87 17 175/98 H 95 12/25/19 02:49 12/25/19 02:49 12/25/19 02:49 12/25/19 02:49 12/25/19 02:49 - Laboratory Laboratory results interpreted by me: 12/25/19 10:16 POC Glucose 135 H Discharge - Discharge Clinical Impression: Leg pain Qualifiers: Laterality: right Qualified Code(s): M79.604 - Pain in right leg Back pain Qualifiers: Back pain location: low back pain Chronicity: acute Back pain laterality: right Sciatica presence: with sciatica Sciatica laterality: sciatica of right side Qu alified Code(s): M54.41 - Lumbago with sciatica, right side Condition: Stable Disposition: HOME, SELF-CARE Additional Instructions: You were seen today in the emergency department for right leg pain. He did not have a blood clot in your leg. This is very reassuring. You received Decadron, which is a steroid here in the emergency department. This should help with your leg and low back pain. Follow-up with your primary care provider tomorrow or the next day and see if you can get a referral for physical therapy. Referrals: KARELY SEAY DO [Primary Care Provider] - Follow up tomorrow
[2019-12-25] MEDS ORDERED: DEXAMETHASONE SOD PHOSPHATE INJ 4 MG/1 ML VIAL IM ONE (10:22)
[2019-12-25] MEDS ORDERED: DEXAMETHASONE SOD PHOSPHATE INJ 4 MG/1 ML VIAL ONE (10:24)
[2019-12-25 10:40] VITALS: BP 163/96
--- NOTE | 2019-12-25 11:26 | RADIOLOGY REPORT (SQ) ---
EXAM DESCRIPTION: VENOUS UNILATERAL LOWER IMAGES COMPLETED DATE/TIME: 12/25/2019 11:14 am REASON FOR STUDY: RLE pain/swelling COMPARISON: None. TECHNIQUE: Dynamic and static michael scale and color images acquired of the right leg venous system. S elected spectral images acquired with additional compression and augmentation maneuvers. The contrala teral common femoral vein and saphenofemoral junction were also imaged. Images stored on PACS. LIMITATIONS: None. FINDINGS: COMMON FEMORAL: Normal phasicity, compression and augmentation. No visualized echogenic ma terial on michael scale. No defects on color images. FEMORAL: Normal compression and augmentation. No visualized echogenic material on michael scale. No defe cts on color images. POPLITEAL: Normal compression, augmentation. No visualized echogenic material on michael scale. No defec ts on color images. CALF VESSELS: Normal compression, augmentation. No visualized echogenic material on michael scale. No de fects on color images. GSV and SSV: Normal compression, augmentation. No visualized echogenic material on michael scale. No def ects on color images. ANY DEEP VENOUS INSUFFICIENCY: No. ANY EVIDENCE OF POPLITEAL CYST: No. OTHER: No other significant finding. CONTRALATERAL COMMON FEMORAL VEIN AND SAPHENOFEMORAL JUNCTION: Normal phasicity, compression and augmentation. No visualized echogenic material on michael scale. No de fects on color images. IMPRESSION: NO EVIDENCE DVT OR SVT IN THE RIGHT LEG. TECHNICAL DOCUMENTATION: JOB ID: [id number] 2010 [employer]- All Rights Reserved Reading location - IP/workstation name: [email or web address]
== END 2019-12-25 10:48 | disposition home or self-care (01) ==
LOC: ER 02:41
DX: M54.41 Lumbago with sciatica, right side (principal); M79.604 Pain in right leg; I12.0 Hypertensive chronic kidney disease with stage 5 chronic kidney disease or end stage renal disease; E11.22 Type 2 diabetes mellitus with diabetic chronic kidney disease; N18.6 End stage renal disease; Z96.41 Presence of insulin pump (external) (internal); Z79.4 Long term (current) use of insulin
CPT/HCPCS: 99284; 96372; 82962; 93971; J1100; J1170

== ENCOUNTER 2020-04-18 23:00 | Emergency (ER) | payer MEDICAID ==
[2020-04-18] MEDS ORDERED: OXYCODONE-ACETAMINOPHEN 5-325 MG TABLET PO ONE (23:38)
--- NOTE | 2020-04-18 23:40 | ER Document Report ---
ED Medical Screen (RME) - General Chief Complaint: Skin Problem Stated Complaint: SKIN PROBLEM Time Seen by Provider: 04/18/20 23:33 Primary Care Provider: KARELY SEAY DO [Primary Care Provider] - Follow up as needed Mode of Arrival: Wheelchair Information source: Patient Notes: 29-year-old male presented to ED for boil to the right testicle. He states he had it a couple weeks ago got very big and it started draining and he got better but then 2 days ago started getting back again and now is very painful. He states that at 11 AM on dialysis he did take some Tylenol but has not had any since then. He states he is on oxycodone 15 mg but has not had any today. He states he does smoke half pack a day does not drink or use any illicit drugs. He states he does have a history of MRSA. I have ordered him 5 mg of Percocet in the triage area until he gets seen by a provider to assess his abscess. I have also ordered an ultrasound of the scrotum. I have greeted and performed a rapid initial assessment of this patient. A comprehensive ED assessment and evaluation of the patient, analysis of test results and completion of medical decision making process will be conducted by an additional ED providers. TRAVEL OUTSIDE OF THE [place] IN LAST 30 DAYS: No - Related Data Allergies/Adverse Reactions: heparin Allergy (Verified 03/21/19 22:16) pork derived (porcine) [Pork derived (porcine)] Allergy (Verified 03/21/19 22:16) Past Medical History - Past Medical History Cardiac Medical History: Reports: Hx Hypercholesterolemia, Hx Hypertension Denies: Hx Congestive Heart Failure, Hx Coronary Artery Disease, Hx DVT, Hx Heart Attack, Hx Pulmonary Embolism Pulmonary Medical History: Reports: Hx Pneumonia Denies: Hx Asthma, Hx Bronchitis, Hx COPD Neurological Medical History: Reports: Hx Migraine. Denies: Hx Cerebrovascular Accident, Hx Seizures Endocrine Medical History: Reports: Hx Diabetes Mellitus Type 1 - on insulin pump, Hx Diabetes Mellitus Type 2 - On insulin pump. Denies: Hx Hyperthyroidism, Hx Hypothyroidism Renal/ Medical History: Reports: Hx End Stage Renal Disease - Stage IV renal failure, Hx Hemodialysis, Hx Renal Insufficiency - normal creatinins 3 to 4 now.. Denies: Hx Peritoneal Dialysis GI Medical History: Reports: Hx Gastroesophageal Reflux Disease. Denies: Hx Cirrhosis, Hx Hepatitis Musculoskeltal Medical History: Denies Hx Arthritis, Reports Hx Musculoskeletal Trauma Skin Medical History: Reports Hx Cellulitis, Denies Hx Eczema, Reports Hx MRSA, Denies Hx Psoriasis Psychiatric Medical History: Reports: Hx Depression Traumatic Medical History: Reports: Hx Fractures Infectious Medical History: Reports: Hx MRSA - S/P I & D multiple skin abscesses in past. Denies: Hx Hepatitis Past Surgical History: Reports: Hx Oral Surgery, Hx Thyroid Surgery - Patient states that would removed due to cancer, Hx Vascular Surgery - Left AV Fistula - Immunizations Hx Diphtheria, Pertussis, Tetanus Vaccination: Yes Physical Exam - Vital signs Vitals: Temp Pulse Resp BP Pulse Ox 99.3 F 100 20 174/75 H 96 04/18/20 23:19 04/18/20 23:19 04/18/20 23:19 04/18/20 23:19 04/18/20 23:19 Course - Vital Signs Vital signs: Temp Pulse Resp BP Pulse Ox 99.3 F 100 20 174/75 H 96 04/18/20 23:19 04/18/20 23:19 04/18/20 23:19 04/18/20 23:19 04/18/20 23:19 Doctor's Discharge - Discharge Referrals: KARELY SEAY DO [Primary Care Provider] - Follow up as needed
--- NOTE | 2020-04-19 02:03 | RADIOLOGY REPORT (SQ) ---
Ultrasound scrotum and testicles on 04/19/2020 at 12:59 AM CLINICAL INDICATION: Right scrotal abscess COMPARISON: None FINDINGS: Multiple sonographic images are obtained throughout the scrotum and testicles, both transverse and sagittal images are obtained. 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 Testicles are otherwise homogeneous without evidence of an intratesticular mass. Flow is demonstrated within both testicles without evidence of torsion or definite unilateral increased flow to suggest epididymoorchitis. Left-sided varicocele is noted. There are trace bilateral hydroceles. No other extratesticular abnormality is noted. Specifically no fluid collection to suggest abscess is noted. IMPRESSION: 1. Small left varicocele. 2. Trace bilateral hydroceles. 3. Otherwise essentially unremarkable.
[2020-04-19] MEDS ORDERED: LIDOCAINE 2% INJ (20 MG/ML) 20 ML MDV INJ ONE (05:05)
--- NOTE | 2020-04-19 05:05 | ER Document Report ---
ED General - General Chief Complaint: Skin Problem Stated Complaint: SKIN PROBLEM Time Seen by Provider: 04/18/20 23:33 Primary Care Provider: [facility] [Provider Group] - Follow up as needed (Call tuesday for a follow up appointment) KARELY SEAY DO [Primary Care Provider] - Follow up in 1 week Mode of Arrival: Wheelchair TRAVEL OUTSIDE OF THE [place] IN LAST 30 DAYS: No - HPI Notes: 39-year-old male with past medical history for diabetes, end-stage renal disease to the emergency department with complaints of a possible abscess to his right testicle that began several days ago and is gotten worse. He states that he had this several weeks ago and it resolved on its own without antibiotics or treatment. However it came back up couple days ago. Denies any fevers or chills. He states is very painful to touch. Denies any redness or streaking into the groin or perineum. He denies any fevers or chills. He typically sits for his dialysis every Tuesday, Tuesday, Tuesday. He has not missed any dialysis. He he states his blood sugars have been running about 160. He does have an insulin pump. Denies any penile involvement. He denies any possible exposures for COVID-19. He denies any cough, shortness of breath, loss of taste or smell, sore throat, or body aches. - Related Data Allergies/Adverse Reactions: heparin Allergy (Verified 04/18/20 23:45) pork derived (porcine) [Pork derived (porcine)] Allergy (Verified 04/18/20 23:45) Past Medical History - General Information source: Patient - Social History Smoking Status: Current Every Day Smoker Frequency of alcohol use: None Drug Abuse: None Family History: Reviewed & Not Pertinent, Arthritis, CAD, CVA, DM, Hyperlipidemia, Hypertension, Malignancy, Thyroid Disfunction, Other - Chronic kidney disease Patient has homicidal ideation: No - Past Medical History Cardiac Medical History: Reports: Hx Hypercholesterolemia, Hx Hypertension Denies: Hx Congestive Heart Failure, Hx Coronary Artery Disease, Hx DVT, Hx Heart Attack, Hx Pulmonary Embolism Pulmonary Medical History: Reports: Hx Pneumonia Denies: Hx Asthma, Hx Bronchitis, Hx COPD Neurological Medical History: Reports: Hx Migraine. Denies: Hx Cerebrovascular Accident, Hx Seizures Endocrine Medical History: Reports: Hx Diabetes Mellitus Type 1 - on insulin pump, Hx Diabetes Mellitus Type 2 - On insulin pump. Denies: Hx Hyperthyroid ism, Hx Hypothyroidism Renal/ Medical History: Reports: Hx End Stage Renal Disease - Stage IV renal failure, Hx Hemodialysis, Hx Renal Insufficiency - normal creatinins 3 to 4 now.. Denies: Hx Peritoneal Dialysis GI Medical History: Reports: Hx Gastroesophageal Reflux Disease. Denies: Hx Cirrhosis, Hx Hepatitis Musculoskeletal Medical History: Denies Hx Arthritis, Reports Hx Musculoskeletal Trauma Skin Medical History: Reports Hx Cellulitis, Denies Hx Eczema, Reports Hx MRSA, Denies Hx Psoriasis Psychiatric Medical History: Reports: Hx Depression Traumatic Medical History: Reports: Hx Fractures Infectious Medical History: Reports: Hx MRSA - S/P I & D multiple skin abscesses in past. Denies: Hx Hepatitis Past Surgical History: Reports: Hx Oral Surgery, Hx Thyroid Surgery - Patient states that would removed due to cancer, Hx Vascular Surgery - Left AV Fistula - Immunizations Hx Diphtheria, Pertussis, Tetanus Vaccination: Yes Review of Systems - Review of Systems Constitutional: denies: Chills, Fever EENT: No symptoms reported Cardiovascular: denies: Chest pain, Palpitations, Heart racing, Orthopnea, Dyspnea, Syncope, Dizziness, Lightheaded, Edema Respiratory: denies: Cough, Short of breath Gastrointestinal: denies: Abdominal pain, Diarrhea, Nausea, Vomiting Genitourinary: denies: Burning, Dysuria, Frequency Male Genitourinary: See HPI, Testicular pain Musculoskeletal: No symptoms reported Skin: No symptoms reported Hematologic/Lymphatic: No symptoms reported Neurological/Psychological: No symptoms reported -: Yes All other systems reviewed and negative Physical Exam - Vital signs Vitals: Temp Pulse Resp BP Pulse Ox 99.3 F 100 20 174/75 H 96 04/18/20 23:19 04/18/20 23:19 04/18/20 23:19 04/18/20 23:19 04/18/20 23:19 Interpretation: Normal - General General appearance: Appears well, Alert In distress: None - HEENT Head: Normocephalic, Atraumatic Eyes: Normal Pupils: PERRL Neck: Normal, Supple - Respiratory Respiratory status: No respiratory distress Chest status: Nontender Breath sounds: Normal. No: Rales, Rhonchi, Wheezing Chest palpation: Normal - Cardiovascular Rhythm: Regular Heart sounds: Normal auscultation Murmur: No Notes: Dialysis access to the RUE left upper extremity with palpable thrill - Abdominal Inspection: Normal Distension: No distension Bowel sounds: Normal Tenderness: Nontender Organomegaly: No organomegaly - Genitourinary Notes: There is a noted indurated abscess to the right side of the scrotum. There is no streaking erythema. There is no involvement of the groin or the perineum. There is no desquamation of the testicles to suggest Sneha's. It is tender to palpation. There is no penile involvement. Exam chaperoned by GAVIN Osman. 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 Noted ultrasound. Patient opted for I&D. We will also start on antibiotics. Patient tolerated I&D fairly. There was some purulent discharge. Did pack superficially. I encouraged his to check it twice a day and monitor very closely given his diabetes status. Encouraged to return if any worsening pain, edema, streaking redness into the perineum or fevers. They agree with the plan. First dose of clindamycin given tonight prior to discharge. - Vital Signs Vital signs: Temp Pulse Resp BP Pulse Ox 98 F 86 14 174/97 H 98 04/19/20 06:12 04/19/20 06:12 04/19/20 06:12 04/19/20 06:12 04/19/20 06:12 Procedures - Incision and Drainage Right scrotum Type: Simple Anesthetic type: 2% Lidocaine mL's of anesthetic: 3 Blade size: 11 I&D procedure: Betadine prep applied, Shurclens applied Incision Method: Incision made by scalpel Amount/type of drainage: minimal purulent discharge, blood Notes: 04/19/20 1/4 packing placed. Patient tolerated the procedure well. Discharge - Discharge Clinical Impression: Scrotal abscess Condition: Stable Disposition: HOME, SELF-CARE Instructions: Abscess ([facility]) Additional Instructions: Take all antibiotics as prescribed. Return in 2 days for wound check and packing change. Return sooner if you have worsening pain, worsening swelling, redness into the perineum. Please check the wound twice a day for any worsening symptoms. Follow-up with your primary care. Also follow-up with urology. Take your pain medicine at home. Prescriptions: Clindamycin HCl 300 mg PO TID #30 capsule Referrals: KARELY SEAY DO [Primary Care Provider] - Follow up in 1 week ON LICENSE OF [facility] [Provider Group] - Follow up as needed (Call tuesday for a follow up appointment)
[2020-04-19] MEDS ORDERED: OXYCODONE-ACETAMINOPHEN 5-325 MG TABLET PO ONE (05:42)
[2020-04-19] MEDS ORDERED: CLINDAMYCIN HCL 150 MG CAPSULE PO ONE (05:43)
[2020-04-19 06:14] VITALS: BP 174/97
== END 2020-04-19 06:14 | disposition home or self-care (01) ==
LOC: ER 23:00
DX: N49.2 Inflammatory disorders of scrotum (principal); I12.0 Hypertensive chronic kidney disease with stage 5 chronic kidney disease or end stage renal disease; E11.22 Type 2 diabetes mellitus with diabetic chronic kidney disease; N18.6 End stage renal disease; Z99.2 Dependence on renal dialysis; Z96.41 Presence of insulin pump (external) (internal); F17.200 Nicotine dependence, unspecified, uncomplicated; Z88.8 Allergy status to other drugs, medicaments and biological substances; Z91.018 Allergy to other foods
CPT/HCPCS: 99284; 76870; 55100; J3490 ×2